=== PATIENT | male | born 1935 | race Caucasian/White ===

== ENCOUNTER 2018-05-20 00:13 | Emergency (ER) | payer MEDICARE ==
[2018-05-20 00:26] VITALS: O2SAT 95
[2018-05-20] MEDS ORDERED: Kenalog-40 IM ONE (00:53)
[2018-05-20] MEDS ORDERED: TORAdol 30 mg Injection IM ONE (00:53)
[2018-05-20] MEDS ORDERED: BENADRYL 50 MG/ML IM ONE (00:53)
[2018-05-20] MEDS ORDERED: TORAdol 30 mg Injection ONE (00:58)
[2018-05-20] MEDS ORDERED: BENADRYL 50 MG/ML ONE (00:58)
--- NOTE | 2018-05-20 01:00 | ERPHSYRPT ---
- History of Present Illness Time Seen by Provider: 05/20/18 00:55 Source: patient Exam Limitations: no limitations Patient Subjective Stated Complaint: pt co right hip pain for approx 3 days; was seen in this er earlier this pm for same s/s. Triage Nursing Assessment: pt a&o x3; skin p, w, & d; assisted to room per wheelchair; family at bedside. Physician History: pt co right hip pain for approx 3 days;, Patient has right hip pain for long time, it got worst today Method of Injury: unknown Occurred: days ago Quality: constant Severity of Pain-Max: moderate Severity of Pain-Current: moderate Lower Extremities Pain: hip: right Allergies/Adverse Reactions: No Known Drug Allergies Allergy (Verified 05/20/18 00:27) Home Medications: Glimepiride [Amaryl] 1 mg PO DAILY 12/17/14 [History] Hydrocodone Bit/Acetaminophen [Hydrocodon-Acetaminoph 7.5-325] 1 each PO DAILY 12/17/14 [History] Losartan/Hydrochlorothiazide [Losartan-Hctz 100-25 mg Tab] 1 each PO DAILY 12/17 [History] Hx Tetanus, Diphtheria Vaccination/Date Given: Yes Hx Influenza Vaccination/Date Given: Yes Hx Pneumococcal Vaccination/Date Given: Yes Immunizations Up to Date: Yes - Review of Systems Constitutional: No Fever, No Chills Eyes: No Symptoms Ears, Nose, & Throat: No Symptoms Respiratory: No Cough, No Dyspnea Cardiac: No Chest Pain, No Edema, No Syncope Abdominal/Gastrointestinal: No Abdominal Pain, No Nausea, No Vomiting, No Diarrhea Genitourinary Symptoms: No Dysuria Musculoskeletal: Joint Pain (right hip), No Back Pain, No Neck Pain, No Fall Skin: No Rash Neurological: No Dizziness, No Focal Weakness, No Sensory Changes Psychological: No Symptoms Endocrine: No Symptoms All Other Systems: Reviewed and Negative - Past Medical History Pertinent Past Medical History: Yes Neurological History: No Pertinent History ENT History: Cataracts Cardiac History: Hypertension Respiratory History: No Pertinent History Endocrine Medical History: Diabetes Type II Musculoskeletal History: Arthritis GI Medical History: No Pertinent History History: Other Psycho-Social History: No Pertinent History Male Reproductive Disorders: No Pertinent History Other Medical History: SEES DR. HANSEN EVERY 3 MONTHS. KIDNEY STONES. RECENT HERNIA SURGERY APPROX. 3 MONTHS AGO - Past Surgical History Past Surgical History: Yes Neuro Surgical History: No Pertinent History Cardiac: No Pertinent History Respiratory: No Pertinent History Gastrointestinal: Cholecystectomy, Hernia Repair Genitourinary: No Pertinent History Musculoskeletal: No Pertinent History Male Surgical History: No Pertinent History Other Surgical History: back,cataracts rt/lt - Social History Smoking Status: Never smoker Exposure to second hand smoke: No Drug Use: none Patient Lives Alone: No - Nursing Vital Signs Nursing Vital Signs: Initial Vital Signs Temperature 98.6 F 05/20/18 00:22 Pulse Rate 78 05/20/18 00:22 Respiratory Rate 16 05/20/18 00:22 Blood Pressure 140/59 05/20/18 00:22 O2 Sat by Pulse Oximetry 95 05/20/18 00:22 Pain Scale Pain Intensity 10 - Physical Exam General Appearance: alert Eyes, Ears, Nose, Throat Exam: moist mucous membranes Neck Exam: non-tender, supple Cardiovascular/Respiratory Exam: chest non-tender, normal breath sounds, regular rate/rhythm, no respiratory distress Gastrointestinal/Abdominal Exam: non-tender, guarding Back Exam: normal inspection, No vertebral tenderness Hips Exam: right: limited range of motion, pain, soft tissue tenderness Neuro/Tendon Exam: normal sensation, normal motor functions Mental Status Exam: alert, oriented x 3, cooperative Skin Exam: normal color, warm, dry SpO2: 95 Oxygen Delivery: Room Air - Course Nursing assessment & vital signs reviewed: Yes Ordered Tests: Medication Summary Discontinued Medications Generic Name Dose Route Start Last Admin Trade Name Freq PRN Reason Stop Dose Admin Diphenhydramine HCl 25 mg 05/20/18 00:53 Benadryl 50 Mg/Ml IM 05/20/18 00:54 STAT ONE Ketorolac Tromethamine 60 mg 05/20/18 00:53 Toradol 30 Mg Injection IM 05/20/18 00:54 STAT ONE Triamcinolone Acetonide 40 mg 05/20/18 00:53 Kenalog-40 IM 05/20/18 00:54 STAT ONE Xray right hip showed moderate arthritis. - Progress Progress: improved, pain not gone completely Counseled pt/family regarding: diagnosis, need for follow-up, rad results - Departure Time of Disposition: 00:58 Departure Disposition: Home Clinical Impression: Hip pain, chronic Qualifiers: Laterality: right Qualified Code(s): M25.551 - Pain in right hip; G89.29 - Other chronic pain Osteoarthritis of right hip Qualifiers: Osteoarthritis type: primary Qualified Code(s): M16.11 - Unilateral primary osteoarthritis, right hip Condition: Stable Critical Care Time: No Referrals: TYRONE HANSEN MD [Primary Care Provider] - Instructions: Hip Pain in Older People, Hip Pain (DC) Additional Instructions: Please follow the instructions given to you. Please take your medication as prescribed if given. If symptoms recur or get worse, come back to the emergency room if you cannot reach your primary care physician, or call your primary care physician for an appointment. Again if your symptoms get worse, come back to the emergency room. Thanks for visiting emergency room, and let us take care of you. CELE AGUILAR MIGUEL was seen on 05/20/18 n the Emergency Room. At that time you were treated for an emergent condition, during your visit Laboratory, Radiology and/or other procedures may have been ordered. It is very important that you follow-up with your Primary Care Physician TYRONE HANSEN within the next 24- 48 hours to review your Emergency Room visit and the final results of testing that was ordered. Some test results such as Urine Cultures, Blood Cultures, and other cultures if ordered will not be finalized for 24-48 hours. If you do not have a Primary Care Provider please call the medical records department at [phone] to obtain a copy of your results or you may sign into our patient portal to obtain these results by visiting us @ [email or web address] and completing the following steps: 1. Click on the Patient Portal link 2. Click the Patient Self Enrollment Link to complete the enrollment form and entering your 3. Once the enrollment form is completed you will receive an email with a temporary ID and password at the email address you provided. 4. Next choose a user name and password. Your user name must be at least 4 characters long and your password must be at least 4 characters long. 5. Choose a security question from the list and provide your answer to the question. If you already have signed into the Health Portal you may access your Health Care Information 02/05 by the following steps: 1. Login to our website @ [email or web address] 2. Enter your original user name and password. FAQS The [facility] Health Portal is an online tool that contains your Lab Results, Radiology Reports, Visit History, Discharge Instructions and Health Summary Lab and Radiology Results will not be available for 72 hours on the portal. The Portal is a secure site, passwords are encryted and URLs are re-written so they cannot be copied and pasted. You and authorized family members are the only ones who can access your Portal. Also there is a timeout feature that protects your information if you leave the Portal page open. If you have technical difficulty please use the Contact Us link on the page this will allow you to submit any questions you have regarding the Portal or you may contact the Medical Record Department at [phone]. Prescriptions: Naproxen 375 mg [Naprosyn 375 mg] 375 mg PO Q8H #30 tablet
[2018-05-20 01:23] VITALS: BP 107/68; PULSE 76
== END 2018-05-20 01:30 | disposition home or self-care (01) ==
LOC: ED 00:13
DX: M16.11 Unilateral primary osteoarthritis, right hip (principal); M25.551 Pain in right hip
CPT/HCPCS: 96372; 99284; J1200; J1885; J3301

== ENCOUNTER 2019-03-15 18:48 | Emergency (ER) | payer MEDICARE ==
[2019-03-15] MEDS ORDERED: Zofran 4 MG/2 ML VIAL IV ONE (19:57)
[2019-03-15] MEDS ORDERED: MORPHINE SULFATE 4 MG INJ IV ONE (19:57)
--- NOTE | 2019-03-15 20:01 | ERPHSYRPT ---
- History of Present Illness Time Seen by Provider: 03/15/19 19:57 Source: patient Exam Limitations: no limitations Patient Subjective Stated Complaint: patient has had hip issues for about 2 mths receiving pain injectiosn for hip but today ghe bent over nad it shot pain up his leg into back Triage Nursing Assessment: pt alert nad oriented x3, ablet o ambulate with cane somewhat unsteady but this is his normal, pupils equal an d reactive to light , skin warm dry and itnact, no obvious abnormalities with hip, right hip tender to touch Physician History: 83-year-old white male with history of chronic left hip pain arrives with complaint of pain in his right hip which radiates to his right low back and right abdomen began after bending over today. Past medical history includes cataracts high blood pressure diabetes arthritis kidney stones, hernia surgeries Past surgical history includes cholecystectomy, hernia repair, back surgeries, bilateral cataracts. Patient is chronically on oxycodone Timing/Duration: other (chronic left hip pain now right hip pain after bending over today) Modifying Factors: Improves With: other (bended over) Associated Symptoms: abdominal pain (pain in right low abdomen/groin), No nausea ( in pain began), No vomiting, No shortness of breath, No heartburn, No diaphoresis, No cough, No chills, No chest pain, No fever, No headaches, No loss of appetite, No malaise, No rash, No syncope, No seizure, No weakness Allergies/Adverse Reactions: No Known Drug Allergies Allergy (Verified 05/20/18 00:27) Home Medications: Glimepiride [Amaryl] 1 mg PO DAILY 12/17/14 [History] Hydrocodone Bit/Acetaminophen [Hydrocodon-Acetaminoph 7.5-325] 1 each PO DAILY 12/17/14 [History] Losartan/Hydrochlorothiazide [Losartan-Hctz 100-25 mg Tab] 1 each PO DAILY 12/17 [History] Hx Tetanus, Diphtheria Vaccination/Date Given: Yes Hx Influenza Vaccination/Date Given: Yes Hx Pneumococcal Vaccination/Date Given: Yes Immunizations Up to Date: Yes - Review of Systems Constitutional: No Fever, No Chills Eyes: No Symptoms Ears, Nose, & Throat: No Symptoms Respiratory: No Cough, No Dyspnea Cardiac: No Chest Pain, No Edema, No Syncope Abdominal/Gastrointestinal: Abdominal Pain (pain lower right abdomen and groin) , No Nausea, No Vomiting, No Diarrhea, No Constipation, No Hematemesis, No Hematochezia, No Melena, No Dysphagia, No Appetite Changes Genitourinary Symptoms: No Dysuria Musculoskeletal: Back Pain (rright back pain ), Joint Pain (right hip pain) Skin: No Rash Neurological: No Dizziness, No Focal Weakness, No Sensory Changes Psychological: No Symptoms Endocrine: No Symptoms All Other Systems: Reviewed and Negative - Past Medical History Pertinent Past Medical History: Yes Neurological History: No Pertinent History ENT History: Cataracts Cardiac History: Hypertension Respiratory History: No Pertinent History Endocrine Medical History: Diabetes Type II Musculoskeletal History: Arthritis GI Medical History: No Pertinent History History: Other Psycho-Social History: No Pertinent History Male Reproductive Disorders: No Pertinent History Other Medical History: SEES DR. HANSEN EVERY 3 MONTHS. KIDNEY STONES. RECENT HERNIA SURGERY APPROX. 3 MONTHS AGO - Past Surgical History Past Surgical History: Yes Neuro Surgical History: No Pertinent History Cardiac: No Pertinent History Respiratory: No Pertinent History Gastrointestinal: Cholecystectomy, Hernia Repair Genitourinary: No Pertinent History Musculoskeletal: No Pertinent History Male Surgical History: No Pertinent History Other Surgical History: back,cataracts rt/lt - Social History Smoking Status: Never smoker Exposure to second hand smoke: No Drug Use: none Patient Lives Alone: No - Nursing Vital Signs Nursing Vital Signs: Initial Vital Signs Temperature 98.9 F 03/15/19 18:50 Pulse Rate 72 03/15/19 18:50 Respiratory Rate 20 03/15/19 18:50 Blood Pressure 120/58 03/15/19 18:50 O2 Sat by Pulse Oximetry 98 03/15/19 18:50 Pain Scale Pain Intensity 8 - Physical Exam General Appearance: mild distress Eye Exam: PERRL/EOMI, eyes nml inspection Ears, Nose, Throat Exam: normal ENT inspection, TMs normal, pharynx normal, moist mucous membranes Neck Exam: normal inspection, non-tender, supple, full range of motion Respiratory Exam: normal breath sounds, lungs clear, No respiratory distress Cardiovascular Exam: regular rate/rhythm, normal heart sounds, normal peripheral pulses, capillary refill <2 sec Gastrointestinal/Abdomen Exam: soft, normal bowel sounds, tenderness (tender right low abdomen/groin) Back Exam: other (pain right low lumbar region) Extremity Exam: other (pain right hip with movement) Neurologic Exam: alert, oriented x 3, 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 Normal appendix, mild diffuse fecal stasis and small fatty left inguinal hernia no new or acute findings. Also stable bilateral hip degenerative joint disease) Ordered Tests: Active Orders 24 hr Category Date Time Status IV Insertion STAT Care 03/15/19 19:55 Active ABDOMEN AND PELVIS W/0 CONTRAS [CT] Stat Exams 03/15/19 19:55 Taken HIP UNI (2V) INCL PEL IF DONE Stat Exams 03/15/19 19:56 Taken CBC W DIFF Stat Lab 03/15/19 21:00 Completed CMP Stat Lab 03/15/19 21:00 Completed UA W/RFX UR CULTURE Stat Lab 03/15/19 21:00 Completed Medication Summary Discontinued Medications Generic Name Dose Route Start Last Admin Trade Name Primoq PRN Reason Stop Dose Admin Morphine Sulfate 4 mg 03/15/19 19:57 03/15/19 20:38 Morphine Sulfate 4 Mg Inj IV 03/15/19 19:58 4 mg STAT ONE Administration Morphine Sulfate Confirm 03/15/19 20:26 Morphine Sulfate 4 Mg Inj Administered 03/15/19 20:27 Dose 4 mg .ROUTE .STK-MED ONE Ondansetron HCl 4 mg 03/15/19 19:57 03/15/19 20:38 Zofran 4 Mg/2 Ml Vial IV 03/15/19 19:58 4 mg STAT ONE Administration Ondansetron HCl Confirm 03/15/19 20:26 Zofran 4 Mg/2 Ml Vial Administered 03/15/19 20:27 Dose 4 mg .ROUTE .STK-MED ONE Lab/Rad Data: Laboratory Result Diagrams 03/15/19 21:00 03/15/19 21:00 Laboratory Results 03/15/19 03/15/19 03/15/19 Range/Units 21:00 21:00 21:00 WBC 8.7 (4.0-10.5) K/mm3 RBC 3.99 L (4.1-5.6) M/mm3 Hgb 12.9 (12.5-18.0) gm/dl Hct 40.0 L (42-50) % MCV 100.3 H (78-100) fl MCH 32.3 H (26-32) pg MCHC 32.3 (32-36) g/dl RDW 14.0 (11.5-14.0) % Plt Count 275 (150-450) K/mm3 MPV 8.5 (6-9.5) fl Gran % 52.8 (36.0-66.0) % Eos # (Auto) 0.19 (0-0.5) Absolute Lymphs (auto) 2.96 (1.0-4.6) Absolute Monos (auto) 0.95 (0.0-1.3) Lymphocytes % 34.0 (24.0-44.0) % Monocytes % 10.9 (0.0-12.0) % Eosinophils % 2.2 (0.00-5.0) % Basophils % 0.1 (0.0-0.4) % Absolute Granulocytes 4.59 (1.4-6.9) Basophils # 0.01 (0-0.4) Sodium 140 (137-145) mmol/L Potassium 4.0 (3.5-5.1) mmol/L Chloride 102 (98-107) mmol/L Carbon Dioxide 30 (22-30) mmol/L Anion Gap 12.3 (5-15) MEQ/L BUN 39 H (9-20) mg/dL Creatinine 1.58 H (0.66-1.25) mg/dL Estimated GFR 44.7 ML/MIN Glucose 77 (74-106) mg/dL Calcium 9.5 (8.4-10.2) mg/dL Total Bilirubin 0.40 (0.2-1.3) mg/dL AST 22 (17-59) U/L ALT 15 (0-50) U/L Alkaline Phosphatase 107 (38-126) U/L Serum Total Protein 7.1 (6.3-8.2) g/dL Albumin 4.1 (3.5-5.0) g/dL Urine Color SURAJ (YELLOW) Urine Appearance SLIGHTLY CLOUDY (CLEAR) Urine pH 5.0 (5-6) Ur Specific [place] 1.017 (1.005-1.025) Urine Protein NEGATIVE (Negative) Urine Ketones NEGATIVE (NEGATIVE) Urine Blood NEGATIVE (0-5) Brent/ul Urine Nitrite NEGATIVE (NEGATIVE) Urine Bilirubin NEGATIVE (NEGATIVE) Urine Urobilinogen 2 (0-1) mg/dL Ur Leukocyte Esterase NEGATIVE (NEGATIVE) Urine WBC (Auto) 0-2 (0-5) /HPF Urine RBC (Auto) NONE (0-2) /HPF U Epithel Cells (Auto) NONE (FEW) /HPF Urine Bacteria (Auto) NONE (NEGATIVE) /HPF Urine Mucus (Auto) SLIGHT (NEGATIVE) /HPF Urine Culture Reflexed NO (NO) Urine Glucose NEGATIVE (NEGATIVE) mg/dL - Progress Progress: improved Progress Note: 03/15/19 21:44 CT abdomen and pelvis degenerative disease no acute intra-abdominal process. X-ray right hip no fracture no subluxation. Patient improved after morphine. Will go ahead and discharge patient - Departure Departure Disposition: Home Clinical Impression: Right lower quadrant abdominal pain, Right hip pain Back pain Qualifiers: Back pain location: low back pain Chronicity: acute Back pain laterality: right Sciatica presence: without sciatica Qualified Code(s): M54.5 - Low back pain Condition: Fair Critical Care Time: No Referrals: TYRONE HANSEN MD [Primary Care Provider] - Additional Instructions: Return home. Pain medications as prescribed by your family . Followup with your family . Return for acute distress or for severe symptoms.
[2019-03-15] MEDS ORDERED: MORPHINE SULFATE 4 MG INJ ONE (20:26)
[2019-03-15] MEDS ORDERED: Zofran 4 MG/2 ML VIAL ONE (20:26)
[2019-03-15 21:08] VITALS: O2SAT 96
[2019-03-15 21:15] LABS: BASOPHIL % 0.1 % (0.0-0.4); Basophil (Absolute #) 0.01 (0-0.4); Eosinophil % 2.2 % (0.00-5.0); Eosinophil (Absolute #) 0.19 (0-0.5); Granulocyte Absolute (ANC) 4.59 (1.4-6.9); Granulocytes % 52.8 % (36.0-66.0); Hemoglobin 12.9 gm/dl (12.5-18.0); Lymphocyte (Absolute #) 2.96 (1.0-4.6); Mean Cell Volume 100.3 fl (78-100); Mean Corpuscular Hemoglobin 32.3 pg (26-32); Mean Corpuscular Hgb Concent. 32.3 g/dl (32-36); Mean Platelet Volume 8.5 fl (6-9.5); Monocyte (Absolute #) 0.95 (0.0-1.3); Monocytes % 10.9 % (0.0-12.0); Platelet Count 275 K/mm3 (150-450); Red Blood Count 3.99 M/mm3 (4.1-5.6); White Blood Count 8.7 K/mm3 (4.0-10.5)
[2019-03-15 21:21] VITALS: BP 103/76; PULSE 69
[2019-03-15 21:28] LABS: Appearance SLIGHTLY CLOUDY (CLEAR); Bilirubin NEGATIVE (NEGATIVE); Blood NEGATIVE Ery/ul (0-5); Glucose NEGATIVE (NEGATIVE); Ketones NEGATIVE (NEGATIVE); Leukocyte Esterase NEGATIVE (NEGATIVE); Mucus SLIGHT /HPF (NEGATIVE); Nitrite NEGATIVE (NEGATIVE); Protein,Urine Dip NEGATIVE (Negative); Specific Gravity 1.017 (1.005-1.025); Urobilinogen 2 mg/dL (0-1); WBC 0-2 /HPF (0-5)
[2019-03-15 21:30] LABS: ALBUMIN 4.1 g/dL (3.5-5.0); ANION GAP 12.3 MEQ/L (5-15); BILIRUBIN,TOTAL 0.4 mg/dL (0.2-1.3); Calcium 9.5 mg/dL (8.4-10.2); Creatinine 1 1.58 mg/dL (0.66-1.25); Total Protein 7.1 g/dL (6.3-8.2)
--- NOTE | 2019-03-16 09:29 | XRAY ---
Indication: Pain. No known injury. Comparison: May 19, 2018. 2 views of the right hip unchanged again with moderate degenerative changes, hernia mesh graft, pelvic phleboliths, and mild lower lumbar degenerative spondylosis. No new/acute findings.
--- NOTE | 2019-03-16 09:32 | XRAY ---
Indication: Right lower quadrant and right hip pain. Multiple contiguous axial images obtained through the abdomen and pelvis without contrast as ordered. Comparison: October 05, 2016. Lung bases again demonstrates mild bibasilar dependent atelectasis and tiny right lung calcified granuloma. No infiltrate or effusion. Heart is not enlarged. Noncontrasted stomach and bowel loops appear nonobstructed. Normal appendix. There are again scattered colonic fecal debris throughout. No free fluid/air. Stable cholecystectomy, enlarged prostate gland, ventricles hernia repair, right inguinal hernia repair, and small fatty left inguinal hernia. Remaining liver, pancreas, spleen, adrenal glands, kidneys, ureters, and bladder appear unremarkable for noncontrast exam. Again mild scattered aortoiliac calcifications without AAA. Osseous structures intact again with mild degenerative changes throughout the spine and both hips. Impression: 1. Again mild diffuse fecal stasis without obstruction. 2. Stable enlarged prostate gland, hernia repair surgery, and small fatty left inguinal hernia. 3. No new or acute intra-abdominal/pelvic abnormalities on this noncontrast exam. CT DI 15.00
== END 2019-03-15 21:57 | disposition home or self-care (01) ==
LOC: ED 18:48
DX: M25.551 Pain in right hip (principal); R10.31 Right lower quadrant pain; M54.5 Low back pain; E11.9 Type 2 diabetes mellitus without complications; I10 Essential (primary) hypertension; Z79.899 Other long term (current) drug therapy
CPT/HCPCS: 36000; 36415; 73502; 74176; 80053; 81001; 85025; 96374; 96375; 99284; J2270; J2405

== ENCOUNTER 2020-04-05 14:57 | Emergency (ER) | payer MEDICARE ==
--- NOTE | 2020-04-05 15:09 | ERPHSYRPT ---
- History of Present Illness Time Seen by Provider: 04/05/20 15:09 Source: patient Exam Limitations: no limitations Physician History: This is a diabetic 84-year-old white male has a history of hypertension and has had 3 weeks of neck pain. Is primarily on the left side. Patient denies any type of injury. He was seen by his primary care physician yesterday and was given an injection. Patient states it was not a steroid. He felt that the medication given to him was a muscle relaxant. It did not help. Patient was told to come to the emergency room if his symptoms did not improve or they worsened. Patient denies chest pain he denies strokelike symptoms he denies shortness of breath. Timing/Duration: week(s) (3) Severity: moderate Modifying Factors: Improves With: movement (Worsens) Associated Symptoms: denies symptoms, No abdominal pain, No shortness of breath, No chest pain Allergies/Adverse Reactions: No Known Drug Allergies Allergy (Verified 04/05/20 15:41) Home Medications: Glimepiride [Amaryl] 1 mg PO DAILY 12/17/14 [History] Aspirin EC 81 mg [Ecotrin 81 mg] 81 mg PO DAILY 04/05/20 [History] Losartan Potassium [Cozaar] 100 mg PO DAILY 04/05/20 [History] Oxycodone HCl 15 mg PO Q4H 04/05/20 [History] Hx Tetanus, Diphtheria Vaccination/Date Given: Yes Hx Influenza Vaccination/Date Given: Yes Hx Pneumococcal Vaccination/Date Given: Yes Travel Risk - International Travel Have you traveled outside of the country in past 3 weeks: No - Coronavirus Screening Are you exhibiting any of the following symptoms?: No Close contact with a COVID-19 positive Pt in past 14-21 Days: No - Review of Systems Constitutional: No Symptoms Eyes: No Symptoms Ears, Nose, & Throat: No Symptoms Respiratory: No Symptoms Cardiac: No Symptoms Abdominal/Gastrointestinal: No Symptoms Genitourinary Symptoms: No Symptoms Musculoskeletal: Neck Pain (Left side) - Past Medical History Pertinent Past Medical History: Yes Neurological History: No Pertinent History ENT History: Cataracts Cardiac History: Hypertension Respiratory History: No Pertinent History Endocrine Medical History: Diabetes Type II Musculoskeletal History: Arthritis GI Medical History: No Pertinent History History: Other Psycho-Social History: No Pertinent History Male Reproductive Disorders: No Pertinent History Other Medical History: SEES DR. HANSEN EVERY 3 MONTHS. KIDNEY STONES. RECENT HERNIA SURGERY APPROX. 3 MONTHS AGO - Past Surgical History Past Surgical History: Yes Neuro Surgical History: No Pertinent History Cardiac: No Pertinent History Respiratory: No Pertinent History Gastrointestinal: Cholecystectomy, Hernia Repair Genitourinary: No Pertinent History Musculoskeletal: No Pertinent History Male Surgical History: No Pertinent History Other Surgical History: back,cataracts rt/lt - Social History Smoking Status: Never smoker Exposure to second hand smoke: No Drug Use: none Patient Lives Alone: No - Nursing Vital Signs Nursing Vital Signs: Initial Vital Signs Temperature 97.9 F 04/05/20 15:35 Pulse Rate 77 04/05/20 15:35 Blood Pressure 115/64 04/05/20 15:35 O2 Sat by Pulse Oximetry 95 04/05/20 15:35 Pain Scale Pain Intensity 10 - Physical Exam General Appearance: mild distress, alert, anxiety Eye Exam: PERRL/EOMI, eyes nml inspection Ears, Nose, Throat Exam: normal ENT inspection, moist mucous membranes Neck Exam: normal inspection, supple, full range of motion, other (No midline or vertebral tenderness. 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 Medical screening exam: This patient has no evidence of any stenosis or narrowing space. Patient has Percocet medication at home. He took this medication 3 hours ago and is just starting to kick in now. He is more comfortable. My plan is to have him continue his Percocet pain medication at home. I will give him injection intramuscularly of Ativan 1 mg. I will then send a prescription for Soma 350 mg twice a day to his pharmacy. He will follow-up with his primary care physician next week for further management. Counseled pt/family regarding: diagnosis, need for follow-up, rad results - Departure Departure Disposition: Home Clinical Impression: Muscle spasm Condition: Stable Critical Care Time: No Referrals: TYRONE HANSEN MD [Primary Care Provider] - Additional Instructions: Take your pain medication as prescribed. Follow-up with your primary care physician next week for further management. Fill your prescription for your muscle relaxant at your pharmacy. Prescriptions: Carisoprodol 350 mg [Soma 350 mg] 350 mg PO Q12H PRN PRN #8 tablet PRN Reason: Muscle Spasms
[2020-04-05 15:41] VITALS: O2SAT 95
[2020-04-05 16:21] VITALS: BP 124/65; PULSE 75
[2020-04-05] MEDS ORDERED: Ativan 2 MG/1 ML VIAL IM ONE (16:42)
[2020-04-05] MEDS ORDERED: Ativan 2 MG/1 ML VIAL ONE (16:47)
--- NOTE | 2020-04-05 19:58 | XRAY ---
Indication: Left neck pain radiating left arm 3 weeks. Multiple contiguous axial images obtained through the cervical spine. Sagittal and coronal reformatted images obtained. Comparison: April 10, 2014. Age-appropriate osteopenia. No acute fracture, suspicious bony lesions, or spinal canal stenosis. New mild/moderate C4-C5 and C6-T1 degenerative disc disease as evidenced by disc osteophyte complex, disc space narrowing, and vacuum disc phenomena. Stable mild multilevel bilateral degenerative facet hypertrophy. No acute fracture, suspicious bony lesions, or spinal canal stenosis. Sagittal and coronal reformatted images demonstrates stable 1 mm anterolisthesis of C4 on C5. New 3 mm anterolisthesis of C6 on C7 with subsequent bilateral foraminal stenosis. No acute compression fracture or jumped facet. Normal-appearing craniocervical junction. Visualized noncontrasted soft tissues demonstrates worsening moderate carotid calcifications bilaterally. Base of the brain unremarkable. Impression: Osteopenia and mild/moderate multilevel degenerative spondylosis as detailed. Stable very minimal grade 1 C4 spondylolisthesis. New grade 1 C6 spondylolisthesis. Comment: Preliminary interpretation was made by [facility]. No critical discrepancy.
== END 2020-04-05 16:57 | disposition home or self-care (01) ==
LOC: ED 14:57
DX: R25.2 Cramp and spasm (principal); Z79.899 Other long term (current) drug therapy; Z79.891 Long term (current) use of opiate analgesic
CPT/HCPCS: 72125; 96372; 99284; J2060

== ENCOUNTER 2021-08-12 10:12 | Day surgery (SDC) | payer MEDICARE ==
[~2021-08-12 10:12] MED LIST: DIPRIVAN 200 MG/20 ML IV ONE; Depo-Medrol 40 MG/ML IM ONE; Sodium Chloride 0.9(Preservative Free) 10 ML IJ ONE; Xylocaine 1% Vial 30 ML PF IJ ONE
[2021-08-12] MEDS ORDERED: Sodium Chloride 0.9% 10 ML FLUSH Syringe IJ ONE (10:13)
[2021-08-12] MEDS ORDERED: Xylocaine 1% Vial 30 ML PF IJ ONE (10:13)
[2021-08-12] MEDS ORDERED: Depo-Medrol 40 MG/ML IM ONE (10:13)
[2021-08-12] MEDS ORDERED: DIPRIVAN 200 MG/20 ML IV ONE (12:09)
--- NOTE | 2021-08-12 13:08 | XRAY ---
Indication: Lumbar RAYRAY. Intraoperative fluoroscopy provided for 31 seconds. Single lateral digital spot images submitted for interpretation demonstrates posterior needle tip projecting just posterior to the lumbosacral junction interspace. Small amount of contrast injected for needle tip placement. Correlate with intraoperative findings/report.
[2021-08-12] MEDS ORDERED: Lactated Ringers 1,000 ML IV ONE (14:05)
--- NOTE | 2021-08-13 13:47 | XRAY ---
31 seconds fluoroscopy time in surgery for lumbar RAYRAY.
== END 2021-08-12 13:00 | disposition home or self-care (01) ==
LOC: SDC-PAIN 10:12
PROVIDERS: ATTEND Psychiatry & Neurology Pain Medicine
DX: M54.16 Radiculopathy, lumbar region (principal); E11.9 Type 2 diabetes mellitus without complications; Z79.899 Other long term (current) drug therapy
CPT/HCPCS: 62323; 72100; 77003; 82947; J1030; J2001; J2704; Q9966

== ENCOUNTER 2021-08-24 08:31 | Inpatient (IN) | payer MEDICARE ==
[2021-08-24] MEDS ORDERED: MORPHINE SULFATE 2 MG INJ IV ONE (09:09)
--- NOTE | 2021-08-24 09:11 | ERPHSYRPT ---
- History of Present Illness Time Seen by Provider: 08/24/21 08:40 Source: patient Exam Limitations: no limitations Patient Subjective Stated Complaint: pt here for a fall this morning, he states he bent over to pick something up and lost balance falling over on left side. pt laid on floor for an hour. pt was able to walk out to ambulance. Triage Nursing Assessment: pt arrived per ambulance, c collar in place, resp easy, skin w/d/p. edema to lower legs that is normal for him, hes only co is hes chronic back paim, Physician History: Patient is a 86-year-old male presents to our emergency emergency department via EMS status post fall. Patient arrived in a cervical collar. Per EMS patient was bending forward to pick something up off the ground when he lost his balance and fell towards his left side. Patient was unable to get up off the floor. Patient is known to have chronic back pain but states that his low back pain is significantly worse. Patient also had neck tenderness. EMS applied a cervical collar. Patient is on blood thinners. Patient symptoms are mild to moderate in intensity. Movement and palpation worsen pain to cervical and lumbar spine. Patient also admits to experiencing a cough. He feels somewhat weak. Patient voices no other complaints or concerns at this time. Timing/Duration: today Severity: moderate Modifying Factors: Improves With: nothing Associated Symptoms: weakness, other (Back pain cervical spine pain), No nausea, No vomiting, No shortness of breath Allergies/Adverse Reactions: No Known Drug Allergies Allergy (Verified 08/24/21 08:38) Home Medications: Glimepiride [Amaryl] 1 mg PO DAILY 12/17/14 [History] Aspirin EC 81 mg [Ecotrin 81 mg] 81 mg PO DAILY 04/05/20 [History] Losartan Potassium [Cozaar] 100 mg PO DAILY 04/05/20 [History] Oxycodone HCl 15 mg PO Q4H 04/05/20 [History] Clopidogrel Bisulfate 75 mg [PLAVIX 75 MG Tablet] 1 ea DAILY 08/24/21 [History] Hx Tetanus, Diphtheria Vaccination/Date Given: Yes Hx Influenza Vaccination/Date Given: Yes Hx Pneumococcal Vaccination/Date Given: Yes Immunizations Up to Date: Yes Travel Risk - International Travel Have you traveled outside of the country in past 3 weeks: No - Coronavirus Screening Are you exhibiting any of the following symptoms?: No Close contact with a COVID-19 positive Pt in past 14-21 Days: No - Vaccine Status Have you recieved a Covid-19 vaccination: No - Review of Systems Constitutional: No Symptoms, No Fever, No Chills Eyes: No Symptoms Ears, Nose, & Throat: No Symptoms Respiratory: No Symptoms, No Cough, No Dyspnea Cardiac: No Symptoms, No Chest Pain, No Edema, No Syncope Abdominal/Gastrointestinal: No Symptoms, No Abdominal Pain, No Nausea, No Vomiting, No Diarrhea Genitourinary Symptoms: No Symptoms, No Dysuria Musculoskeletal: No Symptoms, No Back Pain, No Neck Pain Skin: No Symptoms, No Rash Neurological: No Symptoms, No Dizziness, No Focal Weakness, No Sensory Changes Psychological: No Symptoms Endocrine: No Symptoms Hematologic/Lymphatic: No Symptoms Immunological/Allergic: No Symptoms All Other Systems: Reviewed and Negative - Past Medical History Pertinent Past Medical History: Yes Neurological History: No Pertinent History ENT History: Cataracts Cardiac History: Hypertension Respiratory History: No Pertinent History Endocrine Medical History: Diabetes Type II Musculoskeletal History: Arthritis GI Medical History: No Pertinent History History: Other Psycho-Social History: No Pertinent History Male Reproductive Disorders: No Pertinent History Other Medical History: SEES DR. HANSEN EVERY 3 MONTHS. KIDNEY STONES. RECENT HERNIA SURGERY APPROX. 3 MONTHS AGO - Past Surgical History Past Surgical History: Yes Neuro Surgical History: No Pertinent History Cardiac: No Pertinent History Respiratory: No Pertinent History Gastrointestinal: Cholecystectomy, Hernia Repair Genitourinary: No Pertinent History Musculoskeletal: No Pertinent History Male Surgical History: No Pertinent History Other Surgical History: back,cataracts rt/lt - Social History Smoking Status: Never smoker Exposure to second hand smoke: No Drug Use: none Patient Lives Alone: No - Nursing Vital Signs Nursing Vital Signs: Initial Vital Signs Temperature 97.0 F 08/24/21 08:32 Pulse Rate 100 H 08/24/21 08:32 Respiratory Rate 22 08/24/21 08:32 Blood Pressure 133/75 08/24/21 08:32 O2 Sat by Pulse Oximetry 94 L 08/24/21 08:32 Pain Scale Pain Intensity 4 - Physical Exam General Appearance: no apparent distress, alert Eye Exam: PERRL/EOMI, eyes nml inspection Ears, Nose, Throat Exam: normal ENT inspection, TMs normal, pharynx normal, moist mucous membranes Neck Exam: normal inspection, non-tender, supple, midline tenderness, other (Overlying soft tissue intact. Tenderness to palpation midline cervical spine) Respiratory Exam: normal breath sounds, lungs clear, airway intact, No chest tenderness, No respiratory distress Cardiovascular Exam: regular rate/rhythm, normal heart sounds, normal peripheral pulses Gastrointestinal/Abdomen Exam: soft, normal bowel sounds, No tenderness, No mass Back Exam: normal inspection, normal range of motion, other (Tenderness palpation lumbar spine. Overlying soft tissue intact. No signs of trauma.), No CVA tenderness, No vertebral tenderness Extremity Exam: normal inspection, normal range of motion, pelvis stable Neurologic Exam: alert, oriented x 3, cooperative, normal mood/affect, nml cerebellar function, nml station & gait, sensation nml, No motor deficits Skin Exam: normal color, warm, dry, No rash Lymphatic Exam: No adenopathy SpO2 Interpretation: normal SpO2: 94 O2 Delivery: Room Air - Course Nursing assessment & vital signs reviewed: Yes EKG Interpreted by Me: RATE (95), Sinus Rhythm, NORMAL AXIS, NORMAL INTERVALS - Radiology Exams Chest X-ray Interpretation: Teleradiologist Report (New diffuse right lung left base hazy airspace disease and tiny right effusion. Heart not enlarged. Bony thorax intact with osteopenia degenerative changes and interval right shoulder arthroplasty) - CT Exams Head CT Interpretation: Tele-radiologist Report (Age-appropriate global atrophy with now worsening mild periventricular degenerative microischemia bilaterally. Stable basal ganglia and cerebellar benign calcifications. New bilateral basal ganglia remote lacunar infarcts. No acute intracranial hemorrhage abnormal a xial fluid collections or mass-) Cervical Spine CT Interpretation: Tele-radiologist Report (Stable osteopenia, mild/moderate multilevel degenerative spondylolysis and grade 1 C4/C6 anterolisthesis. No new acute abnormalities) Lumbar Spine CT Interpretation: Tele-radiologist Report (Osteopenia multilevel degenerative spondylosis and scattered arteriosclerotic calcifications. No acute findings. 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 Care 08/24/21 08:56 Active EKG-ER Only STAT Care 08/24/21 08:55 Active IV Insertion STAT Care 08/24/21 08:55 Active Pulse Oximetry (ED) STAT Care 08/24/21 08:55 Active CERVICAL SPINE WO CONTRAST [CT] Stat Exams 08/24/21 08:57 Completed CHEST 1 VIEW (PORTABLE) Stat Exams 08/24/21 08:55 Completed HEAD WITHOUT CONTRAST [CT] Stat Exams 08/24/21 08:57 Completed LUMBAR SPINE W/O [CT] Stat Exams 08/24/21 08:57 Completed BLOOD CULTURE Stat Lab 08/24/21 10:50 Ordered CBC W DIFF Stat Lab 08/24/21 09:50 Completed CK (IN-HOUSE) [CK-Creatinine Phosphokinase] Stat Lab 08/24/21 08:58 Completed CMP Stat Lab 08/24/21 09:50 Completed TROPONIN Q3H Lab 08/24/21 09:50 Completed TROPONIN Q3H Lab 08/24/21 11:45 Completed TROPONIN Q3H Lab 08/24/21 15:00 Ordered TROPONIN Q3H Lab 08/24/21 18:00 Ordered TROPONIN Q3H Lab 08/24/21 21:00 Ordered Transfer Order Routine Transfer 08/24/21 Ordered Medication Summary Generic Name Dose Route Start Last Admin Trade Name Freq PRN Reason Stop Dose Admin Remdesivir 200 mg/ Sodium 250 mls @ 125 mls/hr 08/24/21 12:44 Chloride IV 08/24/21 14:43 ONCE ONE Discontinued Medications Generic Name Dose Route Start Last Admin Trade Name Freq PRN Reason Stop Dose Admin Aspirin 324 mg 08/24/21 10:30 08/24/21 10:58 Aspirin 81 Mg Tab.Chew PO 08/24/21 10:31 324 mg STAT ONE Administration Aspirin Confirm 08/24/21 10:54 Aspirin 81 Mg Tab.Chew Administered 08/24/21 10:55 Dose 324 mg .ROUTE .STK-MED ONE Dexamethasone Sodium Phosphate 8 mg 08/24/21 12:42 Dexamethasone Sod Phosphate 10 Mg/Ml IV 08/24/21 12:43 STAT ONE Enoxaparin Sodium 70 mg 08/24/21 12:44 Enoxaparin Sodium 80 Mg/0.8 Ml Syringe SQ 08/24/21 12:45 STAT ONE Nitroglycerin/Dextrose 250 mls @ 1.5 mls/hr 08/24/21 10:30 Ntg 0.2mg/Ml In D5w Glass IV 09/23/21 10:29 .Q24H PRN CHEST PAIN Protocol 5 MCG/MIN Ceftriaxone Sodium/Dextrose 2 g in 50 mls @ 100 mls/hr 08/24/21 10:42 08/24/21 11:34 Rocephin 2 Gm-D5w 50ml Bag IV 08/24/21 11:11 Infused STAT STA Infusion Azithromycin 500 mg in 250 mls @ 250 mls/hr 08/24/21 10:42 08/24/21 11:33 Zithromax 500 Mg/ 250 Ml Nacl Premix IV 08/24/21 11:41 250 ml/hr STAT STA 250 mls/hr Administration Ceftriaxone Sodium/Dextrose Confirm 08/24/21 10:54 Rocephin 2 Gm-D5w 50ml Bag Administered 08/24/21 10:55 Dose 2 g in 50 mls @ ud IV .STK-MED ONE Azithromycin Confirm 08/24/21 11:30 Zithromax 500 Mg/ 250 Ml Nacl Premix Administered 08/24/21 11:31 Dose 500 mg in 250 mls @ ud IV .STK-MED ONE Morphine Sulfate 2 mg 08/24/21 09:09 08/24/21 09:40 Morphine Sulfate 2 Mg/Ml Inj IV 08/24/21 09:10 2 mg STAT ONE Administration Morphine Sulfate Confirm 08/24/21 09:40 Morphine Sulfate 2 Mg/Ml Inj Administered 08/24/21 09:41 Dose 2 mg .ROUTE .STK-MED ONE Lab/Rad Data: Laboratory Result Diagrams 08/24/21 09:50 08/24/21 09:50 Laboratory Results 08/24/21 08/24/21 08/24/21 Range/Units 11:45 11:12 09:50 WBC (4.0-10.5) K/mm3 RBC (4.1-5.6) M/mm3 Hgb (12.5-18.0) gm/dl Hct (42-50) % MCV (78-100) fl MCH (26-32) pg MCHC (32-36) g/dl RDW (11.5-14.0) % Plt Count (150-450) K/mm3 MPV (7.5-11.0) fl Gran % (36.0-66.0) % Eos # (Auto) (0-0.5) Absolute Lymphs (auto) (1.0-4.6) Absolute Monos (auto) (0.0-1.3) Lymphocytes % (24.0-44.0) % Monocytes % (0.0-12.0) % Eosinophils % (0.00-5.0) % Basophils % (0.0-0.4) % Absolute Granulocytes (1.4-6.9) Basophils # (0-0.4) Sodium (137-145) mmol/L Potassium (3.5-5.1) mmol/L Chloride (98-107) mmol/L Carbon Dioxide (22-30) mmol/L Anion Gap (5-15) MEQ/L BUN (9-20) mg/dL Creatinine (0.66-1.25) mg/dL Estimated GFR ML/MIN Glucose (74-106) mg/dL Calcium (8.4-10.2) mg/dL Total Bilirubin (0.2-1.3) mg/dL AST (17-59) U/L ALT (0-50) U/L Alkaline Phosphatase (38-126) U/L Creatine Kinase (55-170) U/L Troponin I 0.131 H* 0.113 H* (0.000-0.034) ng/mL Serum Total Protein (6.3-8.2) g/dL Albumin (3.5-5.0) g/dL SARS-CoV-2 (PCR) POSITIVE A (NEGATIVE) Slides for Path Review 08/24/21 08/24/21 08/24/21 Range/Units 09:50 09:50 08:58 WBC 9.2 (4.0-10.5) K/mm3 RBC 3.69 L (4.1-5.6) M/mm3 Hgb 11.4 L (12.5-18.0) gm/dl Hct 36.5 L (42-50) % MCV 98.9 (78-100) fl MCH 30.9 (26-32) pg MCHC 31.2 L (32-36) g/dl RDW 14.6 H (11.5-14.0) % Plt Count 191 (150-450) K/mm3 MPV 9.2 (7.5-11.0) fl Gran % 87.7 H (36.0-66.0) % Eos # (Auto) 0 (0-0.5) Absolute Lymphs (auto) 0.52 L (1.0-4.6) Absolute Monos (auto) 0.60 (0.0-1.3) Lymphocytes % 5.7 L (24.0-44.0) % Monocytes % 6.5 (0.0-12.0) % Eosinophils % 0.0 (0.00-5.0) % Basophils % 0.1 (0.0-0.4) % Absolute Granulocytes 8.07 H (1.4-6.9) Basophils # 0.01 (0-0.4) Sodium 137 (137-145) mmol/L Potassium 4.3 (3.5-5.1) mmol/L Chloride 101 (98-107) mmol/L Carbon Dioxide 27 (22-30) mmol/L Anion Gap 12.1 (5-15) MEQ/L BUN 45 H (9-20) mg/dL Creatinine 1.09 (0.66-1.25) mg/dL Estimated GFR > 60.0 ML/MIN Glucose 133 H (74-106) mg/dL Calcium 8.4 (8.4-10.2) mg/dL Total Bilirubin 0.70 (0.2-1.3) mg/dL AST 50 (17-59) U/L ALT 19 (0-50) U/L Alkaline Phosphatase 88 (38-126) U/L Creatine Kinase 225 H (55-170) U/L Troponin I (0.000-0.034) ng/mL Serum Total Protein 6.9 (6.3-8.2) g/dL Albumin 3.9 (3.5-5.0) g/dL SARS-CoV-2 (PCR) (NEGATIVE) Slides for Path Review YES - Progress Progress: improved Progress Note: Patient has an elevated troponin and a pneumonia observed on his chest x-ray. Patient also hypoxic. We attempted to transfer patient however there were no facilities capable of accommodating her patient at this time. I discussed the case with Dr. Hansen who accepts admission at this time. Patient has no chest pain. No ischemic changes on EKG. 08/24/21 10:48 Covid test is positive. Case discussed with Dr. Ayala who accepts admission to the Covid unit. We notified Dr. Hansen the patient will be admitted to Dr. Ayala service. Plan of care discussed with patient. He agrees to admission [facility] for further evaluation and treatment. He voices no other complaints or concerns at this time. Portions of this note were created with voice recognition technology. There may be grammatical, spelling, punctuation or sound alike errors 08/24/21 12:54 Discussed with : Theodora Will see patient in: hospital (observation) Counseled pt/family regarding: lab results, diagnosis, rad results - Departure Departure Disposition: Observation Clinical Impression: Fall, Back pain, Remote lacunar infarcts, Aortoiliac calcifications, Elevated troponin, Pleural effusion, Hypoxia, Cough, Pneumonia, SARS-CoV-2 positive Condition: Stable Critical Care Time: No
--- NOTE | 2021-08-24 09:33 | XRAY ---
Indication: Status post fall. Pneumonia. Comparison: June 09, 2011. Portable chest demonstrates new diffuse right lung/left base hazy airspace disease and tiny right effusion. Heart not enlarged. Bony thorax intact with osteopenia, degenerative changes, and interval right shoulder arthroplasty.
[2021-08-24] MEDS ORDERED: MORPHINE SULFATE 2 MG INJ ONE (09:40)
[2021-08-24 10:09] LABS: ALBUMIN 3.9 g/dL (3.5-5.0); ALKALINE PHOSPHATASE 88 U/L (38-126); ANION GAP 12.1 MEQ/L (5-15); BLOOD UREA NITROGEN 45 mg/dL (9-20); CHLORIDE 101 mmol/L (98-107); Calcium 8.4 mg/dL (8.4-10.2); Carbon Dioxide 27 mmol/L (22-30); Creatinine 1 1.09 mg/dL (0.66-1.25); EST GLOMERULAR FILTRATION RATE > 60.0 ML/MIN; Glucose 133 mg/dL (74-106); Potassium 4.3 mmol/L (3.5-5.1); SGOT/AST 50 U/L (17-59); SGPT/ALT 19 U/L (0-50); SODIUM 137 mmol/L (137-145); Total Protein 6.9 g/dL (6.3-8.2)
--- NOTE | 2021-08-24 10:15 | XRAY ---
Indication: Trauma following fall. Multiple contiguous axial images obtained through the head without contrast. Comparison: April 10, 2014. Again age-appropriate global atrophy with now worsening mild periventricular degenerative micro-ischemia bilaterally. Stable basal ganglia and cerebellar benign calcifications. New bilateral basal ganglia remote lacunar infarcts. No acute intracranial hemorrhage, abnormal extra-axial fluid collection, or mass effect. Fourth ventricle is midline without hydrocephalus. Bony calvarium intact. Visualized paranasal sinuses and mastoid air cells are clear. Impression: Nonacute senile brain with new bilateral basal ganglia remote lacunar infarcts.
--- NOTE | 2021-08-24 10:16 | XRAY ---
Indication: Pain following fall. Multiple contiguous axial images obtained through the cervical spine. Sagittal and coronal reformatted images obtained. Comparison: April 05, 2020. Remains age-related osteopenia. Axial images remain negative for acute fracture, suspicious bony lesions or spinal canal stenosis. Stable mild/moderate C4-C5 and C6-T1 degenerative endplate spurring. Stable C7-T1 degenerative vacuum disc phenomena and multilevel bilateral degenerative facet hypertrophy. Sagittal and coronal reformatted images demonstrates stable 1 mm anterolisthesis of C4 on C5, 3 mm anterolisthesis of C6 on C7, and C7-T1 disc space loss. No acute compression fracture or jumped facet. Normal-appearing craniocervical junction. Visualized noncontrasted soft tissues again demonstrates moderate bilateral carotid calcifications. Lung apices and base of brain are unremarkable. Impression: Stable osteopenia, mild/moderate multilevel degenerative spondylosis, and grade 1 C4/C6 anterolisthesis. No new/acute abnormalities.
--- NOTE | 2021-08-24 10:17 | XRAY ---
Indication: Pain following fall. Multiple contiguous axial images obtained through the lumbar spine. Sagittal and coronal reformatted images obtained. Comparison: March 15, 2019. Osseous structures remain demineralized again with mild/moderate multilevel thoracolumbar degenerative spondylosis. Axial images negative for acute fracture or suspicious bony lesions. New L1-L2 and L4-L5 degenerative vacuum disc phenomena. Sagittal and coronal reformatted images again demonstrates normal lumbar alignment with minimal multilevel degenerative disc space narrowing. No acute compression fracture or subluxation. Visualized noncontrasted soft tissues again demonstrates moderate scattered aortoiliac calcifications. Impression: Again osteopenia, multilevel degenerative spondylosis, and scattered arteriosclerotic calcifications. No acute findings.
[2021-08-24 10:20] LABS: Absolute Neutrophil Ct (ANC) 8.07 (1.4-6.9); BASOPHIL % 0.1 % (0.0-0.4); Basophil (Absolute #) 0.01 (0-0.4); Eosinophil (Absolute #) 0 (0-0.5); Hematocrit 36.5 % (42-50); Hemoglobin 11.4 gm/dl (12.5-18.0); Lymphocyte (Absolute #) 0.52 (1.0-4.6); Lymphocytes % 5.7 % (24.0-44.0); Mean Cell Volume 98.9 fl (78-100); Mean Corpuscular Hemoglobin 30.9 pg (26-32); Mean Corpuscular Hgb Concent. 31.2 g/dl (32-36); Mean Platelet Volume 9.2 fl (7.5-11.0); Monocytes % 6.5 % (0.0-12.0); Neutrophil % 87.7 % (36.0-66.0); Platelet Count 191 K/mm3 (150-450); Red Blood Count 3.69 M/mm3 (4.1-5.6); Red Cell Distribution Width 14.6 % (11.5-14.0); White Blood Count 9.2 K/mm3 (4.0-10.5)
[2021-08-24] MEDS ORDERED: BABY ASPIRIN 81 MG CHEW PO ONE (10:30)
[2021-08-24] MEDS ORDERED: Ntg 0.2MG/Ml in D5W GLASS*** 250 ML IV PRN (10:30)
[2021-08-24] MEDS ORDERED: ROCEPHIN 2 Gm-D5w 50ML BAG** 2 G/50 ML IVPB IV STA (10:42)
[2021-08-24] MEDS ORDERED: Zithromax 500 MG/ 250 ML NaCl Premix 500 MG/250 ML IVPB IV STA (10:42)
[2021-08-24] MEDS ORDERED: BABY ASPIRIN 81 MG CHEW ONE (10:54)
[2021-08-24] MEDS ORDERED: ROCEPHIN 2 Gm-D5w 50ML BAG** 2 G/50 ML IVPB IV ONE (10:54)
[2021-08-24] MEDS ORDERED: Zithromax 500 MG/ 250 ML NaCl Premix 500 MG/250 ML IVPB IV ONE (11:30)
[2021-08-24 11:51] LABS: Slide Review 1 YES
[2021-08-24] MEDS ORDERED: DECADRON 10MG INJ. IV ONE (12:42)
[2021-08-24] MEDS ORDERED: ENOXAPARIN SODIUM SQ ONE (12:44)
[2021-08-24] MEDS ORDERED: REMDESIVIR 200 MG in Sodium Chloride 0.9% 250 ML 250 ML IV ONE ×2 (12:44→18:00)
[2021-08-24] MEDS ORDERED: MORPHINE SULFATE 4 MG INJ IV PRN (14:11)
[2021-08-24] MEDS ORDERED: Ativan 2 MG/1 ML VIAL IV PRN (15:33)
[2021-08-24] MEDS ORDERED: TYLENOL EXTRA STRENGTH 500 MG PO PRN (15:41)
[2021-08-24] MEDS ORDERED: Zofran 4 MG/2 ML VIAL IV PRN (15:43)
[2021-08-24] MEDS ORDERED: SOMA 350 MG PO PRN (15:46)
[2021-08-24] MEDS ORDERED: OXYCODONE HCL 15 MG PO SCH (16:00)
[2021-08-24] MEDS: ENOXAPARIN SODIUM SQ SCH (16:58)
[2021-08-24] MEDS: OLUMIANT PO SCH (16:58)
[2021-08-24] MEDS: DECADRON 10MG INJ. IV SCH (17:06)
[2021-08-24] MEDS ORDERED: PLAVIX 75 MG Tablet PO ONE (20:58)
[2021-08-24] MEDS: HYDROCODONE-CHLORPHEN ER SUSP PO PRN (21:10)
[2021-08-24] MEDS: Neurontin 100 MG PO SCH (21:11)
[2021-08-25 05:29] LABS: Absolute Neutrophil Ct (ANC) 5.82 (1.4-6.9); Basophil (Absolute #) 0 (0-0.4); Eosinophil (Absolute #) 0 (0-0.5); Hematocrit 39.7 % (42-50); Hemoglobin 12.8 gm/dl (12.5-18.0); Lymphocyte (Absolute #) 0.56 (1.0-4.6); Lymphocytes % 8.4 % (24.0-44.0); Mean Cell Volume 97.1 fl (78-100); Mean Corpuscular Hemoglobin 31.3 pg (26-32); Mean Corpuscular Hgb Concent. 32.2 g/dl (32-36); Mean Platelet Volume 9.3 fl (7.5-11.0); Monocyte (Absolute #) 0.28 (0.0-1.3); Monocytes % 4.2 % (0.0-12.0); Neutrophil % 87.4 % (36.0-66.0); Platelet Count 193 K/mm3 (150-450); Red Blood Count 4.09 M/mm3 (4.1-5.6); Red Cell Distribution Width 14.5 % (11.5-14.0); White Blood Count 6.7 K/mm3 (4.0-10.5)
[2021-08-25 05:48] LABS: INR 1.27 (0.8-3.0)
[2021-08-25 06:03] LABS: Slide Review 1 YES
[2021-08-25 06:12] LABS: ALBUMIN 3.1 g/dL (3.5-5.0); ALKALINE PHOSPHATASE 86 U/L (38-126); ANION GAP 13.3 MEQ/L (5-15); BLOOD UREA NITROGEN 32 mg/dL (9-20); CHLORIDE 105 mmol/L (98-107); Carbon Dioxide 25 mmol/L (22-30); Creatinine 1 0.67 mg/dL (0.66-1.25); EST GLOMERULAR FILTRATION RATE > 60.0 ML/MIN; Glucose 202 mg/dL (74-106); SGOT/AST 49 U/L (17-59); SGPT/ALT 20 U/L (0-50); SODIUM 140 mmol/L (137-145); Total Protein 5.8 g/dL (6.3-8.2)
[2021-08-25] MEDS: Oxy-IR 5 MG PO PRN ×3 (06:54→20:06)
[2021-08-25] MEDS ORDERED: NON-FORMULARY ITEM (Losartan Potassium [Cozaar] 100 MG Tablet) PO SCH (10:00)
[2021-08-25] MEDS ORDERED: GLIMEPIRIDE 1 MG PO SCH (10:00)
[2021-08-25] MEDS: Amaryl 2 MG PO SCH (10:11)
[2021-08-25] MEDS: ENOXAPARIN SODIUM SQ SCH (10:12)
[2021-08-25] MEDS: OLUMIANT PO SCH (10:12)
[2021-08-25] MEDS: DECADRON 10MG INJ. IV SCH (10:12)
[2021-08-25] MEDS: Cozaar 50 MG PO SCH (10:12)
[2021-08-25] MEDS: PLAVIX 75 MG Tablet PO SCH (10:13)
[2021-08-25] MEDS: REMDESIVIR 100 MG in Sodium Chloride 0.9% 100 ML BAG 100 ML IV SCH (10:18)
[2021-08-25] MEDS: HUMALOG SQ PRN ×2 (12:00→22:08)
--- NOTE | 2021-08-25 13:47 | HP ---
CHIEF COMPLAINT: Fall, shortness of breath, chronic cough for four or five days. 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 He had a fall. He bent over and lost his balance. He laid out in the yard for about an hour when the ambulance picked him up. His x-ray was normal but he was having some respiratory problems. Labs showed his troponin was mildly elevated. Chest x-ray showed infiltrates bilateral and COVID test came back positive. He has some chronic low back pain and takes a narcotic pill at night. 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 He is complaining about his cough, generalized weakness and feeling bad for some time. I believe his fall is related to his weakness. He denied passing out. TRAVEL RISK: None. CORONAVIRUS SCREENING: Exposure to COVID: The patient's son had COVID a month ago and was admitted here. VACCINE STATUS: No vaccine. He was exposed to his son who had COVID and was admitted here. MEDICATIONS: Amaryl 1 mg q.d., aspirin 81 q.d., losartan 100 q.d., oxycodone 15 every 4 hours but usually just takes one at bedtime. Plavix 75 q.d. ALLERGIES: NKDA. PAST MEDICAL HISTORY: Hypertension, diabetes mellitus, history of stroke in the past. History of kidney stones. PAST SURGICAL HISTORY: Hernia surgery three months ago. REVIEW OF SYSTEMS: CONSTITUTIONAL: The patient has increased tremor, chills and just feeling terrible, short of breath on exertion. HEENT: No loss of taste. CARDIAC: No chest pain. No edema. No heart attacks. ABDOMEN: Decreased appetite. No vomiting or diarrhea. : No problems with urination. NEUROLOGIC: No confusion. No dizziness. No focal changes. He does have tremor bilateral may be worse in his left hand which is chronic. SOCIAL HISTORY: He lives with his who is probably 86. He has been on the [employer] for many, many years. 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 He has never smoked, never drank. PHYSICAL EXAMINATION: VITAL SIGNS: Temperature 97F, pulse 100, respiratory rate 22, blood pressure 130/75. Pulse oximetry 94% in the emergency room but it deteriorated quickly and he was brought back here. HEENT: Pupils equal and reactive to light. Hears really well. CHEST: Rhonchi and wheezing bilateral. No chest wall tenderness. CVS: Regular rate. I do not hear any murmurs, slightly tachycardic. ABDOMEN: Soft. No masses or organomegaly. BACK: Some tenderness over the lower back. EXTREMITIES: He moves all. He has a tension tremor in both of his hands NEUROLOGIC: He is alert and orientated, a very pleasant man, well known in [place] town. LAB DATA AND TESTS: Chest x-ray right lung, left base hazy airspace disease which I think looks like COVID. CT shows calcifications, remote lacunar infarcts, no acute hemorrhage. CT spine shows degenerative changes. EKG shows no acute changes. White count was 9.2, hemoglobin 11.4. Electrolytes within normal. Creatinine 1.09, glucose 133. Troponin was a little bit elevated at 0.113. IMPRESSION: The patient's emergency room doctor going to admit him to his physician, Dr. Jones. For cardiac reasons we were actually going to transfer him. However, his COVID test came back positive. I think very likely his fall and the positive enzymes are somewhat related to the COVID. The patient stated he has just been really weak and his tremors are much worse. He will be admitted to the COVID unit. His troponins will be followed. He was started on the four usual drugs for COVID. His O2 will be titrated. PROGNOSIS: Good.
[2021-08-25] MEDS: HYDROCODONE-CHLORPHEN ER SUSP PO PRN (21:56)
[2021-08-25] MEDS: Neurontin 100 MG PO SCH (21:56)
[2021-08-26] MEDS: Oxy-IR 5 MG PO PRN ×3 (07:41→22:19)
[2021-08-26] MEDS: OLUMIANT PO SCH (08:55)
[2021-08-26] MEDS: Amaryl 2 MG PO SCH (08:56)
[2021-08-26] MEDS: DECADRON 10MG INJ. IV SCH (08:56)
[2021-08-26] MEDS: PLAVIX 75 MG Tablet PO SCH (08:56)
[2021-08-26] MEDS: ENOXAPARIN SODIUM SQ SCH (08:56)
[2021-08-26] MEDS: Cozaar 50 MG PO SCH (08:56)
[2021-08-26] MEDS: REMDESIVIR 100 MG in Sodium Chloride 0.9% 100 ML BAG 100 ML IV SCH (10:20)
[2021-08-26] MEDS: HYDROCODONE-CHLORPHEN ER SUSP PO PRN ×2 (10:23→22:19)
[2021-08-26] MEDS: HUMALOG SQ PRN ×3 (11:12→22:35)
[2021-08-26] MEDS: Neurontin 100 MG PO SCH (22:19)
[2021-08-27 06:07] LABS: Hematocrit 43.2 % (42-50); Hemoglobin 13.9 gm/dl (12.5-18.0); Mean Cell Volume 97.3 fl (78-100); Mean Corpuscular Hemoglobin 31.3 pg (26-32); Mean Corpuscular Hgb Concent. 32.2 g/dl (32-36); Mean Platelet Volume 9.6 fl (7.5-11.0); Platelet Count 237 K/mm3 (150-450); Red Blood Count 4.44 M/mm3 (4.1-5.6); Red Cell Distribution Width 14.8 % (11.5-14.0); White Blood Count 10.8 K/mm3 (4.0-10.5)
[2021-08-27] MEDS: Oxy-IR 5 MG PO PRN ×2 (07:21→20:21)
--- NOTE | 2021-08-27 08:40 | XRAY ---
Indication: Follow-up Covid 19. Comparison: August 24, 2021. Portable chest demonstrates minimally worsening diffuse right lung and left mid to lower lung airspace disease without consolidation/large effusion. Heart and mediastinal structures remain within normal limits.
[2021-08-27] MEDS: OLUMIANT PO SCH (09:13)
[2021-08-27] MEDS: HYDROCODONE-CHLORPHEN ER SUSP PO PRN ×2 (09:14→21:48)
[2021-08-27] MEDS: HUMALOG SQ PRN ×4 (09:14→21:48)
[2021-08-27] MEDS: Cozaar 50 MG PO SCH (09:15)
[2021-08-27] MEDS: ENOXAPARIN SODIUM SQ SCH (09:15)
[2021-08-27] MEDS: DECADRON 10MG INJ. IV SCH (09:15)
[2021-08-27] MEDS: PLAVIX 75 MG Tablet PO SCH (09:15)
[2021-08-27] MEDS: Ativan 1 MG PO PRN (09:15)
[2021-08-27] MEDS: REMDESIVIR 100 MG in Sodium Chloride 0.9% 100 ML BAG 100 ML IV SCH (09:16)
[2021-08-27] MEDS: Amaryl 2 MG PO SCH (09:16)
--- NOTE | 2021-08-27 10:14 | PROG NOTE ---
CHIEF COMPLAINT: Increasing shortness of breath, tremor. HISTORY: On 08/24/2021, the patient fell in the front yard and could not get up until people arrived to help him up. He said he had no nausea or vomiting, somewhat decreased appetite. His son did have COVID three weeks ago. He lives with his who is presently healthy, neither one of them is vaccinated. He improved tremendously after starting on oxygen and really by the next morning he was feeling better. His chest x-ray showed some start of COVID pneumonia. His white count was normal. Other labs are pretty normal. [place] [id number] done on 08/27/2021. 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 He also is on the [employer]. You would often see him in [place] walking down the street with his . He gardens outside and stays active. Only major problem is chronic low back pain. He is on blood thinners because he apparently had CVA but he has no problems presently neurologically. He has had diabetes for ten years. He quit smoking many years ago. He had 50 pack years in. Because of the low back pain he occasionally taken oxycodone at night. He did not receive the COVID vaccine. He has not traveled outside of the wonderful town of [place]. He has had no chest pain. No history of myocardial infarction. MEDICATIONS: Amaryl 1 mg q.d., aspirin 81 q.d., losartan 100 mg q.d., oxycodone 15 q.d., Plavix 75 q.d. ALLERGIES: NKDA. PAST MEDICAL HISTORY: He is anticoagulated because of his past history of stroke several years ago. He has history of kidney stones in the past. He has mild diabetes mellitus type II. 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 PAST SURGICAL HISTORY: He had a cholecystectomy in the past. Hernia surgery three months ago. PHYSICAL EXAMINATION: The patient is alert, orientated, remembers me. VITAL SIGNS: Temperature 97F, pulse 100, respiratory rate 22, blood pressure 130/75. O2 saturation on 2 liters is 92%. HEENT: Pupils equal and reactive to light. Taste is normal. NECK: No bruits. CHEST: Rhonchi and rales bilateral quite loud, in mild respiratory distress. CVS: He is probably tachycardic. No murmurs or gallops. ABDOMEN: No masses. No masses. EXTREMITIES: No cyanosis. No edema. LAB DATA AND TESTS: I noted that his troponins are elevated and I think in the emergency room they stayed elevated and went down the next morning. SOCIAL HISTORY: His is active and he lives with her. He has a daughter who is a nurse who is in the area. He gardens outside. He is active on current events. He did quit smoking numerous years ago, 50 pack years before he quit. IMPRESSION: The patient has: 1) COVID pneumonia. 2) Elevated troponins. 3) Degenerative back disease. 4) History of CVA. PLAN: The patient will be started on Lovenox, kept on Plavix. He has history of elevated troponins. Will give him O2 to keep his oxygen level above 90%, Lovenox, Decadron, antibodies, and will probably try to get him up and try to get him home. PROGNOSIS: Fairly good.
--- NOTE | 2021-08-27 10:50 | PROG NOTE ---
HISTORY: Evaluation of his chest few wheezes markedly better since admission. However, he is coughing up some stuff that had some blood in it. He is on Lovenox and Plavix due to history of stroke and elevated troponins. [place] [address]. He had a chest x-ray which is on the chart. He had CT head which showed some chronic degeneration changes as well as his chronic moderate bilateral calcifications in the emergency room. Chest x-ray on admission showed right lung, left base hazy airspace compatible really with COVID although not quite classical. EKG showed old bundle branch block, sinus rhythm and no ischemic changes despite his troponin going up and coming in 12 hours. The patient states he feels better. His chest is clear. Heart sounds normal. Abdomen soft. IMPRESSION: The patient has COVID pneumonia and no signs of problems other than the elevated troponins secondary to COVID, myocarditis which is improved. BNP which was normal. His [place] yesterday was 866[address] which is going up. White count up to 10. Blood cultures are negative. PLAN: Continue all four medications for COVID. Will try to get him more prone. He is on 5 liters with nasal cannula will probably try to change that to rebreather. I have asked Dr. Jung Jerez for his opinion. PROGNOSIS: Winona to be good.
--- NOTE | 2021-08-27 13:30 | CONS ---
CONSULT DATE: 08/27/2021 HISTORY: Jordi Lezama is an 86-year-old pleasant, unvaccinated male who had been admitted on 08/24/2021. The patient reportedly had been sick for about two weeks prior to this admission. He started experiencing cough, shortness of breath and hypoxia. The patient did test positive for COVID with a chest x-ray revealing bilateral infiltrates. Since admission, he has been treated with IV Remdesivir, oral Olumiant, Decadron along with anticoagulation for deep vein thrombosis prophylaxis. He does report some improvement in shortness of breath. At the time of my evaluation, he is on 6 liters oxygen via nasal cannula. He is eating lunch and appears comfortable. He denies any previous pulmonary problems. He is a former smoker. PAST MEDICAL HISTORY: Positive for history of hypertension, diabetes mellitus. PAST SURGICAL HISTORY: Noted. PERSONAL AND SOCIAL HISTORY: The patient is a former smoker but he quit smoking about 40 years ago. MEDICATIONS: Home and current medications were reviewed. ALLERGIES: NKDA. PHYSICAL EXAMINATION: An elderly male who appears comfortable at rest, able to carry out a conversation. Vital signs noted. HEENT: Normocephalic. Oral exam is partially edentulous. NECK: Supple. CVS: First and second heart sounds are normal, regular, rhythmic. RESPIRATORY: Shows diminished breath sounds, crackles are heard mainly in right lung base. ABDOMEN: Soft. EXTREMITIES: No significant edema is noted. LABORATORY [place]S: [place] [address]. D-dimer 94255. Cultures are negative. White count 10.8, hemoglobin 13.9, hematocrit 43, PLT count 237,000. Sodium 140, potassium of 4.0, chloride 105, bicarb 25, glucose 202, BUN 32, creatinine 0.67. Troponin is 0.118. Chest x-ray reviewed. ASSESSMENT: This is an 86-year-old male admitted with: 1) Acute hypoxic respiratory failure. 2) COVID-19 infection. 3) Viral pneumonia secondary to COVID-19. 4) Non-ST myocardial infarction. 5) Comorbidities listed above. RECOMMENDATIONS: 1) I agree with current treatment. 2) Continue supplemental oxygen. 3) Continue postural therapy. The patient is somewhat reluctant for proning but would benefit from lateral rotation. 4) Continue deep breathing exercises along with incentive spirometry. 5) Follow up chest x-ray and oxygenation closely. I will be available as needed. Thank you, Dr. Rowland, for allowing me to participate in the care of this patient.
[2021-08-27] MEDS: Neurontin 100 MG PO SCH (21:49)
[2021-08-28 05:45] LABS: Hematocrit 41.7 % (42-50); Hemoglobin 13.6 gm/dl (12.5-18.0); Mean Cell Volume 96.1 fl (78-100); Mean Corpuscular Hemoglobin 31.3 pg (26-32); Mean Corpuscular Hgb Concent. 32.6 g/dl (32-36); Mean Platelet Volume 9.7 fl (7.5-11.0); Platelet Count 203 K/mm3 (150-450); Red Blood Count 4.34 M/mm3 (4.1-5.6); Red Cell Distribution Width 14.5 % (11.5-14.0); White Blood Count 13.3 K/mm3 (4.0-10.5)
[2021-08-28 06:09] LABS: ALBUMIN 3.2 g/dL (3.5-5.0); ALKALINE PHOSPHATASE 99 U/L (38-126); ANION GAP 12.8 MEQ/L (5-15); BLOOD UREA NITROGEN 33 mg/dL (9-20); CHLORIDE 104 mmol/L (98-107); Calcium 8.7 mg/dL (8.4-10.2); Carbon Dioxide 26 mmol/L (22-30); EST GLOMERULAR FILTRATION RATE > 60.0 ML/MIN; Glucose 219 mg/dL (74-106); Potassium 4.4 mmol/L (3.5-5.1); SGOT/AST 34 U/L (17-59); SGPT/ALT 22 U/L (0-50); SODIUM 138 mmol/L (137-145); Total Protein 5.8 g/dL (6.3-8.2)
[2021-08-28 07:13] LABS: ATYPICAL LYMPHS 1 %; BAND 4 % (0.0-2.0); Lymphocytes 3 % (24-44); Monocyte 8 % (0.0-12.0); Neutrophils 84 % (36.-66.); Total Cells Counted 100
[2021-08-28 07:14] LABS: Platelet Estimate NORMAL (NORMAL)
[2021-08-28 07:15] LABS: Absolute Neutrophil Ct (ANC) 11.66 (1.4-6.9)
[2021-08-28] MEDS ORDERED: Golytely Solution 4000 ML PO SCH (09:00)
[2021-08-28] MEDS: XARELTO 10 MG TABLET PO SCH (09:07)
--- NOTE | 2021-08-28 09:07 | XRAY ---
Indication: Elevated d-dimer. Positive Covid 19. Multiple contiguous axial images obtained through the chest using 80 cc Isovue 370 contrast and PE protocol. Comparison: None Good opacification of the pulmonary arteries to include the lobar and segmental branches. Study slightly degraded by diffuse respiration artifact. Nonoccluding pulmonary emboli seen in the medial segmental branch of the right middle lobe and lesser degree anterior segmental branch of the right lower lobe. Heart is not enlarged. Aorta mildly arteriosclerotic without aneurysm/dissection. Small mediastinal and left hilar calcified nodes. No pathologic mediastinal/hilar lymphadenopathy. Lungs demonstrate extensive bilateral airspace disease with posterior right upper and posterior bilateral lower lobe consolidations. No effusion. Bony thorax intact with mild osteopenia and flowing osteophytes throughout the spine and right shoulder arthroplasty. Limited upper abdomen demonstrates cholecystectomy clips. Impression: 1. Right middle and right lower lobe nonoccluding pulmonary emboli. 2. Diffuse bilateral consolidating/nonconsolidating airspace disease favoring clinically reported Covid 19 pneumonia. 3. Incidental chronic bony findings and old granulomatous disease. Comment: Preliminary interpretation made by C. No critical discrepancy.
[2021-08-28] MEDS: OLUMIANT PO SCH (09:08)
[2021-08-28] MEDS: Cozaar 50 MG PO SCH (09:09)
[2021-08-28] MEDS: Amaryl 2 MG PO SCH (09:09)
[2021-08-28] MEDS: DECADRON 10MG INJ. IV SCH (09:17)
[2021-08-28] MEDS: REMDESIVIR 100 MG in Sodium Chloride 0.9% 100 ML BAG 100 ML IV SCH (09:23)
[2021-08-28] MEDS: Ativan 1 MG PO PRN (09:29)
[2021-08-28] MEDS: Oxy-IR 5 MG PO PRN ×2 (09:31→20:54)
[2021-08-28] MEDS: PLAVIX 75 MG Tablet PO SCH (09:58)
[2021-08-28] MEDS: HUMALOG SQ PRN ×3 (11:54→21:00)
[2021-08-28] MEDS: Neurontin 100 MG PO SCH (20:55)
[2021-08-29 06:53] LABS: Hemoglobin 14.8 gm/dl (12.5-18.0); Mean Cell Volume 93.9 fl (78-100); Mean Corpuscular Hemoglobin 30.9 pg (26-32); Mean Corpuscular Hgb Concent. 32.9 g/dl (32-36); Mean Platelet Volume 9.3 fl (7.5-11.0); Platelet Count 83 K/mm3 (150-450); Red Blood Count 4.79 M/mm3 (4.1-5.6); Red Cell Distribution Width 15.3 % (11.5-14.0); White Blood Count 14.5 K/mm3 (4.0-10.5)
[2021-08-29] MEDS: Oxy-IR 5 MG PO PRN (06:53)
[2021-08-29] MEDS: OLUMIANT PO SCH (09:45)
[2021-08-29] MEDS: XARELTO 10 MG TABLET PO SCH (09:45)
[2021-08-29] MEDS: Cozaar 50 MG PO SCH (09:45)
[2021-08-29] MEDS: Amaryl 2 MG PO SCH (09:46)
[2021-08-29] MEDS: DECADRON 10MG INJ. IV SCH (09:47)
[2021-08-29 11:05] LABS: BAND 6 % (0.0-2.0); Lymphocytes 4 % (24-44); Monocyte 6 % (0.0-12.0); Neutrophils 84 % (36.-66.); Platelet Estimate DECREASED (NORMAL); Total Cells Counted 100
[2021-08-29 11:06] LABS: Toxic Granulation 1+
--- NOTE | 2021-08-29 11:11 | PCM.DS ---
Discharge Summary Date of Admission: 08/27/21 10:27 Admitting Physician: MAURICE LOPEZ Consults: Consults on Case 08/27/21 10:02 Consult Pulmonology ROUTINE Primary Care Provider: TYRONE HANSEN Allergies Allergies No Known Drug Allergies Allergy (Verified 08/24/21 08:38) Hospital Summary - Hospital Course Hospital Course: Pt is an 86 yo male pt of Dr. Suarez who was admitted to the COVID unit after a fall, with pneumonia and a positive covid test. He was sick for approx 2 weeks at home prior to admission. He has been on up to 6L NC then today required oxymask. His D-dimer was elevated initially to over 2,000 but yesterday was >68,000 and today >100,000. Yesterday CT chest found him to have (non-occludin g) PEs. He has been on dexamethasone 8mg IV daily. He finished a course of remdesivir. He is on xarelto 20mg/d. Dr. Jerez has seen him during this stay. Blood cultures have been negative. CT on admission of L-spine, head, and c- spine were nonacute. He tells the nurse he is actually feeling a little better today. He is being transferred to [facility] under Dr. Jean, thank you, with Dr. Viramontes (on for Dr. Jerez) to consult. - Vitals & Intake/Output Vital Signs: Vital Signs Temperature 98.2 F 08/29/21 08:00 Pulse Rate 89 08/29/21 09:00 Respiratory Rate 28 H 08/29/21 09:00 Blood Pressure 153/83 08/29/21 08:00 O2 Sat by Pulse Oximetry 90 L 08/29/21 09:00 Intake & Output: Intake & Output 08/26/21 08/27/21 08/28/21 08/29/21 11:59 11:59 11:59 11:59 Intake Total 1200 720 720 740 Output Total 1475 1200 1470 1075 Balance -275 -480 -750 -335 - Lab Result Diagrams: 08/29/21 06:15 08/28/21 05:15 Lab Results-Last 24 Hrs: Lab Results-Last 24 Hours 08/28/21 08/28/21 08/28/21 Range/Units 11:38 16:26 20:28 WBC (4.0-10.5) K/mm3 RBC (4.1-5.6) M/mm3 Hgb (12.5-18.0) gm/dl Hct (42-50) % MCV (78-100) fl MCH (26-32) pg MCHC (32-36) g/dl RDW (11.5-14.0) % Plt Count (150-450) K/mm3 MPV (7.5-11.0) fl D-Dimer (215-500) ng/mL POC Glucometer 278 H 288 H 336 H (74 to 106) mg/dL 08/29/21 08/29/21 08/29/21 Range/Units 06:15 06:15 09:57 WBC 14.5 H (4.0-10.5) K/mm3 RBC 4.79 (4.1-5.6) M/mm3 Hgb 14.8 (12.5-18.0) gm/dl Hct 45.0 (42-50) % MCV 93.9 (78-100) fl MCH 30.9 (26-32) pg MCHC 32.9 (32-36) g/dl RDW 15.3 H (11.5-14.0) % Plt Count 83 L D (150-450) K/mm3 MPV 9.3 (7.5-11.0) fl D-Dimer [id number] H* (215-500) ng/mL POC Glucometer 196 H (74 to 106) mg/dL Micro Results-Entire Visit: Microbiology 08/24/21 10:50 Blood Culture - Preliminary Blood NO GROWTH TO DATE 08/24/21 09:58 Blood Culture - Preliminary Blood NO GROWTH TO DATE Accuchecks Date 08/28/21 Date 08/28/21 Time 16:30 Time 11:30 - Radiology Exams Ordered Rad Exams-Entire Visit: Radiology Procedures Category Date Time Status CHEST WITH CONTRAST [CT] Stat Exams 08/28/21 06:27 Completed - Procedures and Test Procedures and Tests throughout Hospitalization: Therapy Orders & Screens 08/24/21 14:11 Respiratory Therapy Consult ROUTINE Comment: Reason For Exam: 08/24/21 15:35 Respiratory Therapy Consult ROUTINE Comment: Reason For Exam: Diagnosis: COVID + 08/24/21 15:58 Oxygen NASAL CANNULA 4 lpm Comment: Diagnosis: COVID + 08/25/21 06:00 EKG ROUTINE Comment: Diagnosis: COVID + Discharge Exam General Appearance: no apparent distress, alert Neurologic Exam: oriented x 3, cooperative Eye Exam: eyes nml inspection Ears, Nose, Throat Exam: moist mucous membranes Neck Exam: normal inspection Respiratory Exam: normal breath sounds, lungs clear, crackles/rales (scattered, faint), other (on oximask), No rhonchi, No wheezing Cardiovascular Exam: regular rate/rhythm, normal heart sounds, No murmur Gastrointestinal/Abdomen Exam: soft, No normal bowel sounds (hypoactive but present), No tenderness, No distention, No mass, No guarding, No rebound Extremity Exam: normal inspection, No pedal edema, No swelling Skin Exam: normal color, warm, dry, No rash Final Diagnosis/Problem List - Final Discharge Diagnosis/Problem (1) SARS-CoV-2 positive Current Visit: Yes Status: Acute Assessment & Plan: Worsening hypoxemia and increasingly elevated d-dimer. Transferring today to higher level of care. Code(s): U07.1 - COVID-19 (2) Pneumonia Current Visit: Yes Status: Acute Assessment & Plan: Thought to be viral pneumonia. Code(s): J18.9 - PNEUMONIA, UNSPECIFIED ORGANISM (3) Pulmonary emboli Current Visit: Yes Status: Acute Assessment & Plan: nonobstructing. on xarelto. Code(s): I26.99 - OTHER PULMONARY EMBOLISM WITHOUT ACUTE COR PULMONALE (4) Fall Current Visit: Yes Status: Acute Code(s): W19.XXXA - UNSPECIFIED FALL, INITIAL ENCOUNTER - [facility]charge [facility]position[facility] Condition: Serious Prescriptions: No Action Glimepiride [Amaryl] 1 mg PO DAILY Aspirin EC 81 mg [Ecotrin 81 mg] 81 mg PO DAILY Losartan Potassium [Cozaar] 100 mg PO DAILY Oxycodone HCl 15 mg PO Q4H Carisoprodol 350 mg [Soma 350 mg] 350 mg PO Q12H PRN PRN #8 tablet PRN Reason: Muscle Spasms Clopidogrel Bisulfate 75 mg [PLAVIX 75 MG Tablet] 1 ea DAILY Gabapentin 100 mg [Neurontin 100 MG] 100 mg PO DAILY Follow up with: CEE JEREZ [ACTIVE STAFF] - TYRONE HANSEN MD [Primary Care Provider] - Forms: Ambulance Transport Record, Transfer Record Inter-Agency
[2021-08-31 16:41] VITALS: BP 153/83; PULSE 87; O2SAT 91
== END 2021-08-29 12:18 | disposition short-term general hospital (02) | DRG 177 ==
LOC: ED 08:31 → MED SURG 13:11 → ED 13:13 → OBSVTOIN 08-27 10:27
PROVIDERS: ADMIT Family Medicine; ATTEND Family Medicine
DX: U07.1 COVID-19 (principal); J96.01 Acute respiratory failure with hypoxia; I21.4 Non-ST elevation (NSTEMI) myocardial infarction; J12.82 Pneumonia due to coronavirus disease 2019; I26.99 Other pulmonary embolism without acute cor pulmonale; M54.50 Low back pain, unspecified; W18.39XA Other fall on same level, initial encounter; R77.8 Other specified abnormalities of plasma proteins; I70.0 Atherosclerosis of aorta; E11.9 Type 2 diabetes mellitus without complications; I10 Essential (primary) hypertension; R53.1 Weakness; R07.9 Chest pain, unspecified; Z79.899 Other long term (current) drug therapy; Z79.01 Long term (current) use of anticoagulants; Z87.891 Personal history of nicotine dependence; Z86.73 Personal history of transient ischemic attack (TIA), and cerebral infarction without residual deficits; Z20.828 Contact with and (suspected) exposure to other viral communicable diseases
CPT/HCPCS: 36000; 36415; 70450; 71045; 71260; 72125; 72131; 80053; 82550; 82947; 83880; 84484; 85025; 85027; 85379; 85610; 87040; 93005; 93041; 93268; 94760; 94762; 96365; 96374; 99285; G0378; U0003; J0456; J0696; J1100; J1650; J1817; J2270; A9270-GY

== ENCOUNTER 2021-09-04 15:45 | Inpatient (IN) | payer MEDICARE ==
--- NOTE | 2021-09-04 15:54 | ERPHSYRPT ---
- History of Present Illness Time Seen by Provider: 09/04/21 15:48 Source: patient, family, EMS Exam Limitations: no limitations Physician History: pt became weak and called EMS and was brought in with initial resp distress at scene and O2 sat in 50s responding to O2 and duoneb to 90s. Denies hx COPD but 14 days SP Covid and on Xarelto for PE released from Hosp a few days ago. Timing/Duration: today Activities at Onset: none Severity of Dyspnea-Max: severe Severity of Dyspnea-Current: severe Possible Cause: no prior episodes Modifying Factors: Improves With: albuterol nebulizer, coughing, oxygen Associated Symptoms: weakness Allergies/Adverse Reactions: No Known Drug Allergies Allergy (Verified 08/24/21 08:38) Home Medications: Glimepiride [Amaryl] 1 mg PO DAILY 12/17/14 [History] Losartan Potassium [Cozaar] 100 mg PO DAILY 04/05/20 [History] Oxycodone HCl 15 mg PO Q4H 04/05/20 [History] Gabapentin 100 mg [Neurontin 100 MG] 100 mg PO DAILY 08/24/21 [History] Albuterol Sulfate [Albuterol Sulfate Hfa] 8.5 gm IH DAILY 09/04/21 [History] Famotidine 20 mg PO BID 09/04/21 [History] Lubiprostone 8 mcg PO BID 09/04/21 [History] Rivaroxaban [Xarelto] 20 mg PO DAILY 09/04/21 [History] dexAMETHasone [Dexamethasone] 6 mg PO DAILY 09/04/21 [History] Hx Tetanus, Diphtheria Vaccination/Date Given: Yes Hx Influenza Vaccination/Date Given: Yes Hx Pneumococcal Vaccination/Date Given: Yes Travel Risk - Vaccine Status Have you recieved a Covid-19 vaccination: No - Review of Systems Constitutional: Weakness, No Fever, No Chills Eyes: No Symptoms Ears, Nose, & Throat: No Symptoms Respiratory: Cough, Cyanosis, Dyspnea Cardiac: No Chest Pain, No Edema, No Syncope Abdominal/Gastrointestinal: No Abdominal Pain, No Nausea, No Vomiting, No Diarrhea Genitourinary Symptoms: No Dysuria Musculoskeletal: No Back Pain, No Neck Pain Skin: No Rash Neurological: No Dizziness, No Focal Weakness, No Sensory Changes Psychological: No Symptoms Endocrine: No Symptoms All Other Systems: Reviewed and Negative - Past Medical History Pertinent Past Medical History: Yes Neurological History: No Pertinent History ENT History: Cataracts Cardiac History: Hypertension Respiratory History: No Pertinent History Endocrine Medical History: Diabetes Type II Musculoskeletal History: Arthritis GI Medical History: No Pertinent History History: Other Psycho-Social History: No Pertinent History Male Reproductive Disorders: No Pertinent History Other Medical History: SEES DR. HANSEN EVERY 3 MONTHS. KIDNEY STONES. RECENT HERNIA SURGERY APPROX. 3 MONTHS AGO - Past Surgical History Past Surgical History: Yes Neuro Surgical History: No Pertinent History Cardiac: No Pertinent History Respiratory: No Pertinent History Gastrointestinal: Cholecystectomy, Hernia Repair Genitourinary: No Pertinent History Musculoskeletal: No Pertinent History Male Surgical History: No Pertinent History Other Surgical History: back,cataracts rt/lt - Social History Smoking Status: Never smoker Exposure to second hand smoke: No Drug Use: none Patient Lives Alone: No - Nursing Vital Signs Nursing Vital Signs: Initial Vital Signs Temperature 98.4 F 09/04/21 15:46 Pulse Rate 69 09/04/21 15:46 Respiratory Rate 30 H 09/04/21 15:46 Blood Pressure 124/68 09/04/21 15:46 O2 Sat by Pulse Oximetry 80 L 09/04/21 15:46 Pain Scale Pain Intensity 6 - Physical Exam General Appearance: no apparent distress, alert Eye Exam: PERRL/EOMI Ears, Nose, Throat Exam: normal ENT inspection, normal pharynx Neck Exam: normal inspection, supple Respiratory Exam: airway intact, rhonchi, wheezing Cardiovascular/Chest Exam: normal heart sounds, regular rate/rhythm Abdominal/Gastrointestinal Exam: soft, No tenderness, No distention, No mass Extremity Exam: non-tender, normal range of motion, normal inspection, no calf tenderness, no pedal edema Peripheral Pulses Exam: carotid (R): 2+, carotid (L): 2+, femoral (R): 2+, femoral (L): 2+, dorsalis-pedis (R): 2+, dorsalis-pedis (L): 2+ Neurologic Exam: alert, oriented x 3, cooperative, 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 tested, sensation nml, No motor deficits Skin Exam: normal color, warm, No dry SpO2 Interpretation: borderline oxygenation, O2 applied SpO2: 99 O2 Delivery: Non-rebreather - Course Nursing assessment & vital signs reviewed: Yes EKG Interpreted by Me: LAFB, Right Bundle Branch Block, Non-specific ST Changes, Other (Aflutter) Ordered Tests: Active Orders 24 hr Category Date Time Status EKG-ER Only STAT Care 09/04/21 15:56 Active IV Insertion STAT Care 09/04/21 15:56 Active Pulse Oximetry (ED) STAT Care 09/04/21 15:56 Active CHEST 1 VIEW (PORTABLE) Stat Exams 09/04/21 15:57 Completed CBC W DIFF Stat Lab 09/04/21 16:16 Completed CMP Stat Lab 09/04/21 16:16 Completed INFLUENZA A+B DARRYL Stat Lab 09/04/21 16:16 Completed Manual Differential NC Stat Lab 09/04/21 16:16 Completed NT PRO BNP Stat Lab 09/04/21 16:16 Completed TROPONIN Q3H Lab 09/04/21 16:00 Completed TROPONIN Q3H Lab 09/04/21 19:00 Ordered TROPONIN Q3H Lab 09/04/21 22:00 Ordered TROPONIN Q3H Lab 09/05/21 01:00 Ordered TROPONIN Q3H Lab 09/05/21 04:00 Ordered VENOUS BLOOD GAS Stat Lab 09/04/21 15:59 Completed Medication Summary Generic Name Dose Route Start Last Admin Trade Name Freq PRN Reason Stop Dose Admin Sodium Chloride 1,000 mls @ 100 mls/hr 09/04/21 16:00 09/04/21 16:04 Sodium Chloride 0.9% 1000 Ml IV 10/04/21 15:59 100 mls/hr .Q10H GONZALO Administration Discontinued Medications Generic Name Dose Route Start Last Admin Trade Name Freq PRN Reason Stop Dose Admin Methylprednisolone Sodium 0 mg 09/04/21 15:56 09/04/21 16:04 Succinate 125 mg/ Sterile IV 09/04/21 15:57 125 mg Water 2 ml STAT ONE Administration Methylprednisolone Sodium Succinate Confirm 09/04/21 16:03 Methylprednis Sod Succ 125 Mg/2 Ml Vial Administered 09/04/21 16:04 Dose 125 mg .ROUTE .STK-MED ONE Sterile Water Confirm 09/04/21 16:03 Water For Injection,Sterile 10 Ml Vial Administered 09/04/21 16:04 Dose 10 ml IJ .STK-MED ONE Lab/Rad Data: Laboratory Result Diagrams 09/04/21 16:16 09/04/21 16:16 Laboratory Results 09/04/21 09/04/21 09/04/21 Range/Units 16:16 16:16 16:16 WBC 26.3 H* (4.0-10.5) K/mm3 Corrected WBC (auto) 17.3 K/mm3 RBC 3.60 L (4.1-5.6) M/mm3 Hgb 11.2 L (12.5-18.0) gm/dl Hct 35.0 L (42-50) % MCV 97.2 (78-100) fl MCH 31.1 (26-32) pg MCHC 32.0 (32-36) g/dl RDW 15.3 H (11.5-14.0) % Plt Count 171 (150-450) K/mm3 MPV 10.4 (7.5-11.0) fl Absolute Granulocytes 25.2 H (1.4-6.9) Segmented Neutrophils 93 H (36.-66.) % Band Neutrophils 3 H (0.0-2.0) % Lymphocytes (Manual) 2 L (24-44) % Monocytes (Manual) 2 (0.0-12.0) % Platelet Estimate NORMAL (NORMAL) RBC Morphology ABNORMAL Poikilocytosis 2+ Anisocytosis 2+ Schistocytes 1+ pO2/FiO2 Ratio % VBG pH (7.32-7.42) VBG pCO2 at Pat Temp (42-55) mm/Hg VBG pO2 at Pat Temp (25-40) mm/Hg VBG HCO3 (22-28) meq/L VBG O2 Sat (Zac) (95-100) VBG Base Excess (-2.0-2.0) VBG Hemoglobin VBG Carboxyhemoglobin (0.0-6.9) % T HGB POC Potassium (3.5-5.1) Sodium 128 L (137-145) mmol/L Potassium 5.4 H (3.5-5.1) mmol/L Chloride 94 L (98-107) mmol/L Carbon Dioxide 28 (22-30) mmol/L Anion Gap 11.4 (5-15) MEQ/L BUN 39 H (9-20) mg/dL Creatinine 0.75 (0.66-1.25) mg/dL Estimated GFR > 60.0 ML/MIN Glucose 366 H (74-106) mg/dL Calcium 9.0 (8.4-10.2) mg/dL Total Bilirubin 1.30 (0.2-1.3) mg/dL AST 29 (17-59) U/L ALT 22 (0-50) U/L Alkaline Phosphatase 109 (38-126) U/L Troponin I (0.000-0.034) ng/mL NT-Pro-B Natriuret Pep 6230 H (0-1800) pg/mL Serum Total Protein 5.7 L (6.3-8.2) g/dL Albumin 3.0 L (3.5-5.0) g/dL Influenza Type A Ag NEGATIVE (NEGATIVE) Influenza Type B Ag NEGATIVE (NEGATIVE) 09/04/21 09/04/21 Range/Units 16:00 15:59 WBC (4.0-10.5) K/mm3 Corrected WBC (auto) K/mm3 RBC (4.1-5.6) M/mm3 Hgb (12.5-18.0) gm/dl Hct (42-50) % MCV (78-100) fl MCH (26-32) pg MCHC (32-36) g/dl RDW (11.5-14.0) % Plt Count (150-450) K/mm3 MPV (7.5-11.0) fl Absolute Granulocytes (1.4-6.9) Segmented Neutrophils (36.-66.) % Band Neutrophils (0.0-2.0) % Lymphocytes (Manual) (24-44) % Monocytes (Manual) (0.0-12.0) % Platelet Estimate (NORMAL) RBC Morphology Poikilocytosis Anisocytosis Schistocytes pO2/FiO2 Ratio 36.0 % VBG pH 7.43 H (7.32-7.42) VBG pCO2 at Pat Temp 44 (42-55) mm/Hg VBG pO2 at Pat Temp 26 (25-40) mm/Hg VBG HCO3 29.2 H* (22-28) meq/L VBG O2 Sat (Zac) 39.4 L (95-100) VBG Base Excess 4.2 H (-2.0-2.0) VBG Hemoglobin 11.7 VBG Carboxyhemoglobin 2.4 (0.0-6.9) % T HGB POC Potassium 5.6 H (3.5-5.1) Sodium (137-145) mmol/L Potassium (3.5-5.1) mmol/L Chloride (98-107) mmol/L Carbon Dioxide (22-30) mmol/L Anion Gap (5-15) MEQ/L BUN (9-20) mg/dL Creatinine (0.66-1.25) mg/dL Estimated GFR ML/MIN Glucose (74-106) mg/dL Calcium (8.4-10.2) mg/dL Total Bilirubin (0.2-1.3) mg/dL AST (17-59) U/L ALT (0-50) U/L Alkaline Phosphatase (38-126) U/L Troponin I 0.190 H* (0.000-0.034) ng/mL NT-Pro-B Natriuret Pep (0-1800) pg/mL Serum Total Protein (6.3-8.2) g/dL Albumin (3.5-5.0) g/dL Influenza Type A Ag (NEGATIVE) Influenza Type B Ag (NEGATIVE) - Progress Progress: improved, re-examined Air Movement: good Progress Note: 09/04/21 17:50 Discussed with pt and Dr. Sanders and all agree best to admit for Tx bacterial pneumonia complications from Covid. Blood Culture(s) Obtained: No Antibiotics given: Yes Discussed with Dr.: Other (Dr. Sanders) Will see patient in: hospital (full admit) Counseled pt/family regarding: lab results, diagnosis, need for follow-up, rad results - Departure Departure Disposition: In-patient Admission Clinical Impression: Elevated troponin, Pneumonia, SARS-CoV-2 positive, Pulmonary emboli Condition: Good Critical Care Time: No Referrals: TYRONE HANSEN MD [Primary Care Provider] - Follow up/PCP as directed
[2021-09-04] MEDS ORDERED: solu-MEDROL 125 MG, Sterile H2O 10 ml 2 ML IV ONE ×2 (15:56)
[2021-09-04] MEDS ORDERED: Sterile H2O 10 ml IJ ONE (16:03)
[2021-09-04] MEDS ORDERED: solu-MEDROL ONE (16:03)
[2021-09-04] MEDS: Sodium Chloride 0.9% 1000 ML 1,000 ML IV SCH (16:04)
[2021-09-04 16:19] LABS: VBG BASE EXCESS 4.2 (-2.0-2.0); VBG CARBOXYHEMOGLOBIN 2.4 % T HGB (0.0-6.9); VBG HCO3- 29.2 meq/L (22-28); VBG HEMOGLOBIN 11.7; VBG O2 SATURATION 39.4 (95-100); VBG POTASSIUM 5.6 (3.5-5.1); VBG pH 7.43 (7.32-7.42)
[2021-09-04 16:24] LABS: Hemoglobin 11.2 gm/dl (12.5-18.0); Mean Cell Volume 97.2 fl (78-100); Mean Corpuscular Hemoglobin 31.1 pg (26-32); Mean Platelet Volume 10.4 fl (7.5-11.0); Platelet Count 171 K/mm3 (150-450); Red Cell Distribution Width 15.3 % (11.5-14.0)
[2021-09-04 16:28] LABS: White Blood Count 26.3 K/mm3 (4.0-10.5)
[2021-09-04 16:37] LABS: INFLUENZA A NEGATIVE (NEGATIVE); INFLUENZA B NEGATIVE (NEGATIVE)
[2021-09-04 16:43] LABS: Lymphocytes 2 % (24-44); Monocyte 2 % (0.0-12.0); Neutrophils 93 % (36.-66.); Total Cells Counted 200
[2021-09-04 16:44] LABS: BAND 3 % (0.0-2.0); Platelet Estimate NORMAL (NORMAL)
[2021-09-04 16:45] LABS: ANISOCYTOSIS 2+; Corrected WBC 17.3 K/mm3
[2021-09-04 16:46] LABS: Poikilocytosis 2+; Schistocytes 1+
[2021-09-04 16:47] LABS: ALKALINE PHOSPHATASE 109 U/L (38-126); ANION GAP 11.4 MEQ/L (5-15); Absolute Neutrophil Ct (ANC) 25.2 (1.4-6.9); BLOOD UREA NITROGEN 39 mg/dL (9-20); CHLORIDE 94 mmol/L (98-107); Carbon Dioxide 28 mmol/L (22-30); Creatinine 1 0.75 mg/dL (0.66-1.25); EST GLOMERULAR FILTRATION RATE > 60.0 ML/MIN; Glucose 366 mg/dL (74-106); NT PRO BNP 6230 pg/mL (0-1800); Potassium 5.4 mmol/L (3.5-5.1); SGOT/AST 29 U/L (17-59); SGPT/ALT 22 U/L (0-50); SODIUM 128 mmol/L (137-145); Total Protein 5.7 g/dL (6.3-8.2)
--- NOTE | 2021-09-04 16:55 | XRAY ---
Indication: Short of breath. CT proven right middle and right lower lobe pulmonary emboli on August 28, 2021. Comparison: August 27, 2021. Portable chest demonstrates moderate clearing of previous diffuse bilateral airspace disease with mild residual and left base subsegmental atelectasis/scar. Heart not enlarged for portable technique. No new cardiopulmonary abnormalities.
[2021-09-04] MEDS ORDERED: ROCEPHIN 1 Gm-D5w 50 ml Bag** 1 G/50 ML IVPB IV ONE ×2 (17:38→17:42)
[2021-09-04] MEDS ORDERED: Zithromax 500 MG/ 250 ML NaCl Premix 500 MG/250 ML IVPB IV ONE ×2 (18:01→18:34)
[2021-09-04] MEDS ORDERED: HUMULIN R SQ PRN (19:26)
[2021-09-04] MEDS ORDERED: Zofran 4 MG/2 ML VIAL IV PRN (19:26)
[2021-09-04] MEDS ORDERED: Combivent Inhaler COMMON CANISTER IH SCH (19:26)
[2021-09-04] MEDS ORDERED: TYLENOL 325 MG PO PRN (19:26)
[2021-09-04] MEDS ORDERED: HYDROCODONE-CHLORPHEN ER SUSP PO PRN (20:30)
[2021-09-04] MEDS ORDERED: Ativan 1 MG PO PRN (20:30)
[2021-09-04] MEDS ORDERED: TYLENOL EXTRA STRENGTH 500 MG PO PRN (20:32)
[2021-09-04] MEDS ORDERED: Sodium Chloride 0.9% 250 ML 250 ML IV ONE (21:12)
[2021-09-04] MEDS ORDERED: REMDESIVIR IV ONE (21:12)
[2021-09-04] MEDS ORDERED: SENOKOT 8.6 MG ONE (21:30)
[2021-09-04] MEDS: Cozaar 50 MG PO SCH (21:34)
[2021-09-04] MEDS: Senokot-S Tablet PO SCH (21:46)
[2021-09-04] MEDS: NEURONTIN 300 MG PO SCH (21:46)
[2021-09-04] MEDS: HUMALOG SQ PRN (21:47)
[2021-09-04] MEDS ORDERED: Decadron 4 MG INJ IV SCH (22:00)
[2021-09-04] MEDS ORDERED: XARELTO 10 MG TABLET PO SCH ×2 (22:00)
[2021-09-04] MEDS ORDERED: NON-FORMULARY ITEM PO SCH (22:00)
[2021-09-04] MEDS ORDERED: REMDESIVIR 200 MG in Sodium Chloride 0.9% 250 ML 250 ML IV ONE (22:00)
[2021-09-04] MEDS ORDERED: AMITIZA PO SCH (22:00)
[2021-09-04] MEDS ORDERED: Pepcid 20 MG VIAL IV SCH (22:00)
[2021-09-04] MEDS ORDERED: LASIX 20 MG PO ONE (22:00)
[2021-09-04] MEDS: Oxy-IR 5 MG PO PRN (22:16)
[2021-09-05] MEDS: Oxy-IR 5 MG PO PRN ×3 (03:40→14:48)
[2021-09-05 04:37] LABS: Hematocrit 33.6 % (42-50); Hemoglobin 10.6 gm/dl (12.5-18.0); Mean Cell Volume 98.2 fl (78-100); Mean Corpuscular Hgb Concent. 31.5 g/dl (32-36); Mean Platelet Volume 10.5 fl (7.5-11.0); Platelet Count 166 K/mm3 (150-450); Red Blood Count 3.42 M/mm3 (4.1-5.6); Red Cell Distribution Width 15.4 % (11.5-14.0); White Blood Count 19.1 K/mm3 (4.0-10.5)
[2021-09-05] MEDS ORDERED: MEDICATION INTERVENTION PO SCH (08:00)
[2021-09-05 08:03] LABS: ALBUMIN 2.9 g/dL (3.5-5.0); ALKALINE PHOSPHATASE 93 U/L (38-126); ANION GAP 12.6 MEQ/L (5-15); BLOOD UREA NITROGEN 33 mg/dL (9-20); CHLORIDE 97 mmol/L (98-107); Calcium 8.6 mg/dL (8.4-10.2); Carbon Dioxide 29 mmol/L (22-30); Creatinine 1 0.83 mg/dL (0.66-1.25); EST GLOMERULAR FILTRATION RATE > 60.0 ML/MIN; Potassium 4.7 mmol/L (3.5-5.1); SGOT/AST 26 U/L (17-59); SGPT/ALT 21 U/L (0-50); SODIUM 134 mmol/L (137-145); Total Protein 5.6 g/dL (6.3-8.2)
[2021-09-05 08:07] LABS: Glucose 226 mg/dL (74-106)
[2021-09-05] MEDS: Sodium Chloride 0.9% 1000 ML 1,000 ML IV SCH ×2 (08:20→16:32)
[2021-09-05] MEDS: HUMALOG SQ PRN ×4 (08:24→21:00)
[2021-09-05] MEDS: Amaryl 2 MG PO SCH (08:27)
[2021-09-05] MEDS: XARELTO 10 MG TABLET PO SCH (09:15)
[2021-09-05] MEDS: PROTONIX 40 MG IV IV SCH (09:16)
[2021-09-05] MEDS: Pepcid 20 MG PO SCH ×2 (09:16→21:01)
[2021-09-05] MEDS: LASIX 20 MG PO SCH (09:16)
[2021-09-05] MEDS: DECADRON 10MG INJ. IV SCH (09:16)
[2021-09-05] MEDS: NEURONTIN 300 MG PO SCH ×3 (09:16→21:01)
[2021-09-05] MEDS: Vitamin C 500 MG PO SCH (09:17)
[2021-09-05] MEDS: Zinc Gluconate 50 MG PO SCH ×2 (09:17→21:02)
[2021-09-05] MEDS: Senokot-S Tablet PO SCH (09:21)
[2021-09-05] MEDS ORDERED: GLIMEPIRIDE 1 MG PO SCH (10:00)
[2021-09-05] MEDS ORDERED: LUBIPROSTONE 8 MCG PO SCH (10:00)
[2021-09-05] MEDS: Klor Con 10 MEQ PO SCH ×2 (11:16→21:02)
[2021-09-05] MEDS: ROCEPHIN 1 Gm-D5w 50 ml Bag** 1 G/50 ML IVPB IV SCH (16:27)
[2021-09-05] MEDS: Zithromax 500 MG/ 250 ML NaCl Premix 500 MG/250 ML IVPB IV SCH (17:09)
[2021-09-05] MEDS: REMDESIVIR 100 MG in Sodium Chloride 0.9% 100 ML BAG 100 ML IV SCH (17:57)
[2021-09-05] MEDS: Cozaar 50 MG PO SCH (21:00)
[2021-09-05] MEDS ORDERED: LASIX 20 MG PO ONE (22:00)
[2021-09-06] MEDS: Oxy-IR 5 MG PO PRN ×3 (05:33→21:49)
[2021-09-06 06:37] LABS: Hematocrit 31.4 % (42-50); Hemoglobin 9.9 gm/dl (12.5-18.0); Mean Cell Volume 99.1 fl (78-100); Mean Corpuscular Hemoglobin 31.2 pg (26-32); Mean Corpuscular Hgb Concent. 31.5 g/dl (32-36); Platelet Count 179 K/mm3 (150-450); Red Blood Count 3.17 M/mm3 (4.1-5.6); Red Cell Distribution Width 15.4 % (11.5-14.0); White Blood Count 21.4 K/mm3 (4.0-10.5)
[2021-09-06 07:00] LABS: ANION GAP 6.9 MEQ/L (5-15); Potassium 4.3 mmol/L (3.5-5.1)
[2021-09-06] MEDS: Amaryl 2 MG PO SCH (08:18)
[2021-09-06] MEDS: XARELTO 10 MG TABLET PO SCH (09:32)
[2021-09-06] MEDS: PROTONIX 40 MG IV IV SCH (09:32)
[2021-09-06] MEDS: NEURONTIN 300 MG PO SCH ×3 (09:32→21:50)
[2021-09-06] MEDS: DECADRON 10MG INJ. IV SCH (09:32)
[2021-09-06] MEDS: Klor Con 10 MEQ PO SCH ×2 (09:32→21:53)
[2021-09-06] MEDS: Pepcid 20 MG PO SCH ×2 (09:32→21:49)
[2021-09-06] MEDS: LASIX 20 MG PO SCH (09:32)
[2021-09-06] MEDS: Zinc Gluconate 50 MG PO SCH ×2 (09:33→21:51)
[2021-09-06] MEDS: Vitamin C 500 MG PO SCH (09:33)
[2021-09-06] MEDS: Senokot-S Tablet PO SCH (09:34)
[2021-09-06] MEDS: HUMALOG SQ PRN ×3 (12:00→21:54)
[2021-09-06] MEDS: ROCEPHIN 1 Gm-D5w 50 ml Bag** 1 G/50 ML IVPB IV SCH (16:55)
[2021-09-06] MEDS: Zithromax 500 MG/ 250 ML NaCl Premix 500 MG/250 ML IVPB IV SCH (17:28)
[2021-09-06] MEDS: REMDESIVIR 100 MG in Sodium Chloride 0.9% 100 ML BAG 100 ML IV SCH (18:48)
[2021-09-06] MEDS: Cozaar 50 MG PO SCH (21:49)
[2021-09-07] MEDS: Oxy-IR 5 MG PO PRN ×3 (02:47→21:26)
[2021-09-07] MEDS: Sodium Chloride 0.9% 1000 ML 1,000 ML IV SCH (02:50)
[2021-09-07 06:05] LABS: Hematocrit 33.6 % (42-50); Hemoglobin 10.7 gm/dl (12.5-18.0); Mean Cell Volume 98.2 fl (78-100); Mean Corpuscular Hemoglobin 31.3 pg (26-32); Mean Corpuscular Hgb Concent. 31.8 g/dl (32-36); Mean Platelet Volume 10.3 fl (7.5-11.0); Platelet Count 206 K/mm3 (150-450); Red Blood Count 3.42 M/mm3 (4.1-5.6); Red Cell Distribution Width 15.4 % (11.5-14.0); White Blood Count 16.5 K/mm3 (4.0-10.5)
[2021-09-07 06:30] LABS: Potassium 4.5 mmol/L (3.5-5.1)
--- NOTE | 2021-09-07 08:02 | HP ---
CHIEF COMPLAINT: Shortness of breath. HISTORY OF PRESENT ILLNESS: The patient is an 86-year-old white male who is well known to me. He was admitted with COVID pneumonia and respiratory distress here about fourteen days ago. He was anticoagulated related to a pulmonary emboli. He had oxygen and then stabilized. However, his D-dimer went up to 126,[address] [facility] at that time I guess because of the labs that was not taken care of at another time. He has a history of some mild chronic obstructive pulmonary disease. He actually was able to ambulate in town before the COVID. He did not take the vaccine. He does not know where he got it. He has mild diabetes mellitus, hypertension prior to the COVID. The patient lives with his . 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 He was also for many years been on the [employer] board at [place]. He has been a very pleasant, alert, orientated man. MEDICATIONS: The patient has been on Xarelto 20 mg a day, Decadron 6 mg a day, Amaryl 1 mg, losartan 100 q.d., oxycodone 15 mg every 4 hours PRN back pain, gabapentin 100 daily, Albuterol every 4 hours PRN, Pepcid 20 b.i.d., lubiprostone 8 mcg b.i.d. ALLERGIES: NKDA. PAST MEDICAL HISTORY: No myocardial infarction. Diabetes mellitus, hypertension, chronic obstructive pulmonary disease. He has had COVID quite severe 14 days ago followed by pulmonary emboli. However, he was able to keep his O2 saturations up. He did not require intubation and was sent home just yesterday apparently. PAST SURGICAL HISTORY: Cataract surgery. Hernia about four months ago. He has had kidney stones. REVIEW OF SYSTEMS: CONSTITUTIONAL: He denies fever. He just has weakness. He has been too weak to walk. HEENT: No sore throat. Frequent cough. Cyanotic when the ambulance arrived at his home. CARDIAC: He denies chest pain. I think he was in atrial fibrillation when he had a pulmonary emboli. I do not think he has had any history of heart attack or valvular heart disease. I do not have any results from echoes in the past. : No problems urinating. MUSCULOSKELETAL: He has some back pain off and on, apparently has been severe in the past and that is why he is on narcotics. When I took care of him he did not particularly complain of pain nor was he seeking narcotics. ENDOCRINE: Diabetes mellitus well controlled with oral medication. PHYSICAL EXAMINATION: The patient is alert, orientated, recognizes me. He is very weak and he is short of breath on examination with O2 at 6 liters with a mask on. VITAL SIGNS: Temperature 98F, pulse 70, respiratory rate 20, blood pressure 120/70. O2 saturation right now is about 88%. GENERAL: Alert. HEENT: Pupils equal and reactive to light. NECK: Supple. No JVD. CHEST: Wheezing bilateral. Rales bilateral. CVS: Difficult to hear over his breath sounds. Fairly regular right now. ABDOMEN: Soft. No masses or organomegaly. EXTREMITIES: Equal pulses bilateral. No edema. No tenderness. No petechiae. LAB DATA AND TESTS: Chest x-ray was actually better than when he was here earlier. It shows resolving pneumonia. No signs of heart failure. Blood work: The patient's white count is 26,000, hemoglobin 11. Sodium down to 128. BNP was markedly elevated at 6,000. Proteins are low. IMPRESSION: The patient probably has recovered from his COVID and then complicated with pulmonary embolism. He is fully anticoagulated. I think he has history of some atrial fibrillation after that and presently with a cough and high white count he probably has a bacterial pneumonia. He also probably has some heart failure although the size of his heart is normal. I see no edema. PLAN: The patient will be treated for pneumonia with Rocephin, Zithromax and be kept on some Remdesivir. He is on Decadron at home so will continue that. Nebulizer treatments. Blood cultures are pending. PROGNOSIS: Guarded due to the damage to his lungs from the pulmonary emboli, COVID pneumonia and with secondary infection.
[2021-09-07] MEDS: Amaryl 2 MG PO SCH (08:23)
--- NOTE | 2021-09-07 08:38 | XRAY ---
Indication: Covid 19 pneumonia. Comparison: September 04, 2021. Portable chest unchanged again demonstrating diffuse bilateral airspace disease with minimal left base subsegmental atelectasis/scarring. Heart not enlarged. No new cardiopulmonary abnormalities.
[2021-09-07] MEDS: XARELTO 10 MG TABLET PO SCH (10:05)
[2021-09-07] MEDS: DECADRON 10MG INJ. IV SCH (10:06)
[2021-09-07] MEDS: Pepcid 20 MG PO SCH ×2 (10:06→21:27)
[2021-09-07] MEDS: PROTONIX 40 MG IV IV SCH (10:06)
[2021-09-07] MEDS: Klor Con 10 MEQ PO SCH ×2 (10:06→21:27)
[2021-09-07] MEDS: Vitamin C 500 MG PO SCH (10:07)
[2021-09-07] MEDS: LASIX 20 MG PO SCH (10:07)
[2021-09-07] MEDS: Senokot-S Tablet PO SCH (10:08)
[2021-09-07] MEDS: Zinc Gluconate 50 MG PO SCH ×2 (10:08→21:27)
[2021-09-07] MEDS: NEURONTIN 300 MG PO SCH ×3 (10:21→21:27)
[2021-09-07] MEDS ORDERED: Dulcolax 10 MG SUPP PR PRN (10:44)
[2021-09-07] MEDS ORDERED: SENOKOT 8.6 MG PO ONE (11:00)
[2021-09-07] MEDS: HUMALOG SQ PRN ×2 (12:05→21:27)
[2021-09-07] MEDS: ROCEPHIN 1 Gm-D5w 50 ml Bag** 1 G/50 ML IVPB IV SCH (17:28)
[2021-09-07] MEDS: Zithromax 500 MG/ 250 ML NaCl Premix 500 MG/250 ML IVPB IV SCH (18:00)
[2021-09-07] MEDS: Cozaar 50 MG PO SCH (21:27)
[2021-09-08 04:50] LABS: Hematocrit 33.7 % (42-50); Hemoglobin 10.8 gm/dl (12.5-18.0); Mean Corpuscular Hemoglobin 31.4 pg (26-32); Mean Platelet Volume 9.7 fl (7.5-11.0); Platelet Count 207 K/mm3 (150-450); Red Blood Count 3.44 M/mm3 (4.1-5.6); Red Cell Distribution Width 15.4 % (11.5-14.0); White Blood Count 19.9 K/mm3 (4.0-10.5)
[2021-09-08 04:57] LABS: A-aADO2 181; ARTERIAL BLD GAS O2 SATURATION 99 % (95-100); ARTERIAL BLOOD GAS BASE EXCESS 2.9 (-2.0-2.0); ARTERIAL BLOOD GAS PCO2 26 mmHg (35-45); ARTERIAL BLOOD GAS PO2 214 mmHg (75-100); ARTERIAL BLOOD GAS pH 7.57 (7.35-7.45); CARBON DIOXIDE 24 mEq/L (23-27); HCO3- 23.8 (22-28)
[2021-09-08 04:58] LABS: ABG POTASSIUM 3.9 (3.5-5.1); ARTERIAL BLOOD GAS FIO2 60 %; Methhemoglobin 0.5 % (1.4-1.5)
[2021-09-08 04:59] LABS: ABG SITE RIGHT RADIAL; ALLEN TEST OK? YES
[2021-09-08 05:25] LABS: ALBUMIN 2.8 g/dL (3.5-5.0); ALKALINE PHOSPHATASE 101 U/L (38-126); ANION GAP 9.4 MEQ/L (5-15); BLOOD UREA NITROGEN 29 mg/dL (9-20); CHLORIDE 100 mmol/L (98-107); Calcium 7.9 mg/dL (8.4-10.2); Carbon Dioxide 23 mmol/L (22-30); Creatinine 1 0.66 mg/dL (0.66-1.25); EST GLOMERULAR FILTRATION RATE > 60.0 ML/MIN; Glucose 120 mg/dL (74-106); SGOT/AST 30 U/L (17-59); SGPT/ALT 18 U/L (0-50); SODIUM 127 mmol/L (137-145); Total Protein 5.5 g/dL (6.3-8.2)
[2021-09-08 06:24] LABS: TROPONIN 0.152 ng/mL (0.000-0.034)
[2021-09-08 08:11] LABS: ABG HEMOGLOBIN 11.7
[2021-09-08] MEDS: Sodium Chloride 0.9% 1000 ML 1,000 ML IV SCH ×2 (10:14→10:17)
[2021-09-08] MEDS: LASIX 20 MG PO SCH (10:15)
[2021-09-08] MEDS: Zinc Gluconate 50 MG PO SCH ×2 (10:15→22:24)
[2021-09-08] MEDS: PROTONIX 40 MG IV IV SCH (10:15)
[2021-09-08] MEDS: Senokot-S Tablet PO SCH (10:15)
[2021-09-08] MEDS: Vitamin C 500 MG PO SCH (10:15)
[2021-09-08] MEDS: Pepcid 20 MG PO SCH ×2 (10:15→22:24)
[2021-09-08] MEDS: NEURONTIN 300 MG PO SCH ×3 (10:15→22:23)
[2021-09-08] MEDS: Klor Con 10 MEQ PO SCH ×2 (10:16→22:23)
[2021-09-08] MEDS: Amaryl 2 MG PO SCH (10:16)
[2021-09-08] MEDS: XARELTO 10 MG TABLET PO SCH (10:17)
--- NOTE | 2021-09-08 11:37 | ECHO ---
Transthoracic echocardiographic examination and color Doppler was done on 09/07/2021. INDICATION: Shortness of breath. IMPRESSION: 1) NO DEFINITE REGIONAL WALL MOTION ABNORMALITY. ESTIMATED GLOBAL LEFT VENTRICULAR EJECTION FRACTION 60%. 2) CALCIFIED MITRAL ANNULUS. 3) LEFT VENTRICLE DIASTOLIC DYSFUNCTION. 4) LEFT VENTRICULAR HYPERTROPHY. 5) PERICARDIAL CALCIFICATION. The left ventricle is visualized and demonstrated adequate motion of all the segments. Estimated global left ventricular ejection fraction around 60%. There is mild left ventricular hypertrophy. The mitral valve is seen and this opens adequately. There is some calcification of the mitral annulus. No significant mitral regurgitation is seen. Tissue Doppler study of the lateral mitral annulus suggestive of left ventricle diastolic dysfunction. Left atrium is normal. The aortic valve is mildly thickened but there is no significant gradient across the left ventricular outflow tract. The right side chambers are normal. No significant tricuspid regurgitation is seen. There appears to be some calcification in the pericardium.
[2021-09-08] MEDS: ROCEPHIN 1 Gm-D5w 50 ml Bag** 1 G/50 ML IVPB IV SCH (16:56)
[2021-09-08] MEDS: Zithromax 500 MG/ 250 ML NaCl Premix 500 MG/250 ML IVPB IV SCH (17:56)
[2021-09-08] MEDS: Cozaar 50 MG PO SCH (22:23)
[2021-09-08] MEDS: HUMALOG SQ PRN (22:24)
[2021-09-09 06:02] LABS: A-aADO2 227; ABG HEMOGLOBIN 11.3; ABG POTASSIUM 4.9 (3.5-5.1); ARTERIAL BLD GAS O2 SATURATION 99.2 % (95-100); ARTERIAL BLOOD GAS BASE EXCESS 3.1 (-2.0-2.0); ARTERIAL BLOOD GAS FIO2 60 %; ARTERIAL BLOOD GAS PO2 181 mmHg (75-100); CARBOXYHEMOGLOBIN 15.2 % THgb (0.0-6.9); HCO3- 20.2 (22-28); HGB O2 SAT 83.6 g/dF (94-100); Methhemoglobin 0.5 % (1.4-1.5)
[2021-09-09 06:03] LABS: ABG SITE LEFT RADIAL; ALLEN TEST OK? YES; ARTERIAL BLOOD GAS PCO2 16 mmHg (35-45); ARTERIAL BLOOD GAS pH 7.71 (7.35-7.45)
[2021-09-09 06:07] LABS: Hematocrit 35.3 % (42-50); Hemoglobin 11.2 gm/dl (12.5-18.0); Mean Cell Volume 99.7 fl (78-100); Mean Corpuscular Hemoglobin 31.6 pg (26-32); Mean Corpuscular Hgb Concent. 31.7 g/dl (32-36); Platelet Count 229 K/mm3 (150-450); Red Blood Count 3.54 M/mm3 (4.1-5.6); Red Cell Distribution Width 15.8 % (11.5-14.0); White Blood Count 17.1 K/mm3 (4.0-10.5)
[2021-09-09 06:36] LABS: ALBUMIN 2.5 g/dL (3.5-5.0); ALKALINE PHOSPHATASE 100 U/L (38-126); ANION GAP 10.9 MEQ/L (5-15); BLOOD UREA NITROGEN 30 mg/dL (9-20); CHLORIDE 100 mmol/L (98-107); Calcium 7.7 mg/dL (8.4-10.2); Carbon Dioxide 28 mmol/L (22-30); EST GLOMERULAR FILTRATION RATE > 60.0 ML/MIN; Glucose 95 mg/dL (74-106); Potassium 4.6 mmol/L (3.5-5.1); SGOT/AST 20 U/L (17-59); SGPT/ALT 17 U/L (0-50); SODIUM 134 mmol/L (137-145)
[2021-09-09] MEDS: Amaryl 2 MG PO SCH (08:14)
[2021-09-09] MEDS: Klor Con 10 MEQ PO SCH ×2 (11:01→21:36)
[2021-09-09] MEDS: Senokot-S Tablet PO SCH (11:02)
[2021-09-09] MEDS: Pepcid 20 MG PO SCH ×2 (11:02→21:36)
[2021-09-09] MEDS: XARELTO 10 MG TABLET PO SCH (11:02)
[2021-09-09] MEDS: Vitamin C 500 MG PO SCH (11:02)
[2021-09-09] MEDS: LASIX 20 MG PO SCH (11:02)
[2021-09-09] MEDS: NEURONTIN 300 MG PO SCH ×3 (11:02→21:36)
[2021-09-09] MEDS: PROTONIX 40 MG IV IV SCH (11:03)
[2021-09-09] MEDS: Zinc Gluconate 50 MG PO SCH ×2 (11:03→21:37)
[2021-09-09] MEDS: HUMALOG SQ PRN (12:20)
[2021-09-09] MEDS: Sodium Chloride 0.9% 1000 ML 1,000 ML IV SCH (14:37)
[2021-09-09] MEDS: ROCEPHIN 1 Gm-D5w 50 ml Bag** 1 G/50 ML IVPB IV SCH (16:32)
[2021-09-09] MEDS: Zithromax 500 MG/ 250 ML NaCl Premix 500 MG/250 ML IVPB IV SCH (17:14)
[2021-09-09] MEDS: Cozaar 50 MG PO SCH (21:35)
[2021-09-10 06:01] LABS: Hematocrit 31.3 % (42-50); Hemoglobin 9.9 gm/dl (12.5-18.0); Mean Corpuscular Hemoglobin 31.6 pg (26-32); Mean Corpuscular Hgb Concent. 31.6 g/dl (32-36); Mean Platelet Volume 9.7 fl (7.5-11.0); Platelet Count 211 K/mm3 (150-450); Red Blood Count 3.13 M/mm3 (4.1-5.6); Red Cell Distribution Width 15.7 % (11.5-14.0); White Blood Count 13.2 K/mm3 (4.0-10.5)
[2021-09-10] MEDS: NEURONTIN 300 MG PO SCH ×3 (07:31→22:13)
[2021-09-10] MEDS: Pepcid 20 MG PO SCH ×2 (07:31→22:13)
[2021-09-10] MEDS: XARELTO 10 MG TABLET PO SCH (07:31)
[2021-09-10] MEDS: LASIX 20 MG PO SCH (07:31)
[2021-09-10] MEDS: Klor Con 10 MEQ PO SCH ×2 (07:31→22:13)
[2021-09-10] MEDS: Amaryl 2 MG PO SCH (07:32)
[2021-09-10] MEDS: Senokot-S Tablet PO SCH (07:32)
[2021-09-10] MEDS: PROTONIX 40 MG IV IV SCH (07:32)
[2021-09-10] MEDS: Zinc Gluconate 50 MG PO SCH ×2 (07:33→22:13)
[2021-09-10] MEDS: Vitamin C 500 MG PO SCH (07:33)
[2021-09-10] MEDS: ROCEPHIN 1 Gm-D5w 50 ml Bag** 1 G/50 ML IVPB IV SCH (16:02)
[2021-09-10] MEDS: Zithromax 500 MG/ 250 ML NaCl Premix 500 MG/250 ML IVPB IV SCH (17:07)
[2021-09-10] MEDS: Cozaar 50 MG PO SCH (22:13)
[2021-09-10] MEDS: HUMALOG SQ PRN (22:18)
--- NOTE | 2021-09-11 07:39 | PCM.NOTE ---
Date and Time: 09/11/2137 Subjective Assessment: doing ok - Review of Systems Constitutional: No Fever, No Chills Eyes: No Symptoms Ears, Nose, & Throat: No Symptoms Respiratory: Orthopnea, Short Of Breath, No Cough Cardiac: No Chest Pain, No Edema, No Syncope Abdominal/Gastrointestinal: No Abdominal Pain, No Nausea, No Vomiting, No Diarrhea Genitourinary Symptoms: No Dysuria Musculoskeletal: No Back Pain, No Neck Pain Skin: No Rash Neurological: No Dizziness, No Focal Weakness, No Sensory Changes Psychological: No Symptoms Endocrine: No Symptoms Hematologic/Lymphatic: No Symptoms Immunological/Allergic: No Symptoms Objective Exam General Appearance: no apparent distress, alert Neurologic Exam: alert, oriented x 3, cooperative, normal mood/affect, nml cerebellar function, sensation nml, No motor deficits Skin Exam: normal color, warm, dry Eye Exam: PERRL, EOMI, eyes nml inspection Ears, Nose, Throat Exam: normal ENT inspection, pharynx normal, moist mucous membranes Neck Exam: normal inspection, non-tender, supple, full range of motion Respiratory Exam: normal breath sounds, lungs clear, No respiratory distress Cardiovascular Exam: regular rate/rhythm, normal heart sounds Gastrointestinal/Abdomen Exam: soft, No tenderness, No mass Extremity Exam: normal inspection, normal range of motion Back Exam: normal inspection, normal range of motion, No CVA tenderness, No vertebral tenderness Male Genitalia Exam: deferred Rectal Exam: deferred OBJECTIVE DATA Vital Signs: Vital Signs - 24 hr Temp Pulse Resp BP Pulse Ox 09/11/21 06:00 17 09/11/21 05:44 106 H 24 92 L 09/11/21 04:11 98.0 F 109 H 22 116/66 92 L 09/11/21 04:00 20 09/11/21 02:00 31 H 09/11/21 01:44 95 H 18 92 L 09/11/21 00:00 13 09/10/21 23:21 98.4 F 101 H 20 103/58 94 L 09/10/21 22:00 29 H 09/10/21 21:46 112 H 28 H 93 L 09/10/21 19:28 93 L 09/10/21 19:22 98.2 F 102 H 20 113/71 94 L 09/10/21 18:31 105 H 09/10/21 18:00 19 09/10/21 17:29 103 H 28 H 93 L 09/10/21 16:00 96.8 F 86 18 87/36 95 09/10/21 14:00 87 18 96 09/10/21 13:37 95 09/10/21 12:53 93 H 18 96 09/10/21 12:00 18 09/10/21 11:28 98 09/10/21 11:08 96.4 F 100 H 20 107/57 98 09/10/21 10:29 94 H 29 H 98 09/10/21 10:00 18 09/10/21 09:39 116 H 37 H 90 L 09/10/21 09:00 82 18 95 09/10/21 07:46 18 09/10/21 07:40 97 Pain Assessment - Last Documented Pain Intensity 0 Pain Scale Used 0-10 Pain Scale Intake and Output: Intake & Output 09/08/21 09/09/21 09/10/21 09/11/21 11:59 11:59 11:59 11:59 Intake Total 2081 1358 1320 780 Output Total 1500 1500 1500 1125 Balance 581 -142 -180 -345 Weight 53.5 kg Lab Results: Lab Results-Last 24 Hours 09/10/21 09/10/21 09/10/21 Range/Units 11:00 16:05 20:07 POC Glucometer 251 H 147 H 208 H (74 to 106) mg/dL 09/11/21 Range/Units 07:29 POC Glucometer 147 H (74 to 106) mg/dL Multi-Disciplinary Progress Notes: Multi-Disciplinary Progress Notes 09/10/21 14:39 Nutrition Note by Arline Cifuentes F/u Note: Pt receiving an 1800CC diet with ensure; 25-75% po intake. adm weight 58.9kg; current weight 53.5kg. Labs 09/10= glu 251, hgb 9.9, hct 31.3. goal of po intake >=75% not met consistently and ongoing; goal of glu to decrease was met, but high again today; 251. goal ongoing. Changing ensure to glucerna. Will con't to monitor and f/u prn. T.ZAHIRA Cifuentes Initialized on 09/10/21 14:39 - END OF NOTE 09/10/21 12:45 Case Management Note by Esme Smith [facility] HAS ACCEPTED PATIENT PENDING INSURANCE APPROVAL Initialized on 09/10/21 12:45 - END OF NOTE 09/10/21 12:43 Case Management Note by Esme Smith REFERRAL FAXED TO [facility] Initialized on 09/10/21 12:43 - END OF NOTE Assessment/Plan (1) Pneumonia Current Visit: Yes Status: Acute Qualifiers: Pneumonia type: due to COVID-19 virus Qualified Code(s): U07.1 - COVID-19; J12.82 - Pneumonia due to coronavirus disease 2019 Code(s): J18.9 - PNEUMONIA, UNSPECIFIED ORGANISM (2) Pulmonary emboli Current Visit: Yes Status: Acute Qualifiers: Pulmonary embolism type: other Chronicity: acute Acute cor pulmonale presence: without acute cor pulmonale Qualified Code(s): I26.99 - Other pulmonary embolism without acute cor pulmonale Code(s): I26.99 - OTHER PULMONARY EMBOLISM WITHOUT ACUTE COR PULMONALE (3) SARS-CoV-2 positive Current Visit: Yes Status: Acute Code(s): U07.1 - COVID-19 (4) Hypoxia Current Visit: Yes Status: Acute Code(s): R09.02 - HYPOXEMIA
[2021-09-11] MEDS: Klor Con 10 MEQ PO SCH (09:09)
[2021-09-11] MEDS: LASIX 20 MG PO SCH (09:09)
[2021-09-11] MEDS: NEURONTIN 300 MG PO SCH (09:09)
[2021-09-11] MEDS: Pepcid 20 MG PO SCH (09:09)
[2021-09-11] MEDS: Amaryl 2 MG PO SCH (09:10)
[2021-09-11] MEDS: XARELTO 10 MG TABLET PO SCH (09:10)
[2021-09-11] MEDS: Zinc Gluconate 50 MG PO SCH (09:12)
[2021-09-11] MEDS: Vitamin C 500 MG PO SCH (09:12)
[2021-09-11] MEDS: Senokot-S Tablet PO SCH (09:12)
[2021-09-11] MEDS ORDERED: Protonix 40MG Tablet PO SCH (10:00)
[2021-09-11] MEDS ORDERED: Tums EX 750 MG PO PRN (10:33)
[2021-09-11 11:31] VITALS: BP 107/49
[2021-09-11] MEDS: HUMALOG SQ PRN (11:44)
[2021-09-11 14:08] VITALS: PULSE 98; O2SAT 99
--- NOTE | 2021-09-29 08:04 | DS ---
ADMISSION DIAGNOSES: 1) COVID. 2) Congestive heart failure. 3) Cardiomyopathy. DATE OF : 09/11/2021 FINAL DIAGNOSES: 1) COVID. 2) CONGESTIVE HEART FAILURE. 3) CARDIOMYOPATHY. HOSPITAL COURSE: The patient came in with COVID, shortness of breath, cough and weakness. Chest x-ray showed heart failure and bilateral infiltrates. He was started on the usual COVID medications. He was treated with Lasix, restricted fluids and lisinopril. He was started off at 2 liters and his O2 demand continuously increased over his hospitalization. Echocardiogram ordered on 09/05/2021 showed cardiomyopathy. However, I do not see it on the chart at this time. His BNP continued to increase. Chest x-ray never did improve. His white count started to go up and was initially normal was at 16,000 the day before . It was thought he might have a lobar pneumonia-type of COVID and started him on some antibiotics. However, he was poorly responsive. His blood gas was 7.57, pCO2 26 on 09/08/2021. The patient . The cause of was COVID, complications of pneumonia, congestive heart failure.
== END 2021-09-11 14:28 | DRG 177 ==
LOC: ED 15:45 → MED SURG 18:40
PROVIDERS: ADMIT Family Medicine; ATTEND Family Medicine
DX: U07.1 COVID-19 (principal); J12.82 Pneumonia due to coronavirus disease 2019; I42.9 Cardiomyopathy, unspecified; R09.02 Hypoxemia; R77.8 Other specified abnormalities of plasma proteins; I11.0 Hypertensive heart disease with heart failure; E11.9 Type 2 diabetes mellitus without complications; J44.9 Chronic obstructive pulmonary disease, unspecified; Z79.899 Other long term (current) drug therapy; Z79.01 Long term (current) use of anticoagulants; Z86.711 Personal history of pulmonary embolism
CPT/HCPCS: 36000; 36415; 36600; 71045; 80051; 80053; 82375; 82803; 82805; 82947; 83036; 83880; 84484; 85025; 85027; 85379; 87086; 87400; 93005; 93306; 94760; 94762; 96365; 96374; 96375; 99285; J0456; J0696; J1100; J1817; J2930; A9270-GY

== ENCOUNTER 2021-12-25 19:51 | Emergency (ER) | payer MEDICARE ==
--- NOTE | 2021-12-25 19:55 | ERPHSYRPT ---
- History of Present Illness Time Seen by Provider: 12/25/21 19:55 Source: patient, family Exam Limitations: no limitations Physician History: This is an 86-year-old white male patient of Dr. Hansen and presents from home secondary to his concern about increasing bilateral lower extremity swelling in the last few days. Patient states he always has some swelling but he thinks is more pronounced. In addition, he has generalized itching. Patient does have a history of hypertension, diabetes and is taking Xarelto. The last approximately 1 month the patient underwent a podiatric procedure of his right first toe to help resolve an infection. Patient has no cough. He has no hemoptysis. He has no shortness of breath. The swelling is on both feet ankles and below the knee. Patient denies chest pain. Patient is not on any diuretics. Timing/Duration: day(s) (Last few days), worse Severity: mild (To moderate) Associated Symptoms: denies symptoms Allergies/Adverse Reactions: No Known Drug Allergies Allergy (Verified 08/24/21 08:38) Home Medications: Glimepiride [Amaryl] 1 mg PO DAILY 12/17/14 [History] Losartan Potassium [Cozaar] 100 mg PO DAILY 04/05/20 [History] Gabapentin 100 mg [Neurontin 100 MG] 300 mg PO TID 08/24/21 [History] Albuterol Sulfate [Albuterol Sulfate Hfa] 8.5 gm IH DAILY 09/04/21 [History] Ascorbic Acid 500 mg [Vitamin C 500 MG] 1,000 mg PO DAILY 09/04/21 [History] Famotidine 20 mg PO BID 09/04/21 [History] Lubiprostone 8 mcg PO BID 09/04/21 [History] Ondansetron [Ondansetron Odt] 4 mg PO Q6H PRN 09/04/21 [History] Rivaroxaban [Xarelto] 20 mg PO DAILY 09/04/21 [History] Zinc Sulfate 220 mg PO BID 09/04/21 [History] Hx Tetanus, Diphtheria Vaccination/Date Given: Yes Hx Influenza Vaccination/Date Given: Yes Hx Pneumococcal Vaccination/Date Given: Yes Travel Risk - International Travel Have you traveled outside of the country in past 3 weeks: No - Coronavirus Screening Are you exhibiting any of the following symptoms?: No Close contact with a COVID-19 positive Pt in past 14-21 Days: No - Vaccine Status Have you recieved a Covid-19 vaccination: No - Review of Systems Constitutional: No Symptoms Eyes: No Symptoms Ears, Nose, & Throat: No Symptoms Respiratory: No Symptoms Cardiac: No Symptoms Abdominal/Gastrointestinal: No Symptoms Genitourinary Symptoms: No Symptoms Musculoskeletal: No Symptoms Skin: Pruritis Neurological: No Symptoms Psychological: No Symptoms Endocrine: No Symptoms Hematologic/Lymphatic: No Symptoms Immunological/Allergic: No Symptoms All Other Systems: Reviewed and Negative - Past Medical History Pertinent Past Medical History: Yes Neurological History: No Pertinent History ENT History: Cataracts Cardiac History: Hypertension Respiratory History: No Pertinent History Endocrine Medical History: Diabetes Type II Musculoskeletal History: Arthritis GI Medical History: No Pertinent History History: Other Psycho-Social History: No Pertinent History Male Reproductive Disorders: No Pertinent History Other Medical History: SEES DR. HANSEN EVERY 3 MONTHS. KIDNEY STONES. RECENT HERNIA SURGERY APPROX. 3 MONTHS AGO - Past Surgical History Past Surgical History: Yes Neuro Surgical History: No Pertinent History Cardiac: No Pertinent History Respiratory: No Pertinent History Gastrointestinal: Cholecystectomy, Hernia Repair Genitourinary: No Pertinent History Musculoskeletal: No Pertinent History Male Surgical History: No Pertinent History Other Surgical History: back,cataracts rt/lt - Social History Smoking Status: Never smoker Exposure to second hand smoke: No Drug Use: none Patient Lives Alone: No - Nursing Vital Signs Nursing Vital Signs: Initial Vital Signs Temperature 98.5 F 12/25/21 20:01 Pulse Rate 102 H 12/25/21 20:01 Respiratory Rate 20 12/25/21 20:01 Blood Pressure 117/71 12/25/21 20:01 O2 Sat by Pulse Oximetry 94 L 12/25/21 20:01 Pain Scale Pain Intensity 0 - Physical Exam General Appearance: no apparent distress, alert Eye Exam: PERRL/EOMI, eyes nml inspection Ears, Nose, Throat Exam: normal ENT inspection, moist mucous membranes Neck Exam: normal inspection, non-tender, supple, full range of motion Respiratory Exam: normal breath sounds, lungs clear, airway intact, No chest tenderness, No respiratory distress Cardiovascular Exam: regular rate/rhythm, normal heart sounds, normal peripheral pulses Gastrointestinal/Abdomen Exam: soft, normal bowel sounds, No tenderness Rectal Exam: not done Back Exam: normal inspection, normal range of motion, No CVA tenderness, No vertebral tenderness Extremity Exam: normal range of motion, pelvis stable, pedal edema (Bilateral feet ankle and below the knee swelling mostly anteriorly. No calf tenderness.), other (Excoriation bilateral lower extremities and bilateral upper extremities from patient scratching. No evidence of cellulitis or acute infection.) Neurologic Exam: alert, oriented x 3, cooperative, circuit board drafter II-XII nml as tested, normal mood/affect, nml cerebellar function, nml station & gait, sensation nml Skin Exam: other Lymphatic Exam: No adenopathy (Creation from patient scratching) SpO2 Interpretation: borderline oxygenation O2 Delivery: Room Air Ordered Tests: Active Orders 24 hr Category Date Time Status IV Insertion STAT Care 12/25/21 20:55 Active CBC W DIFF Stat Lab 12/25/21 21:30 Completed CMP Stat Lab 12/25/21 21:30 Completed NT PRO BNP Stat Lab 12/25/21 21:30 Completed Medication Summary Discontinued Medications Generic Name Dose Route Start Last Admin Trade Name Freq PRN Reason Stop Dose Admin Diphenhydramine HCl 50 mg 12/25/21 22:12 12/25/21 22:16 Diphenhydramine Hcl 50 Mg/Ml Vial IV 12/25/21 22:13 50 mg STAT ONE Administration Diphenhydramine HCl Confirm 12/25/21 22:15 Diphenhydramine Hcl 50 Mg/Ml Vial Administered 12/25/21 22:16 Dose 50 mg .ROUTE .STK-MED ONE Furosemide 40 mg 12/25/21 22:12 12/25/21 22:17 Furosemide 40 Mg/4 Ml Vial IV 12/25/21 22:13 40 mg STAT ONE Administration Furosemide Confirm 12/25/21 22:15 Furosemide 40 Mg/4 Ml Vial Administered 12/25/21 22:16 Dose 40 mg .ROUTE .STK-MED ONE Lab/Rad Data: Laboratory Result Diagrams 12/25/21 21:30 12/25/21 21:30 Laboratory Results 12/25/21 12/25/21 Range/Units 21:30 21:30 WBC 7.2 (4.0-10.5) K/mm3 RBC 3.18 L (4.1-5.6) M/mm3 Hgb 10.5 L (12.5-18.0) gm/dl Hct 33.0 L (42-50) % MCV 103.8 H (78-100) fl MCH 33.0 H (26-32) pg MCHC 31.8 L (32-36) g/dl RDW 15.5 H (11.5-14.0) % Plt Count 278 (150-450) K/mm3 MPV 8.4 (7.5-11.0) fl Gran % 64.5 (36.0-66.0) % Eos # (Auto) 0.25 (0-0.5) Absolute Lymphs (auto) 1.61 (1.0-4.6) Absolute Monos (auto) 0.69 (0.0-1.3) Lymphocytes % 22.3 L (24.0-44.0) % Monocytes % 9.6 (0.0-12.0) % Eosinophils % 3.5 (0.00-5.0) % Basophils % 0.1 (0.0-0.4) % Absolute Granulocytes 4.66 (1.4-6.9) Basophils # 0.01 (0-0.4) Sodium 139 (137-145) mmol/L Potassium 4.3 (3.5-5.1) mmol/L Chloride 106 (98-107) mmol/L Carbon Dioxide 26 (22-30) mmol/L Anion Gap 10.8 (5-15) MEQ/L BUN 41 H (9-20) mg/dL Creatinine 0.91 (0.66-1.25) mg/dL Estimated GFR > 60.0 ML/MIN Glucose 153 H (74-106) mg/dL Calcium 8.8 (8.4-10.2) mg/dL Total Bilirubin 0.40 (0.2-1.3) mg/dL AST 23 (17-59) U/L ALT 13 (0-50) U/L Alkaline Phosphatase 108 (38-126) U/L NT-Pro-B Natriuret Pep 3030 H (0-1800) pg/mL Serum Total Protein 6.9 (6.3-8.2) g/dL Albumin 3.7 (3.5-5.0) g/dL - Departure Departure Disposition: Home Clinical Impression: CHF (congestive heart failure), Dry skin, Pruritus, Pedal edema Condition: Stable Critical Care Time: No Referrals: TYRONE HANSEN MD [Primary Care Provider] - Follow up/PCP as directed Instructions: Heart Failure Additional Instructions: Take the furosemide as prescribed. Continue your other medication as prescribed. Keep both legs elevated above the level of your heart when not up ambulating. Keep the skin of your body moistened with unscented skin moisturizer including your arms and legs and feet. Use [id number] [place] dryl 25 mg orally 3 times a day as needed to control itching. Call Dr. Hansen's office on 12/28/2021 for obtaining an appointment for further evaluation and management. Prescriptions: Furosemide 20 mg [Lasix 20 mg] 20 mg PO BID #4 tablet
[2021-12-25 21:31] VITALS: O2SAT 95
[2021-12-25 21:33] LABS: Absolute Neutrophil Ct (ANC) 4.66 (1.4-6.9); Basophil (Absolute #) 0.01 (0-0.4); Eosinophil % 3.5 % (0.00-5.0); Eosinophil (Absolute #) 0.25 (0-0.5); Hemoglobin 10.5 gm/dl (12.5-18.0); Lymphocyte (Absolute #) 1.61 (1.0-4.6); Lymphocytes % 22.3 % (24.0-44.0); Mean Cell Volume 103.8 fl (78-100); Mean Corpuscular Hgb Concent. 31.8 g/dl (32-36); Mean Platelet Volume 8.4 fl (7.5-11.0); Monocyte (Absolute #) 0.69 (0.0-1.3); Monocytes % 9.6 % (0.0-12.0); Neutrophil % 64.5 % (36.0-66.0); Platelet Count 278 K/mm3 (150-450); Red Blood Count 3.18 M/mm3 (4.1-5.6); Red Cell Distribution Width 15.5 % (11.5-14.0); White Blood Count 7.2 K/mm3 (4.0-10.5)
[2021-12-25 21:52] LABS: ALBUMIN 3.7 g/dL (3.5-5.0); ALKALINE PHOSPHATASE 108 U/L (38-126); ANION GAP 10.8 MEQ/L (5-15); BLOOD UREA NITROGEN 41 mg/dL (9-20); CHLORIDE 106 mmol/L (98-107); Calcium 8.8 mg/dL (8.4-10.2); Carbon Dioxide 26 mmol/L (22-30); Creatinine 1 0.91 mg/dL (0.66-1.25); EST GLOMERULAR FILTRATION RATE > 60.0 ML/MIN; Glucose 153 mg/dL (74-106); NT PRO BNP 3030 pg/mL (0-1800); Potassium 4.3 mmol/L (3.5-5.1); SGOT/AST 23 U/L (17-59); SGPT/ALT 13 U/L (0-50); SODIUM 139 mmol/L (137-145); Total Protein 6.9 g/dL (6.3-8.2)
[2021-12-25 22:11] VITALS: BP 111/63; PULSE 87
[2021-12-25] MEDS ORDERED: BENADRYL 50 MG/ML IV ONE (22:12)
[2021-12-25] MEDS ORDERED: Lasix 40 MG/4 ML IV ONE (22:12)
[2021-12-25] MEDS ORDERED: Lasix 40 MG/4 ML ONE (22:15)
[2021-12-25] MEDS ORDERED: BENADRYL 50 MG/ML ONE (22:15)
== END 2021-12-25 22:47 | disposition home or self-care (01) ==
LOC: ED 19:51
DX: I11.0 Hypertensive heart disease with heart failure (principal); I50.9 Heart failure, unspecified; L85.3 Xerosis cutis; L29.9 Pruritus, unspecified; R60.0 Localized edema; E11.9 Type 2 diabetes mellitus without complications; Z79.84 Long term (current) use of oral hypoglycemic drugs; Z79.01 Long term (current) use of anticoagulants; Z79.899 Other long term (current) drug therapy
CPT/HCPCS: 36000; 36415; 80053; 83880; 85025; 96374; 96375; 99284; J1200; J1940

== ENCOUNTER 2022-01-13 07:57 | Day surgery (SDC) | payer MEDICARE ==
[2022-01-13] MEDS ORDERED: Lactated Ringers 1,000 ML IV ONE (09:25)
[2022-01-13] MEDS ORDERED: DIPRIVAN 200 MG/20 ML IV ONE (09:37)
--- NOTE | 2022-01-13 10:12 | XRAY ---
Indication: Lumbar RAYRAY. Intraoperative fluoroscopy provided for 15 seconds. 2 digital spot images submitted for interpretation demonstrates midline posterior needle tip projecting posterior to lumbosacral interspace. Small amount of contrast injected for needle tip placement. Correlate with intraoperative findings/report.
--- NOTE | 2022-01-13 10:39 | XRAY ---
15 seconds fluoroscopy time in surgery for lumbar RAYRAY.
== END 2022-01-13 10:05 | disposition home or self-care (01) ==
LOC: SDC-PAIN 07:57
PROVIDERS: ATTEND Psychiatry & Neurology Pain Medicine
DX: M54.16 Radiculopathy, lumbar region (principal); E11.9 Type 2 diabetes mellitus without complications; Z79.899 Other long term (current) drug therapy
CPT/HCPCS: 72100; 77003; 82947; J2704

== ENCOUNTER 2022-02-17 08:45 | Day surgery (SDC) | payer MEDICARE ==
[2022-02-17] MEDS ORDERED: BUPIVACAINE 0.5% VIAL IJ ONE (08:46)
[2022-02-17] MEDS ORDERED: Depo-Medrol 40 MG/ML IM ONE (08:46)
[2022-02-17] MEDS ORDERED: Lactated Ringers 1,000 ML IV ONE (09:33)
[2022-02-17] MEDS ORDERED: DIPRIVAN 200 MG/20 ML IV ONE (10:27)
--- NOTE | 2022-02-17 12:01 | XRAY ---
Indication: Right SI joint injection. Intraoperative fluoroscopy provided for 8 seconds. 2 digital spot images submitted for interpretation demonstrates posterior needle tip projecting over the inferior right SI joint. Correlate with intraoperative findings/report.
--- NOTE | 2022-02-17 12:48 | XRAY ---
8 seconds fluoroscopy time in surgery for injection of the right SI joint.
== END 2022-02-17 10:47 | disposition home or self-care (01) ==
LOC: SDC-PAIN 08:45
PROVIDERS: ATTEND Psychiatry & Neurology Pain Medicine
DX: M46.1 Sacroiliitis, not elsewhere classified (principal); E11.9 Type 2 diabetes mellitus without complications; Z79.899 Other long term (current) drug therapy
CPT/HCPCS: 27096; 72020; 77002; 82947; G0260; 99100; J1030; J2704

== ENCOUNTER 2022-03-30 21:03 | Observation (INO) | payer MEDICARE ==
[2022-03-30] MEDS ORDERED: Sodium Chloride 0.9% 1000 ML 1,000 ML ONE (21:55)
--- NOTE | 2022-03-30 21:55 | ERPHSYRPT ---
- History of Present Illness Time Seen by Provider: 03/30/22 21:10 Source: patient Exam Limitations: no limitations Patient Subjective Stated Complaint: pt states "I have had a cough and cold since Tuesday." Triage Nursing Assessment: pt came into the er via wheelchair; pt is axo x4; c/o cough; pt denies pain; febrile 101.6; clear lung sounds in all lobes; no edema present; vitals wnl Physician History: Patient is an 86-year-old male presents to our ED for evaluation of a cough, sob, cold-like symptoms fever and generalized weakness. Symptoms started approximately 2 days ago and have been progressive. Patient normally walks with a cane and states that he has been too weak to walk. No nausea or vomiting. No diarrhea. No rash. Symptoms are progressive. Symptoms are moderate in intensity. No specific worsening improving factors. Patient believes he may have pneumonia. He voices no other complaints or concerns at this time. Portions of this note were created with voice recognition technology. There may be grammatical, spelling, punctuation or sound alike errors Timing/Duration: day(s) (2 days) Severity: moderate Modifying Factors: Improves With: nothing Associated Symptoms: denies symptoms Allergies/Adverse Reactions: No Known Drug Allergies Allergy (Verified 03/30/22 21:05) Home Medications: Glimepiride [Amaryl] 2 mg PO DAILY 12/17/14 [History] Losartan Potassium [Cozaar] 100 mg PO DAILY 04/05/20 [History] Gabapentin [Neurontin ] 300 mg PO TID 08/24/21 [History] Albuterol Sulfate [Albuterol Sulfate Hfa] 8.5 gm IH DAILY 09/04/21 [History] Ascorbic Acid 500 mg [Vitamin C 500 MG] 1,000 mg PO DAILY 09/04/21 [History] Famotidine 20 mg PO BID 09/04/21 [History] Lubiprostone 8 mcg PO BID 09/04/21 [History] Rivaroxaban [Xarelto] 20 mg PO DAILY 09/04/21 [History] Zinc Sulfate 220 mg PO BID 09/04/21 [History] Fluticasone/Vilanterol [Breo Ellipta 100-25 Mcg INH] 1 puff IH DAILY 03/30/22 [History] Oxycodone HCl 15 mg PO Q6H PRN PRN 03/30/22 [History] Hx Tetanus, Diphtheria Vaccination/Date Given: Yes Hx Influenza Vaccination/Date Given: Yes Hx Pneumococcal Vaccination/Date Given: Yes Travel Risk - International Travel Have you traveled outside of the country in past 3 weeks: No - Coronavirus Screening Are you exhibiting any of the following symptoms?: Yes Symptoms: Fever, Cough: New Onset Close contact with a COVID-19 positive Pt in past 14-21 Days: No - Vaccine Status Have you recieved a Covid-19 vaccination: Yes Spinner Fixer: Unknown - Vaccination Dates Date of 2cond Vaccination (if applicable): August 2021 Dates if Unknown: August 2021 - Review of Systems Constitutional: No Symptoms, No Fever, No Chills Eyes: No Symptoms Ears, Nose, & Throat: No Symptoms Respiratory: No Symptoms, No Cough, No Dyspnea Cardiac: No Symptoms, No Chest Pain, No Edema, No Syncope Abdominal/Gastrointestinal: No Symptoms, No Abdominal Pain, No Nausea, No Vomiting, No Diarrhea Genitourinary Symptoms: No Symptoms, No Dysuria Musculoskeletal: No Symptoms, No Back Pain, No Neck Pain Skin: No Symptoms, No Rash Neurological: No Symptoms, No Dizziness, No Focal Weakness, No Sensory Changes Psychological: No Symptoms Endocrine: No Symptoms Hematologic/Lymphatic: No Symptoms Immunological/Allergic: No Symptoms All Other Systems: Reviewed and Negative - Past Medical History Pertinent Past Medical History: Yes Neurological History: No Pertinent History ENT History: Cataracts Cardiac History: Hypertension Respiratory History: No Pertinent History Endocrine Medical History: Diabetes Type II Musculoskeletal History: Arthritis GI Medical History: No Pertinent History History: Other Psycho-Social History: No Pertinent History Male Reproductive Disorders: No Pertinent History Other Medical History: SEES DR. HANSEN EVERY 3 MONTHS. KIDNEY STONES. RECENT HERNIA SURGERY APPROX. 3 MONTHS AGO - Past Surgical History Past Surgical History: Yes Neuro Surgical History: No Pertinent History Cardiac: No Pertinent History Respiratory: No Pertinent History Gastrointestinal: Cholecystectomy, Hernia Repair Genitourinary: No Pertinent History Musculoskeletal: No Pertinent History Male Surgical History: No Pertinent History Other Surgical History: back,cataracts rt/lt - Social History Smoking Status: Never smoker Exposure to second hand smoke: No Drug Use: none Patient Lives Alone: No - Nursing Vital Signs Nursing Vital Signs: Initial Vital Signs Temperature 101.6 F 03/30/22 21:03 Pulse Rate 97 H 03/30/22 21:03 Respiratory Rate 22 03/30/22 21:03 Blood Pressure 117/57 03/30/22 21:03 O2 Sat by Pulse Oximetry 90 L 03/30/22 21:03 Pain Scale Pain Intensity 0 - Physical Exam General Appearance: no apparent distress, alert, other (Patient hypoxic upon arrival to our ED. Patient required assistance in transferring. He appeared weak and unstable. Possible fall risk) Eye Exam: PERRL/EOMI, eyes nml inspection Ears, Nose, Throat Exam: normal ENT inspection, TMs normal, pharynx normal, moist mucous membranes Neck Exam: normal inspection, non-tender, supple, full range of motion Respiratory Exam: normal breath sounds, airway intact, rhonchi, wheezing (Coarse breath sounds), No respiratory distress Cardiovascular Exam: regular rate/rhythm, normal heart sounds, normal peripheral pulses Gastrointestinal/Abdomen Exam: soft, normal bowel sounds, No tenderness, No mass, No guarding Back Exam: normal inspection, normal range of motion, No CVA tenderness, No vertebral tenderness Extremity Exam: normal inspection, normal range of motion, pelvis stable Neurologic Exam: alert, oriented x 3, cooperative, normal mood/affect, sensation nml, No motor deficits Skin Exam: normal color, warm, dry, No rash Lymphatic Exam: No adenopathy SpO2 Interpretation: normal, hypoxic SpO2: 90 O2 Delivery: Room Air - Course Nursing assessment & vital signs reviewed: Yes EKG Interpreted by Me: RATE (100), Sinus Tach, NORMAL AXIS (LVH) - Radiology Exams Chest X-ray Interpretation: Teleradiologist Report (Emphysematous changes. Bibasilar atelectasis versus minimal infiltrate.) Ordered Tests: Active Orders 24 hr Category Date Time Status Field Interviewer STAT Care 03/30/22 21:52 Active IV Insertion STAT Care 03/30/22 21:51 Active Pulse Oximetry (ED) STAT Care 03/30/22 21:51 Active CHEST 1 VIEW (PORTABLE) Stat Exams 03/30/22 21:51 Taken BLOOD CULTURE Stat Lab 03/30/22 22:09 Received CBC W DIFF Stat Lab 03/30/22 21:55 Completed CMP Stat Lab 03/30/22 21:55 Completed UA W/RFX CULTURE Stat Lab 03/30/22 Ordered Transfer Order Routine Transfer 03/31/22 Ordered Medication Summary Generic Name Dose Route Start Last Admin Trade Name Eddie PRN Reason Stop Dose Admin Sodium Chloride 1,000 mls @ 100 mls/hr 03/30/22 22:00 03/30/22 21:56 Sodium Chloride 0.9% 1000 Ml IV 04/29/22 21:59 100 mls/hr .Q10H GONZALO Administration Ceftriaxone Sodium/Dextrose 2 g in 50 mls @ 100 mls/hr 03/30/22 23:56 03/31/22 00:01 Rocephin 2 Gm-D5w 50ml Bag IV 03/31/22 00:25 100 ml/hr STAT STA 100 mls/hr Administration Azithromycin / Sodium Chloride 250 mls @ 125 mls/hr 03/30/22 23:56 IV 03/31/22 01:55 STAT ONE Discontinued Medications Generic Name Dose Route Start Last Admin Trade Name Eddie PRN Reason Stop Dose Admin Acetaminophen 975 mg 03/30/22 22:11 03/30/22 22:15 Acetaminophen 325 Mg Tablet PO 03/30/22 22:12 975 mg STAT ONE Administration Acetaminophen Confirm 03/30/22 22:14 Acetaminophen 325 Mg Tablet Administered 03/30/22 22:15 Dose 975 mg .ROUTE .STK-MED ONE Albuterol/Ipratropium 3 ml 03/31/22 00:00 Ipratropium/Albuterol Sulfate 3 Ml Ampul.Neb IH 03/31/22 00:01 STAT ONE Ceftriaxone Sodium/Dextrose Confirm 03/31/22 00:00 Rocephin 2 Gm-D5w 50ml Bag Administered 03/31/22 00:01 Dose 2 g in 50 mls @ ud IV .STK-MED ONE Lab/Rad Data: Laboratory Result Diagrams 03/30/22 21:55 03/30/22 21:55 Laboratory Results 03/30/22 03/30/22 03/30/22 Range/Units 21:55 21:55 21:35 WBC 6.7 (4.0-10.5) x10^3/uL RBC 3.90 L (4.1-5.6) x10^6/uL Hgb 12.5 (12.5-18.0) g/dL Hct 38.5 L (42-50) % MCV 98.7 (78-100) fL MCH 32.1 H (26-32) pg MCHC 32.5 (32-36) g/dL RDW 14.1 H (11.5-14.0) % Plt Count 253 (150-450) x10^3/uL MPV 8.8 (7.5-11.0) fL Gran % 66.7 H (36.0-66.0) % Immature Gran % (Auto) 0.4 (0.00-0.4) % Nucleat RBC Rel Count 0.0 (0.00-0.1) % Eos # (Auto) 0.01 (0-0.5) x10^3/uL Immature Gran # (Auto) 0.03 (0.00-0.03) x10^3u/L Absolute Lymphs (auto) 1.54 (1.0-4.6) x10^3/uL Absolute Monos (auto) 0.63 (0.0-1.3) x10^3/uL Absolute Nucleated RBC 0.00 (0.00-0.01) x10^3u/L Lymphocytes % 23.1 L (24.0-44.0) % Monocytes % 9.4 (0.0-12.0) % Eosinophils % 0.1 (0.00-5.0) % Basophils % 0.3 (0.0-0.4) % Absolute Granulocytes 4.45 (1.4-6.9) x10^3/uL Basophils # 0.02 (0-0.4) x10^3/uL Sodium 137 (137-145) mmol/L Potassium 4.6 (3.5-5.1) mmol/L Chloride 101 (98-107) mmol/L Carbon Dioxide 26 (22-30) mmol/L Anion Gap 14.8 (5-15) MEQ/L BUN 34 H (9-20) mg/dL Creatinine 1.36 H (0.66-1.25) mg/dL Estimated GFR 52.8 ML/MIN Glucose 131 H (74-106) mg/dL Calcium 9.0 (8.4-10.2) mg/dL Total Bilirubin 0.70 (0.2-1.3) mg/dL AST 30 (17-59) U/L ALT 17 (0-50) U/L Alkaline Phosphatase 118 (38-126) U/L Serum Total Protein 8.2 (6.3-8.2) g/dL Albumin 4.2 (3.5-5.0) g/dL Influenza Type A Ag NEGATIVE (NEGATIVE) Influenza Type B Ag NEGATIVE (NEGATIVE) RSV (PCR) NEGATIVE (Negative) SARS-CoV-2 (PCR) NEGATIVE (NEGATIVE) - Progress Progress: improved Progress Note: Patient reassessed. Patient states he is too weak to go home. Patient was hypoxic upon arrival to our ED. O2 sat was 90%. Patient does not require oxygen at home. (Patient has oxygen at home which he required while he had COV ID but has not needed it since COVID recovery) infiltrate seen on chest x-ray. Patient wheezing. Patient received albuterol nebulizer treatment. Patient denies history of COPD. COVID test negative. Fever defervesced. Antibiotics infused. Case discussed with Dr. Hansen who accepts admission to observation. Plan of care discussed with patient. He agrees to admission at [facility] for further evaluation and treatment. Portions of this note were created with voice recognition technology. There may be grammatical, spelling, punctuation or sound alike errors 03/31/22 00:05 Counseled pt/family regarding: lab results - Departure Departure Disposition: Home Clinical Impression: Generalized weakness, Pneumonia, Fever, Hypoxia Condition: Stable Critical Care Time: No Referrals: TYRONE HANSEN MD [Primary Care Provider] - Follow up/PCP as directed
[2022-03-30 21:57] LABS: Absolute Neutrophil Ct (ANC) 4.45 x10^3/uL (1.4-6.9); Basophil (Absolute #) 0.02 x10^3/uL (0-0.4); Eosinophil % 0.1 % (0.00-5.0); Eosinophil (Absolute #) 0.01 x10^3/uL (0-0.5); Hematocrit 38.5 % (42-50); Hemoglobin 12.5 g/dL (12.5-18.0); Lymphocyte (Absolute #) 1.54 x10^3/uL (1.0-4.6); Lymphocytes % 23.1 % (24.0-44.0); Mean Cell Volume 98.7 fL (78-100); Mean Corpuscular Hemoglobin 32.1 pg (26-32); Mean Corpuscular Hgb Concent. 32.5 g/dL (32-36); Mean Platelet Volume 8.8 fL (7.5-11.0); Monocyte (Absolute #) 0.63 x10^3/uL (0.0-1.3); Monocytes % 9.4 % (0.0-12.0); Neutrophil % 66.7 % (36.0-66.0); Platelet Count 253 x10^3/uL (150-450); Red Cell Distribution Width 14.1 % (11.5-14.0); White Blood Count 6.7 x10^3/uL (4.0-10.5)
[2022-03-30] MEDS ORDERED: Sodium Chloride 0.9% 1000 ML 1,000 ML IV SCH (22:00)
[2022-03-30 22:05] LABS: ALBUMIN 4.2 g/dL (3.5-5.0); ANION GAP 14.8 MEQ/L (5-15); BILIRUBIN,TOTAL 0.7 mg/dL (0.2-1.3); Creatinine 1 1.36 mg/dL (0.66-1.25); EST GLOMERULAR FILTRATION RATE 52.8 ML/MIN; Potassium 4.6 mmol/L (3.5-5.1); Total Protein 8.2 g/dL (6.3-8.2)
[2022-03-30] MEDS ORDERED: TYLENOL 325 MG PO ONE (22:11)
[2022-03-30 22:14] LABS: INFLUENZA A NEGATIVE (NEGATIVE); INFLUENZA B NEGATIVE (NEGATIVE); RESPIRATORY SYNCTIAL VIRUS NEGATIVE (Negative); SARS-CoV-2 Xpert Express NEGATIVE (NEGATIVE)
[2022-03-30] MEDS ORDERED: TYLENOL 325 MG ONE (22:14)
[2022-03-30] MEDS ORDERED: ZITHROMAX IV*** 0 MG in Sodium Chloride 0.9% 250 ML 250 ML IV ONE (23:56)
[2022-03-30] MEDS ORDERED: ROCEPHIN 2 Gm-D5w 50ML BAG** 2 G/50 ML IVPB IV STA (23:56)
[2022-03-31] MEDS ORDERED: ROCEPHIN 2 Gm-D5w 50ML BAG** 2 G/50 ML IVPB IV ONE
[2022-03-31] MEDS ORDERED: DUONEB 0.5-3 MG/3 ml Neb IH ONE ×2 (00:23)
[2022-03-31] MEDS ORDERED: PROVENTIL 2.5 MG/3 ML NEB IH SCH (03:00)
[2022-03-31 04:26] LABS: Hematocrit 34.3 % (42-50); Hemoglobin 11.2 g/dL (12.5-18.0); Mean Cell Volume 99.4 fL (78-100); Mean Corpuscular Hemoglobin 32.5 pg (26-32); Mean Corpuscular Hgb Concent. 32.7 g/dL (32-36); Mean Platelet Volume 8.6 fL (7.5-11.0); Platelet Count 226 x10^3/uL (150-450); Red Blood Count 3.45 x10^6/uL (4.1-5.6); Red Cell Distribution Width 14.4 % (11.5-14.0); White Blood Count 5.7 x10^3/uL (4.0-10.5)
[2022-03-31 04:55] LABS: ALBUMIN 3.3 g/dL (3.5-5.0); ALKALINE PHOSPHATASE 90 U/L (38-126); ANION GAP 9.8 MEQ/L (5-15); BLOOD UREA NITROGEN 34 mg/dL (9-20); CHLORIDE 104 mmol/L (98-107); Calcium 8.4 mg/dL (8.4-10.2); Carbon Dioxide 28 mmol/L (22-30); Creatinine 1 1.19 mg/dL (0.66-1.25); EST GLOMERULAR FILTRATION RATE > 60.0 ML/MIN; Glucose 115 mg/dL (74-106); Potassium 4.4 mmol/L (3.5-5.1); SGOT/AST 28 U/L (17-59); SGPT/ALT 13 U/L (0-50); SODIUM 137 mmol/L (137-145); Total Protein 6.6 g/dL (6.3-8.2)
--- NOTE | 2022-03-31 08:58 | XRAY ---
Indication: Pneumonia. Comparison: September 07, 2021. Portable chest again hyperinflated with mild bibasilar subsegmental atelectasis/scarring. Remaining heart and upper lungs unremarkable. Bony thorax intact again with osteopenia, degenerative changes, and right shoulder arthroplasty. Comment: Preliminary interpretation made by [facility]. No critical discrepancy.
[2022-03-31] MEDS: Zithromax 500 MG/ 250 ML NaCl Premix 500 MG/250 ML IVPB IV SCH (10:30)
[2022-03-31] MEDS ORDERED: TYLENOL EXTRA STRENGTH 500 MG PO PRN (11:44)
[2022-03-31] MEDS ORDERED: OXYCODONE HCL 15 MG PO PRN (11:44)
[2022-03-31] MEDS ORDERED: Dulcolax 10 MG SUPP PR PRN (11:44)
[2022-03-31] MEDS ORDERED: Tums EX 750 MG PO PRN (11:44)
[2022-03-31] MEDS ORDERED: MEDICATION INTERVENTION MC SCH ×2 (12:00)
[2022-03-31] MEDS: Oxy-IR 5 MG PO PRN (14:09)
[2022-03-31] MEDS: Cozaar 50 MG PO SCH (14:09)
[2022-03-31] MEDS: Senokot-S Tablet PO SCH (14:09)
[2022-03-31] MEDS: Zinc Gluconate 50 MG PO SCH ×2 (14:09→21:41)
[2022-03-31] MEDS: NEURONTIN PO SCH ×2 (14:09→21:41)
[2022-03-31] MEDS: XARELTO 10 MG TABLET PO SCH (14:09)
[2022-03-31] MEDS: Amaryl 2 MG PO SCH (14:10)
[2022-03-31] MEDS: Vitamin C 500 MG PO SCH (14:10)
[2022-03-31] MEDS: Pepcid 20 MG PO SCH ×2 (14:10→21:41)
--- NOTE | 2022-03-31 18:59 | PCM.HP ---
History of Present Illness - Chief Complaint Chief Complaint: fever and cough for 2 days History of Present Illness: is a 86 year old male.presents to our ED for evaluation of a cough, sob, cold-like symptoms fever and generalized weakness. Symptoms started approximately 2 days ago and have been progressive. Patient normally walks with a cane and states that he has been too weak to walk. No nausea or vomiting. No diarrhea. No rash. Symptoms are progressive. Symptoms are moderate in intensity. No specific worsening improving factors. Patient believes he may have pneumonia. He voices no other complaints or concerns at this time. Portions of this note were created with voice recognition technology. There may be grammatical, spelling, punctuation or sound alike errors Timing/Duration: day(s) (2 days) Severity: moderate Modifying Factors: Improves With: nothing Associated Symptoms: denies symptoms - Review of Systems Constitutional: Fever, Chills, Weakness Eyes: No Symptoms Ears, Nose, & Throat: No Symptoms Respiratory: Cough, Orthopnea, Short Of Breath Cardiac: No Chest Pain, No Edema, No Syncope Abdominal/Gastrointestinal: No Abdominal Pain, No Nausea, No Vomiting, No Diarrhea Genitourinary Symptoms: No Dysuria Musculoskeletal: No Back Pain, No Neck Pain Skin: No Rash Neurological: No Dizziness, No Focal Weakness, No Sensory Changes Psychological: No Symptoms Endocrine: No Symptoms Hematologic/Lymphatic: No Symptoms Immunological/Allergic: No Symptoms Medications & Allergies Home Medications: Home Medication List Glimepiride [Amaryl] 2 mg PO DAILY 12/17/14 [History Confirmed 03/30/22] Losartan Potassium [Cozaar] 100 mg PO DAILY 04/05/20 [History Confirmed 03/30/22] Gabapentin [Neurontin ] 300 mg PO TID 08/24/21 [History Confirmed ] Albuterol Sulfate [Albuterol Sulfate Hfa] 8.5 gm IH DAILY 09/04/21 [History Confirmed 03/30/22] Ascorbic Acid 500 mg [Vitamin C 500 MG] 1,000 mg PO DAILY 09/04/21 [History Confirmed 03/30/22] Famotidine 20 mg PO BID 09/04/21 [History Confirmed 03/30/22] Lubiprostone 8 mcg PO BID 09/04/21 [History Confirmed 03/30/22] Rivaroxaban [Xarelto] 20 mg PO DAILY 09/04/21 [History Confirmed 03/30/22] Zinc Sulfate 220 mg PO BID 09/04/21 [History Confirmed 03/30/22] Acetaminophen 500 mg [Tylenol Extra Strength 500 mg] 500 - 1,000 mg PO Q4H PRN PRN tablet 09/11/21 [Rx Confirmed 03/30/22] Bisacodyl 10 mg [Dulcolax 10 MG SUPP] 10 mg PA QDP PRN supp.rect 09/11/21 [Rx Confirmed 03/30/22] Senna/Docusate Sodium Tab [Senokot-S Tablet] 1 udtab PO DAILY tablet 09/11/21 [Rx Confirmed 03/30/22] Fluticasone/Vilanterol [Breo Ellipta 100-25 Mcg INH] 1 puff IH DAILY 03/30/22 [History Confirmed 03/30/22] Oxycodone HCl 15 mg PO Q6H PRN PRN 03/30/22 [History Confirmed 03/30/22] Calcium Carbonate 750 mg [Tums EX 750 MG] 750 mg PO Q6HPRN PRN 03/31/22 [History Confirmed 03/30/22] Allergies/Adverse Reactions: Allergies Allergy/AdvReac Type Severity Reaction Status Date / Time No Known Drug Allergies Allergy Verified 03/30/22 21:05 - Past Medical History Past Medical History: Yes Neurological History: No Pertinent History ENT History: Cataracts Cardiac History: Hypertension Respiratory History: No Pertinent History Endocrine Medical History: Diabetes Type II Musculoskelatal History: Arthritis GI Medical History: No Pertinent History History: Other Pyscho-Social History: No Pertinent History Male Reproductive Disorders: No Pertinent History Comment: SEES DR. HANSEN EVERY 3 MONTHS. KIDNEY STONES. RECENT HERNIA SURGERY APPROX. 3 MONTHS AGO - Past Surgical History Past Surgical History: Yes Neuro Surgical History: No Pertinent History Cardiac History: No Pertinent History Respiratory Surgery: No Pertinent History GI Surgical History: Cholecystectomy, Hernia Repair Genitourinary Surgical Hx: No Pertinent History Musculskeletal Surgical Hx: No Pertinent History Male Surgical History: No Pertinent History Other Surgical History: back,cataracts rt/lt - Social History Smoking Status: Former smoker Exposure to second hand smoke: No Alcohol: None Drug Use: none - Physical Exam Vital Signs: Vital Signs - 24 hr Temp Pulse Resp BP Pulse Ox 03/31/22 16:00 98.9 F 87 20 146/65 91 L 03/31/22 12:00 99.5 F 89 31 H 115/57 95 03/31/22 07:52 99.1 F 90 30 H 117/65 93 L 03/31/22 07:09 93 H 16 97 03/31/22 04:10 98.9 F 82 19 127/58 96 03/31/22 00:58 99.1 F 91 H 20 118/58 99 03/31/22 00:52 93 L 03/31/22 00:27 89 27 H 97 03/31/22 00:18 90 L 03/31/22 00:00 90 22 113/61 94 L 03/30/22 22:24 98 H 119/63 95 03/30/22 21:55 97 03/30/22 21:03 101.6 F 97 H 22 117/57 90 L General Appearance: no apparent distress, alert Neurologic Exam: alert, oriented x 3, cooperative, normal mood/affect, nml cerebellar function, nml station & gait, sensation nml, No motor deficits Eye Exam: PERRL/EOMI, eyes nml inspection Ears, Nose, Throat Exam: normal ENT inspection, TMs normal, pharynx normal, moist mucous membranes Neck Exam: normal inspection, non-tender, supple, full range of motion Respiratory Exam: crackles/rales, rhonchi, No respiratory distress Cardiovascular Exam: regular rate/rhythm, normal heart sounds, normal peripheral pulses Gastrointestinal/Abdomen Exam: soft, normal bowel sounds, No tenderness, No mass Back Exam: normal inspection, normal range of motion, No CVA tenderness, No ve rtebral tenderness Extremity Exam: normal inspection, normal range of motion, pelvis stable Skin Exam: normal color, warm, dry, No rash Lymphatic Exam: No adenopathy Results - Labs Lab/Micro Results: Lab Results-Last 24 Hours 03/30/22 03/30/22 03/30/22 Range/Units 21:35 21:55 21:55 WBC 6.7 (4.0-10.5) x10^3/uL RBC 3.90 L (4.1-5.6) x10^6/uL Hgb 12.5 (12.5-18.0) g/dL Hct 38.5 L (42-50) % MCV 98.7 (78-100) fL MCH 32.1 H (26-32) pg MCHC 32.5 (32-36) g/dL RDW 14.1 H (11.5-14.0) % Plt Count 253 (150-450) x10^3/uL MPV 8.8 (7.5-11.0) fL Gran % 66.7 H (36.0-66.0) % Immature Gran % (Auto) 0.4 (0.00-0.4) % Nucleat RBC Rel Count 0.0 (0.00-0.1) % Eos # (Auto) 0.01 (0-0.5) x10^3/uL Immature Gran # (Auto) 0.03 (0.00-0.03) x10^3u/L Absolute Lymphs (auto) 1.54 (1.0-4.6) x10^3/uL Absolute Monos (auto) 0.63 (0.0-1.3) x10^3/uL Absolute Nucleated RBC 0.00 (0.00-0.01) x10^3u/L Lymphocytes % 23.1 L (24.0-44.0) % Monocytes % 9.4 (0.0-12.0) % Eosinophils % 0.1 (0.00-5.0) % Basophils % 0.3 (0.0-0.4) % Absolute Granulocytes 4.45 (1.4-6.9) x10^3/uL Basophils # 0.02 (0-0.4) x10^3/uL Sodium 137 (137-145) mmol/L Potassium 4.6 (3.5-5.1) mmol/L Chloride 101 (98-107) mmol/L Carbon Dioxide 26 (22-30) mmol/L Anion Gap 14.8 (5-15) MEQ/L BUN 34 H (9-20) mg/dL Creatinine 1.36 H (0.66-1.25) mg/dL Estimated GFR 52.8 ML/MIN Glucose 131 H (74-106) mg/dL Calcium 9.0 (8.4-10.2) mg/dL Total Bilirubin 0.70 (0.2-1.3) mg/dL AST 30 (17-59) U/L ALT 17 (0-50) U/L Alkaline Phosphatase 118 (38-126) U/L Serum Total Protein 8.2 (6.3-8.2) g/dL Albumin 4.2 (3.5-5.0) g/dL Influenza Type A Ag NEGATIVE (NEGATIVE) Influenza Type B Ag NEGATIVE (NEGATIVE) RSV (PCR) NEGATIVE (Negative) SARS-CoV-2 (PCR) NEGATIVE (NEGATIVE) 03/31/22 03/31/22 Range/Units 04:00 04:20 WBC 5.7 (4.0-10.5) x10^3/uL RBC 3.45 L (4.1-5.6) x10^6/uL Hgb 11.2 L (12.5-18.0) g/dL Hct 34.3 L (42-50) % MCV 99.4 (78-100) fL MCH 32.5 H (26-32) pg MCHC 32.7 (32-36) g/dL RDW 14.4 H (11.5-14.0) % Plt Count 226 (150-450) x10^3/uL MPV 8.6 (7.5-11.0) fL Gran % (36.0-66.0) % Immature Gran % (Auto) (0.00-0.4) % Nucleat RBC Rel Count (0.00-0.1) % Eos # (Auto) (0-0.5) x10^3/uL Immature Gran # (Auto) (0.00-0.03) x10^3u/L Absolute Lymphs (auto) (1.0-4.6) x10^3/uL Absolute Monos (auto) (0.0-1.3) x10^3/uL Absolute Nucleated RBC (0.00-0.01) x10^3u/L Lymphocytes % (24.0-44.0) % Monocytes % (0.0-12.0) % Eosinophils % (0.00-5.0) % Basophils % (0.0-0.4) % Absolute Granulocytes (1.4-6.9) x10^3/uL Basophils # (0-0.4) x10^3/uL Sodium 137 (137-145) mmol/L Potassium 4.4 (3.5-5.1) mmol/L Chloride 104 (98-107) mmol/L Carbon Dioxide 28 (22-30) mmol/L Anion Gap 9.8 (5-15) MEQ/L BUN 34 H (9-20) mg/dL Creatinine 1.19 (0.66-1.25) mg/dL Estimated GFR > 60.0 ML/MIN Glucose 115 H (74-106) mg/dL Calcium 8.4 (8.4-10.2) mg/dL Total Bilirubin 0.40 (0.2-1.3) mg/dL AST 28 (17-59) U/L ALT 13 (0-50) U/L Alkaline Phosphatase 90 (38-126) U/L Serum Total Protein 6.6 (6.3-8.2) g/dL Albumin 3.3 L (3.5-5.0) g/dL Influenza Type A Ag (NEGATIVE) Influenza Type B Ag (NEGATIVE) RSV (PCR) (Negative) SARS-CoV-2 (PCR) (NEGATIVE) Microbiology 03/30/22 22:09 Blood Culture - Preliminary Blood NO GROWTH TO DATE 03/30/22 21:55 Blood Culture - Preliminary Blood NO GROWTH TO DATE - Radiology Impressions Radiology Exams & Impressions: Radiology Procedures Category Date Time Status CHEST 1 VIEW (PORTABLE) Stat Exams 03/30/22 21:51 Completed - Other Procedures and Tests Respiratory Therapy 03/31/22 00:25 Respiratory Therapy Assessment DAILY 03/31/22 05:22 Oxygen Nasal Cannula 2 lpm Assessment/Plan (1) Pneumonia Current Visit: Yes Status: Acute Qualifiers: Pneumonia type: due to Pneumococcus Laterality: bilateral Lung location: lower lobe of lung Qualified Code(s): J13 - Pneumonia due to Streptococcus pneumoniae Assessment & Plan: Chief Complaint Diagnosis Pneumonia, fever, hypoxia Allergies Allergy/AdvReac Type Severity Reaction Status Date / Time No Known Drug Allergies Allergy Verified 03/30/22 21:05 Vital Signs (Last 24 hours) Temp Pulse Resp BP Pulse Ox 03/31/22 16:00 98.9 F 87 20 146/65 91 L 03/31/22 12:00 99.5 F 89 31 H 115/57 95 03/31/22 07:52 99.1 F 90 30 H 117/65 93 L 06/22/22 07:09 93 H 16 97 03/31/22 04:10 98.9 F 82 19 127/58 96 03/31/22 00:58 99.1 F 91 H 20 118/58 99 03/31/22 00:52 93 L 03/31/22 00:27 89 27 H 97 03/31/22 00:18 90 L 03/31/22 00:00 90 22 113/61 94 L 03/30/22 22:24 98 H 119/63 95 03/30/22 21:55 97 03/30/22 21:03 101.6 F 97 H 22 117/57 90 L Home Medications Medication Instructions Recorded Confirmed Last Taken Type Fluticasone/Vilanterol [Breo 1 puff IH DAILY 03/30/22 03/30/22 Unknown History Ellipta 100-25 Mcg INH] Oxycodone HCl 15 mg PO Q6H PRN PRN 03/30/22 03/30/22 Unknown History Calcium Carbonate 750 mg [Tums 750 mg PO Q6HPRN PRN 03/31/22 03/30/22 Unknown History EX 750 MG] Current Medications Generic Name Dose Route Start Last Admin Trade Name Freq PRN Reason Stop Dose Admin Acetaminophen 0 mg 03/31/22 11:44 Acetaminophen 500 Mg Tablet PO 04/30/22 11:43 Q4H PRN PRN HEADACHE/PAIN/FEVER Albuterol Sulfate 2 puff 03/31/22 12:00 Albuterol Common Canister Inhaler 04/30/22 11:59 DAILY GONZALO Ascorbic Acid 1,000 mg 03/31/22 12:00 03/31/22 14:10 Ascorbic Acid 500 Mg Tablet PO 04/30/22 11:59 1,000 mg DAILY GONZALO Administration Bisacodyl 10 mg 03/31/22 11:44 Bisacodyl 10 Mg Supp.Rect PA 04/30/22 11:43 QDP PRN CONSTIPATION Calcium Carbonate/Glycine 750 mg 03/31/22 11:44 Calcium Carbonate 750 Mg 750 Mg Tab.Chew PO 04/30/22 11:43 Q6HPRN PRN indigestion/heartburn Famotidine 20 mg 03/31/22 12:00 03/31/22 14:10 Famotidine 20 Mg Tablet PO 04/30/22 11:59 20 mg BID GONZALO Administration Gabapentin 300 mg 03/31/22 15:00 03/31/22 14:09 Gabapentin 300 Mg Capsule PO 04/30/22 14:59 300 mg TID GONZALO Administration Glimepiride 2 mg 03/31/22 12:00 03/31/22 14:10 Glimepiride 2 Mg Tablet PO 04/30/22 11:59 2 mg BREAKFAST GONZALO Administration Ceftriaxone Sodium/Dextrose 1 g in 50 mls @ 100 mls/hr 03/31/22 22:00 Rocephin 1 Gm-D5w 50 Ml Bag IV 04/03/22 21:59 Q24H22 GONZALO Azithromycin 500 mg in 250 mls @ 250 mls/hr 03/31/22 10:00 03/31/22 10:30 Zithromax 500 Mg/ 250 Ml Nacl Premix IV 04/30/22 09:59 250 mls/hr Q24H10 GONZALO Administration Losartan Potassium 100 mg 03/31/22 12:00 03/31/22 14:09 Losartan Potassium 50 Mg Tablet PO 04/30/22 11:59 100 mg DAILY GONZALO Administration Miscellaneous Information 1 each 03/31/22 12:00 Medication Intervention 1 Each Each 04/30/22 11:59 .RN TO CHECK GONZALO Miscellaneous Information 1 each 03/31/22 12:00 Medication Intervention 1 Each Each 04/30/22 11:59 .RT TO CHECK GONZALO Oxycodone HCl 15 mg 03/31/22 11:49 03/31/22 14:09 Oxycodone Hcl 5 Mg Ir Tab PO 04/05/22 11:48 15 mg Q6H PRN PRN Administration PAIN Rivaroxaban 20 mg 03/31/22 12:00 03/31/22 14:09 Rivaroxaban 10 Mg Tablet PO 04/30/22 11:59 20 mg DAILY GONZALO Administration Senna/Docusate Sodium 1 udtab 03/31/22 12:00 03/31/22 14:09 Senna/Docusate Sodium 1 Udtab Tablet PO 04/30/22 11:59 1 udtab DAILY GONZALO Administration Zinc Gluconate 50 mg 03/31/22 12:00 03/31/22 14:09 Zinc Gluconate 50 Mg Tablet PO 04/30/22 11:59 50 mg BID GONZALO Administration Discontinued Medications Generic Name Dose Route Start Last Admin Trade Name Eddie HARRISON Reason Stop Dose Admin Acetaminophen 975 mg 03/30/22 22:11 03/30/22 22:15 Acetaminophen 325 Mg Tablet PO 03/30/22 22:12 975 mg STAT ONE Administration Acetaminophen Confirm 03/30/22 22:14 Acetaminophen 325 Mg Tablet Administered 03/30/22 22:15 Dose 975 mg .ROUTE .STK-MED ONE Albuterol Sulfate 2.5 mg 03/31/22 03:00 03/31/22 05:26 Albuterol Sulfate 2.5 Mg/3 Ml [facility] 04/30/22 02:59 Not Given Q4HRT GONZALO Albuterol/Ipratropium 3 ml 03/31/22 00:00 03/31/22 00:27 Ipratropium/Albuterol Sulfate 3 Ml Ampul.Neb 03/31/22 00:01 3 ml STAT ONE Administration Albuterol/Ipratropium Confirm 03/31/22 00:23 Ipratropium/Albuterol Sulfate 3 Ml Ampul.Neb Administered 03/31/22 00:24 Dose 3 ml IH .STK-MED ONE Sodium Chloride 1,000 mls @ 100 mls/hr 03/30/22 22:00 03/30/22 21:56 Sodium Chloride 0.9% 1000 Ml IV 04/29/22 21:59 100 mls/hr .Q10H GONZALO Administration Ceftriaxone Sodium/Dextrose 2 g in 50 mls @ 100 mls/hr 03/30/22 23:56 03/31/22 00:01 Rocephin 2 Gm-D5w 50ml Bag IV 03/31/22 00:25 100 ml/hr STAT STA 100 mls/hr Administration Azithromycin / Sodium Chloride 250 mls @ 125 mls/hr 03/30/22 23:56 IV 03/31/22 01:55 STAT ONE Ceftriaxone Sodium/Dextrose Confirm 03/31/22 00:00 Rocephin 2 Gm-D5w 50ml Bag Administered 03/31/22 00:01 Dose 2 g in 50 mls @ ud IV .STK-MED ONE Sodium Chloride Confirm 03/30/22 21:55 Sodium Chloride 0.9% 1000 Ml Administered 03/30/22 21:56 Dose 1,000 mls @ ud .ROUTE .STK-MED ONE Intake & Output (Last 24 hours) 03/29/22 03/30/22 03/31/22 04/01/22 11:59 11:59 11:59 11:59 Intake Total 400 720 Output Total 440 825 Balance -40 -105 Weight 67.3 kg Microbiology Results (Last 24 hours) 03/30/22 22:09 Blood Blood Culture Gram Stain - Pending 03/30/22 22:09 Blood Blood Culture - Preliminary NO GROWTH TO DATE 03/30/22 21:55 Blood Blood Culture Gram Stain - Pending 03/30/22 21:55 Blood Blood Culture - Preliminary NO GROWTH TO DATE Laboratory Results (Last 24 hours) 03/31/22 03/31/22 03/30/22 04:20 04:00 21:55 WBC 5.7 RBC 3.45 L Hgb 11.2 L Hct 34.3 L MCV 99.4 MCH 32.5 H MCHC 32.7 RDW 14.4 H Plt Count 226 MPV 8.6 Gran % Immature Gran % (Auto) Nucleat RBC Rel Count Eos # (Auto) Immature Gran # (Auto) Absolute Lymphs (auto) Absolute Monos (auto) Absolute Nucleated RBC Lymphocytes % Monocytes % Eosinophils % Basophils % Absolute Granulocytes Basophils # Sodium 137 137 Potassium 4.4 4.6 Chloride 104 101 Carbon Dioxide 28 26 Anion Gap 9.8 14.8 BUN 34 H 34 H Creatinine 1.19 1.36 H Estimated GFR > 60.0 52.8 Glucose 115 H 131 H Calcium 8.4 9.0 Total Bilirubin 0.40 0.70 AST 28 30 ALT 13 17 Alkaline Phosphatase 90 118 Serum Total Protein 6.6 8.2 Albumin 3.3 L 4.2 Influenza Type A Ag Influenza Type B Ag RSV (PCR) SARS-CoV-2 (PCR) 03/30/22 03/30/22 21:55 21:35 WBC 6.7 RBC 3.90 L Hgb 12.5 Hct 38.5 L MCV 98.7 MCH 32.1 H MCHC 32.5 RDW 14.1 H Plt Count 253 MPV 8.8 Gran % 66.7 H Immature Gran % (Auto) 0.4 Nucleat RBC Rel Count 0.0 Eos # (Auto) 0.01 Immature Gran # (Auto) 0.03 Absolute Lymphs (auto) 1.54 Absolute Monos (auto) 0.63 Absolute Nucleated RBC 0.00 Lymphocytes % 23.1 L Monocytes % 9.4 Eosinophils % 0.1 Basophils % 0.3 Absolute Granulocytes 4.45 Basophils # 0.02 Sodium Potassium Chloride Carbon Dioxide Anion Gap BUN Creatinine Estimated GFR Glucose Calcium Total Bilirubin AST ALT Alkaline Phosphatase Serum Total Protein Albumin Influenza Type A Ag NEGATIVE Influenza Type B Ag NEGATIVE RSV (PCR) NEGATIVE SARS-CoV-2 (PCR) NEGATIVE Orders (Last 24 hours) Category Date Time Status Bedrest ROUTINE Activity 03/31/22 00:52 Active Medical Staff Physician STAT Care 03/30/22 21:52 Completed Code Status Order ROUTINE Care 03/31/22 00:52 Active IV Care Q6H Care 03/31/22 00:52 Active IV Insertion STAT Care 03/30/22 21:[address] in Observation ROUTINE Care 03/31/22 00:52 Active Pulse Oximetry (ED) STAT Care 03/30/22 21:51 Completed Gary Ricardo, Apply ROUTINE Care 03/31/22 00:52 Active Telemetry q4h Care 03/31/22 00:52 Active Weight,Daily 0600 Care 03/31/22 00:52 Active Consistent Carbohydrate Diet 1800 Calorie Diet 03/31/22 Breakfast Active Discharge Planning,Consult Routine Discharge 03/31/22 Active CHEST 1 VIEW (PORTABLE) Stat Exams 03/30/22 21:51 Completed BLOOD CULTURE Stat Lab 03/30/22 22:09 Results CBC AM.LAB Lab 03/31/22 04:20 Completed CBC W DIFF Stat Lab 03/30/22 21:55 Completed CMP AM.LAB Lab 03/31/22 04:00 Completed CMP Stat Lab 03/30/22 21:55 Completed COVID/FLU/RSV Panel Stat Lab 03/30/22 21:35 Completed UA W/RFX CULTURE Stat Lab 03/31/22 04:28 Ordered Acetaminophen 325 mg [Tylenol 325 mg] Med 03/30/22 22:14 Discontinued 975 mg .ROUTE .STK-MED ONE Acetaminophen 325 mg [Tylenol 325 mg] Med 03/30/22 22:11 Discontinued 975 mg PO STAT ONE Acetaminophen 500 mg [Tylenol Extra Strength 500 mg* Med 03/31/22 11:44 Active ] See Dose Instructions PO Q4H PRN PRN Albuterol 2.5 mg/3 ml Neb [Proventil 2.5 mg/3 ml Neb Med 03/31/22 03:00 Discontinued ] 2.5 mg IH Q4HRT Albuterol Common Canister [Ventolin Common Canister* Med 03/31/22 12:00 Active ] 2 puff IH DAILY Albuterol/Ipratropium 3ml Neb* [DUONEB 0.5-3 MG/3 ml Med 03/31/22 00:23 Discontinued Neb] 3 ml IH .STK-MED ONE Albuterol/Ipratropium 3ml Neb* [DUONEB 0.5-3 MG/3 ml Med 03/31/22 00:00 Discontinued Neb] 3 ml IH STAT ONE Ascorbic Acid 500 mg [Vitamin C 500 MG] Med 03/31/22 12:00 Active 1,000 mg PO DAILY Azithromycin 500 mg/250 ml [Zithromax 500 MG/ 250 ML Med 03/31/22 10:00 Active NaCl Premix] 500 mg in 250 ml IV Q24H10 Azithromycin Inj [Zithromax IV] 0 mg Med 03/30/22 23:56 Discontinued NaCl 0.9% 250 ml [Sodium Chloride 0.9% 250 ML] 250 ml IV STAT Bisacodyl 10 mg [Dulcolax 10 MG SUPP] Med 03/31/22 11:44 Active 10 mg PA QDP PRN Calcium Carbonate 750 mg [Tums EX 750 MG] Med 03/31/22 11:44 Active 750 mg PO Q6HPRN PRN Ceftriaxone 1 GM/50 ML PREMIX* [ROCEPHIN 1 Gm-D5w 50 ml Med 03/31/22 22:00 Active Bag] 1 g in 50 ml IV Q24H22 Ceftriaxone 2 GM/50 ML PREMIX* [ROCEPHIN 2 Gm-D5w 50ML Med 03/30/22 23:56 Discontinued BAG] 2 g in 50 ml IV STAT Ceftriaxone 2 GM/50 ML PREMIX* [ROCEPHIN 2 Gm-D5w 50ML Med 03/31/22 00:00 Discontinued BAG] 2 g in 50 ml IV UD Famotidine 20 mg [Pepcid 20 MG] Med 03/31/22 12:00 Active 20 mg PO BID Gabapentin [Neurontin ] Med 03/31/22 15:00 Active 300 mg PO TID Glimepiride 2 mg [Amaryl 2 MG] Med 03/31/22 12:00 Active 2 mg PO BREAKFAST Losartan Potassium 50 mg [Cozaar 50 MG] Med 03/31/22 12:00 Active 100 mg PO DAILY Medication Intervention Med 03/31/22 12:00 Active 1 each MC .RN TO CHECK Medication Intervention Med 03/31/22 12:00 Active 1 each MC .RT TO CHECK NaCl 0.9% 1000 ml [Sodium Chloride 0.9% 1000 ML] 1,000 Med 03/30/22 21:55 Discontinued ml .ROUTE UD NaCl 0.9% 1000 ml [Sodium Chloride 0.9% 1000 ML] 1,000 Med 03/30/22 22:00 Discontinued ml IV 100 mls/hr Oxycodone HCl 5 mg Ir [Oxy-IR 5 MG] Med 03/31/22 11:49 Active 15 mg PO Q6H PRN PRN Rivaroxaban 10 mg Tablet [Xarelto 10 mg Tablet] Med 03/31/22 12:00 Active 20 mg PO DAILY Senna/Docusate Sodium Tab [Senokot-S Tablet] Med 03/31/22 12:00 Active 1 udtab PO DAILY Zinc Gluconate 50 mg [Zinc Gluconate 50 MG] Med 03/31/22 12:00 Active 50 mg PO BID PT Eval & Treat (MD Order) ONCE PT 03/31/22 11:54 Completed Oxygen Nasal Cannula 2 lpm RT 03/31/22 05:22 Active Pulse Oximetry CONTINUOUS RT 03/31/22 00:52 Active Respiratory Therapy Assessment DAILY RT 03/31/22 00:25 Active Transfer Order Routine Transfer 03/31/22 Completed Patient Care Notes (Last 24 hours) 03/31/22 15:22 Case Management Note by Danielle Church ORDER TO [facility] PER DR HANSEN FOR ROLL[facility] PER RECOMMENDATIONS GLENIS HERRERA PRosmeryT. Initialized on 03/31/22 15:22 - END OF NOTE 03/31/22 12:56 Case Management Note by Esme Smith PATIENT HAS HAD HHC WITH [facility] BEFORE- REFERRAL SENT TO THEM AGAIN AT THIS TIME Initialized on 03/31/22 12:56 - END OF NOTE 03/31/22 12:55 Case Management Note by Danielle Church REFERRAL FAXED TO [facility], PER PT REQUEST TO USE THEM FOR [facility] SUPPORT ON DISCHARGE. HE HAS USED THIS PROVIDER IN THE PAST. Initialized on 03/31/22 12:55 - END OF NOTE 03/31/22 12:14 Case Management Note by Esme Smith [facility] DEN[facility] EVER CARING FOR PATIENT. CALLED AND LM FOR DAUGHTER TO ASK HER WHAT COMPANY HE USED SO IT CAN BE SET UP AGAIN Initialized on 03/31/22 12:14 - END OF NOTE 03/31/22 11:30 (created 03/31/22 16:19) Nursing Note by Citlali Hassan Dr. called for update on patient. New order received to resume all home medications as listed. Initialized on 03/31/22 16:19 - END OF NOTE 03/31/22 05:22 Respiratory Note by Nomi Mullen PT STATED THAT HE'D LIKE TO HAVE SOMEONE BRING IN HIS ALB MDI AND BREO MDI TO USE WHILE HE IS IN THE HOSPITAL. WILL PASS INFO ON TO DAYSHIFT TO CHECK WITH PT AND NOTIFIED NURSING. Initialized on 03/31/22 05:22 - END OF NOTE Code(s): J18.9 - PNEUMONIA, UNSPECIFIED ORGANISM (2) Fever Current Visit: Yes Status: Acute Qualifiers: Fever type: due to other condition Qualified Code(s): R50.81 - Fever presenting with conditions classified elsewhere Code(s): R50.9 - FEVER, UNSPECIFIED
[2022-03-31] MEDS ORDERED: LASIX 20 MG ONE (20:38)
[2022-03-31] MEDS: LASIX 20 MG PO SCH (20:42)
[2022-03-31] MEDS: ROCEPHIN 1 Gm-D5w 50 ml Bag** 1 G/50 ML IVPB IV SCH (21:41)
[2022-03-31] MEDS ORDERED: LUBIPROSTONE 8 MCG PO SCH (22:00)
[2022-03-31] MEDS ORDERED: ZINC SULFATE 220 MG PO SCH (22:00)
[2022-04-01] MEDS: VENTOLIN COMMON CANISTER IH SCH ×2 (07:18→19:37)
[2022-04-01] MEDS: PATIENT OWN MEDICATION IH SCH (07:22)
[2022-04-01 09:40] LABS: ANION GAP 9.8 MEQ/L (5-15); BLOOD UREA NITROGEN 23 mg/dL (9-20); CHLORIDE 101 mmol/L (98-107); Calcium 8.7 mg/dL (8.4-10.2); Carbon Dioxide 31 mmol/L (22-30); Creatinine 1 0.95 mg/dL (0.66-1.25); EST GLOMERULAR FILTRATION RATE > 60.0 ML/MIN; Glucose 157 mg/dL (74-106); Hematocrit 39.5 % (42-50); Mean Corpuscular Hemoglobin 32.3 pg (26-32); Mean Corpuscular Hgb Concent. 32.9 g/dL (32-36); Mean Platelet Volume 8.7 fL (7.5-11.0); Platelet Count 237 x10^3/uL (150-450); Potassium 3.9 mmol/L (3.5-5.1); Red Blood Count 4.03 x10^6/uL (4.1-5.6); SODIUM 138 mmol/L (137-145); White Blood Count 6.2 x10^3/uL (4.0-10.5)
[2022-04-01] MEDS: Zinc Gluconate 50 MG PO SCH ×2 (09:45→21:17)
[2022-04-01] MEDS: Zithromax 500 MG/ 250 ML NaCl Premix 500 MG/250 ML IVPB IV SCH (09:45)
[2022-04-01] MEDS: Oxy-IR 5 MG PO PRN (09:45)
[2022-04-01] MEDS: Senokot-S Tablet PO SCH (09:45)
[2022-04-01] MEDS: NEURONTIN PO SCH ×3 (09:45→21:17)
[2022-04-01] MEDS: Vitamin C 500 MG PO SCH (09:46)
[2022-04-01] MEDS: Cozaar 50 MG PO SCH (09:46)
[2022-04-01] MEDS: Amaryl 2 MG PO SCH (09:51)
[2022-04-01] MEDS: XARELTO 10 MG TABLET PO SCH (09:52)
[2022-04-01] MEDS: Pepcid 20 MG PO SCH ×2 (09:54→21:17)
[2022-04-01] MEDS ORDERED: NON-FORMULARY ITEM (Rivaroxaban [Xarelto] 20 MG Tablet) PO SCH (10:00)
[2022-04-01] MEDS ORDERED: NON-FORMULARY ITEM (Losartan Potassium [Cozaar] 100 MG Tablet) PO SCH (10:00)
[2022-04-01] MEDS ORDERED: VENTOLIN COMMON CANISTER IH SCH (10:00)
[2022-04-01] MEDS ORDERED: NON-FORMULARY ITEM (Fluticasone/Vilanterol [Breo Ellipta 100-25 Mcg Inh] 1 EACH Blst.W.Dev IH SCH (10:00)
[2022-04-01] MEDS ORDERED: GLIMEPIRIDE 1 MG PO SCH (10:00)
--- NOTE | 2022-04-01 12:21 | PCM.NOTE ---
Date and Time: 04/01/221218 Subjective Assessment: doing better today - Review of Systems Constitutional: No Fever, No Chills Eyes: No Symptoms Ears, Nose, & Throat: No Symptoms Respiratory: Cough, Wheezing, No Short Of Breath Cardiac: No Chest Pain, No Edema, No Syncope Abdominal/Gastrointestinal: No Abdominal Pain, No Nausea, No Vomiting, No Diarrhea Genitourinary Symptoms: No Dysuria Musculoskeletal: No Back Pain, No Neck Pain Skin: No Rash Neurological: No Dizziness, No Focal Weakness, No Sensory Changes Psychological: No Symptoms Endocrine: No Symptoms Hematologic/Lymphatic: No Symptoms Immunological/Allergic: No Symptoms Objective Exam General Appearance: no apparent distress, alert Neurologic Exam: alert, oriented x 3, cooperative, normal mood/affect, nml cerebellar function, sensation nml, No motor deficits Skin Exam: normal color, warm, dry Eye Exam: PERRL, EOMI, eyes nml inspection Ears, Nose, Throat Exam: normal ENT inspection, pharynx normal, moist mucous membranes Neck Exam: normal inspection, non-tender, supple, full range of motion Respiratory Exam: diminished breath sounds, wheezing, No respiratory distress Cardiovascular Exam: regular rate/rhythm, normal heart sounds Gastrointestinal/Abdomen Exam: soft, No tenderness, No mass Extremity Exam: normal inspection, normal range of motion Back Exam: normal inspection, normal range of motion, No CVA tenderness, No vertebral tenderness Male Genitalia Exam: deferred Rectal Exam: deferred OBJECTIVE DATA Vital Signs: Vital Signs - 24 hr Temp Pulse Resp BP Pulse Ox 04/01/22 11:48 98.9 F 63 17 130/63 97 04/01/22 07:57 98.9 F 84 18 132/68 95 04/01/22 07:23 84 16 95 04/01/22 04:00 97.9 F 82 16 122/62 95 04/01/22 00:00 83 16 119/57 95 03/31/22 20:00 97.9 F 78 16 110/56 97 03/31/22 19:21 78 18 97 03/31/22 16:00 98.9 F 87 20 146/65 91 L Pain Assessment - Last Documented Pain Intensity 2 Pain Scale Used 0-10 Pain Scale Intake and Output: Intake & Output 03/30/22 03/31/22 04/01/22 04/02/22 11:59 11:59 11:59 11:59 Intake Total 400 1110 Output Total 440 9585 Balance -40 -1065 Weight 67.3 kg Lab Results: Lab Results-Last 24 Hours 04/01/22 04/01/22 04/01/22 Range/Units 09:20 09:20 10:21 WBC 6.2 (4.0-10.5) x10^3/uL RBC 4.03 L (4.1-5.6) x10^6/uL Hgb 13.0 (12.5-18.0) g/dL Hct 39.5 L (42-50) % MCV 98.0 (78-100) fL MCH 32.3 H (26-32) pg MCHC 32.9 (32-36) g/dL RDW 14.0 (11.5-14.0) % Plt Count 237 (150-450) x10^3/uL MPV 8.7 (7.5-11.0) fL Sodium 138 (137-145) mmol/L Potassium 3.9 (3.5-5.1) mmol/L Chloride 101 (98-107) mmol/L Carbon Dioxide 31 H (22-30) mmol/L Anion Gap 9.8 (5-15) MEQ/L BUN 23 H (9-20) mg/dL Creatinine 0.95 (0.66-1.25) mg/dL Estimated GFR > 60.0 ML/MIN Glucose 157 H (74-106) mg/dL Calcium 8.7 (8.4-10.2) mg/dL Troponin I 0.049 H* (0.000-0.034) ng/mL Radiology Exams: Radiology Procedures Category Date Time Status CHEST 1 VIEW (PORTABLE) Stat Exams 03/30/22 21:51 Completed Multi-Disciplinary Progress Notes: Multi-Disciplinary Progress Notes 04/01/22 11:50 Case Management Note by Esme Smith STATED PATIENT JUST GOT A WALKER IN 2021. IF HE WANTS THE ROLLATOR HE WILL HAVE TO PAY OUT OF POCKET FOR IT. PATIENT VERIFIED HE DID GET A REGULAR WALKER IN OCT. HE JUST CHOOSES TO USE HIS 'S INSTEAD. PATIENT DECLINED PAYING FOR NEW ROLLATOR. HE WILL CONTINUE TO USE HIS 'S. [facility] NOTIFIED TO CANCEL ORDER PER [facility]. ANNIKA IN PT NOTIFIED Initialized on 04/01/22 11:50 - END OF NOTE 06/23/22 11:09 Physical Therapy Note by Bárbara(L#[id number])Annika PT. SEEN BY P.T. THIS A.M. REPORTS LBP AT 05/19. NSG GAVE PT. PN MED. PT. HAS CHRONIC LBP FOR WHICH HE SEES PN MG'T. PT. UP IN CHAIR UPON P.T. ARRIVAL TO ROOM. PT. AGREEABLE TO P.T. ON 1 L O2. IV PRESENT. SAT 97% AT REST ON 1 L. PERFORMED SEATED LE EX'S OF LAQS, MARCHES, HEEL SLIDES, ANKLE PUMPS, SLRS, QUAD AND GLUT SETS X 10 REPS. PT. REQUIRES OCCASIONAL V.C. FOR DEEP BREATHING. PERFORMED SIT TO STAND W/ SBA W/ ROLLATOR PRESENT. AMBULATED ~120' W/ ROLLATOR AND 1 L O2. O2 SATS 97% AFTER WALKING. NSG DID NOTE TELEMETRY REVEALED V TACH/V FIB WHILE WALKING; BUT PT. DID NOT C/O CP OR SOB. ARRIVED BACK TO ROOM AND ELEVATED LES; CALL LIGHT IN REACH. APPLIED CP TO L-SPINE TO DECREASE LBP. NSG TO CALL DR. HANSEN RE: V-TACH. WILL CONT. P.T. 5X/WK TOLERATED. TO D/C HOME W/ P.T./O.T. VIA [facility] WHEN STABLE. WILL NEED ROLLATOR W/ SEAT AT D/C. RX TOME - [id number] Initialized on 04/01/22 11:09 - END OF NOTE 04/01/22 10:20 Case Management Note by Esme Smith S/Brian PATIENT- NO CHANGE IN DC PLANS AT THIS TIME- HE PLANS TO RETURN HOME WITH [facility] AND NEW ROLLATOR. Initialized on 04/01/22 10:20 - END OF NOTE 04/01/22 10:20 Case Management Note by Esme Smith CALLED [facility] S/W AND REQUESTED ROLLATOR BE DELIVERED TODAY TO [facility] Initialized on 04/01/22 10:20 - END OF NOTE 04/01/22 10:14 Case Management Note by Esme Smith A [facility] HAS ACCEPTED PATIENT. THEY WILL NEED NOTIFIED AT TIME OF DC AT [phone]. THEY WILL NEED FAXED THE DC INSTRUCTIONS, DC MED LIST, DC SUMMARY (IF AVAILABLE) TO [phone] Initialized on 04/01/22 10:14 - END OF NOTE 03/31/22 15:22 Case Management Note by Danielle Church ORDER TO [facility] PER DR HANSEN FOR ROLLATOR WALKER PER RECOMMENDATIONS ANNIKA HERRERA P.T. Initialized on 03/31/22 15:22 - END OF NOTE 03/31/22 12:56 Case Management Note by Esme Smith PATIENT HAS [facility] BEFORE- REFERRAL SENT TO THEM AGAIN AT THIS TIME Initialized on 03/31/22 12:56 - END OF NOTE 03/31/22 12:55 Case Management Note by Danielle Church REFERRAL FAXED TO [facility], PER PT REQUEST TO USE THEM FOR [facility] SUPPORT ON DISCHARGE. HE HAS USED THIS PROVIDER IN THE PAST. Initialized on 03/31/22 12:55 - END OF NOTE Assessment/Plan (1) Pneumonia Current Visit: Yes Status: Acute Qualifiers: Pneumonia type: due to Pneumococcus Laterality: bilateral Lung location: lower lobe of lung Qualified Code(s): J13 - Pneumonia due to Streptococcus pneumoniae Assessment & Plan: Chief Complaint Diagnosis fever and cough for 2 days Allergies Allergy/AdvReac Type Severity Reaction Status Date / Time No Known Drug Allergies Allergy Verified 03/30/22 21:05 Vital Signs (Last 24 hours) Temp Pulse Resp BP Pulse Ox 04/01/22 11:48 98.9 F 63 17 130/63 97 04/01/22 07:57 98.9 F 84 18 132/68 95 04/01/22 07:23 84 16 95 04/01/22 04:00 97.9 F 82 16 122/62 95 04/01/22 00:00 83 16 119/57 95 03/31/22 20:00 97.9 F 78 16 110/56 97 03/31/22 19:21 78 18 97 03/31/22 16:00 98.9 F 87 20 146/65 91 L Home Medications Medication Instructions Recorded Confirmed Last Taken Type Fluticasone/Vilanterol [Breo 1 puff IH DAILY 03/30/22 03/30/22 Unknown History Ellipta 100-25 Mcg INH] Oxycodone HCl 15 mg PO Q6H PRN PRN 03/30/22 03/30/22 Unknown History Calcium Carbonate 750 mg [Tums 750 mg PO Q6HPRN PRN 03/31/22 03/30/22 Unknown History EX 750 MG] Fluticasone/Vilanterol [Breo 1 mcg IH DAILY 03/31/22 03/31/22 Unknown History Ellipta 100-25 Mcg INH] Furosemide 20 mg [Lasix 20 20 mg PO DAILY 03/31/22 03/31/22 Unknown History mg] Current Medications Generic Name Dose Route Start Last Admin Trade Name Freq PRN Reason Stop Dose Admin Acetaminophen 0 mg 03/31/22 11:44 Acetaminophen 500 Mg Tablet PO 04/30/22 11:43 Q4H PRN PRN HEADACHE/PAIN/FEVER Albuterol Sulfate 2 puff 03/31/22 12:00 04/01/22 07:18 Albuterol Common Canister Inhaler IH 04/30/22 11:59 2 puff DAILY GONZALO Administration Ascorbic Acid 1,000 mg 03/31/22 12:00 04/01/22 09:46 Ascorbic Acid 500 Mg Tablet PO 04/30/22 11:59 1,000 mg DAILY GONZALO Administration Bisacodyl 10 mg 03/31/22 11:44 Bisacodyl 10 Mg Supp.Rect FL 04/30/22 11:43 QDP PRN CONSTIPATION Calcium Carbonate/Glycine 750 mg 03/31/22 11:44 Calcium Carbonate 750 Mg 750 Mg Tab.Chew PO 04/30/22 11:43 Q6HPRN PRN indigestion/heartburn Famotidine 20 mg 03/31/22 12:00 04/01/22 09:54 Famotidine 20 Mg Tablet PO 04/30/22 11:59 20 mg BID GONZALO Administration Furosemide 20 mg 04/01/22 10:00 03/31/22 20:42 Furosemide 20 Mg Tablet PO 05/01/22 09:59 20 mg DAILY GONZALO Administration Gabapentin 300 mg 03/31/22 15:00 04/01/22 09:45 Gabapentin 300 Mg Capsule PO 04/30/22 14:59 300 mg TID GONZALO Administration Glimepiride 2 mg 03/31/22 12:00 04/01/22 09:51 Glimepiride 2 Mg Tablet PO 04/30/22 11:59 2 mg BREAKFAST GONZALO Administration Ceftriaxone Sodium/Dextrose 1 g in 50 mls @ 100 mls/hr 03/31/22 22:00 03/31/22 21:41 Rocephin 1 Gm-D5w 50 Ml Bag IV 04/03/22 21:59 100 mls/hr Q24H22 GONZALO Administration Azithromycin 500 mg in 250 mls @ 250 mls/hr 03/31/22 10:00 04/01/22 09:45 Zithromax 500 Mg/ 250 Ml Nacl Premix IV 04/30/22 09:59 250 mls/hr Q24H10 GONZALO Administration Losartan Potassium 100 mg 03/31/22 12:00 04/01/22 09:46 Losartan Potassium 50 Mg Tablet PO 04/30/22 11:59 100 mg DAILY GONZALO Administration Miscellaneous Information 1 each 03/31/22 12:00 Medication Intervention 1 Each Each 04/30/22 11:59 .RN TO CHECK GONZALO Oxycodone HCl 15 mg 03/31/22 11:49 04/01/22 09:45 Oxycodone Hcl 5 Mg Ir Tab PO 04/05/22 11:48 15 mg Q6H PRN PRN Administration PAIN Breo-Ellipta 100/ 1 each 04/01/22 07:00 04/01/22 07:22 25mcg Inhaler IH 05/01/22 06:59 1 each 0700 GONZALO Administration Rivaroxaban 20 mg 03/31/22 12:00 04/01/22 09:52 Rivaroxaban 10 Mg Tablet PO 04/30/22 11:59 20 mg DAILY GONZALO Administration Senna/Docusate Sodium 1 udtab 03/31/22 12:00 04/01/22 09:45 Senna/Docusate Sodium 1 Udtab Tablet PO 04/30/22 11:59 1 udtab DAILY GONZALO Administration Zinc Gluconate 50 mg 03/31/22 12:00 04/01/22 09:45 Zinc Gluconate 50 Mg Tablet PO 04/30/22 11:59 50 mg BID GONZALO Administration Discontinued Medications Generic Name Dose Route Start Last Admin Trade Name Freq PRN Reason Stop Dose Admin Acetaminophen 975 mg 03/30/22 22:11 03/30/22 22:15 Acetaminophen 325 Mg Tablet PO 03/30/22 22:12 975 mg STAT ONE Administration Acetaminophen Confirm 03/30/22 22:14 Acetaminophen 325 Mg Tablet Administered 03/30/22 22:15 Dose 975 mg .ROUTE .STK-MED ONE Albuterol Sulfate 2.5 mg 03/31/22 03:00 03/31/22 05:26 Albuterol Sulfate 2.5 Mg/3 Ml Neb 04/30/22 02:59 Not Given Q4HRT GONZALO Albuterol/Ipratropium 3 ml 03/31/22 00:00 03/31/22 00:27 Ipratropium/Albuterol Sulfate 3 Ml Ampul.Neb 03/31/22 00:01 3 ml STAT ONE Administration Albuterol/Ipratropium Confirm 03/31/22 00:23 Ipratropium/Albuterol Sulfate 3 Ml Ampul.Neb Administered 03/31/22 00:24 Dose 3 ml IH .STK-MED ONE Furosemide Confirm 03/31/22 20:38 Furosemide 20 Mg Tablet Administered 03/31/22 20:39 Dose 20 mg .ROUTE .STK-MED ONE Sodium Chloride 1,000 mls @ 100 mls/hr 03/30/22 22:00 03/30/22 21:56 Sodium Chloride 0.9% 1000 Ml IV 04/29/22 21:59 100 mls/hr .Q10H GONZALO Administration Ceftriaxone Sodium/Dextrose 2 g in 50 mls @ 100 mls/hr 03/30/22 23:56 03/31/22 00:01 Rocephin 2 Gm-D5w 50ml Bag IV 03/31/22 00:25 100 ml/hr STAT STA 100 mls/hr Administration Azithromycin / Sodium Chloride 250 mls @ 125 mls/hr 03/30/22 23:56 IV 03/31/22 01:55 STAT ONE Ceftriaxone Sodium/Dextrose Confirm 03/31/22 00:00 Rocephin 2 Gm-D5w 50ml Bag Administered 03/31/22 00:01 Dose 2 g in 50 mls @ ud IV .STK-MED ONE Sodium Chloride Confirm 03/30/22 21:55 Sodium Chloride 0.9% 1000 Ml Administered 03/30/22 21:56 Dose 1,000 mls @ ud .ROUTE .STK-MED ONE Miscellaneous Information 1 each 03/31/22 12:00 Medication Intervention 1 Each Each 04/30/22 11:59 .RT TO CHECK GONZALO Intake & Output (Last 24 hours) 03/30/22 03/31/22 04/01/22 04/02/22 11:59 11:59 11:59 11:59 Intake Total 400 1110 Output Total 440 2175 Balance -40 -1065 Weight 67.3 kg Microbiology Results (Last 24 hours) 03/30/22 22:09 Blood Blood Culture Gram Stain - Pending 03/30/22 22:09 Blood Blood Culture - Preliminary NO GROWTH TO DATE 03/30/22 21:55 Blood Blood Culture Gram Stain - Pending 03/30/22 21:55 Blood Blood Culture - Preliminary NO GROWTH TO DATE Laboratory Results (Last 24 hours) 04/01/22 04/01/22 04/01/22 10:21 09:20 09:20 WBC 6.2 RBC 4.03 L Hgb 13.0 Hct 39.5 L MCV 98.0 MCH 32.3 H MCHC 32.9 RDW 14.0 Plt Count 237 MPV 8.7 Sodium 138 Potassium 3.9 Chloride 101 Carbon Dioxide 31 H Anion Gap 9.8 BUN 23 H Creatinine 0.95 Estimated GFR > 60.0 Glucose 157 H Calcium 8.7 Troponin I 0.049 H* Orders (Last 24 hours) Category Date Time Status Tele-Health Consult ROUTINE Cons 04/01/22 10:51 Active BMP Routine Lab 04/01/22 09:20 Completed CBC Routine Lab 04/01/22 09:20 Completed TROPONIN Stat Lab 04/01/22 10:21 Completed Acetaminophen 500 mg [Tylenol Extra Strength 500 mg* Med 03/31/22 11:44 Ac tive ] See Dose Instructions PO Q4H PRN PRN Albuterol Common Canister [Ventolin Common Canister* Med 03/31/22 12:00 Active ] 2 puff IH DAILY Ascorbic Acid 500 mg [Vitamin C 500 MG] Med 03/31/22 12:00 Active 1,000 mg PO DAILY Bisacodyl 10 mg [Dulcolax 10 MG SUPP] Med 03/31/22 11:44 Active 10 mg FL QDP PRN Calcium Carbonate 750 mg [Tums EX 750 MG] Med 03/31/22 11:44 Active 750 mg PO Q6HPRN PRN Ceftriaxone 1 GM/50 ML PREMIX* [ROCEPHIN 1 Gm-D5w 50 ml Med 03/31/22 22:00 Active Bag] 1 g in 50 ml IV Q24H22 Famotidine 20 mg [Pepcid 20 MG] Med 03/31/22 12:00 Active 20 mg PO BID Furosemide 20 mg [Lasix 20 mg] Med 03/31/22 20:38 Discontinued 20 mg .ROUTE .STK-MED ONE Furosemide 20 mg [Lasix 20 mg] Med 04/01/22 10:00 Active 20 mg PO DAILY Gabapentin [Neurontin ] Med 03/31/22 15:00 Active 300 mg PO TID Glimepiride 2 mg [Amaryl 2 MG] Med 03/31/22 12:00 Active 2 mg PO BREAKFAST Losartan Potassium 50 mg [Cozaar 50 MG] Med 03/31/22 12:00 Active 100 mg PO DAILY Medication Intervention Med 03/31/22 12:00 Active 1 each MC .RN TO CHECK Medication Intervention Med 03/31/22 12:00 Discontinued 1 each MC .RT TO CHECK Oxycodone HCl 5 mg Ir [Oxy-IR 5 MG] Med 03/31/22 11:49 Active 15 mg PO Q6H PRN PRN Patient Own Med [Patient Own Medication] Med 04/01/22 07:00 Active 1 each IH 0700 Rivaroxaban 10 mg Tablet [Xarelto 10 mg Tablet] Med 03/31/22 12:00 Active 20 mg PO DAILY Senna/Docusate Sodium Tab [Senokot-S Tablet] Med 03/31/22 12:00 Active 1 udtab PO DAILY Zinc Gluconate 50 mg [Zinc Gluconate 50 MG] Med 03/31/22 12:00 Active 50 mg PO BID PT Eval & Treat (MD Order) ONCE PT 03/31/22 11:54 Completed EKG ROUTINE RT 04/01/22 10:49 Completed Pulse Oximetry .spot check RT 03/31/22 21:37 Active Respiratory MDI UD RT 04/01/22 07:22 Active Patient Care Notes (Last 24 hours) 04/01/22 11:50 Case Management Note by Esme Smith STATED PATIENT JUST GOT A WALKER IN 2021. IF HE WANTS THE ROLLATOR HE WILL HAVE TO PAY OUT OF POCKET FOR IT. PATIENT VERIFIED HE DID GET A REGULAR WALKER IN OCT. HE JUST CHOOSES TO USE HIS 'S INSTEAD. PATIENT DECLINED PAYING FOR NEW ROLLATOR. HE WILL CONTINUE TO USE HIS 'S. [facility] NOTIFIED TO CANCEL ORDER PER BUCK. ANNIKA IN PT NOTIFIED Initialized on 04/01/22 11:50 - END OF NOTE 04/01/22 11:14 (created 04/01/22 11:19) Nursing Note by Alma Baca FAXED RECORDS TO [facility] FOR TELE CARDIO CONSULT. Initialized on 04/01/22 11:19 - END OF NOTE 04/01/22 11:13 (created 04/01/22 11:15) Nursing Note by Alma Baca CALLED CONSULT TO [facility] Initialized on 04/01/22 11:15 - END OF NOTE 04/01/22 11:09 Physical Therapy Note by Bárbara(L#[id number]),Annika PT. SEEN BY P.T. THIS A.M. REPORTS LBP AT 05/19. NSG GAVE PT. PN MED. PT. HAS CHRONIC LBP FOR WHICH HE SEES PN MG'T. PT. UP IN CHAIR UPON P.T. ARRIVAL TO ROOM. PT. AGREEABLE TO P.T. ON 1 L O2. IV PRESENT. SAT 97% AT REST ON 1 L. PERFORMED SEATED LE EX'S OF LAQS, MARCHES, HEEL SLIDES, ANKLE PUMPS, SLRS, QUAD AND GLUT SETS X 10 REPS. PT. REQUIRES OCCASIONAL V.C. FOR DEEP BREATHING. PERFORMED SIT TO STAND W/ SBA W/ ROLLATOR PRESENT. AMBULATED ~120' W/ ROLLATOR AND 1 L O2. O2 SATS 97% AFTER WALKING. NSG DID NOTE TELEMETRY REVEALED V TACH/V FIB WHILE WALKING; BUT PT. DID NOT C/O CP OR SOB. ARRIVED BACK TO ROOM AND ELEVATED LES; CALL LIGHT IN REACH. APPLIED CP TO L-SPINE TO DECREASE LBP. NSG TO CALL DR. HANSEN RE: V-TACH. WILL CONT. P.T. 5X/WK TOLERATED. TO D/C HOME W/ P.T./O.T. VIA HHC WHEN STABLE. WILL NEED ROLLATOR W/ SEAT AT D/C. RX TOME - [id number] Initialized on 04/01/22 11:09 - END OF NOTE 04/01/22 10:52 Nursing Note by An Bush PT UP AND AMBULATED IN HALLWAY WITH PT. UPON RETURN TO PT ROOM PT HAD A 17 BEAT RUN OF V-TACH BEFORE RETURNING TO BASELINE. PT ASYMPTOMATIC AND DENIES SOB AND CHEST PAIN. CALLED AND UPDATED DR HANSEN AND RECEIVED ORDER FOR STAT TROPONIN X 1, EKG NOW AND TELE-CARDIOLOGY CONSULT. 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 Initialized on 04/01/22 10:52 - END OF NOTE 04/01/22 10:20 Case Management Note by Esme Smith S/W PATIENT- NO CHANGE IN DC PLANS AT THIS TIME- HE PLANS TO RETURN HOME WITH [facility] AND NEW ROLLATOR. Initialized on 04/01/22 10:20 - END OF NOTE 04/01/22 10:20 Case Management Note by Esme Smith CALLED TH [facility] S/W AND REQUESTED ROLLATOR BE DELIVERED TODAY TO [facility] Initialized on 04/01/22 10:20 - END OF NOTE 04/01/22 10:14 Case Management Note by Esme Smith [facility] HAS ACCEPTED PATIENT. THEY WILL NEED NOTIFIED AT TIME OF DC AT [phone]. THEY WILL NEED FAXED THE DC INSTRUCTIONS, DC MED LIST, DC SUMMARY (IF AVAILABLE) TO [phone] Initialized on 04/01/22 10:14 - END OF NOTE 04/01/22 08:58 Nursing Note by An Bush ROUNDED ON PT WITH DR. HANSEN. RECEIVED THE FOLLOWING ORDER: CBC AND BMP TODAY. TOLD PT HE WILL MOST LIKELY DISCHARGE TOMORROW 04/01/22. Initialized on 04/01/22 08:58 - END OF NOTE 03/31/22 15:22 Case Management Note by Danielle Church ORDER TO [facility] PER DR TYRONE FOR ROLLATOR WALKER PER RECOMMENDATIONS ANNIKA HERRERA P.T. Initialized on 03/31/22 15:22 - END OF NOTE 03/31/22 12:56 Case Management Note by Esme Smith PATIENT HAS [facility]HC [facility] BEFORE- REFERRAL SENT TO THEM AGAIN AT THIS TIME Initialized on 03/31/22 12:56 - END OF NOTE 03/31/22 12:55 Case Management Note by Danielle Church REFERRAL FAXED TO [facility], PER PT REQUEST TO USE THEM FOR [facility] SUPPORT ON DISCHARGE. HE HAS USED THIS PROVIDER IN THE PAST. Initialized on 03/31/22 12:55 - END OF NOTE Code(s): J18.9 - PNEUMONIA, UNSPECIFIED ORGANISM (2) Fever Current Visit: Yes Status: Acute Qualifiers: Fever type: due to other condition Qualified Code(s): R50.81 - Fever presenting with conditions classified elsewhere Code(s): R50.9 - FEVER, UNSPECIFIED
[2022-04-01] MEDS: Toprol-Xl 25MG Tablets PO SCH (15:53)
[2022-04-01] MEDS: ROCEPHIN 1 Gm-D5w 50 ml Bag** 1 G/50 ML IVPB IV SCH (21:17)
[2022-04-02] MEDS: VENTOLIN COMMON CANISTER IH SCH (06:46)
[2022-04-02] MEDS: PATIENT OWN MEDICATION IH SCH (06:46)
[2022-04-02] MEDS: Oxy-IR 5 MG PO PRN ×2 (08:39→13:14)
[2022-04-02] MEDS: Senokot-S Tablet PO SCH (08:39)
[2022-04-02] MEDS: XARELTO 10 MG TABLET PO SCH (08:39)
[2022-04-02] MEDS: Cozaar 50 MG PO SCH (08:40)
[2022-04-02] MEDS: Amaryl 2 MG PO SCH (08:40)
[2022-04-02] MEDS: Vitamin C 500 MG PO SCH (08:40)
[2022-04-02] MEDS: Toprol-Xl 25MG Tablets PO SCH (08:41)
[2022-04-02] MEDS: LASIX 20 MG PO SCH (08:41)
[2022-04-02] MEDS: Zinc Gluconate 50 MG PO SCH (08:41)
[2022-04-02] MEDS: Pepcid 20 MG PO SCH (08:41)
[2022-04-02] MEDS: NEURONTIN PO SCH (08:41)
[2022-04-02] MEDS: Zithromax 500 MG/ 250 ML NaCl Premix 500 MG/250 ML IVPB IV SCH (09:10)
[2022-04-02 12:59] VITALS: BP 131/72; PULSE 85; O2SAT 85
--- NOTE | 2022-04-08 13:59 | ECHO ---
DATE OF PROCEDURE: 04/02/2022 CLINICAL INFORMATION: Ventricular tachycardia. The M-mode 2D, and Doppler echocardiogram including color flow Doppler shows the left ventricle is normal in size. There is no thrombus present. There is moderate concentric left ventricular hypertrophy. There is normal contractility of the left ventricle. The ejection fraction is calculated to be 56%. The right ventricle is not well visualized. The left atrium is normal in size. The interatrial septum is intact. The right atrium is normal. The aortic valve opens well. There is no aortic regurgitation. There is mitral valve leaflet thickening and calcification associated with mild mitral regurgitation. There is mild tricuspid regurgitation. The right ventricular systolic pressure is calculated to be 32 mm of Mercury. The pulmonic valve is not well visualized. There is mild pulmonic regurgitation. The aortic root normal. There is no pericardial effusion present. IMPRESSION: 1) NORMAL CONTRACTILITY OF THE LEFT VENTRICLE. 2) MODERATE CONCENTRIC LEFT VENTRICULAR HYPERTROPHY. 3) MILD MITRAL REGURGITATION. 4) MILD TRICUSPID REGURGITATION. 5) MILD PULMONARY HYPERTENSION. 6) MILD PULMONIC REGURGITATION.
== END 2022-04-02 14:08 | disposition home health service (06) ==
LOC: ED 21:03 → MED SURG 03-31 00:51
PROVIDERS: ADMIT General Practice; ATTEND General Practice
DX: J18.9 Pneumonia, unspecified organism (principal); R50.9 Fever, unspecified; R79.89 Other specified abnormal findings of blood chemistry; I47.2 Ventricular tachycardia; E11.40 Type 2 diabetes mellitus with diabetic neuropathy, unspecified; I10 Essential (primary) hypertension; I44.7 Left bundle-branch block, unspecified; Z79.899 Other long term (current) drug therapy; Z20.828 Contact with and (suspected) exposure to other viral communicable diseases
CPT/HCPCS: 0241U; 36000; 36415; 71045; 80048; 80053; 84484; 85025; 85027; 87040; 93005; 93041; 93268; 93306; 94640; 94760; 94762; 96374; 96375; 97110; 97161; 97530; 99284; G0378; Q3014; J0456; J0696; A9270-GY

== ENCOUNTER 2022-12-04 18:23 | Emergency (ER) | payer MEDICARE ==
--- NOTE | 2022-12-04 18:25 | ERPHSYRPT ---
- History of Present Illness Time Seen by Provider: 12/04/22 18:25 Source: patient, EMS, old records Physician History: This is an 87-year-old white male patient of Dr. Hansen and presents via EMS on a backboard and with a c-collar in place. Patient was supposed to be driving his car and he took his dog to the store and while at the store he tripped on a air hose and hit his head. He has a laceration to the left forehead just above his left eyebrow. Patient states he did not lose consciousness. He has some mild neck pain and headache in the area of the laceration. Patient is awake alert and oriented. Patient's tetanus status is not up-to-date per his report. He denies chest pain. He denies shortness of breath. He denies abdominal pain. Patient has a history of [id number] diabetes and hypertension. He is also on Xarelto. Occurred: just prior to arrival Severity: moderate Head Injury Location: frontal (Left frontal forehead above left eyebrow) Method of Injury: fell Loss of Consciousness: no loss of consciousness Associated Symptoms: denies symptoms Allergies/Adverse Reactions: No Known Drug Allergies Allergy (Verified 12/04/22 18:32) Home Medications: Glimepiride [Amaryl] 2 mg PO DAILY 12/17/14 [History] Losartan Potassium [Cozaar] 100 mg PO DAILY 04/05/20 [History] Gabapentin [Neurontin ] 300 mg PO TID 08/24/21 [History] Albuterol Sulfate [Albuterol Sulfate Hfa] 8.5 gm IH DAILY 09/04/21 [History] Ascorbic Acid 500 mg [Vitamin C 500 MG] 1,000 mg PO DAILY 09/04/21 [History] Lubiprostone 8 mcg PO BID 09/04/21 [History] Rivaroxaban [Xarelto] 20 mg PO DAILY 09/04/21 [History] Zinc Sulfate 220 mg PO BID 09/04/21 [History] Fluticasone/Vilanterol [Breo Ellipta 100-25 Mcg INH] 1 puff IH DAILY 03/30/22 [History] Oxycodone HCl 15 mg PO Q6H PRN PRN 03/30/22 [History] Fluticasone/Vilanterol [Breo Ellipta 100-25 Mcg INH] 1 mcg IH DAILY 03/31/22 [History] Furosemide 20 mg [Lasix 20 mg] 20 mg PO DAILY 03/31/22 [History] Hx Tetanus, Diphtheria Vaccination/Date Given: Yes Hx Influenza Vaccination/Date Given: Yes Hx Pneumococcal Vaccination/Date Given: Yes Travel Risk - International Travel Have you traveled outside of the country in past 3 weeks: No - Coronavirus Screening Are you exhibiting any of the following symptoms?: No Close contact with a COVID-19 positive Pt in past 14-21 Days: No - Vaccine Status Have you recieved a Covid-19 vaccination: Yes Signals Analyst: Unknown - Vaccination Dates Date of 2cond Vaccination (if applicable): August 2021 Dates if Unknown: August 2021 - Review of Systems Constitutional: No Symptoms Eyes: No Symptoms Ears, Nose, & Throat: No Symptoms Respiratory: No Symptoms Cardiac: No Symptoms Abdominal/Gastrointestinal: No Symptoms Genitourinary Symptoms: No Symptoms Musculoskeletal: Neck Pain, Fall Skin: Other (Laceration) Neurological: No Symptoms Psychological: No Symptoms Endocrine: No Symptoms Hematologic/Lymphatic: No Symptoms Immunological/Allergic: No Symptoms All Other Systems: Reviewed and Negative - Past Medical History Pertinent Past Medical History: Yes Neurological History: No Pertinent History ENT History: Cataracts Cardiac History: Hypertension Respiratory History: No Pertinent History Endocrine Medical History: Diabetes Type II Musculoskeletal History: Arthritis GI Medical History: No Pertinent History History: Other Psycho-Social History: No Pertinent History Male Reproductive Disorders: No Pertinent History Other Medical History: SEES DR. HANSEN EVERY 3 MONTHS. KIDNEY STONES. RECENT HERNIA SURGERY APPROX. 3 MONTHS AGO - Past Surgical History Past Surgical History: Yes Neuro Surgical History: No Pertinent History Cardiac: No Pertinent History Respiratory: No Pertinent History Gastrointestinal: Cholecystectomy, Hernia Repair Genitourinary: No Pertinent History Musculoskeletal: No Pertinent History Male Surgical History: No Pertinent History Other Surgical History: back,cataracts rt/lt - Social History Smoking Status: Former smoker Exposure to second hand smoke: No Drug Use: none Patient Lives Alone: No - Nursing Vital Signs Nursing Vital Signs: Initial Vital Signs Temperature 97.1 F 12/04/22 18:33 Pulse Rate 84 12/04/22 18:33 Respiratory Rate 20 12/04/22 18:33 Blood Pressure 151/76 02/25/23 18:33 O2 Sat by Pulse Oximetry 92 L 12/04/22 18:33 Pain Scale Pain Intensity 6 - Jody Coma Score Best Eye Response (Jody): (4) open spontaneously Best Verbal Response (Hooper): (5) oriented Best Motor Response (Jody): (6) obeys commands Hooper Total: 15 - Physical Exam General Appearance: no apparent distress, alert, anxiety, thin Head Injury: lacerations (Laceration 4.5 cm irregular bordered above left eyebrow no step-off visible), swelling (Above left eyebrow), tenderness Eye Exam: bilateral eye: normal inspection, PERRL, EOMI ENT Exam: airway nml, nml ext.inspection Neck Exam: normal inspection, paraspinous muscle tender (Bilaterally to pa lpation), c-collar in place Cardiovascular/Respiratory Exam: normal breath sounds, regular rate/rhythm, heart sounds normal, no ecchymosis, normal peripheral pulses, No chest non- tender, No no respiratory distress, No subcutaneous emphysema Gastrointestinal/Abdominal Exam: soft, non tender, no distention, no mass, no guarding, no ecchymosis, no pulsatile mass, normal bowel sounds Rectal Exam: not done Back Exam: normal inspection, normal range of motion, No CVA tenderness, No vertebral tenderness Extremity Exam: non-tender, normal range of motion, normal inspection Mental Status Exam: alert, oriented x 3, cooperative hospital educator Exam: normal hearing, normal speech, PERRL, tongue midline Motor/Sensory Exam: no motor deficit, no sensory deficit, no pronator drift Skin Exam: laceration (As described above. There is no foreign body present. skin edge bleeding present) Lymphatic Exam: No adenopathy SpO2 Interpretation: borderline oxygenation O2 Delivery: Room Air (Patient arrives off of his oxygen.) Procedures - Laceration/Wound Repair Left Head Time of Procedure: 18:30 Wound Location: Left, forehead Wound Length (cm): 4.5 Wound's Depth, Shape: stellate Wound Explored: clean Irrigated: Yes Hibiclens Prep: Yes Anesthesia: 1% Lidocaine Volume Anesthetic (ccs): 8 Wound Debrided: minimal Wound Repaired With: sutures Suture Size/Type: 3-0, nylon Number of Sutures: 7 Layer Closure?: No Progress: 12/04/22 19:00 Complications. Patient procedure well. The area was cleaned dried thin layer of antibiotic ointment is applied as was a nonstick dressing with the pressure dressing. Ordered Tests: Active Orders 24 hr Category Date Time Status CERVICAL SPINE WO CONTRAST [CT] Stat Exams 12/04/22 19:00 Taken HEAD WITHOUT CONTRAST [CT] Stat Exams 12/04/22 19:00 Taken Medication Summary Discontinued Medications Generic Name Dose Route Start Last Admin Trade Name Eddie PRN Reason Stop Dose Admin Diphtheria/Tetanus/Acell Pertussis 0.5 ml 12/04/22 19:01 12/04/22 19:24 Tdap --Diph,Pertuss(Acell),Tet Vac/Pf 0.5 Ml Vial IM 12/04/22 19:02 0.5 ml .ONCE ONE Administration Diphtheria/Tetanus/Acell Pertussis Confirm 12/04/22 19:23 Tdap --Diph,Pertuss(Acell),Tet Vac/Pf 0.5 Ml Vial Administered 12/04/22 19:24 Dose 0.5 ml IM .STK-MED ONE - Progress Progress: improved, pain not gone completely, re-examined Progress Note: 12/04/22 19:47 CT scan of head without contrast shows left frontal scalp contusion. There is stable age-related diffuse cerebral volume loss and chronic microvascular ischemic disease. 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 There is no acute intracranial pathology. CT scan of the cervical spine without contrast shows an acute type II dens fracture which is mildly displaced and there is additional acute nondisplaced fracture of the right and left aspect of the posterior C1 arch 12/04/22 19:49 This patient's medical issue is of high complexity given the mechanism of action, primary complaint, history of present illness, physical findings and based on those components, we ordered a CAT scan of his head and cervical spine as well as repaired the left forehead laceration. We provided the patient with Adacel intramuscular injection. I reviewed the telemetry radiologist report. The CAT scan of the head is negative for any acute intracranial abnormality. However, the CT scan of the cervical spine shows acute type II dens fracture which is mildly displaced and there is additional acute nondisplaced fractures of the right and left aspect of the posterior C1 arch. Patient will be kept in a c-collar. We will contact neurosurgery for for transfer. The findings were discussed with the patient and his family. 12/04/22 20:19 Spoke with Laura at the [facility] center. She has excepted the patient via auto acceptance process. She stated that I did not need to contact the emergency department because she has provided Dr. Greg Martinez and the information that I provided her. We are making arrangements for transportation to [facility] emergency department. This was discussed in detail with the patient's family. Counseled pt/family regarding: diagnosis, rad results Medical Desision Making - Independent Historian Additional History obtained from: Human Factors Ergonomist/EMT - Discussion of managment Agreed on:: Treatment plan - Diagnostic Testing Diagnostic test were ordered, analyzed, and reviewed by me: Yes Radiological Interpretation: Reviewed by me, Teleradiologist Report - Risk of complications The pt has a mod risk of morbidity or mortality based on: Need for minor surgical intervention in patient with know risk factors The pt has a high risk of morbidity or mortality based on: Decision regarding hospitilization or escalation of hosp level of care - Departure Departure Disposition: Transfer Clinical Impression: Type II dens fracture of second cervical vertebra, Fracture of anterior arch of C1, Nondisp posterior arch fracture of C1 vertebra with routine healing Condition: Stable Critical Care Time: No Referrals: TYRONE HANSEN MD [Primary Care Provider] - Follow up/PCP as directed
[2022-12-04] MEDS ORDERED: Adacel Vial IM ONE ×2 (19:01→19:23)
--- NOTE | 2022-12-04 20:29 | XRAY ---
Indication: Pain following fall. Multiple contiguous axial images obtained through the head without contrast. Comparison: August 24, 2021 Again age-appropriate global atrophy, mild periventricular degenerative micro-ischemia bilaterally, and remote bilateral basal ganglia lacunar infarcts. Stable bilateral basal ganglia and cerebellar benign calcifications. No acute intracranial hemorrhage, abnormal extra-axial fluid collection, or mass effect. Fourth ventral is midline without hydrocephalus. New moderate left frontal scalp hematoma. Bony calvarium intact. Mild mucosal thickening both ethmoid sinuses. Mastoid air cells are clear. CT cervical spine reported separately. Impression: 1. New left frontal scalp hematoma. No underlying fracture or acute intracranial abnormalities. 2. Again normal aging brain including atrophy and degenerative micro-ischemia. Stable bilateral basal ganglia remote lacunar infarcts. Comment: Preliminary interpretation made by C. No critical discrepancy.
[2022-12-04] MEDS ORDERED: Sodium Chloride 0.9% 1000 ML 1,000 ML IV SCH (20:30)
[2022-12-04] MEDS ORDERED: Sodium Chloride 0.9% 1000 ML 1,000 ML ONE (20:31)
--- NOTE | 2022-12-04 20:35 | XRAY ---
Indication: Pain following fall. Multiple contiguous axial images obtained through the cervical spine. Sagittal and coronal reformatted images obtained. Comparison: August 24, 2021 Osseous structures remain demineralized. New nondisplaced fractures right posterior arc C1 and nondisplaced C2 odontoid type II fracture. Again mild/moderate multilevel degenerative endplate spurring and bilateral degenerative facet hypertrophy. Sagittal and coronal reformatted images again demonstrates 1 mm anterolisthesis of C4 on C5 and 3 mm anterolisthesis of C6 on C7. No acute compression fracture or jumped facet. Normal appearing cranial cervical junction. Visualized noncontrasted soft tissues again demonstrates moderate bilateral carotid calcifications. Visualized lung apices demonstrates pulmonary emphysema with scattered fibrosis/scarring and incompletely visualized bilateral patchy airspace disease. Impression: 1. New nondisplaced C1 and C2 acute fractures as detailed. 2. Again osteopenia, multilevel degenerative spondylosis, and minimal grade 1 C4/C6 anterolisthesis. 2. New incompletely visualized biapical pulmonary patchy airspace disease. Comment: Preliminary interpretation made by [facility] who does not report biapical pulmonary findings.
[2022-12-04] MEDS ORDERED: MORPHINE SULFATE 4 MG INJ IV ONE (20:41)
[2022-12-04] MEDS ORDERED: Zofran 4 MG/2 ML VIAL IV ONE (20:41)
[2022-12-04] MEDS ORDERED: Zofran 4 MG/2 ML VIAL ONE (20:44)
[2022-12-04] MEDS ORDERED: MORPHINE SULFATE 4 MG INJ ONE (20:44)
[2022-12-04 21:04] VITALS: BP 152/76; PULSE 91; O2SAT 100
== END 2022-12-04 21:38 | disposition short-term general hospital (02) ==
LOC: ED 18:23
DX: S12.121A Other nondisplaced dens fracture, initial encounter for closed fracture (principal); S12.091A Other nondisplaced fracture of first cervical vertebra, initial encounter for closed fracture; S01.81XA Laceration without foreign body of other part of head, initial encounter; W22.8XXA Striking against or struck by other objects, initial encounter; Y92.512 Supermarket, store or market as the place of occurrence of the external cause; E11.9 Type 2 diabetes mellitus without complications; I10 Essential (primary) hypertension; Z79.01 Long term (current) use of anticoagulants; Z79.84 Long term (current) use of oral hypoglycemic drugs; Z79.891 Long term (current) use of opiate analgesic; Z79.899 Other long term (current) drug therapy
CPT/HCPCS: 12013; 70450; 72125; 90471; 90715; 96374; 99284; J2270; J2405

== ENCOUNTER 2023-07-25 15:32 | Inpatient (IN) | payer MEDICARE ==
--- NOTE | 2023-07-25 16:12 | ERPHSYRPT ---
- History of Present Illness Time Seen by Provider: 07/25/23 15:35 Source: patient, family Exam Limitations: no limitations Patient Subjective Stated Complaint: Pt c/o of fever, body aches and cough Triage Nursing Assessment: Pt brought to the ER by his daughter after pt was seen in Dr. Hansen's office and was found to be positive for covid and was told to come to the ER to be admitted rather than be a direct admit, vitals wnl although upon arrival pt was not wearing any oxygen and his lips and face was purple and his oxygen was 78% and his daughter stated that she couldn't carry the oxygen and help him in, pulses normal, skin n/w/d, pt states that he has had a fever at home because he starts shivering and then he's sweating, lungs clear and no difficulty breathing once he was placed on oxygen Physician History: 88Years years old male with history of atrial fibrillation on Xarelto, hypertension, hyperlipidemia, diabetes mellitus, COPD with chronic respiratory failure on 5-6 L oxygen presented in the ER from primary care office with worsening shortness of breath cough congestion and fever chills. Patient reports symptoms been going on since yesterday with progressive worsening, coughing up yellow-green sputum moderate in amount. He was tested positive for COVID-19 at PCP office and his oxygen saturation was in upper 70s. Patient was not having any oxygen on and is sent in ER for further evaluation and possible admission. Patient oxygen saturation is 79% on room air on presentation, placed on 5 L oxygen and it is in upper 90s. Patient denies any chest pain or palpitations. No abdominal pain nausea or vomiting reported. Positive sick contact with COVID-19. Allergies/Adverse Reactions: No Known Drug Allergies Allergy (Verified 07/25/23 15:56) Home Medications: Glimepiride [Amaryl] 1 mg PO DAILY 12/17/14 [History] Losartan Potassium [Cozaar] 50 mg PO DAILY 04/05/20 [History] Gabapentin [Neurontin ] 100 mg PO TID 08/24/21 [History] Albuterol Sulfate [Albuterol Sulfate Hfa] 8.5 gm IH DAILY 09/04/21 [History] Ascorbic Acid 500 mg [Vitamin C 500 MG] 1,000 mg PO DAILY 09/04/21 [History] Lubiprostone 8 mcg PO BID 09/04/21 [History] Rivaroxaban [Xarelto] 20 mg PO DAILY 09/04/21 [History] Zinc Sulfate 220 mg PO BID 09/04/21 [History] Fluticasone/Vilanterol [Breo Ellipta 100-25 Mcg Inhalr] 1 puff IH DAILY 03/30/22 [History] Oxycodone HCl 15 mg PO Q6H PRN PRN 03/30/22 [History] Furosemide 20 mg [Lasix 20 mg] 20 mg PO DAILY 03/31/22 [History] Acetaminophen 500 mg [Tylenol Extra Strength 500 mg] 325 mg PO Q6H PRN 07/25/23 [History] Dapagliflozin Propanediol [Farxiga] 10 mg PO DAILY 07/25/23 [History] Famotidine 20 mg [Pepcid 20 MG] 20 mg PO BID 07/25/23 [History] Oxycodone HCl 5 mg PO Q6H 07/25/23 [History] Hx Tetanus, Diphtheria Vaccination/Date Given: Yes Hx Influenza Vaccination/Date Given: Yes Hx Pneumococcal Vaccination/Date Given: Yes Travel Risk - International Travel Have you traveled outside of the country in past 3 weeks: No - Coronavirus Screening Are you exhibiting any of the following symptoms?: Yes Symptoms: Fever, Cough: New Onset, Shortness of Breath, Headaches/Body Aches/Fatigue Close contact with a COVID-19 positive Pt in past 14-21 Days: No - Vaccine Status Have you recieved a Covid-19 vaccination: Yes 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 - Vaccination Dates Date of 2cond Vaccination (if applicable): August 2021 Dates if Unknown: August 2021 - Review of Systems Constitutional: Fever, Chills, Fatigue, Weakness Eyes: No Symptoms Ears, Nose, & Throat: No Symptoms Respiratory: Cough, Dyspnea, Wheezing Cardiac: Edema Abdominal/Gastrointestinal: No Symptoms Genitourinary Symptoms: No Symptoms Musculoskeletal: Neck Pain, Myalgias Neurological: No Symptoms Psychological: No Symptoms Endocrine: No Symptoms Hematologic/Lymphatic: Easy Bleeding - Past Medical History Pertinent Past Medical History: Yes Neurological History: No Pertinent History ENT History: Cataracts Cardiac History: Hypertension Respiratory History: No Pertinent History Endocrine Medical History: Diabetes Type II Musculoskeletal History: Arthritis GI Medical History: No Pertinent History, Hernia History: Other Psycho-Social History: No Pertinent History Male Reproductive Disorders: No Pertinent History Other Medical History: SEES DR. HANSEN EVERY 3 MONTHS. KIDNEY STONES - Past Surgical History Past Surgical History: Yes Neuro Surgical History: No Pertinent History Cardiac: No Pertinent History Respiratory: No Pertinent History Gastrointestinal: Cholecystectomy, Hernia Repair Genitourinary: No Pertinent History Musculoskeletal: No Pertinent History Male Surgical History: No Pertinent History Other Surgical History: back,cataracts rt/lt - Social History Smoking Status: Former smoker Exposure to second hand smoke: No Drug Use: none Patient Lives Alone: No - Nursing Vital Signs Nursing Vital Signs: Initial Vital Signs Temperature 99.2 F 07/25/23 15:46 Pulse Rate 89 07/25/23 15:46 Blood Pressure 129/64 07/25/23 15:46 O2 Sat by Pulse Oximetry 100 07/25/23 15:46 Pain Scale Pain Intensity 7 - Physical Exam General Appearance: mild distress, alert Eye Exam: PERRL/EOMI, eyes nml inspection Ears, Nose, Throat Exam: hearing grossly normal, normal ENT inspection, normal pharynx Neck Exam: normal inspection, other (Chronic C1-C2 fracture with c-collar in place) Respiratory Exam: rhonchi, wheezing Cardiovascular/Chest Exam: normal heart sounds, regular rate/rhythm Abdominal/Gastrointestinal Exam: soft, normal bowel sounds Extremity Exam: non-tender, normal range of motion, No no pedal edema Neurologic Exam: alert, oriented x 3, cooperative Skin Exam: normal color SpO2 Interpretation: hypoxic, O2 applied SpO2: 100 O2 Delivery: Nasal Cannula (5 L) - Course EKG Interpreted by Me: RATE (78), A-fib, Left [place] Deviation, Left Bundle Branch Block, Non-specific ST Changes Ordered Tests: Active Orders 24 hr Category Date Time Status Assistant Athletic Trainer STAT Care 07/25/23 16:06 Active EKG-ER Only STAT Care 07/25/23 16:04 Active IV Insertion STAT Care 07/25/23 16:04 Active Oxygen-ED Only Nasal Cannula 5 lpm Care 07/25/23 16:04 Active CHEST 1 VIEW (PORTABLE) Stat Exams 07/25/23 16:06 Completed ARTERIAL BLOOD GASES Stat Lab 07/25/23 16:37 Completed BLOOD CULTURE Stat Lab 07/25/23 16:37 Received CBC W DIFF Stat Lab 07/25/23 16:20 Completed CMP Stat Lab 07/25/23 16:20 Completed Lactic Acid Stat Lab 07/25/23 16:37 Completed MAGNESIUM Stat Lab 07/25/23 16:20 Completed NT PRO BNPII Stat Lab 07/25/23 16:37 Completed PROCALCITONIN Stat Lab 07/25/23 Completed TROPONIN Q4H Lab 07/25/23 16:37 Completed TROPONIN Q4H Lab 07/25/23 20:15 Ordered TROPONIN Q4H Lab 07/26/23 00:15 Ordered UA W/RFX UR CULTURE Stat Lab 07/25/23 16:05 Ordered Transfer Order Routine Transfer 07/25/23 Ordered Medication Summary Generic Name Dose Route Start Last Admin Trade Name Freq PRN Reason Stop Dose Admin Remdesivir 200 mg/ Sodium 250 mls @ 125 mls/hr 07/25/23 17:56 Chloride IV 07/25/23 19:55 ONCE ONE Discontinued Medications Generic Name Dose Route Start Last Admin Trade Name Freq PRN Reason Stop Dose Admin Albuterol Sulfate 2 puff 07/25/23 16:37 07/25/23 16:37 Albuterol Common Canister Inhaler IH 07/25/23 16:38 2 puff ONCE ONE Administration Dexamethasone Sodium Phosphate 6 mg 07/25/23 17:57 Dexamethasone Sod Phosphate 10 Mg/Ml IV 07/25/23 17:58 STAT ONE Lab/Rad Data: Laboratory Result Diagrams 07/25/23 16:20 07/25/23 16:20 Laboratory Results 07/25/23 07/25/23 07/25/23 Range/Units Unknown 16:55 16:37 WBC (4.0-10.5) x10^3/uL RBC (4.1-5.6) x10^6/uL Hgb (12.5-18.0) g/dL Hct (42-50) % MCV (78-100) fL MCH (26-32) pg MCHC (32-36) g/dL RDW (11.5-14.0) % Plt Count (150-450) x10^3/uL MPV (7.5-11.0) fL Gran % (36.0-66.0) % Immature Gran % (Auto) (0.00-0.4) % Nucleat RBC Rel Count (0.00-0.1) % Eos # (Auto) (0-0.5) x10^3/uL Immature Gran # (Auto) (0.00-0.03) x10^3u/L Absolute Lymphs (auto) (1.0-4.6) x10^3/uL Absolute Monos (auto) (0.0-1.3) x10^3/uL Absolute Nucleated RBC (0.00-0.01) x10^3u/L Lymphocytes % (24.0-44.0) % Monocytes % (0.0-12.0) % Eosinophils % (0.00-5.0) % Basophils % (0.0-0.4) % Absolute Granulocytes (1.4-6.9) x10^3/uL Basophils # (0-0.4) x10^3/uL Puncture Site pCO2 (35-45) mmHg pO2 (75-100) mmHg Base Excess (-2.0-2.0) O2 Saturation (94-100) g/dF ABG pH (7.35-7.45) ABG HCO3 (22-28) ABG O2 Sat (Measured) (95-100) % Yosi Test A-a Gradient a/A Ratio Hemoglobin Carboxyhemoglobin (0.0-6.9) % THgb Methemoglobin (1.4-1.5) % Temperature C POC O2 Flow Rate % Sodium (137-145) mmol/L Potassium (3.5-5.1) mmol/L Chloride (98-107) mmol/L Carbon Dioxide (22-30) mmol/L Anion Gap (5-15) MEQ/L BUN (9-20) mg/dL Creatinine (0.66-1.25) mg/dL Estimated GFR ML/MIN Glucose (74-106) mg/dL Lactic Acid (0.4-2.0) Calcium (8.4-10.2) mg/dL Magnesium (1.6-2.3) mg/dL Total Bilirubin (0.2-1.3) mg/dL AST (17-59) U/L ALT (0-50) U/L Alkaline Phosphatase (38-126) U/L Troponin I (0.000-0.034) ng/mL NT-Pro-B Natriuret Pep 24990 (<300) pg/mL Serum Total Protein (6.3-8.2) g/dL Albumin (3.5-5.0) g/dL Procalcitonin 0.100 H (0.030-0.080) ng/mL Influenza Type A Ag NEGATIVE (NEGATIVE) Influenza Type B Ag NEGATIVE (NEGATIVE) RSV (PCR) NEGATIVE (NEGATIVE) SARS-CoV-2 (PCR) POSITIVE A (NEGATIVE) Slides for Path Review 07/25/23 07/25/23 07/25/23 Range/Units 16:37 16:37 16:20 WBC (4.0-10.5) x10^3/uL RBC (4.1-5.6) x10^6/uL Hgb (12.5-18.0) g/dL Hct (42-50) % MCV (78-100) fL MCH (26-32) pg MCHC (32-36) g/dL RDW (11.5-14.0) % Plt Count (150-450) x10^3/uL MPV (7.5-11.0) fL Gran % (36.0-66.0) % Immature Gran % (Auto) (0.00-0.4) % Nucleat RBC Rel Count (0.00-0.1) % Eos # (Auto) (0-0.5) x10^3/uL Immature Gran # (Auto) (0.00-0.03) x10^3u/L Absolute Lymphs (auto) (1.0-4.6) x10^3/uL Absolute Monos (auto) (0.0-1.3) x10^3/uL Absolute Nucleated RBC (0.00-0.01) x10^3u/L Lymphocytes % (24.0-44.0) % Monocytes % (0.0-12.0) % Eosinophils % (0.00-5.0) % Basophils % (0.0-0.4) % Absolute Granulocytes (1.4-6.9) x10^3/uL Basophils # (0-0.4) x10^3/uL Puncture Site LEFT RADIAL pCO2 40 (35-45) mmHg pO2 159 H* (75-100) mmHg Base Excess 2.8 H (-2.0-2.0) O2 Saturation 97.2 (94-100) g/dF ABG pH 7.44 (7.35-7.45) ABG HCO3 27.2 (22-28) ABG O2 Sat (Measured) 98.8 (95-100) % Yosi Test YES A-a Gradient 76 a/A Ratio 0.68 Hemoglobin 11.8 Carboxyhemoglobin 0.7 (0.0-6.9) % THgb Methemoglobin 0.9 L (1.4-1.5) % Temperature 37.0 C POC O2 Flow Rate 40 % Sodium 137 (137-145) mmol/L Potassium 4.2 4.2 (3.5-5.1) mmol/L Chloride 104 (98-107) mmol/L Carbon Dioxide 26 (22-30) mmol/L Anion Gap 12.1 (5-15) MEQ/L BUN 33 H (9-20) mg/dL Creatinine 1.35 H (0.66-1.25) mg/dL Estimated GFR 53.0 ML/MIN Glucose 138 H (74-106) mg/dL Lactic Acid 1.6 (0.4-2.0) Calcium 8.9 (8.4-10.2) mg/dL Magnesium 2.4 H (1.6-2.3) mg/dL Total Bilirubin 0.80 (0.2-1.3) mg/dL AST 27 (17-59) U/L ALT 19 (0-50) U/L Alkaline Phosphatase 108 (38-126) U/L Troponin I 0.086 H* (0.000-0.034) ng/mL NT-Pro-B Natriuret Pep (<300) pg/mL Serum Total Protein 7.5 (6.3-8.2) g/dL Albumin 4.3 (3.5-5.0) g/dL Procalcitonin (0.030-0.080) ng/mL Influenza Type A Ag (NEGATIVE) Influenza Type B Ag (NEGATIVE) RSV (PCR) (NEGATIVE) SARS-CoV-2 (PCR) (NEGATIVE) Slides for Path Review 07/25/23 Range/Units 16:20 WBC 6.2 (4.0-10.5) x10^3/uL RBC 3.72 L (4.1-5.6) x10^6/uL Hgb 12.2 L (12.5-18.0) g/dL Hct 38.4 L (42-50) % MCV 103.2 H (78-100) fL MCH 32.8 H (26-32) pg MCHC 31.8 L (32-36) g/dL RDW 14.5 H (11.5-14.0) % Plt Count 215 (150-450) x10^3/uL MPV 8.8 (7.5-11.0) fL Gran % 80.7 H (36.0-66.0) % Immature Gran % (Auto) 0.5 H (0.00-0.4) % Nucleat RBC Rel Count 0.0 (0.00-0.1) % Eos # (Auto) 0 (0-0.5) x10^3/uL Immature Gran # (Auto) 0.03 (0.00-0.03) x10^3u/L Absolute Lymphs (auto) 0.58 L (1.0-4.6) x10^3/uL Absolute Monos (auto) 0.56 (0.0-1.3) x10^3/uL Absolute Nucleated RBC 0.00 (0.00-0.01) x10^3u/L Lymphocytes % 9.3 L (24.0-44.0) % Monocytes % 9.0 (0.0-12.0) % Eosinophils % 0.0 (0.00-5.0) % Basophils % 0.5 (0.0-0.4) % Absolute Granulocytes 5.04 (1.4-6.9) x10^3/uL Basophils # 0.03 (0-0.4) x10^3/uL Puncture Site pCO2 (35-45) mmHg pO2 (75-100) mmHg Base Excess (-2.0-2.0) O2 Saturation (94-100) g/dF ABG pH (7.35-7.45) ABG HCO3 (22-28) ABG O2 Sat (Measured) (95-100) % Yosi Test A-a Gradient a/A Ratio Hemoglobin Carboxyhemoglobin (0.0-6.9) % THgb Methemoglobin (1.4-1.5) % Temperature C POC O2 Flow Rate % Sodium (137-145) mmol/L Potassium (3.5-5.1) mmol/L Chloride (98-107) mmol/L Carbon Dioxide (22-30) mmol/L Anion Gap (5-15) MEQ/L BUN (9-20) mg/dL Creatinine (0.66-1.25) mg/dL Estimated GFR ML/MIN Glucose (74-106) mg/dL Lactic Acid (0.4-2.0) Calcium (8.4-10.2) mg/dL Magnesium (1.6-2.3) mg/dL Total Bilirubin (0.2-1.3) mg/dL AST (17-59) U/L ALT (0-50) U/L Alkaline Phosphatase (38-126) U/L Troponin I (0.000-0.034) ng/mL NT-Pro-B Natriuret Pep (<300) pg/mL Serum Total Protein (6.3-8.2) g/dL Albumin (3.5-5.0) g/dL Procalcitonin (0.030-0.080) ng/mL Influenza Type A Ag (NEGATIVE) Influenza Type B Ag (NEGATIVE) RSV (PCR) (NEGATIVE) SARS-CoV-2 (PCR) (NEGATIVE) Slides for Path Review YES - Progress Progress: improved, re-examined Air Movement: fair Progress Note: 07/25/23 16:11 88Years years old male with history of atrial fibrillation on Xarelto, hypertension, hyperlipidemia, diabetes mellitus, COPD with chronic respiratory failure on 5-6 L oxygen presented in the ER from primary care office with worsening shortness of breath cough congestion and fever chills. Patient reports symptoms been going on since yesterday with progressive worsening, coughing up yellow-green sputum moderate in amount. He was tested positive for COVID-19 at PCP office and his oxygen saturation was in upper 70s. Patient was not having any oxygen on and is sent in ER for further evaluation and possible admission. Patient oxygen saturation is 79% on room air on presentation, placed on 5 L oxygen and it is in upper 90s. Patient denies any chest pain or palpitations. No abdominal pain nausea or vomiting reported. Positive sick contact with COVID-19. 07/25/23 17:57 Patient work-up showed normal white count, stable kidney functions and EKG A-fib rate controlled with no ST elevation but initial troponin of 0.086. Patient does not have any chest pain. He is given albuterol inhaler puffs. Chest x-ray showed bilateral airspace disease consistent with COVID-pneumonia. Patient is on 5 L oxygen with saturation in mid 90s. Not in any distress. I have discussed with Dr. Quesada hospitalist on-call, reviewed history, work-up and agreed with starting him on remdesivir and Decadron and accepted for admission. I have discussed the results of work-up with patient and family and plan of admission and they agree with it. Blood Culture(s) Obtained: Yes Antibiotics given: Yes Discussed with Dr.: Other ( [id number]) Will see patient in: hospital (observation) Counseled pt/family regarding: lab results, diagnosis, rad results Medical Desision Making - Independent Historian Additional History obtained from: Child - Discussion of managment Care discussed with:: hospitalist Reviewed:: Test results Agreed on:: Treatment plan, place in obs Will see patient: in hospital - Diagnostic Testing Diagnostic test were ordered, analyzed, and reviewed by me: Yes Radiological Interpretation: Reviewed by me - Risk of complications The pt has a high risk of morbidity or mortality based on: Decision regarding hospitilization or escalation of hosp level of care - Departure Departure Disposition: Observation Clinical Impression: Pneumonia due to COVID-19 virus, Elevated troponin Respiratory failure Qualifiers: Chronicity: acute on chronic Respiratory failure complication: hypoxia Qualified Code(s): J96.21 - Acute and chronic respiratory failure with hypoxia Condition: Stable Critical Care Time: No Referrals: TYRONE HANSEN MD [Primary Care Provider] - Follow up/PCP as directed
[2023-07-25 16:37] LABS: Absolute Neutrophil Ct (ANC) 5.04 x10^3/uL (1.4-6.9); BASOPHIL % 0.5 % (0.0-0.4); Basophil (Absolute #) 0.03 x10^3/uL (0-0.4); Eosinophil (Absolute #) 0 x10^3/uL (0-0.5); Hematocrit 38.4 % (42-50); Hemoglobin 12.2 g/dL (12.5-18.0); IMMATURE GRAN # 0.03 x10^3u/L (0.00-0.03); IMMATURE GRAN % 0.5 % (0.00-0.4); Lymphocyte (Absolute #) 0.58 x10^3/uL (1.0-4.6); Lymphocytes % 9.3 % (24.0-44.0); Mean Cell Volume 103.2 fL (78-100); Mean Corpuscular Hemoglobin 32.8 pg (26-32); Mean Corpuscular Hgb Concent. 31.8 g/dL (32-36); Mean Platelet Volume 8.8 fL (7.5-11.0); Monocyte (Absolute #) 0.56 x10^3/uL (0.0-1.3); Neutrophil % 80.7 % (36.0-66.0); Platelet Count 215 x10^3/uL (150-450); Red Blood Count 3.72 x10^6/uL (4.1-5.6); Red Cell Distribution Width 14.5 % (11.5-14.0); White Blood Count 6.2 x10^3/uL (4.0-10.5)
[2023-07-25] MEDS ORDERED: VENTOLIN COMMON CANISTER IH ONE (16:37)
[2023-07-25 16:43] LABS: A-aADO2 76; ABG HEMOGLOBIN 11.8; ABG POTASSIUM 4.2 (3.5-5.1); ARTERIAL BLD GAS O2 SATURATION 98.8 % (95-100); ARTERIAL BLOOD GAS BASE EXCESS 2.8 (-2.0-2.0); ARTERIAL BLOOD GAS FIO2 40 %; ARTERIAL BLOOD GAS PCO2 40 mmHg (35-45); ARTERIAL BLOOD GAS PO2 159 mmHg (75-100); ARTERIAL BLOOD GAS pH 7.44 (7.35-7.45); CARBOXYHEMOGLOBIN 0.7 % THgb (0.0-6.9); HCO3- 27.2 (22-28); HGB O2 SAT 97.2 g/dF (94-100); Lactic Acid 1.6 (0.4-2.0); Methhemoglobin 0.9 % (1.4-1.5); paO2 pAO1 0.68
[2023-07-25 16:45] LABS: ABG SITE LEFT RADIAL; ALLEN TEST OK? YES
[2023-07-25 16:52] LABS: ALBUMIN 4.3 g/dL (3.5-5.0); ANION GAP 12.1 MEQ/L (5-15); BILIRUBIN,TOTAL 0.8 mg/dL (0.2-1.3); Calcium 8.9 mg/dL (8.4-10.2); Creatinine 1 1.35 mg/dL (0.66-1.25); MAGNESIUM 2.4 mg/dL (1.6-2.3); Potassium 4.2 mmol/L (3.5-5.1); Total Protein 7.5 g/dL (6.3-8.2)
--- NOTE | 2023-07-25 17:03 | XRAY ---
Indication: Cough and short of breath. Covid 19. Comparison: March 30, 2022 Portable chest again demonstrates mild bilateral mid to lower lung interstitial alveolar opacities concerning for recurrent Covid 19 pneumonia. No consolidation/large effusion. Heart not enlarged. Bony thorax intact again with osteopenia, degenerative changes, and right shoulder arthroplasty.
[2023-07-25 17:36] LABS: INFLUENZA A NEGATIVE (NEGATIVE); INFLUENZA B NEGATIVE (NEGATIVE); RESPIRATORY SYNCTIAL VIRUS NEGATIVE (NEGATIVE)
[2023-07-25 17:55] LABS: Slide Review 1 YES
[2023-07-25] MEDS ORDERED: REMDESIVIR 200 MG in Sodium Chloride 0.9% 250 ML 250 ML IV ONE (17:56)
[2023-07-25] MEDS ORDERED: DECADRON 10MG INJ. IV ONE (17:57)
[2023-07-25 17:59] LABS: SARS-CoV-2 Xpert Express POSITIVE (NEGATIVE)
[2023-07-25] MEDS ORDERED: DECADRON 10MG INJ. ONE (18:04)
[2023-07-25 18:36] LABS: ADD URINE CULTURE? NO (NO); Appearance Clear (Clear); Bacteria None Seen /HPF (None Seen); Bilirubin Negative (Negative); Blood Negative (Negative); Epithelial Cells None Seen /HPF (None Seen); Glucose, Urine >=1000 mg/dL (Negative); Hyaline Casts NONE SEEN /LPF (0-2); Ketones Negative (Negative); Leukocyte Esterase Negative (Negative); Nitrite Negative (Negative); Protein,Urine Dip Trace (Negative); RBC 0-2 /HPF (0-5); Specific Gravity 1.025 (1.005-1.030); Urobilinogen 0.2 mg/dL (0.2); WBC 0-2 /HPF (0-5)
--- NOTE | 2023-07-25 19:25 | PCM.HP ---
History of Present Illness - Chief Complaint Chief Complaint: Covid PNE Date: 07/25/23 History of Present Illness: is a 88 year old male admitted with increased dyspnea over past few days. He COPD and is on oxygen at 5L at home. He has had dyspnea at rest on 5L. He has had cough productive of yellow phlegm. He reports fever and chills at home. No sore throat. No chest pain. No edema. Patient is COVID positive. He is vaccinated. He has no abdominal pain, nausea or vomiting. NO change in bowels or bladder. He is wearing a neck brace. He has a nonhealing fracture in his neck secondary to fall and was told he will need to wear this the rest of his life. PMH includes Atrial fib, HTN, HLD, Diabetes type 2, and COPD. - Review of Systems Constitutional: Fever, Chills Eyes: No Symptoms Ears, Nose, & Throat: No Symptoms Respiratory: Cough, Short Of Breath, Wheezing Cardiac: Orthopnea, PND, No Chest Pain, No Edema Abdominal/Gastrointestinal: No Symptoms, No Nausea, No Vomiting, No Constipation Genitourinary Symptoms: No Symptoms, No Dysuria, No Hematuria Musculoskeletal: Neck Pain Skin: No Symptoms Neurological: No Symptoms Psychological: No Symptoms Endocrine: No Symptoms Hematologic/Lymphatic: No Symptoms Immunological/Allergic: No Symptoms Medications & Allergies Home Medications: Home Medication List Glimepiride [Amaryl] 1 mg PO DAILY 12/17/14 [History Confirmed 07/25/23] Losartan Potassium [Cozaar] 50 mg PO DAILY 04/05/20 [History Confirmed 07/25/23] Gabapentin [Neurontin ] 100 mg PO TID 08/24/21 [History Confirmed 07/25/23] Albuterol Sulfate [Albuterol Sulfate Hfa] 8.5 gm IH DAILY 09/04/21 [History Confirmed 07/25/23] Ascorbic Acid 500 mg [Vitamin C 500 MG] 1,000 mg PO DAILY 09/04/21 [History Confirmed 07/25/23] Lubiprostone 8 mcg PO BID 09/04/21 [History Confirmed 07/25/23] Rivaroxaban [Xarelto] 20 mg PO DAILY 09/04/21 [History Confirmed 07/25/23] Zinc Sulfate 220 mg PO BID 09/04/21 [History Confirmed 07/25/23] Senna/Docusate Sodium Tab [Senokot-S Tablet] 1 udtab PO DAILY tablet 09/11/21 [Rx Confirmed 07/25/23] Fluticasone/Vilanterol [Breo Ellipta 100-25 Mcg Inhalr] 1 puff IH DAILY 03/30/22 [History Confirmed 07/25/23] Oxycodone HCl 15 mg PO Q6H PRN PRN 03/30/22 [History Confirmed 07/25/23] Furosemide 20 mg [Lasix 20 mg] 20 mg PO DAILY 03/31/22 [History Confirmed 07/25/23] Metoprolol Succinate 25 mg Xl* [Toprol-Xl 25MG Tablets] 25 mg PO DAILY #30 tab 04/02/22 [Rx Confirmed 07/25/23] Acetaminophen 500 mg [Tylenol Extra Strength 500 mg] 325 mg PO Q6H PRN 07/25/23 [History Confirmed 07/25/23] Dapagliflozin Propanediol [Farxiga] 10 mg PO DAILY 07/25/23 [History Confirmed 07/25/23] Famotidine 20 mg [Pepcid 20 MG] 20 mg PO BID 07/25/23 [History Confirmed 07/25/23] Oxycodone HCl 5 mg PO Q6H 07/25/23 [History Confirmed 07/25/23] Allergies/Adverse Reactions: Allergies Allergy/AdvReac Type Severity Reaction Status Date / Time No Known Drug Allergies Allergy Verified 07/25/23 15:56 - Past Medical History Past Medical History: Yes Neurological History: No Pertinent History ENT History: Cataracts Cardiac History: High Cholesterol, Hypertension Respiratory History: No Pertinent History Endocrine Medical History: Diabetes Type II Musculoskelatal History: Arthritis GI Medical History: No Pertinent History, Hernia History: Other Pyscho-Social History: No Pertinent History Male Reproductive Disorders: No Pertinent History Comment: SEES DR. HANSEN EVERY 3 MONTHS. KIDNEY STONES - Past Surgical History Past Surgical History: Yes Neuro Surgical History: No Pertinent History Cardiac History: No Pertinent History Respiratory Surgery: No Pertinent History GI Surgical History: Cholecystectomy, Hernia Repair Genitourinary Surgical Hx: No Pertinent History Musculskeletal Surgical Hx: No Pertinent History Male Surgical History: No Pertinent History Other Surgical History: back,cataracts rt/lt - Social History Smoking Status: Former smoker Exposure to second hand smoke: No Alcohol: None Drug Use: none - Physical Exam Vital Signs: Vital Signs - 24 hr Temp Pulse Resp BP BP Pulse Ox 07/25/23 18:36 98.7 F 83 24 122/66 100 07/25/23 18:04 100 07/25/23 18:03 73 18 98 07/25/23 18:00 71 20 101/50 07/25/23 17:31 68 20 71/57 07/25/23 17:01 80 26 H 100/59 100 07/25/23 17:00 75 24 100 07/25/23 16:50 77 27 H 100 07/25/23 16:40 100 07/25/23 16:33 100 07/25/23 16:00 114/62 100 07/25/23 15:46 99.2 F 89 129/64 100 General Appearance: moderate distress Neurologic Exam: alert, oriented x 3, cooperative, normal mood/affect Eye Exam: PERRL/EOMI Ears, Nose, Throat Exam: normal ENT inspection Neck Exam: normal inspection, other (Neck brae) Respiratory Exam: crackles/rales, rhonchi, wheezing Cardiovascular Exam: normal heart sounds, irregular Gastrointestinal/Abdomen Exam: soft, normal bowel sounds Male Genitalia Exam: normal genitalia Rectal Exam: deferred Back Exam: normal inspection Extremity Exam: normal inspection Skin Exam: normal color, warm Lymphatic Exam: No adenopathy Results - Labs Lab/Micro Results: Lab Results-Last 24 Hours 07/25/23 07/25/23 07/25/23 Range/Units 16:20 16:20 16:37 WBC 6.2 (4.0-10.5) x10^3/uL RBC 3.72 L (4.1-5.6) x10^6/uL Hgb 12.2 L (12.5-18.0) g/dL Hct 38.4 L (42-50) % MCV 103.2 H (78-100) fL MCH 32.8 H (26-32) pg MCHC 31.8 L (32-36) g/dL RDW 14.5 H (11.5-14.0) % Plt Count 215 (150-450) x10^3/uL MPV 8.8 (7.5-11.0) fL Gran % 80.7 H (36.0-66.0) % Immature Gran % (Auto) 0.5 H (0.00-0.4) % Nucleat RBC Rel Count 0.0 (0.00-0.1) % Eos # (Auto) 0 (0-0.5) x10^3/uL Immature Gran # (Auto) 0.03 (0.00-0.03) x10^3u/L Absolute Lymphs (auto) 0.58 L (1.0-4.6) x10^3/uL Absolute Monos (auto) 0.56 (0.0-1.3) x10^3/uL Absolute Nucleated RBC 0.00 (0.00-0.01) x10^3u/L Lymphocytes % 9.3 L (24.0-44.0) % Monocytes % 9.0 (0.0-12.0) % Eosinophils % 0.0 (0.00-5.0) % Basophils % 0.5 (0.0-0.4) % Absolute Granulocytes 5.04 (1.4-6.9) x10^3/uL Basophils # 0.03 (0-0.4) x10^3/uL Puncture Site LEFT RADIAL pCO2 40 (35-45) mmHg pO2 159 H* (75-100) mmHg Base Excess 2.8 H (-2.0-2.0) O2 Saturation 97.2 (94-100) g/dF ABG pH 7.44 (7.35-7.45) ABG HCO3 27.2 (22-28) ABG O2 Sat (Measured) 98.8 (95-100) % Yosi Test YES A-a Gradient 76 a/A Ratio 0.68 Hemoglobin 11.8 Carboxyhemoglobin 0.7 (0.0-6.9) % THgb Methemoglobin 0.9 L (1.4-1.5) % Temperature 37.0 C POC O2 Flow Rate 40 % Sodium 137 (137-145) mmol/L Potassium 4.2 4.2 (3.5-5.1) mmol/L Chloride 104 (98-107) mmol/L Carbon Dioxide 26 (22-30) mmol/L Anion Gap 12.1 (5-15) MEQ/L BUN 33 H (9-20) mg/dL Creatinine 1.35 H (0.66-1.25) mg/dL Estimated GFR 53.0 ML/MIN Glucose 138 H (74-106) mg/dL Lactic Acid 1.6 (0.4-2.0) Calcium 8.9 (8.4-10.2) mg/dL Magnesium 2.4 H (1.6-2.3) mg/dL Total Bilirubin 0.80 (0.2-1.3) mg/dL AST 27 (17-59) U/L ALT 19 (0-50) U/L Alkaline Phosphatase 108 (38-126) U/L Troponin I (0.000-0.034) ng/mL NT-Pro-B Natriuret Pep (<300) pg/mL Serum Total Protein 7.5 (6.3-8.2) g/dL Albumin 4.3 (3.5-5.0) g/dL Procalcitonin (0.030-0.080) ng/mL Urine Color (Yellow) Urine Appearance (Clear) Urine pH (4.6-8.0) Ur Specific [place] (1.005-1.030) Urine Protein (Negative) Urine Glucose (UA) (Negative) mg/dL Urine Ketones (Negative) Urine Blood (Negative) Urine Nitrite (Negative) Urine Bilirubin (Negative) Urine Urobilinogen (0.2) mg/dL Ur Leukocyte Esterase (Negative) U Hyaline Cast (Auto) (0-2) /LPF Urine Microscopic RBC (0-5) /HPF Urine Microscopic WBC (0-5) /HPF Ur Epithelial Cells (None Seen) /HPF Urine Bacteria (None Seen) /HPF Urine Culture Reflexed (NO) Influenza Type A Ag (NEGATIVE) Influenza Type B Ag (NEGATIVE) RSV (PCR) (NEGATIVE) SARS-CoV-2 (PCR) (NEGATIVE) Slides for Path Review YES 07/25/23 07/25/23 07/25/23 Range/Units 16:37 16:37 16:55 WBC (4.0-10.5) x10^3/uL RBC (4.1-5.6) x10^6/uL Hgb (12.5-18.0) g/dL Hct (42-50) % MCV (78-100) fL MCH (26-32) pg MCHC (32-36) g/dL RDW (11.5-14.0) % Plt Count (150-450) x10^3/uL MPV (7.5-11.0) fL Gran % (36.0-66.0) % Immature Gran % (Auto) (0.00-0.4) % Nucleat RBC Rel Count (0.00-0.1) % Eos # (Auto) (0-0.5) x10^3/uL Immature Gran # (Auto) (0.00-0.03) x10^3u/L Absolute Lymphs (auto) (1.0-4.6) x10^3/uL Absolute Monos (auto) (0.0-1.3) x10^3/uL Absolute Nucleated RBC (0.00-0.01) x10^3u/L Lymphocytes % (24.0-44.0) % Monocytes % (0.0-12.0) % Eosinophils % (0.00-5.0) % Basophils % (0.0-0.4) % Absolute Granulocytes (1.4-6.9) x10^3/uL Basophils # (0-0.4) x10^3/uL Puncture Site pCO2 (35-45) mmHg pO2 (75-100) mmHg Base Excess (-2.0-2.0) O2 Saturation (94-100) g/dF ABG pH (7.35-7.45) ABG HCO3 (22-28) ABG O2 Sat (Measured) (95-100) % [place]osi Test A-a Gradient a/A Ratio Hemoglobin Carboxyhemoglobin (0.0-6.9) % THgb Methemoglobin (1.4-1.5) % Temperature C POC O2 Flow Rate % Sodium (137-145) mmol/L Potassium (3.5-5.1) mmol/L Chloride (98-107) mmol/L Carbon Dioxide (22-30) mmol/L Anion Gap (5-15) MEQ/L BUN (9-20) mg/dL Creatinine (0.66-1.25) mg/dL Estimated GFR ML/MIN Glucose (74-106) mg/dL Lactic Acid (0.4-2.0) Calcium (8.4-10.2) mg/dL Magnesium (1.6-2.3) mg/dL Total Bilirubin (0.2-1.3) mg/dL AST (17-59) U/L ALT (0-50) U/L Alkaline Phosphatase (38-126) U/L Troponin I 0.086 H* (0.000-0.034) ng/mL NT-Pro-B Natriuret Pep 93970 (<300) pg/mL Serum Total Protein (6.3-8.2) g/dL Albumin (3.5-5.0) g/dL Procalcitonin (0.030-0.080) ng/mL Urine Color (Yellow) Urine Appearance (Clear) Urine pH (4.6-8.0) Ur Specific [place] (1.005-1.030) Urine Protein (Negative) Urine Glucose (UA) (Negative) mg/dL Urine Ketones (Negative) Urine Blood (Negative) Urine Nitrite (Negative) Urine Bilirubin (Negative) Urine Urobilinogen (0.2) mg/dL Ur Leukocyte Esterase (Negative) U Hyaline Cast (Auto) (0-2) /LPF Urine Microscopic RBC (0-5) /HPF Urine Microscopic WBC (0-5) /HPF Ur Epithelial Cells (None Seen) /HPF Urine Bacteria (None Seen) /HPF Urine Culture Reflexed (NO) Influenza Type A Ag NEGATIVE (NEGATIVE) Influenza Type B Ag NEGATIVE (NEGATIVE) RSV (PCR) NEGATIVE (NEGATIVE) SARS-CoV-2 (PCR) POSITIVE A (NEGATIVE) Slides for Path Review 07/25/23 07/25/23 Range/Units 18:16 Unknown WBC (4.0-10.5) x10^3/uL RBC (4.1-5.6) x10^6/uL Hgb (12.5-18.0) g/dL Hct (42-50) % MCV (78-100) fL MCH (26-32) pg MCHC (32-36) g/dL RDW (11.5-14.0) % Plt Count (150-450) x10^3/uL MPV (7.5-11.0) fL Gran % (36.0-66.0) % Immature Gran % (Auto) (0.00-0.4) % Nucleat RBC Rel Count (0.00-0.1) % Eos # (Auto) (0-0.5) x10^3/uL Immature Gran # (Auto) (0.00-0.03) x10^3u/L Absolute Lymphs (auto) (1.0-4.6) x10^3/uL Absolute Monos (auto) (0.0-1.3) x10^3/uL Absolute Nucleated RBC (0.00-0.01) x10^3u/L Lymphocytes % (24.0-44.0) % Monocytes % (0.0-12.0) % Eosinophils % (0.00-5.0) % Basophils % (0.0-0.4) % Absolute Granulocytes (1.4-6.9) x10^3/uL Basophils # (0-0.4) x10^3/uL Puncture Site pCO2 (35-45) mmHg pO2 (75-100) mmHg Base Excess (-2.0-2.0) O2 Saturation (94-100) g/dF ABG pH (7.35-7.45) ABG HCO3 (22-28) ABG O2 Sat (Measured) (95-100) % [place]osi Test A-a Gradient a/A Ratio Hemoglobin Carboxyhemoglobin (0.0-6.9) % THgb Methemoglobin (1.4-1.5) % Temperature C POC O2 Flow Rate % Sodium (137-145) mmol/L Potassium (3.5-5.1) mmol/L Chloride (98-107) mmol/L Carbon Dioxide (22-30) mmol/L Anion Gap (5-15) MEQ/L BUN (9-20) mg/dL Creatinine (0.66-1.25) mg/dL Estimated GFR ML/MIN Glucose (74-106) mg/dL Lactic Acid (0.4-2.0) Calcium (8.4-10.2) mg/dL Magnesium (1.6-2.3) mg/dL Total Bilirubin (0.2-1.3) mg/dL AST (17-59) U/L ALT (0-50) U/L Alkaline Phosphatase (38-126) U/L Troponin I (0.000-0.034) ng/mL NT-Pro-B Natriuret Pep (<300) pg/mL Serum Total Protein (6.3-8.2) g/dL Albumin (3.5-5.0) g/dL Procalcitonin 0.100 H (0.030-0.080) ng/mL Urine Color Yellow (Yellow) Urine Appearance Clear (Clear) Urine pH 5.0 (4.6-8.0) Ur Specific [place] 1.025 (1.005-1.030) Urine Protein Trace A (Negative) Urine Glucose (UA) >=1000 A (Negative) mg/dL Urine Ketones Negative (Negative) Urine Blood Negative (Negative) Urine Nitrite Negative (Negative) Urine Bilirubin Negative (Negative) Urine Urobilinogen 0.2 (0.2) mg/dL Ur Leukocyte Esterase Negative (Negative) U Hyaline Cast (Auto) NONE SEEN (0-2) /LPF Urine Microscopic RBC 0-2 (0-5) /HPF Urine Microscopic WBC 0-2 (0-5) /HPF Ur Epithelial Cells None Seen (None Seen) /HPF Urine Bacteria None Seen (None Seen) /HPF Urine Culture Reflexed NO (NO) Influenza Type A Ag (NEGATIVE) Influenza Type B Ag (NEGATIVE) RSV (PCR) (NEGATIVE) SARS-CoV-2 (PCR) (NEGATIVE) Slides for Path Review - Radiology Impressions Radiology Exams & Impressions: Radiology Procedures Category Date Time Status CHEST 1 VIEW (PORTABLE) Stat Exams 07/25/23 16:06 Completed - Other Procedures and Tests Respiratory Therapy 07/25/23 18:30 Oxygen Nasal Cannula 5 lpm Respiratory Therapy Consult ONCE 07/25/23 18:55 RT Screen per Nursing Assess ONCE Assessment/Plan (1) COPD (chronic obstructive pulmonary disease) Current Visit: Yes Status: Acute Qualifiers: COPD type: COPD with acute exacerbation Qualified Code(s): J44.1 - Chronic obstructive pulmonary disease with (acute) exacerbation Assessment & Plan: Patient has acute on chronic respiratory failure Sats in ER down to 78% on 5L Patient is SOB and wheezing Plan supplemental oxygen as needed Exacerbation likely due to COVID infection Will plan Remdesivir and Decadron Procal is up. Will start antibiotics Plan bronchodilators as needed (2) Diabetes type 2, controlled Current Visit: Yes Status: Chronic Qualifiers: Diabetes mellitus complication status: without complication Assessment & Plan: Monitor BS. SS insulin Hold oral meds BS likely to go up with steroid therapy Code(s): E11.9 - TYPE 2 DIABETES MELLITUS WITHOUT COMPLICATIONS (3) Hypertension Current Visit: Yes Status: Chronic Qualifiers: Hypertension type: primary hypertension Qualified Code(s): I10 - Essential (primary) hypertension Assessment & Plan: Continue home meds Code(s): I10 - ESSENTIAL (PRIMARY) HYPERTENSION (4) Elevated troponin Current Visit: Yes Status: Acute Assessment & Plan: Likely demand ischemia due to hypoxia Will recheck Troponin EKG shows no acute changes Code(s): R77.8 - OTHER SPECIFIED ABNORMALITIES OF PLASMA PROTEINS (5) Respiratory failure Current Visit: Yes Status: Acute Qualifiers: Chronicity: acute on chronic Respiratory failure complication: hypoxia Qualified Code(s): J96.21 - Acute and chronic respiratory failure with hypoxia Assessment & Plan: Acute on chronic respiratory failure ARF due to COVID infection and exacerbation of COPD Supplemental oxygen as needed Code(s): J96.90 - RESPIRATORY FAILURE, UNSP, UNSP W HYPOXIA OR HYPERCAPNIA (6) SARS-CoV-2 positive Current Visit: No Status: Acute Assessment & Plan: Given severe hypoxia, plan Remdesivir and Decadron Patient has been vaccinated Code(s): U07.1 - COVID-19 (7) Type II dens fracture of second cervical vertebra Current Visit: No Status: Chronic Assessment & Plan: Neck brace in place Code(s): S12.110A - ANTERIOR DISPLACED TYPE II DENS FRACTURE, INIT FOR CLOS FX (8) Atrial fibrillation Current Visit: Yes Status: Chronic Assessment & Plan: Continue home meds Code(s): I48.91 - UNSPECIFIED ATRIAL FIBRILLATION Telemedicine Encounter - Telemedicine Encounter Telemedicine Encounter: The entirety of this encounter was performed via Telemedicine" after consent obtained. Discussed with ER provider Labs and imaging reviewed 70 minutes spent on care of this patient Tom Quesada MD [employer]
[2023-07-25] MEDS ORDERED: TYLENOL EXTRA STRENGTH 500 MG PO PRN (19:36)
[2023-07-25] MEDS ORDERED: OXYCODONE HCL 15 MG PO PRN (19:36)
[2023-07-25] MEDS ORDERED: REMDESIVIR 100 MG in Sodium Chloride 100ML MINI-BAG PLUS 100 ML IV SCH (19:45)
[2023-07-25] MEDS: Oxy-IR 5 MG PO SCH (20:01)
[2023-07-25] MEDS: Sodium Chloride 0.9% 1000 ML 1,000 ML IV SCH (20:07)
[2023-07-25] MEDS ORDERED: LUBIPROSTONE 8 MCG PO SCH (22:00)
[2023-07-25] MEDS ORDERED: ZINC SULFATE 220 MG PO SCH (22:00)
[2023-07-25] MEDS: Neurontin PO SCH (22:06)
[2023-07-25] MEDS: Pepcid 20 MG PO SCH (22:06)
[2023-07-26] MEDS ORDERED: DUONEB 0.5-3 MG/3 ml Neb IH SCH (01:00)
[2023-07-26] MEDS: VENTOLIN COMMON CANISTER IH SCH ×4 (01:10→19:10)
[2023-07-26] MEDS: Oxy-IR 5 MG PO SCH ×3 (02:04→13:39)
[2023-07-26 04:30] LABS: Hematocrit 33.5 % (42-50); Hemoglobin 10.6 g/dL (12.5-18.0); Mean Cell Volume 103.1 fL (78-100); Mean Corpuscular Hemoglobin 32.6 pg (26-32); Mean Corpuscular Hgb Concent. 31.6 g/dL (32-36); Platelet Count 180 x10^3/uL (150-450); Red Blood Count 3.25 x10^6/uL (4.1-5.6); Red Cell Distribution Width 14.6 % (11.5-14.0)
[2023-07-26 04:46] LABS: ALBUMIN 3.7 g/dL (3.5-5.0); ALKALINE PHOSPHATASE 101 U/L (38-126); ANION GAP 10.7 MEQ/L (5-15); BLOOD UREA NITROGEN 30 mg/dL (9-20); CHLORIDE 106 mmol/L (98-107); Calcium 8.4 mg/dL (8.4-10.2); Carbon Dioxide 24 mmol/L (22-30); Creatinine 1 1.12 mg/dL (0.66-1.25); EST GLOMERULAR FILTRATION RATE > 60.0 ML/MIN; Glucose 167 mg/dL (74-106); Potassium 4.5 mmol/L (3.5-5.1); SGOT/AST 26 U/L (17-59); SGPT/ALT 17 U/L (0-50); SODIUM 136 mmol/L (137-145); Total Protein 6.6 g/dL (6.3-8.2)
--- NOTE | 2023-07-26 05:55 | PCM.NOTE ---
Date and Time: 07/26/23 0549 Subjective Assessment: is a 88 year old male with a pmhx of Atrial fib, HTN, HLD, Diabetes type 2, and COPD who presented to ED 07/25/23 with c/o increased dyspnea. He is on a baseline of 5L of oxygen at home and on presentation to ED his spo2 was @ 78% on 5L. CXR demonstrates mild bilateral mid to lower lung interstitial alveolar opacities concerning for recurrent Covid 19 pneumonia. No consolidation/large effusion. Patient admitted for COVID/ COPD exacerbation, currently being treated with remdesivir, decadron, azithromycin, and ceftriaxone. Endorses productive cough with yellow sputum but overall improvement overnight. At baseline oxygen of 5L. - Review of Systems Constitutional: No Symptoms Eyes: No Symptoms Ears, Nose, & Throat: Nose Congestion Respiratory: Cough, Short Of Breath Cardiac: No Symptoms Abdominal/Gastrointestinal: No Symptoms Genitourinary Symptoms: No Symptoms Musculoskeletal: Joint Pain (neck brace) Skin: No Symptoms Neurological: No Symptoms Psychological: No Symptoms Objective Exam General Appearance: no apparent distress Neurologic Exam: alert, oriented x 3, cooperative Skin Exam: pale Eye Exam: PERRL Ears, Nose, Throat Exam: normal ENT inspection Respiratory Exam: crackles/rales, wheezing Cardiovascular Exam: regular rate/rhythm, normal heart sounds Gastrointestinal/Abdomen Exam: soft, normal bowel sounds Extremity Exam: normal inspection Back Exam: normal inspection OBJECTIVE DATA Vital Signs: Vital Signs - 24 hr Temp Pulse Resp BP BP Pulse Ox 07/26/23 04:00 97.8 F 92 H 20 112/79 94 L 07/26/23 01:09 78 18 97 07/25/23 23:26 96.8 F 84 23 139/53 97 07/25/23 20:00 90 L 07/25/23 18:45 78 20 99 07/25/23 18:36 98.7 F 83 24 122/66 100 07/25/23 18:04 100 07/25/23 18:03 73 18 98 07/25/23 18:00 71 20 101/50 07/25/23 17:31 68 20 71/57 07/25/23 17:01 80 26 H 100/59 100 07/25/23 17:00 75 24 100 07/25/23 16:50 77 27 H 100 10/16/23 16:40 100 07/25/23 16:33 100 07/25/23 16:00 114/62 100 07/25/23 15:46 99.2 F 89 129/64 100 Pain Assessment - Last Documented Pain Intensity 0 Pain Scale Used 0-10 Pain Scale Intake and Output: Intake & Output 07/23/23 07/24/23 07/25/23 07/26/23 11:59 11:59 11:59 11:59 Intake Total 610 Output Total 300 Balance 310 Weight 70.4 kg Lab Results: Lab Results-Last 24 Hours 07/25/23 07/25/23 07/25/23 Range/Units 16:20 16:20 16:37 WBC 6.2 (4.0-10.5) x10^3/uL RBC 3.72 L (4.1-5.6) x10^6/uL Hgb 12.2 L (12.5-18.0) g/dL Hct 38.4 L (42-50) % MCV 103.2 H (78-100) fL MCH 32.8 H (26-32) pg MCHC 31.8 L (32-36) g/dL RDW 14.5 H (11.5-14.0) % Plt Count 215 (150-450) x10^3/uL MPV 8.8 (7.5-11.0) fL Gran % 80.7 H (36.0-66.0) % Immature Gran % (Auto) 0.5 H (0.00-0.4) % Nucleat RBC Rel Count 0.0 (0.00-0.1) % Eos # (Auto) 0 (0-0.5) x10^3/uL Immature Gran # (Auto) 0.03 (0.00-0.03) x10^3u/L Absolute Lymphs (auto) 0.58 L (1.0-4.6) x10^3/uL Absolute Monos (auto) 0.56 (0.0-1.3) x10^3/uL Absolute Nucleated RBC 0.00 (0.00-0.01) x10^3u/L Lymphocytes % 9.3 L (24.0-44.0) % Monocytes % 9.0 (0.0-12.0) % Eosinophils % 0.0 (0.00-5.0) % Basophils % 0.5 (0.0-0.4) % Absolute Granulocytes 5.04 (1.4-6.9) x10^3/uL Basophils # 0.03 (0-0.4) x10^3/uL Puncture Site LEFT RADIAL pCO2 40 (35-45) mmHg pO2 159 H* (75-100) mmHg Base Excess 2.8 H (-2.0-2.0) O2 Saturation 97.2 (94-100) g/dF ABG pH 7.44 (7.35-7.45) ABG HCO3 27.2 (22-28) ABG O2 Sat (Measured) 98.8 (95-100) % Yosi Test YES A-a Gradient 76 a/A Ratio 0.68 Hemoglobin 11.8 Carboxyhemoglobin 0.7 (0.0-6.9) % THgb Methemoglobin 0.9 L (1.4-1.5) % Temperature 37.0 C POC O2 Flow Rate 40 % Sodium 137 (137-145) mmol/L Potassium 4.2 4.2 (3.5-5.1) mmol/L Chloride 104 (98-107) mmol/L Carbon Dioxide 26 (22-30) mmol/L Anion Gap 12.1 (5-15) MEQ/L BUN 33 H (9-20) mg/dL Creatinine 1.35 H (0.66-1.25) mg/dL Estimated GFR 53.0 ML/MIN Glucose 138 H (74-106) mg/dL POC Glucometer (74 to 106) mg/dL Lactic Acid 1.6 (0.4-2.0) Calcium 8.9 (8.4-10.2) mg/dL Magnesium 2.4 H (1.6-2.3) mg/dL Total Bilirubin 0.80 (0.2-1.3) mg/dL AST 27 (17-59) U/L ALT 19 (0-50) U/L Alkaline Phosphatase 108 (38-126) U/L Troponin I (0.000-0.034) ng/mL NT-Pro-B Natriuret Pep (<300) pg/mL Serum Total Protein 7.5 (6.3-8.2) g/dL Albumin 4.3 (3.5-5.0) g/dL Procalcitonin (0.030-0.080) ng/mL Urine Color (Yellow) Urine Appearance (Clear) Urine pH (4.6-8.0) Ur Specific Tow (1.005-1.030) Urine Protein (Negative) Urine Glucose (UA) (Negative) mg/dL Urine Ketones (Negative) Urine Blood (Negative) Urine Nitrite (Negative) Urine Bilirubin (Negative) Urine Urobilinogen (0.2) mg/dL Ur Leukocyte Esterase (Negative) U Hyaline Cast (Auto) (0-2) /LPF Urine Microscopic RBC (0-5) /HPF Urine Microscopic WBC (0-5) /HPF Ur Epithelial Cells (None Seen) /HPF Urine Bacteria (None Seen) /HPF Urine Culture Reflexed (NO) Influenza Type A Ag (NEGATIVE) Influenza Type B Ag (NEGATIVE) RSV (PCR) (NEGATIVE) SARS-CoV-2 (PCR) (NEGATIVE) Slides for Path Review YES 07/25/23 07/25/23 07/25/23 Range/Units 16:37 16:37 16:55 WBC (4.0-10.5) x10^3/uL RBC (4.1-5.6) x10^6/uL Hgb (12.5-18.0) g/dL Hct (42-50) % MCV (78-100) fL MCH (26-32) pg MCHC (32-36) g/dL RDW (11.5-14.0) % Plt Count (150-450) x10^3/uL MPV (7.5-11.0) fL Gran % (36.0-66.0) % Immature Gran % (Auto) (0.00-0.4) % Nucleat RBC Rel Count (0.00-0.1) % Eos # (Auto) (0-0.5) x10^3/uL Immature Gran # (Auto) (0.00-0.03) x10^3u/L Absolute Lymphs (auto) (1.0-4.6) x10^3/uL Absolute Monos (auto) (0.0-1.3) x10^3/uL Absolute Nucleated RBC (0.00-0.01) x10^3u/L Lymphocytes % (24.0-44.0) % Monocytes % (0.0-12.0) % Eosinophils % (0.00-5.0) % Basophils % (0.0-0.4) % Absolute Granulocytes (1.4-6.9) x10^3/uL Basophils # (0-0.4) x10^3/uL Puncture Site pCO2 (35-45) mmHg pO2 (75-100) mmHg Base Excess (-2.0-2.0) O2 Saturation (94-100) g/dF ABG pH (7.35-7.45) ABG HCO3 (22-28) ABG O2 Sat (Measured) (95-100) % Yosi Test A-a Gradient a/A Ratio Hemoglobin Carboxyhemoglobin (0.0-6.9) % THgb Methemoglobin (1.4-1.5) % Temperature C POC O2 Flow Rate % Sodium (137-145) mmol/L Potassium (3.5-5.1) mmol/L Chloride (98-107) mmol/L Carbon Dioxide (22-30) mmol/L Anion Gap (5-15) MEQ/L BUN (9-20) mg/dL Creatinine (0.66-1.25) mg/dL Estimated GFR ML/MIN Glucose (74-106) mg/dL POC Glucometer (74 to 106) mg/dL Lactic Acid (0.4-2.0) Calcium (8.4-10.2) mg/dL Magnesium (1.6-2.3) mg/dL Total Bilirubin (0.2-1.3) mg/dL AST (17-59) U/L ALT (0-50) U/L Alkaline Phosphatase (38-126) U/L Troponin I 0.086 H* (0.000-0.034) ng/mL NT-Pro-B Natriuret Pep 17730 (<300) pg/mL Serum Total Protein (6.3-8.2) g/dL Albumin (3.5-5.0) g/dL Procalcitonin (0.030-0.080) ng/mL Urine Color (Yellow) Urine Appearance (Clear) Urine pH (4.6-8.0) Ur Specific Tow (1.005-1.030) Urine Protein (Negative) Urine Glucose (UA) (Negative) mg/dL Urine Ketones (Negative) Urine Blood (Negative) Urine Nitrite (Negative) Urine Bilirubin (Negative) Urine Urobilinogen (0.2) mg/dL Ur Leukocyte Esterase (Negative) U Hyaline Cast (Auto) (0-2) /LPF Urine Microscopic RBC (0-5) /HPF Urine Microscopic WBC (0-5) /HPF Ur Epithelial Cells (None Seen) /HPF Urine Bacteria (None Seen) /HPF Urine Culture Reflexed (NO) Influenza Type A Ag NEGATIVE (NEGATIVE) Influenza Type B Ag NEGATIVE (NEGATIVE) RSV (PCR) NEGATIVE (NEGATIVE) SARS-CoV-2 (PCR) POSITIVE A (NEGATIVE) Slides for Path Review 07/25/23 07/25/23 07/25/23 Range/Units 18:16 20:11 21:36 WBC (4.0-10.5) x10^3/uL RBC (4.1-5.6) x10^6/uL Hgb (12.5-18.0) g/dL Hct (42-50) % MCV (78-100) fL MCH (26-32) pg MCHC (32-36) g/dL RDW (11.5-14.0) % Plt Count (150-450) x10^3/uL MPV (7.5-11.0) fL Gran % (36.0-66.0) % Immature Gran % (Auto) (0.00-0.4) % Nucleat RBC Rel Count (0.00-0.1) % Eos # (Auto) (0-0.5) x10^3/uL Immature Gran # (Auto) (0.00-0.03) x10^3u/L Absolute Lymphs (auto) (1.0-4.6) x10^3/uL Absolute Monos (auto) (0.0-1.3) x10^3/uL Absolute Nucleated RBC (0.00-0.01) x10^3u/L Lymphocytes % (24.0-44.0) % Monocytes % (0.0-12.0) % Eosinophils % (0.00-5.0) % Basophils % (0.0-0.4) % Absolute Granulocytes (1.4-6.9) x10^3/uL Basophils # (0-0.4) x10^3/uL Puncture Site pCO2 (35-45) mmHg pO2 (75-100) mmHg Base Excess (-2.0-2.0) O2 Saturation (94-100) g/dF ABG pH (7.35-7.45) ABG HCO3 (22-28) ABG O2 Sat (Measured) (95-100) % Yosi Test A-a Gradient a/A Ratio Hemoglobin Carboxyhemoglobin (0.0-6.9) % THgb Methemoglobin (1.4-1.5) % Temperature C POC O2 Flow Rate % Sodium (137-145) mmol/L Potassium (3.5-5.1) mmol/L Chloride (98-107) mmol/L Carbon Dioxide (22-30) mmol/L Anion Gap (5-15) MEQ/L BUN (9-20) mg/dL Creatinine (0.66-1.25) mg/dL Estimated GFR ML/MIN Glucose (74-106) mg/dL POC Glucometer 130 H (74 to 106) mg/dL Lactic Acid (0.4-2.0) Calcium (8.4-10.2) mg/dL Magnesium (1.6-2.3) mg/dL Total Bilirubin (0.2-1.3) mg/dL AST (17-59) U/L ALT (0-50) U/L Alkaline Phosphatase (38-126) U/L Troponin I 0.097 H* (0.000-0.034) ng/mL NT-Pro-B Natriuret Pep (<300) pg/mL Serum Total Protein (6.3-8.2) g/dL Albumin (3.5-5.0) g/dL Procalcitonin (0.030-0.080) ng/mL Urine Color Yellow (Yellow) Urine Appearance Clear (Clear) Urine pH 5.0 (4.6-8.0) Ur Specific Tow 1.025 (1.005-1.030) Urine Protein Trace A (Negative) Urine Glucose (UA) >=1000 A (Negative) mg/dL Urine Ketones Negative (Negative) Urine Blood Negative (Negative) Urine Nitrite Negative (Negative) Urine Bilirubin Negative (Negative) Urine Urobilinogen 0.2 (0.2) mg/dL Ur Leukocyte Esterase Negative (Negative) U Hyaline Cast (Auto) NONE SEEN (0-2) /LPF Urine Microscopic RBC 0-2 (0-5) /HPF Urine Microscopic WBC 0-2 (0-5) /HPF Ur Epithelial Cells None Seen (None Seen) /HPF Urine Bacteria None Seen (None Seen) /HPF Urine Culture Reflexed NO (NO) Influenza Type A Ag (NEGATIVE) Influenza Type B Ag (NEGATIVE) RSV (PCR) (NEGATIVE) SARS-CoV-2 (PCR) (NEGATIVE) Slides for Path Review 07/25/23 07/26/23 07/26/23 Range/Units Unknown 00:15 04:00 WBC 5.0 (4.0-10.5) x10^3/uL RBC 3.25 L (4.1-5.6) x10^6/uL Hgb 10.6 L (12.5-18.0) g/dL Hct 33.5 L (42-50) % MCV 103.1 H (78-100) fL MCH 32.6 H (26-32) pg MCHC 31.6 L (32-36) g/dL RDW 14.6 H (11.5-14.0) % Plt Count 180 (150-450) x10^3/uL MPV 9.0 (7.5-11.0) fL Gran % (36.0-66.0) % Immature Gran % (Auto) (0.00-0.4) % Nucleat RBC Rel Count (0.00-0.1) % Eos # (Auto) (0-0.5) x10^3/uL Immature Gran # (Auto) (0.00-0.03) x10^3u/L Absolute Lymphs (auto) (1.0-4.6) x10^3/uL Absolute Monos (auto) (0.0-1.3) x10^3/uL Absolute Nucleated RBC (0.00-0.01) x10^3u/L Lymphocytes % (24.0-44.0) % Monocytes % (0.0-12.0) % Eosinophils % (0.00-5.0) % Basophils % (0.0-0.4) % Absolute Granulocytes (1.4-6.9) x10^3/uL Basophils # (0-0.4) x10^3/uL Puncture Site pCO2 (35-45) mmHg pO2 (75-100) mmHg Base Excess (-2.0-2.0) O2 Saturation (94-100) g/dF ABG pH (7.35-7.45) ABG HCO3 (22-28) ABG O2 Sat (Measured) (95-100) % Yosi Test A-a Gradient a/A Ratio Hemoglobin Carboxyhemoglobin (0.0-6.9) % THgb Methemoglobin (1.4-1.5) % Temperature C POC O2 Flow Rate % Sodium (137-145) mmol/L Potassium (3.5-5.1) mmol/L Chloride (98-107) mmol/L Carbon Dioxide (22-30) mmol/L Anion Gap (5-15) MEQ/L BUN (9-20) mg/dL Creatinine (0.66-1.25) mg/dL Estimated GFR ML/MIN Glucose (74-106) mg/dL POC Glucometer (74 to 106) mg/dL Lactic Acid (0.4-2.0) Calcium (8.4-10.2) mg/dL Magnesium (1.6-2.3) mg/dL Total Bilirubin (0.2-1.3) mg/dL AST (17-59) U/L ALT (0-50) U/L Alkaline Phosphatase (38-126) U/L Troponin I 0.085 H* (0.000-0.034) ng/mL NT-Pro-B Natriuret Pep (<300) pg/mL Serum Total Protein (6.3-8.2) g/dL Albumin (3.5-5.0) g/dL Procalcitonin 0.100 H (0.030-0.080) ng/mL Urine Color (Yellow) Urine Appearance (Clear) Urine pH (4.6-8.0) Ur Specific Tow (1.005-1.030) Urine Protein (Negative) Urine Glucose (UA) (Negative) mg/dL Urine Ketones (Negative) Urine Blood (Negative) Urine Nitrite (Negative) Urine Bilirubin (Negative) Urine Urobilinogen (0.2) mg/dL Ur Leukocyte Esterase (Negative) U Hyaline Cast (Auto) (0-2) /LPF Urine Microscopic RBC (0-5) /HPF Urine Microscopic WBC (0-5) /HPF Ur Epithelial Cells (None Seen) /HPF Urine Bacteria (None Seen) /HPF Urine Culture Reflexed (NO) Influenza Type A Ag (NEGATIVE) Influenza Type B Ag (NEGATIVE) RSV (PCR) (NEGATIVE) SARS-CoV-2 (PCR) (NEGATIVE) Slides for Path Review 07/26/23 07/26/23 Range/Units 04:00 04:14 WBC (4.0-10.5) x10^3/uL RBC (4.1-5.6) x10^6/uL Hgb (12.5-18.0) g/dL Hct (42-50) % MCV (78-100) fL MCH (26-32) pg MCHC (32-36) g/dL RDW (11.5-14.0) % Plt Count (150-450) x10^3/uL MPV (7.5-11.0) fL Gran % (36.0-66.0) % Immature Gran % (Auto) (0.00-0.4) % Nucleat RBC Rel Count (0.00-0.1) % Eos # (Auto) (0-0.5) x10^3/uL Immature Gran # (Auto) (0.00-0.03) x10^3u/L Absolute Lymphs (auto) (1.0-4.6) x10^3/uL Absolute Monos (auto) (0.0-1.3) x10^3/uL Absolute Nucleated RBC (0.00-0.01) x10^3u/L Lymphocytes % (24.0-44.0) % Monocytes % (0.0-12.0) % Eosinophils % (0.00-5.0) % Basophils % (0.0-0.4) % Absolute Granulocytes (1.4-6.9) x10^3/uL Basophils # (0-0.4) x10^3/uL Puncture Site pCO2 (35-45) mmHg pO2 (75-100) mmHg Base Excess (-2.0-2.0) O2 Saturation (94-100) g/dF ABG pH (7.35-7.45) ABG HCO3 (22-28) ABG O2 Sat (Measured) (95-100) % Yosi Test A-a Gradient a/A Ratio Hemoglobin Carboxyhemoglobin (0.0-6.9) % THgb Methemoglobin (1.4-1.5) % Temperature C POC O2 Flow Rate % Sodium 136 L (137-145) mmol/L Potassium 4.5 (3.5-5.1) mmol/L Chloride 106 (98-107) mmol/L Carbon Dioxide 24 (22-30) mmol/L Anion Gap 10.7 (5-15) MEQ/L BUN 30 H (9-20) mg/dL Creatinine 1.12 (0.66-1.25) mg/dL Estimated GFR > 60.0 ML/MIN Glucose 167 H (74-106) mg/dL POC Glucometer (74 to 106) mg/dL Lactic Acid (0.4-2.0) Calcium 8.4 (8.4-10.2) mg/dL Magnesium (1.6-2.3) mg/dL Total Bilirubin 0.50 (0.2-1.3) mg/dL AST 26 (17-59) U/L ALT 17 (0-50) U/L Alkaline Phosphatase 101 (38-126) U/L Troponin I 0.083 H* (0.000-0.034) ng/mL NT-Pro-B Natriuret Pep (<300) pg/mL Serum Total Protein 6.6 (6.3-8.2) g/dL Albumin 3.7 (3.5-5.0) g/dL Procalcitonin (0.030-0.080) ng/mL Urine Color (Yellow) Urine Appearance (Clear) Urine pH (4.6-8.0) Ur Specific Tow (1.005-1.030) Urine Protein (Negative) Urine Glucose (UA) (Negative) mg/dL Urine Ketones (Negative) Urine Blood (Negative) Urine Nitrite (Negative) Urine Bilirubin (Negative) Urine Urobilinogen (0.2) mg/dL Ur Leukocyte Esterase (Negative) U Hyaline Cast (Auto) (0-2) /LPF Urine Microscopic RBC (0-5) /HPF Urine Microscopic WBC (0-5) /HPF Ur Epithelial Cells (None Seen) /HPF Urine Bacteria (None Seen) /HPF Urine Culture Reflexed (NO) Influenza Type A Ag (NEGATIVE) Influenza Type B Ag (NEGATIVE) RSV (PCR) (NEGATIVE) SARS-CoV-2 (PCR) (NEGATIVE) Slides for Path Review Radiology Exams: Radiology Procedures Category Date Time Status CHEST 1 VIEW (PORTABLE) Stat Exams 07/25/23 16:06 Completed Assessment/Plan (1) Pneumonia due to COVID-19 virus Current Visit: Yes Status: Acute Assessment & Plan: Given severe hypoxia, plan Remdesivir and Decadron Patient has been vaccinated -Ceftriaxone/azithromycin 07/26: -Continue remdesivir/IVabx/decadron Code(s): U07.1 - COVID-19; J12.82 - PNEUMONIA DUE TO CORONAVIRUS DISEASE 2019 (2) COPD with exacerbation Current Visit: Yes Status: Acute Assessment & Plan: Patient has acute on chronic respiratory failure Sats in ER down to 78% on 5L Patient is SOB and wheezing Plan supplemental oxygen as needed Exacerbation likely due to COVID infection Will plan Remdesivir and Decadron Procal is up. Will start antibiotics Plan bronchodilators as needed 07/26: -stable, now at baseline o2 of 5L, will continue plan as stated above Code(s): J44.1 - CHRONIC OBSTRUCTIVE PULMONARY DISEASE W (ACUTE) EXACERBATION (3) Elevated troponin Current Visit: Yes Status: Acute Assessment & Plan: Likely demand ischemia due to hypoxia Will recheck Troponin EKG shows no acute changes Code(s): R77.8 - OTHER SPECIFIED ABNORMALITIES OF PLASMA PROTEINS (4) Respiratory failure Current Visit: Yes Status: Acute Qualifiers: Chronicity: acute on chronic Respiratory failure complication: hypoxia Qualified Code(s): J96.21 - Acute and chronic respiratory failure with hypoxia Assessment & Plan: Acute on chronic respiratory failure ARF due to COVID infection and exacerbation of COPD Supplemental oxygen as needed Code(s): J96.90 - RESPIRATORY FAILURE, UNSP, UNSP W HYPOXIA OR HYPERCAPNIA (5) Atrial fibrillation Current Visit: Yes Status: Chronic Assessment & Plan: Continue home meds Code(s): I48.91 - UNSPECIFIED ATRIAL FIBRILLATION (6) Diabetes type 2, controlled Current Visit: Yes Status: Chronic Qualifiers: Diabetes mellitus complication status: without complication Assessment & Plan: Monitor BS. 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
[2023-07-26] MEDS: Advair Hfa 115/21 Common canister IH SCH ×2 (07:11→19:10)
[2023-07-26] MEDS ORDERED: MEDICATION INTERVENTION MC SCH ×2 (07:15→07:30)
[2023-07-26] MEDS ORDERED: TYLENOL 325 MG PO PRN (08:14)
[2023-07-26] MEDS: HUMALOG SQ PRN ×2 (08:25→17:31)
[2023-07-26] MEDS: Toprol-Xl 25MG Tablets PO SCH (08:41)
[2023-07-26] MEDS: Neurontin PO SCH ×3 (08:41→21:42)
[2023-07-26] MEDS: Pepcid 20 MG PO SCH ×2 (08:41→21:42)
[2023-07-26] MEDS: XARELTO 10 MG TABLET PO SCH (08:42)
[2023-07-26] MEDS: LASIX 20 MG PO SCH (08:42)
[2023-07-26] MEDS: Senokot-S Tablet PO SCH (08:42)
[2023-07-26] MEDS: DECADRON 10MG INJ. IV SCH (08:42)
[2023-07-26] MEDS: Cozaar 50 MG PO SCH (08:42)
[2023-07-26] MEDS: Zithromax 500 MG/ 250 ML NaCl Premix 500 MG/250 ML IVPB IV SCH (08:43)
[2023-07-26] MEDS: Zinc Gluconate 50 MG PO SCH ×2 (08:45→21:43)
[2023-07-26] MEDS ORDERED: VENTOLIN COMMON CANISTER IH SCH (10:00)
[2023-07-26] MEDS ORDERED: NON-FORMULARY ITEM (Dapagliflozin Propanediol [Farxiga] 10 MG Tablet) PO SCH (10:00)
[2023-07-26] MEDS ORDERED: NON-FORMULARY ITEM (Fluticasone/Vilanterol [Breo Ellipta 100-25 Mcg Inhalr] 1 EACH Blst.W. IH SCH (10:00)
[2023-07-26] MEDS ORDERED: NON-FORMULARY ITEM (Rivaroxaban [Xarelto] 20 MG Tablet) PO SCH (10:00)
[2023-07-26] MEDS ORDERED: NON-FORMULARY ITEM (Losartan Potassium [Cozaar] 100 MG Tablet) PO SCH (10:00)
[2023-07-26] MEDS: ROCEPHIN 1 Gm-D5w 50 ml Bag** 1 G/50 ML IVPB IV SCH (10:40)
[2023-07-26] MEDS: PATIENT OWN MEDICATION PO SCH ×3 (12:11→21:44)
[2023-07-26] MEDS: Sodium Chloride 0.9% 1000 ML 1,000 ML IV SCH (14:28)
[2023-07-26] MEDS: REMDESIVIR 100 MG in Sodium Chloride 100ML MINI-BAG PLUS 100 ML IV SCH (17:31)
[2023-07-27] MEDS: VENTOLIN COMMON CANISTER IH SCH ×4 (01:23→19:00)
[2023-07-27 04:49] LABS: Hemoglobin 11.1 g/dL (12.5-18.0); Mean Cell Volume 102.3 fL (78-100); Mean Corpuscular Hemoglobin 32.5 pg (26-32); Mean Corpuscular Hgb Concent. 31.7 g/dL (32-36); Mean Platelet Volume 9.1 fL (7.5-11.0); Platelet Count 193 x10^3/uL (150-450); Red Blood Count 3.42 x10^6/uL (4.1-5.6); White Blood Count 7.9 x10^3/uL (4.0-10.5)
[2023-07-27 05:14] LABS: ALBUMIN 3.7 g/dL (3.5-5.0); ALKALINE PHOSPHATASE 101 U/L (38-126); ANION GAP 13.5 MEQ/L (5-15); BLOOD UREA NITROGEN 42 mg/dL (9-20); CHLORIDE 106 mmol/L (98-107); Calcium 8.1 mg/dL (8.4-10.2); Carbon Dioxide 22 mmol/L (22-30); Creatinine 1 1.16 mg/dL (0.66-1.25); EST GLOMERULAR FILTRATION RATE > 60.0 ML/MIN; Glucose 158 mg/dL (74-106); Potassium 4.1 mmol/L (3.5-5.1); SGOT/AST 30 U/L (17-59); SGPT/ALT 19 U/L (0-50); SODIUM 137 mmol/L (137-145); Total Protein 6.8 g/dL (6.3-8.2)
--- NOTE | 2023-07-27 05:34 | PCM.NOTE ---
Date and Time: 07/27/2331 Subjective Assessment: is a 88 year old male with a pmhx of Atrial fib, HTN, HLD, Diabetes type 2, and COPD who presented to ED 07/25/23 with c/o increased dyspnea. He is on a baseline of 5L of oxygen at home and on presentation to ED his spo2 was @ 78% on 5L. CXR demonstrates mild bilateral mid to lower lung interstitial alveolar opacities concerning for recurrent Covid 19 pneumonia. No consolidation/large effusion. Patient admitted for COVID/ COPD exacerbation, currently being treated with remdesivir, decadron, azithromycin, and ceftriaxone. Endorses continued productive cough with yellow sputum. States coughing kept him up most of the night. Wheezing and fine crackles heard on auscultation. At baseline oxygen of 5L. Plan for repeat CXR today. - Review of Systems Constitutional: No Symptoms Eyes: No Symptoms Ears, Nose, & Throat: No Symptoms Respiratory: Cough, Short Of Breath, Wheezing Cardiac: No Symptoms Abdominal/Gastrointestinal: No Symptoms Genitourinary Symptoms: No Symptoms Musculoskeletal: Back Pain, Neck Pain Skin: No Symptoms Neurological: No Symptoms Psychological: No Symptoms Endocrine: No Symptoms Hematologic/Lymphatic: No Symptoms Immunological/Allergic: No Symptoms Objective Exam General Appearance: no apparent distress Neurologic Exam: alert, oriented x 3, cooperative Skin Exam: pale Eye Exam: PERRL Respiratory Exam: crackles/rales, wheezing Cardiovascular Exam: tachycardia Gastrointestinal/Abdomen Exam: soft, normal bowel sounds Extremity Exam: other (neck brace) Back Exam: vertebral tenderness, decreased range of motion OBJECTIVE DATA Vital Signs: Vital Signs - 24 hr Temp Pulse Resp BP Pulse Ox 07/27/23 04:00 97.7 F 77 17 137/79 99 07/27/23 00:00 98.0 F 74 15 112/64 99 07/26/23 20:21 98.2 F 74 17 116/53 98 07/26/23 19:55 75 16 98 07/26/23 17:00 98.0 F 94 H 20 100/63 96 07/26/23 13:16 94 H 20 96 07/26/23 11:51 98.0 F 73 18 100/63 99 07/26/23 09:05 84 20 133/65 96 07/26/23 07:16 67 20 99 07/26/23 06:44 98.0 F 65 20 124/61 99 Pain Assessment - Last Documented Pain Intensity 0 Pain Scale Used 0-10 Pain Scale Intake and Output: Intake & Output 07/24/23 07/25/23 07/26/23 07/27/23 11:59 11:59 11:59 11:59 Intake Total 850 2242 Output Total 450 1600 Balance 400 642 Weight 70.4 kg Lab Results: Lab Results-Last 24 Hours 07/26/23 07/26/23 07/26/23 Range/Units 06:29 10:49 15:42 WBC (4.0-10.5) x10^3/uL RBC (4.1-5.6) x10^6/uL Hgb (12.5-18.0) g/dL Hct (42-50) % MCV (78-100) fL MCH (26-32) pg MCHC (32-36) g/dL RDW (11.5-14.0) % Plt Count (150-450) x10^3/uL MPV (7.5-11.0) fL Sodium (137-145) mmol/L Potassium (3.5-5.1) mmol/L Chloride (98-107) mmol/L Carbon Dioxide (22-30) mmol/L Anion Gap (5-15) MEQ/L BUN (9-20) mg/dL Creatinine (0.66-1.25) mg/dL Estimated GFR ML/MIN Glucose (74-106) mg/dL POC Glucometer 206 H 194 H 228 H (74 to 106) mg/dL Calcium (8.4-10.2) mg/dL Total Bilirubin (0.2-1.3) mg/dL AST (17-59) U/L ALT (0-50) U/L Alkaline Phosphatase (38-126) U/L Serum Total Protein (6.3-8.2) g/dL Albumin (3.5-5.0) g/dL 07/26/23 07/27/23 07/27/23 Range/Units 20:55 04:41 04:41 WBC 7.9 (4.0-10.5) x10^3/uL RBC 3.42 L (4.1-5.6) x10^6/uL Hgb 11.1 L (12.5-18.0) g/dL Hct 35.0 L (42-50) % MCV 102.3 H (78-100) fL MCH 32.5 H (26-32) pg MCHC 31.7 L (32-36) g/dL RDW 15.0 H (11.5-14.0) % Plt Count 193 (150-450) x10^3/uL MPV 9.1 (7.5-11.0) fL Sodium 137 (137-145) mmol/L Potassium 4.1 (3.5-5.1) mmol/L Chloride 106 (98-107) mmol/L Carbon Dioxide 22 (22-30) mmol/L Anion Gap 13.5 (5-15) MEQ/L BUN 42 H (9-20) mg/dL Creatinine 1.16 (0.66-1.25) mg/dL Estimated GFR > 60.0 ML/MIN Glucose 158 H (74-106) mg/dL POC Glucometer 219 H (74 to 106) mg/dL Calcium 8.1 L (8.4-10.2) mg/dL Total Bilirubin 0.40 (0.2-1.3) mg/dL AST 30 (17-59) U/L ALT 19 (0-50) U/L Alkaline Phosphatase 101 (38-126) U/L Serum Total Protein 6.8 (6.3-8.2) g/dL Albumin 3.7 (3.5-5.0) g/dL Radiology Exams: Radiology Procedures Category Date Time Status CHEST 1 VIEW (PORTABLE) Stat Exams 07/25/23 16:06 Completed Multi-Disciplinary Progress Notes: Multi-Disciplinary Progress Notes 07/26/23 13:52 Case Management Note by Grace Fabian Addendum entered by Grace Fabian, RN 07/26/23 14:12: RECVD CALL BACK FROM [place], PATIENT DAUGHTER AND SHE ANSWERED SEVERAL QUESTIONS RE: PATIENT. EDWIGEIA IS O2 PROVIDER. PATIENT NEEDS GLUCOMETER IF PATIENT IS TO CHECK SUGARS AT HOME. Original Note: ATTEMPTED TO REACH PATIENT DAUGHTER SEVERAL TIMES VIA TELEPHONE BUT UNABLE TO REACH. WILL ATTEMPT AGAIN TOMORROW. Initialized on 07/26/23 13:52 - END OF NOTE Assessment/Plan (1) Pneumonia due to COVID-19 virus Current Visit: Yes Status: Acute Assessment & Plan: Given severe hypoxia, plan Remdesivir and Decadron Patient has been vaccinated -Ceftriaxone/azithromycin 07/26: -Continue remdesivir/IVabx/decadron 07/27: -CXR today -add robitussin for cough Code(s): U07.1 - COVID-19; J12.82 - PNEUMONIA DUE TO CORONAVIRUS DISEASE 2019 (2) COPD with exacerbation Current Visit: Yes Status: Acute Assessment & Plan: Patient has acute on chronic respiratory failure Sats in ER down to 78% on 5L Patient is SOB and wheezing Plan supplemental oxygen as needed Exacerbation likely due to COVID infection Will plan Remdesivir and Decadron Procal is up. Will start antibiotics Plan bronchodilators as needed 07/26: -stable, now at baseline o2 of 5L, will continue plan as stated above Code(s): J44.1 - CHRONIC OBSTRUCTIVE PULMONARY DISEASE W (ACUTE) EXACERBATION (3) Elevated troponin Current Visit: Yes Status: Acute Assessment & Plan: Likely demand ischemia due to hypoxia Will recheck Troponin EKG shows no acute changes Code(s): R77.8 - OTHER SPECIFIED ABNORMALITIES OF PLASMA PROTEINS (4) Respiratory failure Current Visit: Yes Status: Acute Qualifiers: Chronicity: acute on chronic Respiratory failure complication: hypoxia Qualified Code(s): J96.21 - Acute and chronic respiratory failure with hypoxia Assessment & Plan: Acute on chronic respiratory failure ARF due to COVID infection and exacerbation of COPD Supplemental oxygen as needed Code(s): J96.90 - RESPIRATORY FAILURE, UNSP, UNSP W HYPOXIA OR HYPERCAPNIA (5) Atrial fibrillation Current Visit: Yes Status: Chronic Assessment & Plan: Continue home meds 07/27: -trops/ekg, denies chest pain Code(s): I48.91 - UNSPECIFIED ATRIAL FIBRILLATION (6) Diabetes type 2, controlled Current Visit: Yes Status: Chronic Qualifiers: Diabetes mellitus complication status: without complication Assessment & Plan: Monitor BS. 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
[2023-07-27] MEDS ORDERED: PROVENTIL 2.5 MG/3 ML NEB IH ONE (06:44)
[2023-07-27] MEDS: Advair Hfa 115/21 Common canister IH SCH ×2 (06:56→19:00)
[2023-07-27] MEDS: Neurontin PO SCH ×3 (08:29→21:34)
[2023-07-27] MEDS: Oxy-IR 5 MG PO PRN (09:23)
[2023-07-27] MEDS: DECADRON 10MG INJ. IV SCH (09:23)
[2023-07-27] MEDS: Senokot-S Tablet PO SCH (09:23)
[2023-07-27] MEDS: Cozaar 50 MG PO SCH (09:23)
[2023-07-27] MEDS: LASIX 20 MG PO SCH (09:24)
[2023-07-27] MEDS: Pepcid 20 MG PO SCH ×2 (09:25→21:34)
[2023-07-27] MEDS: Toprol-Xl 25MG Tablets PO SCH (09:25)
[2023-07-27] MEDS: XARELTO 10 MG TABLET PO SCH (09:25)
[2023-07-27] MEDS: PATIENT OWN MEDICATION PO SCH ×3 (09:26→21:33)
[2023-07-27] MEDS: Zinc Gluconate 50 MG PO SCH ×2 (09:27→21:35)
[2023-07-27] MEDS: ROCEPHIN 1 Gm-D5w 50 ml Bag** 1 G/50 ML IVPB IV SCH (09:55)
[2023-07-27] MEDS: Zithromax 500 MG/ 250 ML NaCl Premix 500 MG/250 ML IVPB IV SCH (10:54)
[2023-07-27] MEDS: HUMALOG SQ PRN ×3 (12:07→20:38)
[2023-07-27] MEDS: Robitussin-Dm Syrup PO PRN ×2 (12:08→21:32)
[2023-07-27] MEDS: Sodium Chloride 0.9% 1000 ML 1,000 ML IV SCH (13:19)
--- NOTE | 2023-07-27 13:54 | XRAY ---
Indication: Short of breath. Positive Covid 19. Comparison: July 25, 2023 Portable chest demonstrates stable bilateral mid to lower lung interstitial alveolar opacities. New tiny bibasilar effusions. Remaining heart and lungs unremarkable again with a few incidental calcified granulomas.
[2023-07-27] MEDS: REMDESIVIR 100 MG in Sodium Chloride 100ML MINI-BAG PLUS 100 ML IV SCH (18:37)
[2023-07-28] MEDS: Oxy-IR 5 MG PO PRN (00:29)
[2023-07-28] MEDS: VENTOLIN COMMON CANISTER IH SCH ×4 (02:34→18:58)
[2023-07-28 04:43] LABS: Hematocrit 34.7 % (42-50); Hemoglobin 11.3 g/dL (12.5-18.0); Mean Cell Volume 102.4 fL (78-100); Mean Corpuscular Hemoglobin 33.3 pg (26-32); Mean Corpuscular Hgb Concent. 32.6 g/dL (32-36); Mean Platelet Volume 9.1 fL (7.5-11.0); Platelet Count 196 x10^3/uL (150-450); Red Blood Count 3.39 x10^6/uL (4.1-5.6); White Blood Count 7.8 x10^3/uL (4.0-10.5)
[2023-07-28] MEDS: Robitussin-Dm Syrup PO PRN ×3 (04:46→13:56)
[2023-07-28 05:06] LABS: ALBUMIN 3.6 g/dL (3.5-5.0); ALKALINE PHOSPHATASE 93 U/L (38-126); ANION GAP 12.2 MEQ/L (5-15); BLOOD UREA NITROGEN 42 mg/dL (9-20); CHLORIDE 109 mmol/L (98-107); Calcium 8.2 mg/dL (8.4-10.2); Carbon Dioxide 24 mmol/L (22-30); EST GLOMERULAR FILTRATION RATE > 60.0 ML/MIN; Glucose 176 mg/dL (74-106); Potassium 4.1 mmol/L (3.5-5.1); SGOT/AST 30 U/L (17-59); SGPT/ALT 20 U/L (0-50); SODIUM 140 mmol/L (137-145); Total Protein 6.6 g/dL (6.3-8.2)
[2023-07-28] MEDS: Advair Hfa 115/21 Common canister IH SCH ×2 (06:25→18:58)
--- NOTE | 2023-07-28 07:34 | PCM.NOTE ---
Date and Time: 07/28/23729 Subjective Assessment: is a 88 year old male with a pmhx of Atrial fib, HTN, HLD, Diabetes type 2, and COPD who presented to ED 07/25/23 with c/o increased dyspnea. He is on a baseline of 5L of oxygen at home and on presentation to ED his spo2 was @ 78% on 5L. CXR demonstrates mild bilateral mid to lower lung interstitial alveolar opacities concerning for recurrent Covid 19 pneumonia. No consolidation/large effusion. Patient admitted for COVID/ COPD exacerbation, during hospital course treated with remdesivir, decadron, azithromycin, and ceftriaxone. Repeat CXR showing stable bilateral mid/low lung interstitial alveolar opacities, tiny bibasilar effusions. Endorses improvement in shortness of breath and cough. Was able to sleep last night. Sputum now clear/white. Lung sounds with fine crackles/wheezing, improved. Most likely discharge tomorrow. - Review of Systems Constitutional: No Symptoms Eyes: No Symptoms Ears, Nose, & Throat: No Symptoms Respiratory: Cough, Short Of Breath Cardiac: No Symptoms Abdominal/Gastrointestinal: No Symptoms Genitourinary Symptoms: No Symptoms Musculoskeletal: Back Pain, Joint Pain, Other (neck brace) Neurological: No Symptoms Psychological: No Symptoms Objective Exam General Appearance: no apparent distress Neurologic Exam: alert, oriented x 3, cooperative Skin Exam: pale Eye Exam: PERRL Ears, Nose, Throat Exam: moist mucous membranes Neck Exam: other (neck brace) Respiratory Exam: crackles/rales, wheezing Cardiovascular Exam: irregular Gastrointestinal/Abdomen Exam: soft, normal bowel sounds Extremity Exam: normal inspection Back Exam: normal inspection OBJECTIVE DATA Vital Signs: Vital Signs - 24 hr Temp Pulse Resp BP Pulse Ox 07/28/23 06:25 74 16 97 07/28/23 04:00 97.9 F 71 21 131/79 97 07/27/23 23:41 97.8 F 99 H 15 121/73 94 L 07/27/23 20:00 97.8 F 88 20 117/73 94 L 07/27/23 19:10 77 18 99 07/27/23 16:00 97.6 F 68 24 121/58 95 07/27/23 13:28 63 23 93 L 07/27/23 12:00 82 22 94 L 07/27/23 07:39 97.1 F 87 18 134/74 99 Pain Assessment - Last Documented Pain Intensity 3 Pain Scale Used 0-10 Pain Scale Intake and Output: Intake & Output 07/25/23 07/26/23 07/27/23 07/28/23 11:59 11:59 11:59 11:59 Intake Total 850 2362 1640 Output Total 450 1800 2125 Balance 400 562 -485 Weight 70.4 kg 70.4 kg Lab Results: Lab Results-Last 24 Hours 07/27/23 07/27/23 07/27/23 Range/Units 10:56 11:07 16:36 WBC (4.0-10.5) x10^3/uL RBC (4.1-5.6) x10^6/uL Hgb (12.5-18.0) g/dL Hct (42-50) % MCV (78-100) fL MCH (26-32) pg MCHC (32-36) g/dL RDW (11.5-14.0) % Plt Count (150-450) x10^3/uL MPV (7.5-11.0) fL Sodium (137-145) mmol/L Potassium (3.5-5.1) mmol/L Chloride (98-107) mmol/L Carbon Dioxide (22-30) mmol/L Anion Gap (5-15) MEQ/L BUN (9-20) mg/dL Creatinine (0.66-1.25) mg/dL Estimated GFR ML/MIN Glucose (74-106) mg/dL POC Glucometer 208 H 175 H (74 to 106) mg/dL Calcium (8.4-10.2) mg/dL Total Bilirubin (0.2-1.3) mg/dL AST (17-59) U/L ALT (0-50) U/L Alkaline Phosphatase (38-126) U/L Troponin I 0.074 H* (0.000-0.034) ng/mL Serum Total Protein (6.3-8.2) g/dL Albumin (3.5-5.0) g/dL 07/27/23 07/27/23 07/28/23 Range/Units 20:14 22:51 04:38 WBC 7.8 (4.0-10.5) x10^3/uL RBC 3.39 L (4.1-5.6) x10^6/uL Hgb 11.3 L (12.5-18.0) g/dL Hct 34.7 L (42-50) % MCV 102.4 H (78-100) fL MCH 33.3 H (26-32) pg MCHC 32.6 (32-36) g/dL RDW 15.0 H (11.5-14.0) % Plt Count 196 (150-450) x10^3/uL MPV 9.1 (7.5-11.0) fL Sodium (137-145) mmol/L Potassium (3.5-5.1) mmol/L Chloride (98-107) mmol/L Carbon Dioxide (22-30) mmol/L Anion Gap (5-15) MEQ/L BUN (9-20) mg/dL Creatinine (0.66-1.25) mg/dL Estimated GFR ML/MIN Glucose (74-106) mg/dL POC Glucometer 265 H 281 H (74 to 106) mg/dL Calcium (8.4-10.2) mg/dL Total Bilirubin (0.2-1.3) mg/dL AST (17-59) U/L ALT (0-50) U/L Alkaline Phosphatase (38-126) U/L Troponin I (0.000-0.034) ng/mL Serum Total Protein (6.3-8.2) g/dL Albumin (3.5-5.0) g/dL 07/28/23 Range/Units 04:38 WBC (4.0-10.5) x10^3/uL RBC (4.1-5.6) x10^6/uL Hgb (12.5-18.0) g/dL Hct (42-50) % MCV (78-100) fL MCH (26-32) pg MCHC (32-36) g/dL RDW (11.5-14.0) % Plt Count (150-450) x10^3/uL MPV (7.5-11.0) fL Sodium 140 (137-145) mmol/L Potassium 4.1 (3.5-5.1) mmol/L Chloride 109 H (98-107) mmol/L Carbon Dioxide 24 (22-30) mmol/L Anion Gap 12.2 (5-15) MEQ/L BUN 42 H (9-20) mg/dL Creatinine 1.00 (0.66-1.25) mg/dL Estimated GFR > 60.0 ML/MIN Glucose 176 H (74-106) mg/dL POC Glucometer (74 to 106) mg/dL Calcium 8.2 L (8.4-10.2) mg/dL Total Bilirubin 0.40 (0.2-1.3) mg/dL AST 30 (17-59) U/L ALT 20 (0-50) U/L Alkaline Phosphatase 93 (38-126) U/L Troponin I (0.000-0.034) ng/mL Serum Total Protein 6.6 (6.3-8.2) g/dL Albumin 3.6 (3.5-5.0) g/dL Radiology Exams: Radiology Procedures Category Date Time Status CHEST 1 VIEW (PORTABLE) Stat Exams 07/27/23 11:19 Completed Multi-Disciplinary Progress Notes: Multi-Disciplinary Progress Notes 07/27/23 13:01 Case Management Note by Grace Fabian S/W PATIENT. NO NEW NEEDS FOR DC VOICED. SPOKE WITH GLENIS AT [facility]. FAXED ORDER TO SEE IF PATIENT WILL QUALIFY FOR SMALLER PORTABLE TANK WHEN HE IS DC'D HOME PER DAUGHTER REQUEST Initialized on 07/27/23 13:01 - END OF NOTE Assessment/Plan (1) Pneumonia due to COVID-19 virus Current Visit: Yes Status: Acute Assessment & Plan: Given severe hypoxia, plan Remdesivir and Decadron Patient has been vaccinated -Ceftriaxone/azithromycin 07/26: -Continue remdesivir/IVabx/decadron 07/27: -CXR today -add robitussin for cough 07/28: -Repeat CXR stable/unchanged -Continue current management, most likely d/c tomorrow Code(s): U07.1 - COVID-19; J12.82 - PNEUMONIA DUE TO CORONAVIRUS DISEASE 2019 (2) COPD with exacerbation Current Visit: Yes Status: Acute Assessment & Plan: Patient has acute on chronic respiratory failure Sats in ER down to 78% on 5L Patient is SOB and wheezing Plan supplemental oxygen as needed Exacerbation likely due to COVID infection Will plan Remdesivir and Decadron Procal is up. Will start antibiotics Plan bronchodilators as needed 07/26: -stable, now at baseline o2 of 5L, will continue plan as stated above Code(s): J44.1 - CHRONIC OBSTRUCTIVE PULMONARY DISEASE W (ACUTE) EXACERBATION (3) Elevated troponin Current Visit: Yes Status: Acute Assessment & Plan: Likely demand ischemia due to hypoxia Will recheck Troponin EKG shows no acute changes Code(s): R77.8 - OTHER SPECIFIED ABNORMALITIES OF PLASMA PROTEINS (4) Respiratory failure Current Visit: Yes Status: Acute Qualifiers: Chronicity: acute on chronic Respiratory failure complication: hypoxia Qualified Code(s): J96.21 - Acute and chronic respiratory failure with hypoxia Assessment & Plan: Acute on chronic respiratory failure ARF due to COVID infection and exacerbation of COPD Supplemental oxygen as needed Code(s): J96.90 - RESPIRATORY FAILURE, UNSP, UNSP W HYPOXIA OR HYPERCAPNIA (5) Atrial fibrillation Current Visit: Yes Status: Chronic Assessment & Plan: Continue home meds 07/27: -trops/ekg, denies chest pain Code(s): I48.91 - UNSPECIFIED ATRIAL FIBRILLATION (6) Diabetes type 2, controlled Current Visit: Yes Status: Chronic Qualifiers: Diabetes mellitus complication status: without complication Assessment & Plan: Monitor BS. SS insulin Hold oral meds BS likely to go up with steroid therapy Code(s): E11.9 - TYPE 2 DIABETES MELLITUS WITHOUT COMPLICATIONS (7) Hypertension Current Visit: Yes Status: Chronic Qualifiers: Hypertension type: primary hypertension Qualified Code(s): I10 - Essential (primary) hypertension Assessment & Plan: Continue home meds Code(s): I10 - ESSENTIAL (PRIMARY) HYPERTENSION (8) Type II dens fracture of second cervical vertebra Current Visit: No Status: Chronic Assessment & Plan: Neck brace in place -Continue pain management regimen Code(s): S12.110A - ANTERIOR DISPLACED TYPE II DENS FRACTURE, INIT FOR CLOS FX
[2023-07-28] MEDS: DECADRON 10MG INJ. IV SCH (08:11)
[2023-07-28] MEDS: Zithromax 500 MG/ 250 ML NaCl Premix 500 MG/250 ML IVPB IV SCH (08:12)
[2023-07-28] MEDS: Senokot-S Tablet PO SCH (08:12)
[2023-07-28] MEDS: Cozaar 50 MG PO SCH (08:12)
[2023-07-28] MEDS: LASIX 20 MG PO SCH (08:12)
[2023-07-28] MEDS: PATIENT OWN MEDICATION PO SCH ×3 (08:13→21:48)
[2023-07-28] MEDS: Neurontin PO SCH ×3 (08:13→21:49)
[2023-07-28] MEDS: Pepcid 20 MG PO SCH ×2 (08:14→21:49)
[2023-07-28] MEDS: Zinc Gluconate 50 MG PO SCH ×2 (08:15→21:49)
[2023-07-28] MEDS: XARELTO 10 MG TABLET PO SCH (08:17)
[2023-07-28] MEDS: Toprol-Xl 25MG Tablets PO SCH (09:25)
[2023-07-28] MEDS: ROCEPHIN 1 Gm-D5w 50 ml Bag** 1 G/50 ML IVPB IV SCH (09:26)
[2023-07-28] MEDS: HUMALOG SQ PRN ×2 (17:35→21:55)
[2023-07-28] MEDS: REMDESIVIR 100 MG in Sodium Chloride 100ML MINI-BAG PLUS 100 ML IV SCH (18:20)
[2023-07-29] MEDS: VENTOLIN COMMON CANISTER IH SCH ×3 (00:17→13:16)
[2023-07-29 05:01] LABS: Hematocrit 35.1 % (42-50); Hemoglobin 11.4 g/dL (12.5-18.0); Mean Cell Volume 103.2 fL (78-100); Mean Corpuscular Hemoglobin 33.5 pg (26-32); Mean Corpuscular Hgb Concent. 32.5 g/dL (32-36); Mean Platelet Volume 9.2 fL (7.5-11.0); Platelet Count 204 x10^3/uL (150-450); Red Cell Distribution Width 14.7 % (11.5-14.0); White Blood Count 8.2 x10^3/uL (4.0-10.5)
[2023-07-29 05:23] LABS: ALBUMIN 3.6 g/dL (3.5-5.0); ALKALINE PHOSPHATASE 91 U/L (38-126); ANION GAP 10.2 MEQ/L (5-15); BLOOD UREA NITROGEN 40 mg/dL (9-20); CHLORIDE 107 mmol/L (98-107); Calcium 8.6 mg/dL (8.4-10.2); Carbon Dioxide 26 mmol/L (22-30); Creatinine 1 0.86 mg/dL (0.66-1.25); EST GLOMERULAR FILTRATION RATE > 60.0 ML/MIN; Glucose 167 mg/dL (74-106); SGOT/AST 27 U/L (17-59); SGPT/ALT 22 U/L (0-50); SODIUM 140 mmol/L (137-145); Total Protein 6.5 g/dL (6.3-8.2)
--- NOTE | 2023-07-29 05:54 | PCM.DS ---
Discharge Summary Date of Admission: 07/25/23 19:37 Admitting Physician: FLAKITA CARDONA MD Primary Care Provider: TYRONE HANSEN Allergies Allergies No Known Drug Allergies Allergy (Verified 07/25/23 15:56) Hospital Summary - Hospital Course Hospital Course: is a 88 year old male with a pmhx of Atrial fib, HTN, HLD, Diabetes type 2, and COPD who presented to ED 07/25/23 with c/o increased dyspnea. He is on a baseline of 5L of oxygen at home and on presentation to ED his spo2 was @ 78% on 5L. CXR demonstrates mild bilateral mid to lower lung interstitial alveolar opa cities concerning for recurrent Covid 19 pneumonia. No consolidation/large effusion. Patient admitted for COVID/ COPD exacerbation, during hospital course treated with remdesivir, decadron, azithromycin, and ceftriaxone. Repeat CXR showing stable bilateral mid/low lung interstitial alveolar opacities, tiny bibasilar effusions. Patient has completed course of remdesivir and azithromycin, 4 days of rocephin, and 4/10 days of decadron. New Diagnosis: COVID pneumonia New Medications: Decadron x 6 more days Follow Up: PCP/pulm Latest Assessment & Plan (1) Pneumonia due to COVID-19 virus Current Visit: Yes Status: Acute Assessment & Plan: Given severe hypoxia, plan Remdesivir and Decadron Patient has been vaccinated -Ceftriaxone/azithromycin 07/26: -Continue remdesivir/IVabx/decadron 07/27: -CXR today -add robitussin for cough 07/28: -Repeat CXR stable/unchanged -Continue current management, most likely d/c tomorrow Code(s): U07.1 - COVID-19; J12.82 - PNEUMONIA DUE TO CORONAVIRUS DISEASE 2019 (2) COPD with exacerbation Current Visit: Yes Status: Acute Assessment & Plan: Patient has acute on chronic respiratory failure Sats in ER down to 78% on 5L Patient is SOB and wheezing Plan supplemental oxygen as needed Exacerbation likely due to COVID infection Will plan Remdesivir and Decadron Procal is up. Will start antibiotics Plan bronchodilators as needed 07/26: -stable, now at baseline o2 of 5L, will continue plan as stated above Code(s): J44.1 - CHRONIC OBSTRUCTIVE PULMONARY DISEASE W (ACUTE) EXACERBATION (3) Elevated troponin Current Visit: Yes Status: Acute Assessment & Plan: Likely demand ischemia due to hypoxia Will recheck Troponin EKG shows no acute changes Code(s): R77.8 - OTHER SPECIFIED ABNORMALITIES OF PLASMA PROTEINS (4) Respiratory failure Current Visit: Yes Status: Acute Qualifiers: Chronicity: acute on chronic Respiratory failure complication: hypoxia Qualified Code(s): J96.21 - Acute and chronic respiratory failure with hypoxia Assessment & Plan: Acute on chronic respiratory failure ARF due to COVID infection and exacerbation of COPD Supplemental oxygen as needed Code(s): J96.90 - RESPIRATORY FAILURE, UNSP, UNSP W HYPOXIA OR HYPERCAPNIA (5) Atrial fibrillation Current Visit: Yes Status: Chronic Assessment & Plan: Continue home meds 07/27: -trops/ekg, denies chest pain Code(s): I48.91 - UNSPECIFIED ATRIAL FIBRILLATION (6) Diabetes type 2, controlled Current Visit: Yes Status: Chronic Qualifiers: Diabetes mellitus complication status: without complication Assessment & Plan: Monitor BS. SS insulin Hold oral meds BS likely to go up with steroid therapy Code(s): E11.9 - TYPE 2 DIABETES MELLITUS WITHOUT COMPLICATIONS (7) Hypertension Current Visit: Yes Status: Chronic Qualifiers: Hypertension type: primary hypertension Qualified Code(s): I10 - Essential (primary) hypertension Assessment & Plan: Continue home meds Code(s): I10 - ESSENTIAL (PRIMARY) HYPERTENSION (8) Type II dens fracture of second cervical vertebra Current Visit: No Status: Chronic Assessment & Plan: Neck brace in place -Continue pain management regimen Code(s): S12.110A - ANTERIOR DISPLACED TYPE II DENS FRACTURE, INIT FOR CLOS FX I spent 35 minutes [id number] with the patient on the day of discharge performing discharge exam, discussing hospital stay and discharge instructions with patient and caregivers, preparation of discharge records, prescriptions & referral forms and addressing any questions/concerns the patient had as documented above. - Vitals & Intake/Output Vital Signs: Vital Signs Temperature 98.1 F 07/28/23 23:44 Pulse Rate 65 07/29/23 04:00 Respiratory Rate 18 07/29/23 04:00 Blood Pressure 129/55 07/28/23 23:44 O2 Sat by Pulse Oximetry 100 07/29/23 04:00 Intake & Output: Intake & Output 07/26/23 07/27/23 07/28/23 07/29/23 11:59 11:59 11:59 11:59 Intake Total 850 2362 1790 1160 Output Total 450 1800 3000 2000 Balance 400 116 -1219 -841 Weight 70.4 kg 70.4 kg - Lab Result Diagrams: 07/29/23 04:50 07/29/23 04:50 Lab Results-Last 24 Hrs: Lab Results-Last 24 Hours 07/28/23 07/28/23 07/28/23 Range/Units 08:21 11:18 16:36 WBC (4.0-10.5) x10^3/uL RBC (4.1-5.6) x10^6/uL Hgb (12.5-18.0) g/dL Hct (42-50) % MCV (78-100) fL MCH (26-32) pg MCHC (32-36) g/dL RDW (11.5-14.0) % Plt Count (150-450) x10^3/uL MPV (7.5-11.0) fL Sodium (137-145) mmol/L Potassium (3.5-5.1) mmol/L Chloride (98-107) mmol/L Carbon Dioxide (22-30) mmol/L Anion Gap (5-15) MEQ/L BUN (9-20) mg/dL Creatinine (0.66-1.25) mg/dL Estimated GFR ML/MIN Glucose (74-106) mg/dL POC Glucometer 133 H 192 H 262 H (74 to 106) mg/dL Calcium (8.4-10.2) mg/dL Total Bilirubin (0.2-1.3) mg/dL AST (17-59) U/L ALT (0-50) U/L Alkaline Phosphatase (38-126) U/L Serum Total Protein (6.3-8.2) g/dL Albumin (3.5-5.0) g/dL 07/28/23 07/29/23 07/29/23 Range/Units 20:40 04:50 04:50 WBC 8.2 (4.0-10.5) x10^3/uL RBC 3.40 L (4.1-5.6) x10^6/uL Hgb 11.4 L (12.5-18.0) g/dL Hct 35.1 L (42-50) % MCV 103.2 H (78-100) fL MCH 33.5 H (26-32) pg MCHC 32.5 (32-36) g/dL RDW 14.7 H (11.5-14.0) % Plt Count 204 (150-450) x10^3/uL MPV 9.2 (7.5-11.0) fL Sodium 140 (137-145) mmol/L Potassium 4.0 (3.5-5.1) mmol/L Chloride 107 (98-107) mmol/L Carbon Dioxide 26 (22-30) mmol/L Anion Gap 10.2 (5-15) MEQ/L BUN 40 H (9-20) mg/dL Creatinine 0.86 (0.66-1.25) mg/dL Estimated GFR > 60.0 ML/MIN Glucose 167 H (74-106) mg/dL POC Glucometer 303 H (74 to 106) mg/dL Calcium 8.6 (8.4-10.2) mg/dL Total Bilirubin 0.40 (0.2-1.3) mg/dL AST 27 (17-59) U/L ALT 22 (0-50) U/L Alkaline Phosphatase 91 (38-126) U/L Serum Total Protein 6.5 (6.3-8.2) g/dL Albumin 3.6 (3.5-5.0) g/dL Micro Results-Entire Visit: Microbiology 07/25/23 16:37 Blood Culture - Preliminary Blood 07/25/23 16:37 Blood Culture - Preliminary Blood Accuchecks Date 07/28/23 Date 07/28/23 Date 07/28/23 Date 07/28/23 Time 20:45 Time 16:43 Time 11:35 Time 08:36 - Radiology Exams Ordered Rad Exams-Entire Visit: Radiology Procedures Category Date Time Status CHEST 1 VIEW (PORTABLE) Stat Exams 07/27/23 11:19 Completed - Procedures and Test Procedures and Tests throughout Hospitalization: Therapy Orders & Screens 07/25/23 18:30 Oxygen Nasal Cannula 5 lpm Comment: Respiratory Therapy Consult ONCE Comment: Reason For Exam: 07/25/23 18:55 RT Screen per Nursing Assess ONCE Comment: Protocol Order Physician Instructions: Greater than 3 points order RT Admission Screen Reason For Exam: Triggered on Admission Diagnosis: Covid PNE Diagnosis: Covid PNE Pneumonia: Yes Home O2: Yes: 5L baseline Asthma: No CHF: No Home CPAP/BIPAP: No Home Nebs/MDI: No Total Points: 8 ST Screen per Nursing Assess ONCE Comment: Protocol Order Physician Instructions: Greater than [address] Admission Screening Reason For Exam: Triggered on Admission Diagnosis: Covid PNE CVA/Dyshpagia/Aphasia: No Cognitive Deficits: No Dehydration/Nutrition Deficit: Yes Reflux: No Oral-Motor Difficulties: No Pneumonia: Yes Senior Care Resident: No Total Points: 10 07/25/23 19:37 EKG REPEAT IN AM Comment: Diagnosis: Covid PNE 07/25/23 20:35 Respiratory MDI BID Comment: Diagnosis: Covid PNE 07/27/23 10:49 EKG STAT Comment: Diagnosis: Covid PNE Discharge Exam General Appearance: no apparent distress Neurologic Exam: alert, oriented x 3, cooperative Eye Exam: PERRL Ears, Nose, Throat Exam: normal ENT inspection Neck Exam: other (neck brace) Respiratory Exam: crackles/rales, wheezing Cardiovascular Exam: regular rate/rhythm, normal heart sounds Gastrointestinal/Abdomen Exam: soft, normal bowel sounds Male Genitalia Exam: deferred Rectal Exam: deferred Back Exam: normal inspection Extremity Exam: normal inspection Skin Exam: pale Final Diagnosis/Problem List - Final Discharge Diagnosis/Problem (1) Pneumonia due to COVID-19 virus Current Visit: Yes Status: Acute Code(s): U07.1 - COVID-19; J12.82 - PNEUMONIA DUE TO CORONAVIRUS DISEASE 2019 (2) COPD with exacerbation Current Visit: Yes Status: Acute Code(s): J44.1 - CHRONIC OBSTRUCTIVE PULMONARY DISEASE W (ACUTE) EXACERBATION (3) Elevated troponin Current Visit: Yes Status: Acute Code(s): R77.8 - OTHER SPECIFIED ABNORMALITIES OF PLASMA PROTEINS (4) Respiratory failure Current Visit: Yes Status: Acute Code(s): J96.90 - RESPIRATORY FAILURE, UNSP, UNSP W HYPOXIA OR HYPERCAPNIA (5) Atrial fibrillation Current Visit: Yes Status: Chronic Code(s): I48.91 - UNSPECIFIED ATRIAL FIBRILLATION (6) Diabetes type 2, controlled Current Visit: Yes Status: Chronic Code(s): E11.9 - TYPE 2 DIABETES MELLITUS WITHOUT COMPLICATIONS (7) Hypertension Current Visit: Yes Status: Chronic Code(s): I10 - ESSENTIAL (PRIMARY) HYPERTENSION (8) Type II dens fracture of second cervical vertebra Current Visit: No Status: Chronic Code(s): S12.110A - ANTERIOR DISPLACED TYPE II DENS FRACTURE, INIT FOR CLOS FX - Discharge Prescriptions: New Blood-Glucose Meter [Accu-Chek Guide Me Glucose Mtr] 1 each UD #1 misc Blood Sugar Diagnostic [Accu-Chek Guide Test Strip] 1 each ACHS #100 strip Lancets [Accu-Chek Softclix] 1 each ACHS #100 misc dexAMETHasone [Dexamethasone] 6 mg PO DAILY 6 Days #6 tablet Continue Glimepiride [Amaryl] 1 mg PO DAILY Losartan Potassium [Cozaar] 50 mg PO DAILY Albuterol Sulfate [Albuterol Sulfate Hfa] 8.5 gm IH DAILY Rivaroxaban [Xarelto] 20 mg PO DAILY Lubiprostone 8 mcg PO BID Ascorbic Acid 500 mg [Vitamin C 500 MG] 1,000 mg PO DAILY Zinc Sulfate 220 mg PO BID Senna/Docusate Sodium Tab [Senokot-S Tablet] 1 udtab PO DAILY tablet Fluticasone/Vilanterol [Breo Ellipta 100-25 Mcg Inhalr] 1 puff IH DAILY Oxycodone HCl 15 mg PO Q6H PRN PRN PRN Reason: Pain Furosemide 20 mg [Lasix 20 mg] 20 mg PO DAILY Metoprolol Succinate 25 mg Xl* [Toprol-Xl 25MG Tablets] 25 mg PO DAILY #30 tab Acetaminophen 500 mg [Tylenol Extra Strength 500 mg] 325 mg PO Q6H PRN PRN Reason: Headache Dapagliflozin Propanediol [Farxiga] 10 mg PO DAILY Famotidine 20 mg [Pepcid 20 MG] 20 mg PO BID Gabapentin 100 mg PO BID Gabapentin 200 mg PO QHS Instructions: COVID-19 (DC) Additional Instructions: CHECK YOUR BLOOD SUGAR THREE TIMES A DAY BEFORE MEALS AND AGAIN BEFORE BED GLUCOMETER AND SUPPLIES SENT TO PHARMACY Follow up with: TYRONE HANSEN MD [Primary Care Provider] - 08/05/23 10:30 am (at [email or web address] )
[2023-07-29] MEDS: Advair Hfa 115/21 Common canister IH SCH (06:55)
[2023-07-29 07:08] VITALS: RESP 16
[2023-07-29] MEDS: Senokot-S Tablet PO SCH (08:38)
[2023-07-29] MEDS: XARELTO 10 MG TABLET PO SCH (08:38)
[2023-07-29] MEDS: LASIX 20 MG PO SCH (08:39)
[2023-07-29] MEDS: Neurontin PO SCH (08:39)
[2023-07-29] MEDS: Pepcid 20 MG PO SCH (08:39)
[2023-07-29] MEDS: PATIENT OWN MEDICATION PO SCH ×2 (08:39→08:41)
[2023-07-29] MEDS: Toprol-Xl 25MG Tablets PO SCH (08:40)
[2023-07-29] MEDS: DECADRON 10MG INJ. IV SCH (08:41)
[2023-07-29] MEDS: Cozaar 50 MG PO SCH (08:41)
[2023-07-29] MEDS: Zinc Gluconate 50 MG PO SCH (08:41)
[2023-07-29] MEDS: ROCEPHIN 1 Gm-D5w 50 ml Bag** 1 G/50 ML IVPB IV SCH (08:41)
[2023-07-29] MEDS: Zithromax 500 MG/ 250 ML NaCl Premix 500 MG/250 ML IVPB IV SCH (09:28)
[2023-07-29 11:32] VITALS: BP 124/68; TEMP 97.9
[2023-07-29] MEDS: REMDESIVIR 100 MG in Sodium Chloride 100ML MINI-BAG PLUS 100 ML IV SCH (12:09)
[2023-07-29 13:19] VITALS: PULSE 71; O2SAT 96
== END 2023-07-29 13:55 | disposition home or self-care (01) | DRG 177 ==
LOC: ED 15:32 → MED SURG 18:24 → OBSVTOIN 19:37
PROVIDERS: ADMIT Internal Medicine; ATTEND Internal Medicine
DX: U07.1 COVID-19 (principal); J12.82 Pneumonia due to coronavirus disease 2019; J96.90 Respiratory failure, unspecified, unspecified whether with hypoxia or hypercapnia; J44.1 Chronic obstructive pulmonary disease with (acute) exacerbation; R77.8 Other specified abnormalities of plasma proteins; I48.91 Unspecified atrial fibrillation; E11.9 Type 2 diabetes mellitus without complications; I10 Essential (primary) hypertension; E78.5 Hyperlipidemia, unspecified; S12.110D Anterior displaced Type II dens fracture, subsequent encounter for fracture with routine healing; Z79.899 Other long term (current) drug therapy; Z20.828 Contact with and (suspected) exposure to other viral communicable diseases; Z79.01 Long term (current) use of anticoagulants; Z99.81 Dependence on supplemental oxygen
CPT/HCPCS: 0241U; 36000; 36415; 36600; 71045; 80053; 81001; 82375; 82803; 82947; 83605; 83735; 83880; 84145; 84484; 85025; 85027; 87040; 93005; 93041; 94640; 94762; 96365; 96374; 99284; Q3014; J0248; J0456; J0696; J1100; J1817; J7609; A9270-GY

== ENCOUNTER 2024-03-11 21:14 | Inpatient (IN) | payer MEDICARE ==
[2024-03-11 23:16] LABS: Appearance Cloudy (Clear); Bacteria None Seen /HPF (None Seen); Bilirubin Negative (Negative); Blood Negative (Negative); Epithelial Cells Rare /HPF (None Seen); Glucose, Urine >=1000 mg/dL (Negative); Ketones Trace (Negative); Leukocyte Esterase Negative (Negative); Nitrite Negative (Negative); Protein,Urine Dip 30 (Negative); RBC 0-2 /HPF (0-5); Specific Gravity >=1.030 (1.005-1.030); WBC 0-2 /HPF (0-5)
--- NOTE | 2024-03-11 23:19 | ERPHSYRPT ---
- History of Present Illness Time Seen by Provider: 03/11/24 23:19 Source: patient Exam Limitations: no limitations Patient Subjective Stated Complaint: daughter stays with patient throughout the week and comes back to his house on tuesday night, son stays with patient during the weekend. daughter states when she got to his house her brother states that pt has been feeling weak and urinating on himself which he doesn't normally do, pt did have a fall this am and hit his head, pt denies LOC Triage Nursing Assessment: pt assisted x2 from wheelchair to er cot, pt alert and oriented x3, skin pwd, pt c/o weakness and incontinence, pt is not normally incontient per daughter, pt did have a fall this am and hit head but denies any LOC, pt urine dark yellow and cloudy upon assessment during triage. pt denies any numbness or weakness per one side, pt is weak all over he states, +2 pitting edema on bilateraly extremities. Physician History: 88yo m presents via private vehicle w/ daughter for weakness. Pt reports he had a mechanical fall this AM in which he hit the back of his head on the carpeted floor. Daughter reports that she came to pt's house roughly 1h [employer] and found that he had urinated on himself and was slightly disoriented when she was asking him questions. Pt states his legs feel very weak and he has some soreness in both legs. Pt reports he has had a productive cough for the last 2 days, reports chills as well. Pt currently denies cp, soa, n/v/abdominal pain. Timing/Duration: today Activites at Onset: none Quality: other (incontinence) Pain Radiation: none Severity of Pain-Max: none Severity of Pain-Current: none Associated Symptoms: chills, dysuria, loss of bladder control, No abdominal pain, No nausea, No vomiting, No lower back pain Prior abdominal problems: none Sexual intercourse history: not active Allergies/Adverse Reactions: No Known Drug Allergies Allergy (Verified 03/11/24 22:45) Home Medications: Glimepiride [Amaryl] 1 mg PO DAILY 12/17/14 [History] Losartan Potassium [Cozaar] 50 mg PO DAILY 04/05/20 [History] Albuterol Sulfate [Albuterol Sulfate Hfa] 8.5 gm IH BID 09/04/21 [History] Lubiprostone 8 mcg PO BID 09/04/21 [History] Rivaroxaban [Xarelto] 20 mg PO DAILY 09/04/21 [History] Fluticasone/Vilanterol [Breo Ellipta 100-25 Mcg Inhalr] 1 puff IH DAILY 03/30/22 [History] Oxycodone HCl 15 mg PO Q6H PRN PRN 03/30/22 [History] Acetaminophen 500 mg [Tylenol Extra Strength 500 mg] 325 mg PO TID 07/25/23 [History] Dapagliflozin Propanediol [Farxiga] 10 mg PO DAILY 07/25/23 [History] Famotidine 20 mg [Pepcid 20 MG] 20 mg PO BID 07/25/23 [History] Gabapentin 100 mg PO TID 07/26/23 [History] Senna/Docusate Sodium Tab [Senokot-S Tablet] 1 udtab PO BID 03/11/24 [History] Zinc Gluconate [Zinc] 50 mg PO DAILY 03/11/24 [History] Hx Tetanus, Diphtheria Vaccination/Date Given: Yes Hx Influenza Vaccination/Date Given: Yes Hx Pneumococcal Vaccination/Date Given: Yes Immunizations Up to Date: Yes Travel Risk - International Travel Have you traveled outside of the country in past 3 weeks: No - Emerging Infectious Disease Are you exhibiting symptoms associated with any current EIDs: No - Past Medical History Pertinent Past Medical History: Yes Neurological History: Stroke ENT History: Cataracts Cardiac History: Hypertension Respiratory History: COPD Endocrine Medical History: Diabetes Type II Musculoskeletal History: Arthritis GI Medical History: No Pertinent History, Hernia History: Other Psycho-Social History: No Pertinent History Male Reproductive Disorders: No Pertinent History Other Medical History: 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; facial wells in july - Past Surgical History Past Surgical History: Yes Neuro Surgical History: No Pertinent History Cardiac: No Pertinent History Respiratory: No Pertinent History Gastrointestinal: Cholecystectomy, Hernia Repair Genitourinary: No Pertinent History Musculoskeletal: No Pertinent History Male Surgical History: No Pertinent History Other Surgical History: back,cataracts rt/lt - Social History Smoking Status: Former smoker Exposure to second hand smoke: No Drug Use: none Patient Lives Alone: No - Social Determinants of Health Will the patient participate in the screening: Yes Do you worry about a steady place to live?: No Do you have any problems with any of the following?: No known problems In the past 12 months,have you had to go without utilities?: No Transportation Issues: No Has anyone in your support network made you feel unsafe?: No Have you or anyone in your house had to go without enough: No - Review of Systems Constitutional: Chills, Fatigue, Malaise Ears, Nose, & Throat: No Symptoms Respiratory: Cough, No Dyspnea, No Stridor, No Wheezing Cardiac: No Symptoms Abdominal/Gastrointestinal: No Symptoms Genitourinary Symptoms: Incontinence Musculoskeletal: Arthralgias Neurological: No Symptoms Psychological: No Symptoms - Nursing Vital Signs Nursing Vital Signs: Initial Vital Signs Temperature 98.8 F 03/11/24 22:48 Pulse Rate 91 H 03/11/24 22:48 Respiratory Rate 18 03/11/24 22:48 Blood Pressure 102/94 03/11/24 22:48 O2 Sat by Pulse Oximetry 97 03/11/24 22:48 Pain Scale Pain Intensity 0 - Physical Exam General Appearance: no apparent distress, alert Neck Exam: normal inspection, non-tender Respiratory Exam: normal breath sounds, lungs clear, airway intact, No chest tenderness, No respiratory distress, No diminished breath sounds, No accessory muscle use, No wheezing, No stridor Cardiovascular Exam: regular rate/rhythm, normal heart sounds, No edema Gastrointestinal/Abdomen Exam: soft, No tenderness, No distention Neurologic Exam: alert (AxO x 2 - not oriented to time, daughter reports pt is usually AxO x 3), cooperative, normal mood/affect, sensation nml, motor weakness (b/l LEs 3/5 strength ), other (answers questions appropriately, too weak for gait testing), No facial droop, No slurred speech SpO2 Interpretation: normal SpO2: 96 O2 Delivery: Nasal Cannula (2L) - Course EKG Interpreted by Me: RATE (89), Sinus Rhythm, Non-specific ST Changes, Other (pr 265, qtcb 464, not suggestive of acute ischemia) Ordered Tests: Active Orders 24 hr Category Date Time Status Isolation, Initiate & Maintain STAT Care 03/11/24 23:28 Active NPO (ED) STAT Care 03/11/24 23:17 Active NPO (ED) STAT Care 03/11/24 23:18 Active cath [Cath for Specimen-Straight] STAT Care 03/11/24 22:58 Active CHEST 1 VIEW (PORTABLE) Stat Exams 03/11/24 23:28 Taken HEAD WITHOUT CONTRAST [CT] Stat Exams 03/11/24 23:17 Completed BLOOD CULTURE Stat Lab 03/11/24 23:55 Received CBC W DIFF Stat Lab 03/11/24 23:21 Completed CMP Stat Lab 03/11/24 23:21 Completed CULTURE,URINE Stat Lab 03/11/24 22:59 Received Lactic Acid Stat Lab 03/11/24 23:18 Completed PROCALCITONIN Stat Lab 03/12/24 00:00 Completed PROTIME WITH INR Stat Lab 03/11/24 23:21 Completed PTT Stat Lab 03/11/24 23:21 Completed UA W/RFX UR CULTURE Stat Lab 03/11/24 22:59 Completed Medication Summary Generic Name Dose Route Start Last Admin Trade Name Freq PRN Reason Stop Dose Admin Piperacillin Sod/Tazobactam 100 mls @ 200 mls/hr 03/12/24 00:33 03/12/24 00:41 Sod 3.375 gm/ Sodium Chloride IV 03/12/24 01:02 200 mls/hr STAT ONE Administration Discontinued Medications Generic Name Dose Route Start Last Admin Trade Name Freq PRN Reason Stop Dose Admin Sodium Chloride 1,000 mls @ 999 mls/hr 03/11/24 23:29 03/12/24 00:41 Sodium Chloride 0.9% 1000 Ml IV 03/12/24 00:29 Infused .Q1H1M STA Infusion Sodium Chloride Confirm 03/11/24 23:36 Sodium Chloride 0.9% 1000 Ml Administered 03/11/24 23:37 Dose 1,000 mls @ ud .ROUTE .STK-MED ONE Sodium Chloride Confirm 03/12/24 00:38 Sodium Chloride 100ml Mini-Bag Plus Administered 03/12/24 00:39 Dose 100 mls @ ud IV .STK-MED ONE Piperacillin Sod/Tazobactam Sod Confirm 03/12/24 00:37 Piperacillin/Tazobactam Sodium 3.375 Gm Vial Administered 03/12/24 00:38 Dose 3.375 gm IV .STK-MED ONE Lab/Rad Data: Laboratory Result Diagrams 03/11/24 23:21 03/11/24 23:21 Laboratory Results 03/12/24 03/11/24 03/11/24 Range/Units 00:00 23:21 23:21 WBC (4.0-10.5) x10^3/uL RBC (4.1-5.6) x10^6/uL Hgb (12.5-18.0) g/dL Hct (42-50) % MCV (78-100) fL MCH (26-32) pg MCHC (32-36) g/dL RDW (11.5-14.0) % Plt Count (150-450) x10^3/uL MPV (7.5-11.0) fL Gran % (36.0-66.0) % Immature Gran % (Auto) (0.00-0.4) % Nucleat RBC Rel Count (0.00-0.1) % Eos # (Auto) (0-0.5) x10^3/uL Immature Gran # (Auto) (0.00-0.03) x10^3u/L Absolute Lymphs (auto) (1.0-4.6) x10^3/uL Absolute Monos (auto) (0.0-1.3) x10^3/uL Absolute Nucleated RBC (0.00-0.01) x10^3u/L Lymphocytes % (24.0-44.0) % Monocytes % (0.0-12.0) % Eosinophils % (0.00-5.0) % Basophils % (0.0-0.4) % Absolute Granulocytes (1.4-6.9) x10^3/uL Basophils # (0-0.4) x10^3/uL PT 16.0 H (9.4-12.5) SECONDS INR 1.51 (0.8-3.0) APTT 41.9 H (25.1-36.5) SECONDS Sodium 140 (135-145) mmol/L Potassium 4.5 (3.5-5.1) mmol/L Chloride 108 H (98-107) mmol/L Carbon Dioxide 19 L (22-30) mmol/L Anion Gap 17.7 H (5-15) MEQ/L BUN 45 H (9-20) mg/dL Creatinine 1.56 H (0.66-1.25) mg/dL Estimated GFR 42.5 ML/MIN Glucose 155 H (74-106) mg/dL Lactic Acid (0.4-2.0) Calcium 9.4 (8.4-10.2) mg/dL Total Bilirubin 1.60 H (0.2-1.3) mg/dL AST 25 (17-59) U/L ALT 14 (0-50) U/L Alkaline Phosphatase 97 (38-126) U/L Serum Total Protein 7.9 (6.3-8.2) g/dL Albumin 4.3 (3.5-5.0) g/dL Procalcitonin 0.994 H (0.030-0.080) ng/mL Urine Color (Yellow) Urine Appearance (Clear) Urine pH (4.6-8.0) Ur Specific Richards (1.005-1.030) Urine Protein (Negative) Urine Glucose (UA) (Negative) mg/dL Urine Ketones (Negative) Urine Blood (Negative) Urine Nitrite (Negative) Urine Bilirubin (Negative) Urine Urobilinogen (0.2) mg/dL Ur Leukocyte Esterase (Negative) U Hyaline Cast (Auto) (0-2) /LPF Urine Microscopic RBC (0-5) /HPF Urine Microscopic WBC (0-5) /HPF Ur Epithelial Cells (None Seen) /HPF Urine Bacteria (None Seen) /HPF Urine Culture Reflexed (NO) 03/11/24 03/11/24 03/11/24 Range/Units 23:21 23:18 22:59 WBC 11.9 H (4.0-10.5) x10^3/uL RBC 3.78 L (4.1-5.6) x10^6/uL Hgb 12.4 L (12.5-18.0) g/dL Hct 37.3 L (42-50) % MCV 98.7 (78-100) fL MCH 32.8 H (26-32) pg MCHC 33.2 (32-36) g/dL RDW 14.3 H (11.5-14.0) % Plt Count 222 (150-450) x10^3/uL MPV 9.3 (7.5-11.0) fL Gran % 78.9 H (36.0-66.0) % Immature Gran % (Auto) 0.4 (0.00-0.4) % Nucleat RBC Rel Count 0.0 (0.00-0.1) % Eos # (Auto) 0 (0-0.5) x10^3/uL Immature Gran # (Auto) 0.05 H (0.00-0.03) x10^3u/L Absolute Lymphs (auto) 1.47 (1.0-4.6) x10^3/uL Absolute Monos (auto) 0.95 (0.0-1.3) x10^3/uL Absolute Nucleated RBC 0.00 (0.00-0.01) x10^3u/L Lymphocytes % 12.4 L (24.0-44.0) % Monocytes % 8.0 (0.0-12.0) % Eosinophils % 0.0 (0.00-5.0) % Basophils % 0.3 (0.0-0.4) % Absolute Granulocytes 9.37 H (1.4-6.9) x10^3/uL Basophils # 0.03 (0-0.4) x10^3/uL PT (9.4-12.5) SECONDS INR (0.8-3.0) APTT (25.1-36.5) SECONDS Sodium (135-145) mmol/L Potassium (3.5-5.1) mmol/L Chloride (98-107) mmol/L Carbon Dioxide (22-30) mmol/L Anion Gap (5-15) MEQ/L BUN (9-20) mg/dL Creatinine (0.66-1.25) mg/dL Estimated GFR ML/MIN Glucose (74-106) mg/dL Lactic Acid 1.3 (0.4-2.0) Calcium (8.4-10.2) mg/dL Total Bilirubin (0.2-1.3) mg/dL AST (17-59) U/L ALT (0-50) U/L Alkaline Phosphatase (38-126) U/L Serum Total Protein (6.3-8.2) g/dL Albumin (3.5-5.0) g/dL Procalcitonin (0.030-0.080) ng/mL Urine Color Dark Yellow (Yellow) Urine Appearance Cloudy A (Clear) Urine pH 5.0 (4.6-8.0) Ur Specific Richards >=1.030 A (1.005-1.030) Urine Protein 30 (Negative) Urine Glucose (UA) >=1000 A (Negative) mg/dL Urine Ketones Trace A (Negative) Urine Blood Negative (Negative) Urine Nitrite Negative (Negative) Urine Bilirubin Negative (Negative) Urine Urobilinogen 1.0 A (0.2) mg/dL Ur Leukocyte Esterase Negative (Negative) U Hyaline Cast (Auto) 3-5 A (0-2) /LPF Urine Microscopic RBC 0-2 (0-5) /HPF Urine Microscopic WBC 0-2 (0-5) /HPF Ur Epithelial Cells Rare (None Seen) /HPF Urine Bacteria None Seen (None Seen) /HPF Urine Culture Reflexed ORDERED SEPARATELY (NO) - Progress Progress Note: 03/11/24 23:51 mucus membranes dry on exam, 1L bolus IV NS started 03/12/24 00:50 CT head negative for acute hemorrhage wbc elevated, Cr elevated, blood/urine cx pending UA not suggestive of infection cxr shows no acute process plan to admit for obs for further IV fluids and abx discussed admission w/ Dr Alegria who accepts Will see patient in: hospital (observation) Counseled pt/family regarding: lab results, diagnosis, need for follow-up, rad results Medical Desision Making - Diagnostic Testing Diagnostic test were ordered, analyzed, and reviewed by me: Yes Radiological Interpretation: Interpreted by me, Reviewed by me, Teleradiologist Report - Risk of complications The pt has a high risk of morbidity or mortality based on: Decision regarding hospitilization or escalation of hosp level of care - Departure Departure Disposition: Observation Clinical Impression: Elevated serum creatinine, Body aches, Generalized weakness Leukocytosis Qualifiers: Leukocytosis type: unspecified Qualified Code(s): D72.829 - Elevated white blood cell count, unspecified Cough Qualifiers: Cough type: acute Qualified Code(s): R05.1 - Acute cough Condition: Stable Critical Care Time: No Referrals: TYRONE HANSEN MD [Primary Care Provider] - Follow up/PCP as directed
[2024-03-11 23:22] LABS: Absolute Neutrophil Ct (ANC) 9.37 x10^3/uL (1.4-6.9); BASOPHIL % 0.3 % (0.0-0.4); Basophil (Absolute #) 0.03 x10^3/uL (0-0.4); Eosinophil (Absolute #) 0 x10^3/uL (0-0.5); Hematocrit 37.3 % (42-50); Hemoglobin 12.4 g/dL (12.5-18.0); IMMATURE GRAN # 0.05 x10^3u/L (0.00-0.03); IMMATURE GRAN % 0.4 % (0.00-0.4); Lymphocyte (Absolute #) 1.47 x10^3/uL (1.0-4.6); Lymphocytes % 12.4 % (24.0-44.0); Mean Cell Volume 98.7 fL (78-100); Mean Corpuscular Hemoglobin 32.8 pg (26-32); Mean Corpuscular Hgb Concent. 33.2 g/dL (32-36); Mean Platelet Volume 9.3 fL (7.5-11.0); Monocyte (Absolute #) 0.95 x10^3/uL (0.0-1.3); Neutrophil % 78.9 % (36.0-66.0); Platelet Count 222 x10^3/uL (150-450); Red Blood Count 3.78 x10^6/uL (4.1-5.6); Red Cell Distribution Width 14.3 % (11.5-14.0); White Blood Count 11.9 x10^3/uL (4.0-10.5)
[2024-03-11 23:24] LABS: ADD URINE CULTURE? ORDERED SEPARATELY (NO)
[2024-03-11 23:28] LABS: ALBUMIN 4.3 g/dL (3.5-5.0); ANION GAP 17.7 MEQ/L (5-15); BILIRUBIN,TOTAL 1.6 mg/dL (0.2-1.3); Calcium 9.4 mg/dL (8.4-10.2); Creatinine 1 1.56 mg/dL (0.66-1.25); EST GLOMERULAR FILTRATION RATE 42.5 ML/MIN; Potassium 4.5 mmol/L (3.5-5.1); Total Protein 7.9 g/dL (6.3-8.2)
[2024-03-11 23:31] LABS: INR 1.51 (0.8-3.0); PTT 41.9 SECONDS (25.1-36.5)
[2024-03-11] MEDS ORDERED: Sodium Chloride 0.9% 1000 ML 1,000 ML ONE (23:36)
[2024-03-11] MEDS: Sodium Chloride 0.9% 1000 ML 1,000 ML IV STA (23:37)
[2024-03-12] MEDS ORDERED: PIPERACILLIN/TAZOBACTAM IV ONE (00:37)
[2024-03-12] MEDS ORDERED: Sodium Chloride 100ML MINI-BAG PLUS 100 ML IV ONE (00:38)
[2024-03-12] MEDS: PIPERACILLIN/TAZOBACTAM 3.375 GM in Sodium Chloride 100ML MINI-BAG PLUS 100 ML IV ONE (00:41)
--- NOTE | 2024-03-12 00:45 | XRAY ---
CLINICAL HISTORY: fall on xarelto COMPARISON: None TECHNIQUE: Axial noncontrast CT scan of the brain was performed from the skull base to the high parietal region .One of the following dose reduction techniques were utilized for this exam: Automated exposure control, adjustment of the mA and/or kV according to patient size, use of iterative reconstruction. FINDINGS: No intracerebral or extra axial hematoma. Tiny chronic lacunar infarcts noted in bilateral basal ganglio-capsular regions. Faint calcification of bilateral globus pallidus and dentate nuclei noted, likely age related. A 4 mm calcified focus/granuloma in medial aspect of right cerebellar region. There are hypodense areas noted in the subcortical and periventricular white matter bilaterally, suggestive of microvascular ischemic changes. The ventricular system, cortical sulci and basal cisterns are prominent consistent with senile changes. The rest of visualized brain parenchyma shows normal appearance. Normal CT appearance of the posterior fossa structures namely the cerebellar hemispheres, brainstem and cerebellar peduncles. The IACs are unremarkable. The cerebello-pontine angles are clear. The osseous structures in the skull base are unremarkable. No definite calvarium fractures. The scanned paranasal sinuses are clear. Bilateral mastoid air cells appear unremarkable. IMPRESSION: No acute traumatic injury seen in Plain CT brain. Tiny chronic lacunar infarcts in bilateral basal ganglio-capsular regions. 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 (03/12/2024 00:40:43 EDT)
[2024-03-12] MEDS ORDERED: OXYCODONE HCL 15 MG PO PRN (02:53)
--- NOTE | 2024-03-12 03:06 | PCM.HP ---
History of Present Illness - Chief Complaint Chief Complaint: cough, weakness Date: 03/12/24 History of Present Illness: 88-year-old male with history of COPD chronically on 2 L oxygen, A-fib, DM2, and HTN, who presents with 3 days of worsening cough productive of green sputum associated with severe chills and diffuse generalized weakness. He has had decreased p.o. intake, and this morning, was lightheaded on standing, and had a fall to the ground hitting his head on the floor. He has no headache or neurologic changes. Initially was feeling poorly until getting fluids and Zosyn in the ED. Already states he is feeling improved, although still weak. He remains on his home 2 L oxygen. Denies any fevers, sick contacts, chest pain, nausea, diarrhea, or dysuria. - Review of Systems Constitutional: Weakness, No Fever, No Night Sweats Eyes: No Vision Changes Respiratory: Cough, Short Of Breath, No Orthopnea, No Wheezing Cardiac: No Chest Pain, No Edema, No Palpitations, No Syncope Abdominal/Gastrointestinal: No Abdominal Pain, No Nausea, No Diarrhea Genitourinary Symptoms: No Dysuria, No Frequency Neurological: Headache, No Focal Weakness, No Gait Changes, No Sensory Changes All Other Systems: Reviewed and Negative Medications & Allergies Home Medications: Home Medication List Glimepiride [Amaryl] 1 mg PO DAILY 12/17/14 [History Confirmed 03/11/24] Losartan Potassium [Cozaar] 50 mg PO DAILY 04/05/20 [History Confirmed 03/11/24] Albuterol Sulfate [Albuterol Sulfate Hfa] 8.5 gm IH BID 09/04/21 [History Confirmed 03/11/24] Lubiprostone 8 mcg PO BID 09/04/21 [History Confirmed 03/11/24] Rivaroxaban [Xarelto] 20 mg PO DAILY 09/04/21 [History Confirmed 03/11/24] Fluticasone/Vilanterol [Breo Ellipta 100-25 Mcg Inhalr] 1 puff IH DAILY 03/30/22 [History Confirmed 03/11/24] Oxycodone HCl 15 mg PO Q6H PRN PRN 03/30/22 [History Confirmed 03/11/24] Metoprolol Succinate 25 mg Xl* [Toprol-Xl 25MG Tablets] 25 mg PO DAILY #30 tab 04/02/22 [Rx Confirmed 03/11/24] Acetaminophen 500 mg [Tylenol Extra Strength 500 mg] 325 mg PO TID 07/25/23 [History Confirmed 03/11/24] Dapagliflozin Propanediol [Farxiga] 10 mg PO DAILY 07/25/23 [History Confirmed 03/11/24] Famotidine 20 mg [Pepcid 20 MG] 20 mg PO BID 07/25/23 [History Confirmed 03/11/24] Gabapentin 100 mg PO TID 07/26/23 [History Confirmed 03/11/24] Blood Sugar Diagnostic [Accu-Chek Guide Test Strip] 1 each ACHS #100 strip 07/29/23 [Rx Confirmed 03/11/24] Blood-Glucose Meter [Accu-Chek Guide Me Glucose Mtr] 1 each UD #1 misc 07/29/23 [Rx Confirmed 03/11/24] Lancets [Accu-Chek Softclix] 1 each ACHS #100 misc 07/29/23 [Rx Confirmed 03/11/24] Senna/Docusate Sodium Tab [Senokot-S Tablet] 1 udtab PO BID 03/11/24 [History Confirmed 03/11/24] Zinc Gluconate [Zinc] 50 mg PO DAILY 03/11/24 [History Confirmed 03/11/24] Allergies/Adverse Reactions: Allergies Allergy/AdvReac Type Severity Reaction Status Date / Time No Known Drug Allergies Allergy Verified 03/11/24 22:45 - Past Medical History Past Medical History: Yes Neurological History: Stroke ENT History: Cataracts Cardiac History: Hypertension Respiratory History: COPD Endocrine Medical History: Diabetes Type II Musculoskelatal History: Arthritis, Osteoarthritis GI Medical History: Hernia History: No Pertinent History Pyscho-Social History: No Pertinent History Male Reproductive Disorders: No Pertinent History Comment: 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; facial wells in july - Past Surgical History Past Surgical History: Yes Neuro Surgical History: No Pertinent History Cardiac History: No Pertinent History Respiratory Surgery: No Pertinent History GI Surgical History: Cholecystectomy, Hernia Repair Genitourinary Surgical Hx: No Pertinent History Musculskeletal Surgical Hx: Joint Replacement, Orthopedic Surgery Male Surgical History: No Pertinent History Other Surgical History: back,cataracts rt/lt, R shoulder joint replaced, skin grafts - face & R upper anterior leg Significant Family History: no pertinent family hx - Social History Smoking Status: Former smoker Exposure to second hand smoke: No Alcohol: None Drug Use: none - Social Determinants of Health Will the patient participate in the screening: Yes Do you worry about a steady place to live?: No Do you have any problems with any of the following?: No known problems In the past 12 months,have you had to go without utilities?: No Have you or anyone in your house had to go without enough: No Transportation Issues: No Has anyone in your support network made you feel unsafe?: No Does the patient want assistance with any of the above?: No - Physical Exam Vital Signs: Vital Signs - 24 hr Temp Pulse Resp BP BP Pulse Ox 03/12/24 01:46 97 F 95 H 20 122/62 99 03/12/24 01:01 74 19 109/43 92 L 03/12/24 00:54 96 03/12/24 00:30 75 20 104/54 94 L 03/12/24 00:04 82 21 99/52 96 03/11/24 23:00 83 20 100/55 97 03/11/24 22:48 98.8 F 91 H 18 102/94 97 GEN: Thin man, lying in bed in no acute distress NEURO: No focal deficits CV: Regular rate & rhythm, no murmurs, no edema PULM: Good air movement, no wheezing or rhonchi, on 2 L of oxygen via nasal cannula ABD: Soft, non-distended, normoactive bowel sounds PSYCH: Alert, oriented x3 Results - Labs Lab/Micro Results: Lab Results-Last 24 Hours 03/11/24 03/11/24 03/11/24 Range/Units 22:59 23:18 23:21 WBC 11.9 H (4.0-10.5) x10^3/uL RBC 3.78 L (4.1-5.6) x10^6/uL Hgb 12.4 L (12.5-18.0) g/dL Hct 37.3 L (42-50) % MCV 98.7 (78-100) fL MCH 32.8 H (26-32) pg MCHC 33.2 (32-36) g/dL RDW 14.3 H (11.5-14.0) % Plt Count 222 (150-450) x10^3/uL MPV 9.3 (7.5-11.0) fL Gran % 78.9 H (36.0-66.0) % Immature Gran % (Auto) 0.4 (0.00-0.4) % Nucleat RBC Rel Count 0.0 (0.00-0.1) % Eos # (Auto) 0 (0-0.5) x10^3/uL Immature Gran # (Auto) 0.05 H (0.00-0.03) x10^3u/L Absolute Lymphs (auto) 1.47 (1.0-4.6) x10^3/uL Absolute Monos (auto) 0.95 (0.0-1.3) x10^3/uL Absolute Nucleated RBC 0.00 (0.00-0.01) x10^3u/L Lymphocytes % 12.4 L (24.0-44.0) % Monocytes % 8.0 (0.0-12.0) % Eosinophils % 0.0 (0.00-5.0) % Basophils % 0.3 (0.0-0.4) % Absolute Granulocytes 9.37 H (1.4-6.9) x10^3/uL Basophils # 0.03 (0-0.4) x10^3/uL PT (9.4-12.5) SECONDS INR (0.8-3.0) APTT (25.1-36.5) SECONDS Sodium (135-145) mmol/L Potassium (3.5-5.1) mmol/L Chloride (98-107) mmol/L Carbon Dioxide (22-30) mmol/L Anion Gap (5-15) MEQ/L BUN (9-20) mg/dL Creatinine (0.66-1.25) mg/dL Estimated GFR ML/MIN Glucose (74-106) mg/dL Lactic Acid 1.3 (0.4-2.0) Calcium (8.4-10.2) mg/dL Total Bilirubin (0.2-1.3) mg/dL AST (17-59) U/L ALT (0-50) U/L Alkaline Phosphatase (38-126) U/L Serum Total Protein (6.3-8.2) g/dL Albumin (3.5-5.0) g/dL Procalcitonin (0.030-0.080) ng/mL Urine Color Dark Yellow (Yellow) Urine Appearance Cloudy A (Clear) Urine pH 5.0 (4.6-8.0) Ur Specific [place] >=1.030 A (1.005-1.030) Urine Protein 30 (Negative) Urine Glucose (UA) >=1000 A (Negative) mg/dL Urine Ketones Trace A (Negative) Urine Blood Negative (Negative) Urine Nitrite Negative (Negative) Urine Bilirubin Negative (Negative) Urine Urobilinogen 1.0 A (0.2) mg/dL Ur Leukocyte Esterase Negative (Negative) U Hyaline Cast (Auto) 3-5 A (0-2) /LPF Urine Microscopic RBC 0-2 (0-5) /HPF Urine Microscopic WBC 0-2 (0-5) /HPF Ur Epithelial Cells Rare (None Seen) /HPF Urine Bacteria None Seen (None Seen) /HPF Urine Culture Reflexed ORDERED SEPARATELY (NO) 03/11/24 03/11/24 03/12/24 Range/Units 23:21 23:21 00:00 WBC (4.0-10.5) x10^3/uL RBC (4.1-5.6) x10^6/uL Hgb (12.5-18.0) g/dL Hct (42-50) % MCV (78-100) fL MCH (26-32) pg MCHC (32-36) g/dL RDW (11.5-14.0) % Plt Count (150-450) x10^3/uL MPV (7.5-11.0) fL Gran % (36.0-66.0) % Immature Gran % (Auto) (0.00-0.4) % Nucleat RBC Rel Count (0.00-0.1) % Eos # (Auto) (0-0.5) x10^3/uL Immature Gran # (Auto) (0.00-0.03) x10^3u/L Absolute Lymphs (auto) (1.0-4.6) x10^3/uL Absolute Monos (auto) (0.0-1.3) x10^3/uL Absolute Nucleated RBC (0.00-0.01) x10^3u/L Lymphocytes % (24.0-44.0) % Monocytes % (0.0-12.0) % Eosinophils % (0.00-5.0) % Basophils % (0.0-0.4) % Absolute Granulocytes (1.4-6.9) x10^3/uL Basophils # (0-0.4) x10^3/uL PT 16.0 H (9.4-12.5) SECONDS INR 1.51 (0.8-3.0) APTT 41.9 H (25.1-36.5) SECONDS Sodium 140 (135-145) mmol/L Potassium 4.5 (3.5-5.1) mmol/L Chloride 108 H (98-107) mmol/L Carbon Dioxide 19 L (22-30) mmol/L Anion Gap 17.7 H (5-15) MEQ/L BUN 45 H (9-20) mg/dL Creatinine 1.56 H (0.66-1.25) mg/dL Estimated GFR 42.5 ML/MIN Glucose 155 H (74-106) mg/dL Lactic Acid (0.4-2.0) Calcium 9.4 (8.4-10.2) mg/dL Total Bilirubin 1.60 H (0.2-1.3) mg/dL AST 25 (17-59) U/L ALT 14 (0-50) U/L Alkaline Phosphatase 97 (38-126) U/L Serum Total Protein 7.9 (6.3-8.2) g/dL Albumin 4.3 (3.5-5.0) g/dL Procalcitonin 0.994 H (0.030-0.080) ng/mL Urine Color (Yellow) Urine Appearance (Clear) Urine pH (4.6-8.0) Ur Specific [place] (1.005-1.030) Urine Protein (Negative) Urine Glucose (UA) (Negative) mg/dL Urine Ketones (Negative) Urine Blood (Negative) Urine Nitrite (Negative) Urine Bilirubin (Negative) Urine Urobilinogen (0.2) mg/dL Ur Leukocyte Esterase (Negative) U Hyaline Cast (Auto) (0-2) /LPF Urine Microscopic RBC (0-5) /HPF Urine Microscopic WBC (0-5) /HPF Ur Epithelial Cells (None Seen) /HPF Urine Bacteria (None Seen) /HPF Urine Culture Reflexed (NO) - Radiology Impressions Radiology Exams & Impressions: Radiology Procedures Category Date Time Status CHEST 1 VIEW (PORTABLE) Stat Exams 03/11/24 23:28 Taken HEAD WITHOUT CONTRAST [CT] Stat Exams 03/11/24 23:17 Completed Chest x-ray bibasilar atelectasis, no lobar consolidation. (Images reviewed) - Other Procedures and Tests Respiratory Therapy 03/12/24 02:54 Oxygen Nasal Cannula 2 lpm Assessment/Plan (1) Acute kidney injury Current Visit: Yes Status: Acute Assessment & Plan: 88-year-old male with history of COPD on home oxygen, type 2 diabetes, hypertension, and A-fib on Xarelto, here with bronchitis versus pneumonia and acute kidney injury. ## Acute kidney injury secondary to poor p.o. intake and hypovolemia. Given 1 L NS in the ED Continue NS at 100 mL/h Repeat BMP in the morning ## Bronchitis versus pneumonia with increasing cough, and some increased haziness in the chest x-ray but no clear pneumonia. Given Zosyn in the ER Start Rocephin and azithromycin Follow-up blood cultures ## COPD, chronic hypoxic respiratory failure chronically on home oxygen 2 L. Does not appear to have exacerbation at this time, with no wheezing, good air movement, and no increase in his oxygen requirements. Continue 2 L oxygen Give scheduled DuoNeb q.[address] of his home ICS/LABA inhaler PRN DuoNeb q.4 hours ## Type 2 diabetes on oral medications at home. Cover with low-dose sliding scale insulin ## Paroxysmal A-fib currently in sinus rhythm. Continue Xarelto 20 mg daily Continue Toprol-XL 25 mg daily ## Hypertension blood pressure currently well-controlled Continue losartan 50, Toprol-XL 25 CODE STATUS: Full code Prophylaxis: Xarelto Diet: Diabetic Code(s): N17.9 - ACUTE KIDNEY FAILURE, UNSPECIFIED Telemedicine Encounter - Telemedicine Encounter Telemedicine Encounter: The entirety of this encounter was performed via Telemedicine"
[2024-03-12] MEDS: Sodium Chloride 0.9% 1000 ML 1,000 ML IV SCH (03:11)
[2024-03-12 05:04] LABS: Hemoglobin 10.6 g/dL (12.5-18.0); Mean Corpuscular Hemoglobin 32.1 pg (26-32); Mean Corpuscular Hgb Concent. 32.1 g/dL (32-36); Platelet Count 193 x10^3/uL (150-450); Red Cell Distribution Width 14.5 % (11.5-14.0); White Blood Count 9.7 x10^3/uL (4.0-10.5)
[2024-03-12 05:21] LABS: ANION GAP 10.9 MEQ/L (5-15); Calcium 8.7 mg/dL (8.4-10.2); Creatinine 1 1.47 mg/dL (0.66-1.25); EST GLOMERULAR FILTRATION RATE 45.6 ML/MIN; PREALBUMIN 9.5 mg/dL (17.6-36.0); Potassium 4.2 mmol/L (3.5-5.1)
[2024-03-12] MEDS: DUONEB 0.5-3 MG/3 ml Neb IH SCH (06:27)
[2024-03-12] MEDS: Advair Hfa 115/21 Common canister IH SCH (06:32)
--- NOTE | 2024-03-12 08:47 | XRAY ---
Indication: Cough. Comparison: July 27, 2023 Portable chest again demonstrates minimal bibasilar discoid atelectasis/scarring and tiny left base calcified granuloma. Remaining lungs clear. Heart not enlarged. Bony thorax intact again with osteopenia, degenerative changes, and right shoulder arthroplasty.
[2024-03-12] MEDS ORDERED: NON-FORMULARY ITEM (Losartan Potassium [Cozaar] 100 MG Tablet) PO SCH (10:00)
[2024-03-12] MEDS ORDERED: NON-FORMULARY ITEM (Rivaroxaban [Xarelto] 20 MG Tablet) PO SCH (10:00)
[2024-03-12] MEDS: XARELTO 10 MG TABLET PO SCH (10:39)
[2024-03-12] MEDS: Cozaar 50 MG PO SCH (10:39)
[2024-03-12] MEDS: ROCEPHIN 1 GM / 100 ML NaCl 1 GM/100 ML IVPB IV SCH (10:39)
[2024-03-12] MEDS: Senokot-S Tablet PO SCH (10:39)
[2024-03-12] MEDS: Neurontin PO SCH (10:39)
[2024-03-12] MEDS: Pepcid 20 MG PO SCH (10:40)
[2024-03-12] MEDS: Toprol-Xl 25MG Tablets PO SCH (10:40)
[2024-03-12] MEDS: TYLENOL EXTRA STRENGTH 500 MG PO SCH (10:40)
[2024-03-12] MEDS: Zithromax 500 MG/ 250 ML NaCl Premix 500 MG/250 ML IVPB IV SCH (11:12)
[2024-03-12] MEDS: TYLENOL 325 MG PO SCH (21:02)
[2024-03-13] MEDS: Oxy-IR 5 MG PO PRN (02:24)
[2024-03-13] MEDS: DUONEB 0.5-3 MG/3 ml Neb IH PRN (02:28)
[2024-03-13] MEDS: Ativan 2 MG/1 ML VIAL IV ONE (03:00)
[2024-03-13] MEDS: Lasix 20 MG/2 ML IV ONE (03:01)
[2024-03-13 03:22] LABS: A-aADO2 99; ABG HEMOGLOBIN 13.3; ABG POTASSIUM 4.6 (3.5-5.1); ABG SITE LRA; ALLEN TEST OK? YES; ARTERIAL BLD GAS O2 SATURATION 93.7 % (95-100); ARTERIAL BLOOD GAS BASE EXCESS -6.3 (-2.0-2.0); ARTERIAL BLOOD GAS FIO2 28 %; ARTERIAL BLOOD GAS PCO2 31 mmHg (35-45); ARTERIAL BLOOD GAS PO2 62 mmHg (75-100); ARTERIAL BLOOD GAS pH 7.37 (7.35-7.45); CARBOXYHEMOGLOBIN 1.8 % THgb (0.0-6.9); HCO3- 17.9 (22-28); HGB O2 SAT 91.3 g/dF (94-100); Methhemoglobin 0.8 % (1.4-1.5); paO2 pAO1 0.39
[2024-03-13] MEDS: Lasix 40 MG/4 ML IV ONE (03:53)
[2024-03-13] MEDS ORDERED: PROVENTIL Solution 2.5 MG/0.5 ML IH ONE (04:07)
[2024-03-13 04:12] LABS: Hematocrit 40.8 % (42-50); Hemoglobin 12.9 g/dL (12.5-18.0); Mean Cell Volume 101.5 fL (78-100); Mean Corpuscular Hemoglobin 32.1 pg (26-32); Mean Corpuscular Hgb Concent. 31.6 g/dL (32-36); Mean Platelet Volume 9.9 fL (7.5-11.0); Platelet Count 240 x10^3/uL (150-450); Red Blood Count 4.02 x10^6/uL (4.1-5.6); Red Cell Distribution Width 15.1 % (11.5-14.0); White Blood Count 12.9 x10^3/uL (4.0-10.5)
[2024-03-13 04:22] LABS: Appearance Clear (Clear); Bacteria None Seen /HPF (None Seen); Bilirubin Negative (Negative); Blood Trace (Negative); Epithelial Cells None Seen /HPF (None Seen); Glucose, Urine >=1000 mg/dL (Negative); Ketones Negative (Negative); Leukocyte Esterase Negative (Negative); Nitrite Negative (Negative); Protein,Urine Dip 30 (Negative); Specific Gravity 1.015 (1.005-1.030); WBC 0-2 /HPF (0-5)
--- NOTE | 2024-03-13 04:38 | XRAY ---
CLINICAL HISTORY: shortness of breath COMPARISON: None. TECHNIQUE: X-ray of the chest was performed in 1 view: AP view. FINDINGS: Prominent hilar and perihilar vascular markings There are bilateral lower lung zones airspace opacities more prominent on the left side. Normal configuration of the mediastinum. Blunting of bilateral costophrenic angles. Bony thorax is unremarkable. Total prosthetic repllacement of right shoulder joint. IMPRESSION: Bilateral lower lung zones airspace opacities likely infection. Follow-up is advised. Blunting of bilateral costophrenic angles likely pleural effusion Electronically Signed by: Steph Bernal MD. (03/13/2024 04:35:41 EDT)
[2024-03-13] MEDS ORDERED: Sodium Chloride 100ML MINI-BAG PLUS 100 ML IV ONE (04:52)
[2024-03-13] MEDS ORDERED: PIPERACILLIN/TAZOBACTAM IV ONE (04:52)
[2024-03-13 04:54] LABS: ALBUMIN 4.3 g/dL (3.5-5.0); ANION GAP 20.6 MEQ/L (5-15); BILIRUBIN,TOTAL 1.3 mg/dL (0.2-1.3); Creatinine 1 1.17 mg/dL (0.66-1.25); Potassium 4.3 mmol/L (3.5-5.1); Total Protein 8.3 g/dL (6.3-8.2)
[2024-03-13] MEDS: PIPERACILLIN/TAZOBACTAM 4.5 GM in Sodium Chloride 100ML MINI-BAG PLUS 100 ML IV ONE (04:55)
[2024-03-13] MEDS: LOPRESSOR INJECTION IV ONE (04:55)
[2024-03-13] MEDS: Sodium Chloride 0.9% 1000 ML 1,000 ML IV SCH ×2 (04:55→06:03)
[2024-03-13 04:57] LABS: A-aADO2 269; ABG HEMOGLOBIN 13.4; ABG POTASSIUM 4.6 (3.5-5.1); ARTERIAL BLD GAS O2 SATURATION 98.7 % (95-100); ARTERIAL BLOOD GAS BASE EXCESS -11.5 (-2.0-2.0); ARTERIAL BLOOD GAS FIO2 60 %; ARTERIAL BLOOD GAS PCO2 41 mmHg (35-45); ARTERIAL BLOOD GAS PO2 108 mmHg (75-100); CARBOXYHEMOGLOBIN 1.4 % THgb (0.0-6.9); HGB O2 SAT 96.5 g/dF (94-100); Methhemoglobin 0.8 % (1.4-1.5); paO2 pAO1 0.29
[2024-03-13 04:58] LABS: ABG SITE LRA; ALLEN TEST OK? YES
[2024-03-13] MEDS: VANCOMYCIN 1 GRAM/200 ML BAG 1 GM/200 ML PIGGYBACK IV ONE (05:32)
[2024-03-13] MEDS: DUONEB 0.5-3 MG/3 ml Neb IH SCH (06:34)
[2024-03-13 07:42] LABS: A-aADO2 164; ABG HEMOGLOBIN 12.4; ABG POTASSIUM 4.2 (3.5-5.1); ABG SITE RIGHT RADIAL; ALLEN TEST OK? YES; ARTERIAL BLD GAS O2 SATURATION 98.5 % (95-100); ARTERIAL BLOOD GAS BASE EXCESS -8.7 (-2.0-2.0); ARTERIAL BLOOD GAS FIO2 40 %; ARTERIAL BLOOD GAS PCO2 28 mmHg (35-45); ARTERIAL BLOOD GAS PO2 86 mmHg (75-100); ARTERIAL BLOOD GAS VENT MODE BiPAP; ARTERIAL BLOOD GAS pH 7.35 (7.35-7.45); BIPAP(E) 8; BIPAP(I) 14; CARBOXYHEMOGLOBIN 2.4 % THgb (0.0-6.9); HCO3- 15.5 (22-28); HGB O2 SAT 95.7 g/dF (94-100); Methhemoglobin 0.4 % (1.4-1.5); paO2 pAO1 0.34
--- NOTE | 2024-03-13 09:56 | TM.IN ---
Tele-Medicine Incident Note - Incident Note Tel-Medicine Incident Note: 03/13/24 06:28 Overnight, the patient began to experience agitation and hypoxia, with evidence of potential volume overload (crackles detected on auscultation). The patient initially received IV Lasix (with discontinuation of IV fluids) and IV Ativan. There also was concern about potential urinary retention, so a [place] catheter was placed. A subsequent rapid response event was initiated for respiratory distress with CXR demonstrating worsening infiltrate. Antibiotics coverage was broadened and the patient was moved to the ICU and placed on BIPAP. Telemedicine Encounter - Telemedicine Encounter Telemedicine Encounter: The entirety of this encounter was performed via Telemedicine"
[2024-03-13] MEDS: SODIUM BICARBONATE PO SCH (10:49)
[2024-03-13] MEDS: Lasix 20 MG/2 ML IV SCH ×2 (10:50→15:31)
[2024-03-13] MEDS ORDERED: PHARMACY DOSING REQUIRED: VANCOMYCIN IV SCH (11:15)
[2024-03-13] MEDS: HUMALOG SQ PRN (12:13)
[2024-03-13] MEDS: VANCOMYCIN 1 GRAM/200 ML BAG 1 GM/200 ML PIGGYBACK IV SCH (12:13)
--- NOTE | 2024-03-13 13:36 | XRAY ---
Indication: Short of breath. Multiple contiguous axial images obtained through the chest using 80 cc Isovue 370 contrast and PE protocol. Comparison: August 28, 2021 Good opacification of the pulmonary arteries. However respiration artifact limits evaluation of the more distal lobar and segmental branches. No obvious pulmonary embolus. Heart is now borderline enlarged. Aorta is again mildly arteriosclerotic without aneurysm/dissection. Stable tiny subcarinal and left hilar calcified nodes. No pathologic mediastinal/hilar lymphadenopathy. Lungs again demonstrates moderate bilateral upper lobe airspace disease. New moderate bilateral effusions with mild bibasilar compressive atelectasis. Bony thorax intact again with osteopenia, flowing osteophytes throughout the spine, and right shoulder arthroplasty. Impression: 1. Respiration artifact limits evaluation for pulmonary embolus. No obvious pulmonary embolus. 2. New borderline cardiomegaly and moderate bilateral pleural effusions. Rule out cardiac decompensation/CHF versus fluid overload. 2. Again bilateral upper lobe airspace disease.
--- NOTE | 2024-03-13 14:08 | PCM.DS ---
Discharge Summary Date of Admission: 03/12/24 01:39 Date of Discharge: 03/13/24 Admitting Physician: JAKI STRICKLAND MD Consults: Consults on Case 03/13/24 08:16 Consult Cardiology ROUTINE Primary Care Provider: TYRONE,TYRONE Allergies Allergies No Known Drug Allergies Allergy (Verified 03/11/24 22:45) Hospital Summary - Hospital Course Hospital Course: 03/13/24 88-year-old male with history of COPD chronically on 2 L oxygen, A-fib, DM2, and HTN. He who presented on 03/12/24 3 days of worsening cough productive of green sputum associated with severe chills and diffuse generalized weakness. He has had decreased p.o. intake, and on 03/12 morning was lightheaded upon standing, and had a fall to the ground hitting his head on the floor. He has sone bruising to his eyes. CT showed no acute injury. Daughter did not want any facial xr's completed. He has no headache or neurologic changes. Initially was feeling poorly until getting fluids and Zosyn in the ED. On admission to floor on 03/12 he stated he was feeling improved, although still weak. He remained on his home 2 L oxygen. Denies any fevers, sick contacts, chest pain, nausea, diarrhea, or dysuria. Overnight he became SOB, a code rapid was called and he was tx to ICU. NOw on bipapat 40%. BNP 80579. Lactic acid 4.1, then repeat was 2.3. He was given 2 liters of NS bolus, He received a total of 60mg of lasix last night. Hie has a hx of a-fib and on admission heart rhythm was NSR and overnight changed to a-fib. Troponins are trending up and cardiology consulted. He appears to have cardiac decompensation and worsening pneumonia. CT of chest today shows; Respiration artifact limits evaluation for pulmonary embolus. No obvious pulmonary embolus. New borderline cardiomegaly and moderate bilateral pleural effusions. Rule out cardiac decompensation/CHF versus fluid overload. Again bilateral upper lobe airspace disease. Echo < 30% per instrument technologist. Awaiting cardiology recs. Will continue lasix BID. HORACE resolved. Antibiotics changed to Zosyn last night and IVF stopped. Pt was up and eating breakfast this AM then placed back on bipap afterward. He is awake and alert just c/o SOB. Lungs coarse. He denies CP, Abd. pain, N/V/D. Discussed with pt and daughter and pt wants to remain full code. - Vitals & Intake/Output Vital Signs: Vital Signs Temperature 97.0 F 03/13/24 13:24 Pulse Rate 68 03/13/24 13:24 Respiratory Rate 32 H 03/13/24 13:24 Blood Pressure 136/83 03/13/24 13:24 O2 Sat by Pulse Oximetry 100 03/13/24 13:24 Intake & Output: Intake & Output 03/11/24 03/12/24 03/13/24 03/14/24 11:59 11:59 11:59 11:59 Intake Total 780 4979 Output Total 200 1650 Balance 580 3329 Weight 65.1 kg - Lab Result Diagrams: 03/13/24 04:30 03/13/24 04:30 Lab Results-Last 24 Hrs: Lab Results-Last 24 Hours 03/12/24 03/12/24 03/13/24 Range/Units 16:31 21:21 02:46 WBC (4.0-10.5) x10^3/uL RBC (4.1-5.6) x10^6/uL Hgb (12.5-18.0) g/dL Hct (42-50) % MCV (78-100) fL MCH (26-32) pg MCHC (32-36) g/dL RDW (11.5-14.0) % Plt Count (150-450) x10^3/uL MPV (7.5-11.0) fL Puncture Site pCO2 (35-45) mmHg pO2 (75-100) mmHg Base Excess (-2.0-2.0) O2 Saturation (94-100) g/dF ABG pH (7.35-7.45) ABG HCO3 (22-28) ABG O2 Sat (Measured) (95-100) % Yosi Test A-a Gradient a/A Ratio Hemoglobin Carboxyhemoglobin (0.0-6.9) % THgb Methemoglobin (1.4-1.5) % Potassium (3.5-5.1) Temperature C POC O2 Flow Rate % Vent Mode Inspiratory BiPAP Expiratory BiPAP Sodium (135-145) mmol/L Chloride (98-107) mmol/L Carbon Dioxide (22-30) mmol/L Anion Gap (5-15) MEQ/L BUN (9-20) mg/dL Creatinine (0.66-1.25) mg/dL Estimated GFR ML/MIN Glucose (74-106) mg/dL POC Glucometer 119 H 148 H 153 H (74 to 106) mg/dL Lactic Acid (0.4-2.0) Calcium (8.4-10.2) mg/dL Total Bilirubin (0.2-1.3) mg/dL AST (17-59) U/L ALT (0-50) U/L Alkaline Phosphatase (38-126) U/L Creatine Kinase (55-170) U/L Troponin I (0.000-0.033) ng/mL NT-Pro-B Natriuret Pep (<300) pg/mL Serum Total Protein (6.3-8.2) g/dL Albumin (3.5-5.0) g/dL Urine Color (Yellow) Urine Appearance (Clear) Urine pH (4.6-8.0) Ur Specific [place] (1.005-1.030) Urine Protein (Negative) Urine Glucose (UA) (Negative) mg/dL Urine Ketones (Negative) Urine Blood (Negative) Urine Nitrite (Negative) Urine Bilirubin (Negative) Urine Urobilinogen (0.2) mg/dL Ur Leukocyte Esterase (Negative) U Hyaline Cast (Auto) (0-2) /LPF Urine Microscopic RBC (0-5) /HPF Urine Microscopic WBC (0-5) /HPF Ur Epithelial Cells (None Seen) /HPF Urine Bacteria (None Seen) /HPF 03/13/24 03/13/24 03/13/24 Range/Units 03:21 03:45 03:56 WBC (4.0-10.5) x10^3/uL RBC (4.1-5.6) x10^6/uL Hgb (12.5-18.0) g/dL Hct (42-50) % MCV (78-100) fL MCH (26-32) pg MCHC (32-36) g/dL RDW (11.5-14.0) % Plt Count (150-450) x10^3/uL MPV (7.5-11.0) fL Puncture Site LRA pCO2 31 L (35-45) mmHg pO2 62 L (75-100) mmHg Base Excess -6.3 L (-2.0-2.0) O2 Saturation 91.3 L (94-100) g/dF ABG pH 7.37 (7.35-7.45) ABG HCO3 17.9 L (22-28) ABG O2 Sat (Measured) 93.7 L (95-100) % Yosi Test YES A-a Gradient 99 a/A Ratio 0.39 Hemoglobin 13.3 Carboxyhemoglobin 1.8 (0.0-6.9) % THgb Methemoglobin 0.8 L (1.4-1.5) % Potassium 4.6 (3.5-5.1) Temperature 37.0 C POC O2 Flow Rate 28 % Vent Mode Inspiratory BiPAP Expiratory BiPAP Sodium (135-145) mmol/L Chloride (98-107) mmol/L Carbon Dioxide (22-30) mmol/L Anion Gap (5-15) MEQ/L BUN (9-20) mg/dL Creatinine (0.66-1.25) mg/dL Estimated GFR ML/MIN Glucose (74-106) mg/dL POC Glucometer (74 to 106) mg/dL Lactic Acid 4.1 H (0.4-2.0) Calcium (8.4-10.2) mg/dL Total Bilirubin (0.2-1.3) mg/dL AST (17-59) U/L ALT (0-50) U/L Alkaline Phosphatase (38-126) U/L Creatine Kinase (55-170) U/L Troponin I (0.000-0.033) ng/mL NT-Pro-B Natriuret Pep (<300) pg/mL Serum Total Protein (6.3-8.2) g/dL Albumin (3.5-5.0) g/dL Urine Color Yellow (Yellow) Urine Appearance Clear (Clear) Urine pH 5.0 (4.6-8.0) Ur Specific [place] 1.015 (1.005-1.030) Urine Protein 30 (Negative) Urine Glucose (UA) >=1000 A (Negative) mg/dL Urine Ketones Negative (Negative) Urine Blood Trace (Negative) Urine Nitrite Negative (Negative) Urine Bilirubin Negative (Negative) Urine Urobilinogen 1.0 A (0.2) mg/dL Ur Leukocyte Esterase Negative (Negative) U Hyaline Cast (Auto) 3-5 A (0-2) /LPF Urine Microscopic RBC 3-5 (0-5) /HPF Urine Microscopic WBC 0-2 (0-5) /HPF Ur Epithelial Cells None Seen (None Seen) /HPF Urine Bacteria None Seen (None Seen) /HPF 03/13/24 03/13/24 03/13/24 Range/Units 04:30 04:30 04:30 WBC 12.9 H (4.0-10.5) x10^3/uL RBC 4.02 L (4.1-5.6) x10^6/uL Hgb 12.9 D (12.5-18.0) g/dL Hct 40.8 L (42-50) % MCV 101.5 H (78-100) fL MCH 32.1 H (26-32) pg MCHC 31.6 L (32-36) g/dL RDW 15.1 H (11.5-14.0) % Plt Count 240 (150-450) x10^3/uL MPV 9.9 (7.5-11.0) fL Puncture Site pCO2 (35-45) mmHg pO2 (75-100) mmHg Base Excess (-2.0-2.0) O2 Saturation (94-100) g/dF ABG pH (7.35-7.45) ABG HCO3 (22-28) ABG O2 Sat (Measured) (95-100) % Yosi Test A-a Gradient a/A Ratio Hemoglobin Carboxyhemoglobin (0.0-6.9) % THgb Methemoglobin (1.4-1.5) % Potassium 4.3 (3.5-5.1) Temperature C POC O2 Flow Rate % Vent Mode Inspiratory BiPAP Expiratory BiPAP Sodium 145 (135-145) mmol/L Chloride 111 H (98-107) mmol/L Carbon Dioxide 18 L (22-30) mmol/L Anion Gap 20.6 H (5-15) MEQ/L BUN 33 H (9-20) mg/dL Creatinine 1.17 (0.66-1.25) mg/dL Estimated GFR 60.0 ML/MIN Glucose 230 H (74-106) mg/dL POC Glucometer (74 to 106) mg/dL Lactic Acid (0.4-2.0) Calcium 9.0 (8.4-10.2) mg/dL Total Bilirubin 1.30 (0.2-1.3) mg/dL AST 59 (17-59) U/L ALT 33 (0-50) U/L Alkaline Phosphatase 135 H (38-126) U/L Creatine Kinase (55-170) U/L Troponin I 0.156 H* (0.000-0.033) ng/mL NT-Pro-B Natriuret Pep 30511 (<300) pg/mL Serum Total Protein 8.3 H (6.3-8.2) g/dL Albumin 4.3 (3.5-5.0) g/dL Urine Color (Yellow) Urine Appearance (Clear) Urine pH (4.6-8.0) Ur Specific [place] (1.005-1.030) Urine Protein (Negative) Urine Glucose (UA) (Negative) mg/dL Urine Ketones (Negative) Urine Blood (Negative) Urine Nitrite (Negative) Urine Bilirubin (Negative) Urine Urobilinogen (0.2) mg/dL Ur Leukocyte Esterase (Negative) U Hyaline Cast (Auto) (0-2) /LPF Urine Microscopic RBC (0-5) /HPF Urine Microscopic WBC (0-5) /HPF Ur Epithelial Cells (None Seen) /HPF Urine Bacteria (None Seen) /HPF 03/13/24 03/13/24 03/13/24 Range/Units 04:30 04:56 07:14 WBC (4.0-10.5) x10^3/uL RBC (4.1-5.6) x10^6/uL Hgb (12.5-18.0) g/dL Hct (42-50) % MCV (78-100) fL MCH (26-32) pg MCHC (32-36) g/dL RDW (11.5-14.0) % Plt Count (150-450) x10^3/uL MPV (7.5-11.0) fL Puncture Site LRA pCO2 41 (35-45) mmHg pO2 108 H (75-100) mmHg Base Excess -11.5 L (-2.0-2.0) O2 Saturation 96.5 (94-100) g/dF ABG pH 7.20 L* (7.35-7.45) ABG HCO3 16.0 L* (22-28) ABG O2 Sat (Measured) 98.7 (95-100) % Yosi Test YES A-a Gradient 269 a/A Ratio 0.29 Hemoglobin 13.4 Carboxyhemoglobin 1.4 (0.0-6.9) % THgb Methemoglobin 0.8 L (1.4-1.5) % Potassium 4.6 (3.5-5.1) Temperature 37.0 C POC O2 Flow Rate 60 % Vent Mode Inspiratory BiPAP Expiratory BiPAP Sodium (135-145) mmol/L Chloride (98-107) mmol/L Carbon Dioxide (22-30) mmol/L Anion Gap (5-15) MEQ/L BUN (9-20) mg/dL Creatinine (0.66-1.25) mg/dL Estimated GFR ML/MIN Glucose (74-106) mg/dL POC Glucometer 196 H (74 to 106) mg/dL Lactic Acid (0.4-2.0) Calcium (8.4-10.2) mg/dL Total Bilirubin (0.2-1.3) mg/dL AST (17-59) U/L ALT (0-50) U/L Alkaline Phosphatase (38-126) U/L Creatine Kinase 182 H (55-170) U/L Troponin I (0.000-0.033) ng/mL NT-Pro-B Natriuret Pep (<300) pg/mL Serum Total Protein (6.3-8.2) g/dL Albumin (3.5-5.0) g/dL Urine Color (Yellow) Urine Appearance (Clear) Urine pH (4.6-8.0) Ur Specific [place] (1.005-1.030) Urine Protein (Negative) Urine Glucose (UA) (Negative) mg/dL Urine Ketones (Negative) Urine Blood (Negative) Urine Nitrite (Negative) Urine Bilirubin (Negative) Urine Urobilinogen (0.2) mg/dL Ur Leukocyte Esterase (Negative) U Hyaline Cast (Auto) (0-2) /LPF Urine Microscopic RBC (0-5) /HPF Urine Microscopic WBC (0-5) /HPF Ur Epithelial Cells (None Seen) /HPF Urine Bacteria (None Seen) /HPF 03/13/24 03/13/24 03/13/24 Range/Units 07:40 07:40 08:00 WBC (4.0-10.5) x10^3/uL RBC (4.1-5.6) x10^6/uL Hgb (12.5-18.0) g/dL Hct (42-50) % MCV (78-100) fL MCH (26-32) pg MCHC (32-36) g/dL RDW (11.5-14.0) % Plt Count (150-450) x10^3/uL MPV (7.5-11.0) fL Puncture Site RIGHT RADIAL pCO2 28 L (35-45) mmHg pO2 86 (75-100) mmHg Base Excess -8.7 L (-2.0-2.0) O2 Saturation 95.7 (94-100) g/dF ABG pH 7.35 (7.35-7.45) ABG HCO3 15.5 L* (22-28) ABG O2 Sat (Measured) 98.5 (95-100) % Yosi Test YES A-a Gradient 164 a/A Ratio 0.34 Hemoglobin 12.4 Carboxyhemoglobin 2.4 (0.0-6.9) % THgb Methemoglobin 0.4 L (1.4-1.5) % Potassium 4.2 (3.5-5.1) Temperature 37.0 C POC O2 Flow Rate 40 % Vent Mode BiPAP Inspiratory BiPAP 14 Expiratory BiPAP 8 Sodium (135-145) mmol/L Chloride (98-107) mmol/L Carbon Dioxide (22-30) mmol/L Anion Gap (5-15) MEQ/L BUN (9-20) mg/dL Creatinine (0.66-1.25) mg/dL Estimated GFR ML/MIN Glucose (74-106) mg/dL POC Glucometer (74 to 106) mg/dL Lactic Acid 2.3 H (0.4-2.0) Calcium (8.4-10.2) mg/dL Total Bilirubin (0.2-1.3) mg/dL AST (17-59) U/L ALT (0-50) U/L Alkaline Phosphatase (38-126) U/L Creatine Kinase (55-170) U/L Troponin I 0.335 H* (0.000-0.033) ng/mL NT-Pro-B Natriuret Pep (<300) pg/mL Serum Total Protein (6.3-8.2) g/dL Albumin (3.5-5.0) g/dL Urine Color (Yellow) Urine Appearance (Clear) Urine pH (4.6-8.0) Ur Specific [place] (1.005-1.030) Urine Protein (Negative) Urine Glucose (UA) (Negative) mg/dL Urine Ketones (Negative) Urine Blood (Negative) Urine Nitrite (Negative) Urine Bilirubin (Negative) Urine Urobilinogen (0.2) mg/dL Ur Leukocyte Esterase (Negative) U Hyaline Cast (Auto) (0-2) /LPF Urine Microscopic RBC (0-5) /HPF Urine Microscopic WBC (0-5) /HPF Ur Epithelial Cells (None Seen) /HPF Urine Bacteria (None Seen) /HPF 03/13/24 03/13/24 03/13/24 Range/Units 11:02 11:05 11:36 WBC (4.0-10.5) x10^3/uL RBC (4.1-5.6) x10^6/uL Hgb (12.5-18.0) g/dL Hct (42-50) % MCV (78-100) fL MCH (26-32) pg MCHC (32-36) g/dL RDW (11.5-14.0) % Plt Count (150-450) x10^3/uL MPV (7.5-11.0) fL Puncture Site pCO2 (35-45) mmHg pO2 (75-100) mmHg Base Excess (-2.0-2.0) O2 Saturation (94-100) g/dF ABG pH (7.35-7.45) ABG HCO3 (22-28) ABG O2 Sat (Measured) (95-100) % Yosi Test A-a Gradient a/A Ratio Hemoglobin Carboxyhemoglobin (0.0-6.9) % THgb Methemoglobin (1.4-1.5) % Potassium (3.5-5.1) Temperature C POC O2 Flow Rate % Vent Mode Inspiratory BiPAP Expiratory BiPAP Sodium (135-145) mmol/L Chloride (98-107) mmol/L Carbon Dioxide (22-30) mmol/L Anion Gap (5-15) MEQ/L BUN (9-20) mg/dL Creatinine (0.66-1.25) mg/dL Estimated GFR ML/MIN Glucose (74-106) mg/dL POC Glucometer 225 H (74 to 106) mg/dL Lactic Acid 3.8 H (0.4-2.0) Calcium (8.4-10.2) mg/dL Total Bilirubin (0.2-1.3) mg/dL AST (17-59) U/L ALT (0-50) U/L Alkaline Phosphatase (38-126) U/L Creatine Kinase (55-170) U/L Troponin I 0.507 H* (0.000-0.033) ng/mL NT-Pro-B Natriuret Pep (<300) pg/mL Serum Total Protein (6.3-8.2) g/dL Albumin (3.5-5.0) g/dL Urine Color (Yellow) Urine Appearance (Clear) Urine pH (4.6-8.0) Ur Specific [place] (1.005-1.030) Urine Protein (Negative) Urine Glucose (UA) (Negative) mg/dL Urine Ketones (Negative) Urine Blood (Negative) Urine Nitrite (Negative) Urine Bilirubin (Negative) Urine Urobilinogen (0.2) mg/dL Ur Leukocyte Esterase (Negative) U Hyaline Cast (Auto) (0-2) /LPF Urine Microscopic RBC (0-5) /HPF Urine Microscopic WBC (0-5) /HPF Ur Epithelial Cells (None Seen) /HPF Urine Bacteria (None Seen) /HPF Micro Results-Entire Visit: Microbiology 03/11/24 22:59 Urine Culture - Final Catherized NO GROWTH 03/11/24 23:55 Blood Culture - Preliminary Blood 03/11/24 22:55 Blood Culture - Preliminary Blood Accuchecks Date 03/13/24 Date 03/13/24 Date 03/12/24 Time 11:44 Time 07:46 Time 16:57 - Radiology Exams Ordered Rad Exams-Entire Visit: Radiology Procedures Category Date Time Status CHEST 1 VIEW (PORTABLE) Stat Exams 03/11/24 23:28 Completed CHEST 1 VIEW (PORTABLE) Stat Exams 03/13/24 03:45 Completed CHEST WITH CONTRAST [CT] Stat Exams 03/13/24 08:47 Completed ECHO W/2D AND DOPPLER [US] Routine Exams 03/13/24 09:56 Taken HEAD WITHOUT CONTRAST [CT] Stat Exams 03/11/24 23:17 Completed MODIFIED BARIUM SWALLOW EXAM Routine Exams 03/14/24 11:16 Ordered - Procedures and Test Procedures and Tests throughout Hospitalization: Therapy Orders & Screens 03/12/24 02:54 Oxygen Nasal Cannula 2 lpm Comment: Diagnosis: upper respiratory infection 03/12/24 03:52 Respiratory Therapy Assessment DAILY Comment: Diagnosis: cough, weakness 03/12/24 08:00 OT Screen per Nursing Assess ONCE Comment: Protocol Order Physician Instructions: Greater than 3 points order OT Admission Screening Reason For Exam: Triggered on Admission Diagnosis: upper respiratory infection Open Wound/Cellutlitis/Pressure Ulcers: Yes Acute Fx/ORIF/Change in wt bearing status: No Severe MUSCULOSKELETAL pain: No ADL Dysfunction: Yes Acute CVA w/Hemiparesis/Hemiplegia: No Decreased Functional Mobility/Strength: Yes Sprain/Strain: No Acute Post-op Mobility Dysfunction: No Total Points: 9 PT Screen per Nursing Assess ONCE Comment: Protocol Order Physician Instructions: Greater than 3 points order PT Admission Screenin Reason For Exam: Triggered on Admission Diagnosis: upper respiratory infection Open Wound/Cellutlitis/Pressure Ulcers: Yes Acute Fx/ORIF/Change in wt bearing status: No Severe MUSCULOSKELETAL pain: No ADL Dysfunction: Yes Acute CVA w/Hemiparesis/Hemiplegia: No Decreased Functional Mobility/Strength: Yes Sprain/Strain: No Acute Post-op Mobility Dysfunction: No Total Points: 9 03/12/24 08:30 Incentive Spirometry TID Comment: Diagnosis: cough, weakness 03/13/24 06:42 BiPap/CPAP ROUTINE Comment: Diagnosis: cough, weakness Discharge Exam General Appearance: no apparent distress, alert Neurologic Exam: alert, oriented x 3, cooperative, normal mood/affect, nml cere bellar function, sensation nml, No motor deficits Eye Exam: PERRL, EOMI, eyes nml inspection Ears, Nose, Throat Exam: normal ENT inspection, pharynx normal, moist mucous membranes Neck Exam: normal inspection, non-tender, supple, full range of motion Respiratory Exam: normal breath sounds, crackles/rales, No respiratory distress Cardiovascular Exam: normal heart sounds, irregular Gastrointestinal/Abdomen Exam: soft, No tenderness, No mass Male Genitalia Exam: deferred Rectal Exam: deferred Back Exam: normal inspection, normal range of motion, No CVA tenderness, No vert ebral tenderness Extremity Exam: normal inspection, normal range of motion Skin Exam: normal color, warm, dry Wound Assessment: Skin/Wound Assessment Wound/Incision Assessment Start: 03/12/24 02:44 Text: Status: Active Freq: Q6H Protocol: Document 03/13/24 07:17 [email or web address] (Rec: 03/13/24 07:32 [email or web address] [id number]) Wound/Incision Assessment Bilateral Bottom/Sacrum Wound Assessment Shift Assessment Wound Type Pressure Ulcer Wound Stage Stage I General Appearance Open to air,Reddened Comment BARRIER CREAM APPLIED Left Gluteal Fold Wound Assessment Shift Assessment Wound Type REDNESS Wound Stage Non Pressure Wound General Appearance Open to air,Clean/Dry,Reddened Comment BARRIER CREAM APPLIED Left Upper Arm Wound Assessment Shift Assessment Wound Type Skin Tear Drainage Amount None General Appearance Open to air Wound Photo Photo Taken No Final Diagnosis/Problem List - Final Discharge Diagnosis/Problem (1) Sepsis Current Visit: Yes Status: Acute Assessment & Plan: - 2:2 pneumonia - resp failure now on bipap in ICU - Lactic acid 4.1 2 liters fluid bolus gave last night, repeat lactic acid 2.3 - repeat lactic again 3 hours later 3.8- Lactic acid ordered for 4 hours later and was repeated early by RT, not as ordered- advised another lactic acid in 4 hours - Unable to give fluids at this time due to cardiac decompensation - Resp > 20, HR > 90, WBC 12.9, PCo2 28 - See pneumonia plan (2) Pneumonia Current Visit: Yes Status: Acute Assessment & Plan: - Antibiotic changed to Zosyn, vancomycin - continue duonebs, steriods, advair - increased SOB last night - Now on bipap 40% - Pulm consult - Chest XR 03/11 Portable chest again demonstrates minimal bibasilar discoid atelectasis/scarring and tiny left base calcified granuloma. Remaining lungs clear. Heart not enlarged. Bony thorax intact again with osteopenia, degenerative changes, and right shoulder arthroplasty - CXR 03/13 IMPRESSION: Bilateral lower lung zones airspace opacities likely infection. Follow-up is advised. Blunting of bilateral costophrenic angles likely pleural effusion - Chest CT 03/13 Impression: 1. Respiration artifact limits evaluation for pulmonary embolus. No obvious pulmonary embolus. 2. New borderline cardiomegaly and moderate bilateral pleural effusions. Rule out cardiac decompensation/CHF versus fluid overload. 2. Again bilateral upper lobe airspace disease. Code(s): J18.9 - PNEUMONIA, UNSPECIFIED ORGANISM (3) CHF (congestive heart failure) Current Visit: Yes Status: Acute Assessment & Plan: - acute on chronic - uncompensated, left sided - EF per instrument technologist < 30% - Cardiology consult - Bipap 40% - BNP 08258 - Lasix 20mg BID - appears to be worsening per CT results - [place] in place as pt is weak and in ICU, there was concern for urinary retention, need accurate I&O's. Code(s): I50.9 - HEART FAILURE, UNSPECIFIED (4) A-fib Current Visit: Yes Status: Acute Assessment & Plan: - chronic - Xarelto - tele - controlled Code(s): I48.91 - UNSPECIFIED ATRIAL FIBRILLATION (5) Acute kidney injury Current Visit: Yes Status: Resolved Assessment & Plan: - resolved Code(s): N17.9 - ACUTE KIDNEY FAILURE, UNSPECIFIED (6) COPD (chronic obstructive pulmonary disease) Current Visit: No Status: Acute Assessment & Plan: - acute on chronic - now on Bipap 40% - consult pulm - Baseline 2lNC (7) Elevated troponin Current Visit: No Status: Acute Assessment & Plan: - trop 0.156, 0.335, 0.507 - cardiology consulted - echo EF < 30% per instrument technologist - pt denies CP Code(s): R77.8 - OTHER SPECIFIED ABNORMALITIES OF PLASMA PROTEINS (8) Diabetes type 2, controlled Current Visit: No Status: Chronic Assessment & Plan: - A1C 6.38 controlled - Humalog s/s Code(s): E11.9 - TYPE 2 DIABETES MELLITUS WITHOUT COMPLICATIONS (9) Hypertension Current Visit: No Status: Chronic Assessment & Plan: - controlled - continue BP meds Code(s): I10 - ESSENTIAL (PRIMARY) HYPERTENSION - Discharge Discharge Date: 03/13/24 Disposition: Home, Self-Care Condition: Stable Prescriptions: Continue Glimepiride [Amaryl] 1 mg PO DAILY Losartan Potassium [Cozaar] 50 mg PO DAILY Albuterol Sulfate [Albuterol Sulfate Hfa] 8.5 gm IH BID Rivaroxaban [Xarelto] 20 mg PO DAILY Lubiprostone 8 mcg PO BID Fluticasone/Vilanterol [Breo Ellipta 100-25 Mcg Inhalr] 1 puff IH DAILY Oxycodone HCl 15 mg PO Q6H PRN PRN PRN Reason: Pain Metoprolol Succinate 25 mg Xl* [Toprol-Xl 25MG Tablets] 25 mg PO DAILY #30 tab Acetaminophen 500 mg [Tylenol Extra Strength 500 mg] 325 mg PO TID Dapagliflozin Propanediol [Farxiga] 10 mg PO DAILY Famotidine 20 mg [Pepcid 20 MG] 20 mg PO BID Gabapentin 100 mg PO TID Blood-Glucose Meter [Accu-Chek Guide Me Glucose Mtr] 1 each UD #1 misc Blood Sugar Diagnostic [Accu-Chek Guide Test Strip] 1 each ACHS #100 strip Lancets [Accu-Chek Softclix] 1 each ACHS #100 misc Senna/Docusate Sodium Tab [Senokot-S Tablet] 1 udtab PO BID Zinc Gluconate [Zinc] 50 mg PO DAILY Additional Instructions: [facility] HAS BEEN SET UP AGAIN. THEY WILL REACH OUT TO ARRANGE AN APT TO COME SEE YOU. THEIR PHONE NUMBER IS [phone] IF YOU NEED ANYTHING BEFORE THEIR FIRST VISIT Follow up with: CEE ALLEN [ACTIVE STAFF] - TYRONE HANSEN MD [Primary Care Provider] - Neymar Gallegos MD [CONSULTING PHYSICIAN] -
[2024-03-13] MEDS: PIPERACILLIN/TAZOBACTAM 3.375 GM in Sodium Chloride 100ML MINI-BAG PLUS 100 ML IV SCH (14:24)
--- NOTE | 2024-03-13 17:57 | PCM.NOTE ---
Date and Time: 03/13/241752 Subjective Assessment: 03/13/24 88-year-old male with history of COPD chronically on 2 L oxygen, A-fib, DM2, and HTN. He who presented on 03/12/24 3 days of worsening cough productive of green sputum associated with severe chills and diffuse generalized weakness. He has had decreased p.o. intake, and on 03/12 morning was lightheaded upon standing, and had a fall to the ground hitting his head on the floor. He has sone bruising to his eyes. CT showed no acute injury. Daughter did not want any facial xr's completed. He has no headache or neurologic changes. Initially was feeling poorly until getting fluids and Zosyn in the ED. On admission to floor on 03/12 he stated he was feeling improved, although still weak. He remained on his home 2 L oxygen. Denies any fevers, sick contacts, chest pain, nausea, diarrhea, or dysuria. Overnight he became SOB, a code rapid was called and he was tx to ICU. Now on bipap at 40%. BNP 06854. Lactic acid 4.1, then repeat was 2.3. He was given 2 liters of NS bolus, He received a total of 60mg of lasix last night. Hie has a hx of a-fib and on admission heart rhythm was NSR and overnight changed to a-fib. Troponins are trending up and cardiology consulted. He appears to have cardiac decompensation and worsening pneumonia. CT of chest today shows; Respiration artifact limits evaluation for pulmonary embolus. No obvious pulmonary embolus. New borderline cardiomegaly and moderate bilateral pleural effusions. Rule out cardiac decompensation/CHF versus fluid overload. Again jerzy ateral upper lobe airspace disease. Echo < 30% per criminalist technician. Awaiting cardiology recs. Will continue lasix BID. HORACE resolved. Antibiotics changed to Zosyn last night and IVF stopped. Pt was up and eating breakfast this AM then placed back on bipap afterward. He is awake and alert just c/o SOB. Lungs coarse. He denies CP, Abd. pain, N/V/D. Discussed with pt and daughter and pt wants to remain full code. Cardiology consulted and asked family to consider changing code status as EF is low and may have poor outcome. Family discussed code status again with pt and he wants to remain a full code. Pulm consulted and unable to see pt until tomorrow. At this time family wants to remain at [facility]. - Review of Systems Constitutional: Weakness, No Fever, No Chills Eyes: No Symptoms Ears, Nose, & Throat: No Symptoms Respiratory: Short Of Breath, No Cough Cardiac: Orthopnea, No Chest Pain, No Edema, No Syncope Abdominal/Gastrointestinal: No Abdominal Pain, No Nausea, No Vomiting, No Diarrhea Genitourinary Symptoms: No Dysuria Musculoskeletal: No Back Pain, No Neck Pain Skin: No Rash Neurological: No Dizziness, No Focal Weakness, No Sensory Changes Psychological: No Symptoms Endocrine: No Symptoms Hematologic/Lymphatic: No Symptoms Immunological/Allergic: No Symptoms Objective Exam General Appearance: no apparent distress, alert Neurologic Exam: alert, oriented x 3, cooperative, normal mood/affect, nml cerebellar function, sensation nml, No motor deficits Skin Exam: normal color, warm, dry Wound Assessment: Skin/Wound Assessment Wound/Incision Assessment Start: 03/12/24 02:44 Text: Status: Active Freq: Q6H Protocol: Document 03/13/24 14:00 [facility] (Rec: 03/13/24 14:41 [facility] [id number]) Wound/Incision Assessment Bilateral Bottom/Sacrum Wound Assessment Shift Assessment Wound Type Pressure Ulcer Wound Stage Stage I General Appearance Open to air,Reddened Left Gluteal Fold Wound Assessment Shift Assessment Wound Type REDNESS Wound Stage Non Pressure Wound General Appearance Open to air,Reddened Left Upper Arm Wound Assessment Shift Assessment Wound Type Skin Tear Wound Stage Non Pressure Wound Drainage Amount None General Appearance Open to air Wound Photo Photo Taken No Eye Exam: PERRL, EOMI, eyes nml inspection Ears, Nose, Throat Exam: normal ENT inspection, pharynx normal, moist mucous membranes Neck Exam: normal inspection, non-tender, supple, full range of motion Respiratory Exam: crackles/rales, No respiratory distress Cardiovascular Exam: irregular Gastrointestinal/Abdomen Exam: soft, No tenderness, No mass Extremity Exam: normal inspection, normal range of motion Back Exam: normal inspection, normal range of motion, No CVA tenderness, No vertebral tenderness Male Genitalia Exam: deferred Rectal Exam: deferred Objective Data Vital Signs: Vital Signs - 24 hr Temp Pulse Resp BP BP Pulse Ox 03/13/24 17:00 63 26 H 92/61 03/13/24 16:00 86 24 131/94 96 03/13/24 15:01 70 28 H 130/62 90 L 03/13/24 14:08 66 22 139/83 97 03/13/24 13:24 97.0 F 68 32 H 136/83 100 03/13/24 13:21 79 32 H 99 03/13/24 12:00 90 31 H 119/73 99 03/13/24 11:00 91 H 26 H 136/79 97 03/13/24 10:00 98.2 F 87 35 H 123/92 96 03/13/24 09:00 97 H 37 H 130/94 98 03/13/24 08:00 98.6 F 118 H 123/73 87 L 03/13/24 07:17 84 03/13/24 07:00 98.8 F 100 H 35 H 117/55 97 03/13/24 06:38 84 30 H 96 03/13/24 06:00 83 28 H 115/59 96 03/13/24 05:58 101 H 36 H 106/69 90 L 03/13/24 05:31 101 H 143/86 96 03/13/24 05:16 161/105 96 03/13/24 05:00 103 H 36 H 149/106 90 L 03/13/24 04:22 124 H 36 H 147/100 80 L 03/13/24 04:21 131 H 34 H 85 L 03/13/24 04:10 126 H 37 H 03/13/24 04:00 128 H 37 H 03/13/24 03:50 130 H 28 H 03/13/24 03:40 134 H 35 H 90 L 03/13/24 03:37 133 H 21 76 L 03/13/24 03:00 113 H 36 H 03/13/24 02:29 87 40 H 94 L 03/12/24 23:54 98.7 F 87 20 131/81 93 L 03/12/24 20:07 88 16 99 03/12/24 18:59 98.1 F 88 16 116/58 99 Pain Assessment - Last Documented Pain Intensity 4 Pain Scale Used 0-10 Pain Scale Intake and Output: Intake & Output 03/11/24 03/12/24 03/13/24 03/14/24 11:59 11:59 11:59 11:59 Intake Total 780 4979 340 Output Total 200 1650 900 Balance 580 6379 -560 Weight 65.1 kg Lab Results: Lab Results-Last 24 Hours 03/12/24 03/13/24 03/13/24 Range/Units 21:21 02:46 03:21 WBC (4.0-10.5) x10^3/uL RBC (4.1-5.6) x10^6/uL Hgb (12.5-18.0) g/dL Hct (42-50) % MCV (78-100) fL MCH (26-32) pg MCHC (32-36) g/dL RDW (11.5-14.0) % Plt Count (150-450) x10^3/uL MPV (7.5-11.0) fL Puncture Site LRA pCO2 31 L (35-45) mmHg pO2 62 L (75-100) mmHg Base Excess -6.3 L (-2.0-2.0) O2 Saturation 91.3 L (94-100) g/dF ABG pH 7.37 (7.35-7.45) ABG HCO3 17.9 L (22-28) ABG O2 Sat (Measured) 93.7 L (95-100) % Yosi Test YES A-a Gradient 99 a/A Ratio 0.39 Hemoglobin 13.3 Carboxyhemoglobin 1.8 (0.0-6.9) % THgb Methemoglobin 0.8 L (1.4-1.5) % Potassium 4.6 (3.5-5.1) Temperature 37.0 C POC O2 Flow Rate 28 % Vent Mode Inspiratory BiPAP Expiratory BiPAP Sodium (135-145) mmol/L Chloride (98-107) mmol/L Carbon Dioxide (22-30) mmol/L Anion Gap (5-15) MEQ/L BUN (9-20) mg/dL Creatinine (0.66-1.25) mg/dL Estimated GFR ML/MIN Glucose (74-106) mg/dL POC Glucometer 148 H 153 H (74 to 106) mg/dL Lactic Acid (0.4-2.0) Calcium (8.4-10.2) mg/dL Total Bilirubin (0.2-1.3) mg/dL AST (17-59) U/L ALT (0-50) U/L Alkaline Phosphatase (38-126) U/L Creatine Kinase (55-170) U/L Troponin I (0.000-0.033) ng/mL NT-Pro-B Natriuret Pep (<300) pg/mL Serum Total Protein (6.3-8.2) g/dL Albumin (3.5-5.0) g/dL Urine Color (Yellow) Urine Appearance (Clear) Urine pH (4.6-8.0) Ur Specific Edwards (1.005-1.030) Urine Protein (Negative) Urine Glucose (UA) (Negative) mg/dL Urine Ketones (Negative) Urine Blood (Negative) Urine Nitrite (Negative) Urine Bilirubin (Negative) Urine Urobilinogen (0.2) mg/dL Ur Leukocyte Esterase (Negative) U Hyaline Cast (Auto) (0-2) /LPF Urine Microscopic RBC (0-5) /HPF Urine Microscopic WBC (0-5) /HPF Ur Epithelial Cells (None Seen) /HPF Urine Bacteria (None Seen) /HPF 03/13/24 03/13/24 03/13/24 Range/Units 03:45 03:56 04:30 WBC 12.9 H (4.0-10.5) x10^3/uL RBC 4.02 L (4.1-5.6) x10^6/uL Hgb 12.9 D (12.5-18.0) g/dL Hct 40.8 L (42-50) % MCV 101.5 H (78-100) fL MCH 32.1 H (26-32) pg MCHC 31.6 L (32-36) g/dL RDW 15.1 H (11.5-14.0) % Plt Count 240 (150-450) x10^3/uL MPV 9.9 (7.5-11.0) fL Puncture Site pCO2 (35-45) mmHg pO2 (75-100) mmHg Base Excess (-2.0-2.0) O2 Saturation (94-100) g/dF ABG pH (7.35-7.45) ABG HCO3 (22-28) ABG O2 Sat (Measured) (95-100) % Yosi Test A-a Gradient a/A Ratio Hemoglobin Carboxyhemoglobin (0.0-6.9) % THgb Methemoglobin (1.4-1.5) % Potassium (3.5-5.1) Temperature C POC O2 Flow Rate % Vent Mode Inspiratory BiPAP Expiratory BiPAP Sodium (135-145) mmol/L Chloride (98-107) mmol/L Carbon Dioxide (22-30) mmol/L Anion Gap (5-15) MEQ/L BUN (9-20) mg/dL Creatinine (0.66-1.25) mg/dL Estimated GFR ML/MIN Glucose (74-106) mg/dL POC Glucometer (74 to 106) mg/dL Lactic Acid 4.1 H (0.4-2.0) Calcium (8.4-10.2) mg/dL Total Bilirubin (0.2-1.3) mg/dL AST (17-59) U/L ALT (0-50) U/L Alkaline Phosphatase (38-126) U/L Creatine Kinase (55-170) U/L Troponin I (0.000-0.033) ng/mL NT-Pro-B Natriuret Pep (<300) pg/mL Serum Total Protein (6.3-8.2) g/dL Albumin (3.5-5.0) g/dL Urine Color Yellow (Yellow) Urine Appearance Clear (Clear) Urine pH 5.0 (4.6-8.0) Ur Specific Edwards 1.015 (1.005-1.030) Urine Protein 30 (Negative) Urine Glucose (UA) >=1000 A (Negative) mg/dL Urine Ketones Negative (Negative) Urine Blood Trace (Negative) Urine Nitrite Negative (Negative) Urine Bilirubin Negative (Negative) Urine Urobilinogen 1.0 A (0.2) mg/dL Ur Leukocyte Esterase Negative (Negative) U Hyaline Cast (Auto) 3-5 A (0-2) /LPF Urine Microscopic RBC 3-5 (0-5) /HPF Urine Microscopic WBC 0-2 (0-5) /HPF Ur Epithelial Cells None Seen (None Seen) /HPF Urine Bacteria None Seen (None Seen) /HPF 03/13/24 03/13/24 03/13/24 Range/Units 04:30 04:30 04:30 WBC (4.0-10.5) x10^3/uL RBC (4.1-5.6) x10^6/uL Hgb (12.5-18.0) g/dL Hct (42-50) % MCV (78-100) fL MCH (26-32) pg MCHC (32-36) g/dL RDW (11.5-14.0) % Plt Count (150-450) x10^3/uL MPV (7.5-11.0) fL Puncture Site pCO2 (35-45) mmHg pO2 (75-100) mmHg Base Excess (-2.0-2.0) O2 Saturation (94-100) g/dF ABG pH (7.35-7.45) ABG HCO3 (22-28) ABG O2 Sat (Measured) (95-100) % Yosi Test A-a Gradient a/A Ratio Hemoglobin Carboxyhemoglobin (0.0-6.9) % THgb Methemoglobin (1.4-1.5) % Potassium 4.3 (3.5-5.1) Temperature C POC O2 Flow Rate % Vent Mode Inspiratory BiPAP Expiratory BiPAP Sodium 145 (135-145) mmol/L Chloride 111 H (98-107) mmol/L Carbon Dioxide 18 L (22-30) mmol/L Anion Gap 20.6 H (5-15) MEQ/L BUN 33 H (9-20) mg/dL Creatinine 1.17 (0.66-1.25) mg/dL Estimated GFR 60.0 ML/MIN Glucose 230 H (74-106) mg/dL POC Glucometer (74 to 106) mg/dL Lactic Acid (0.4-2.0) Calcium 9.0 (8.4-10.2) mg/dL Total Bilirubin 1.30 (0.2-1.3) mg/dL AST 59 (17-59) U/L ALT 33 (0-50) U/L Alkaline Phosphatase 135 H (38-126) U/L Creatine Kinase 182 H (55-170) U/L Troponin I 0.156 H* (0.000-0.033) ng/mL NT-Pro-B Natriuret Pep 13576 (<300) pg/mL Serum Total Protein 8.3 H (6.3-8.2) g/dL Albumin 4.3 (3.5-5.0) g/dL Urine Color (Yellow) Urine Appearance (Clear) Urine pH (4.6-8.0) Ur Specific Edwards (1.005-1.030) Urine Protein (Negative) Urine Glucose (UA) (Negative) mg/dL Urine Ketones (Negative) Urine Blood (Negative) Urine Nitrite (Negative) Urine Bilirubin (Negative) Urine Urobilinogen (0.2) mg/dL Ur Leukocyte Esterase (Negative) U Hyaline Cast (Auto) (0-2) /LPF Urine Microscopic RBC (0-5) /HPF Urine Microscopic WBC (0-5) /HPF Ur Epithelial Cells (None Seen) /HPF Urine Bacteria (None Seen) /HPF 03/13/24 03/13/24 03/13/24 Range/Units 04:56 07:14 07:40 WBC (4.0-10.5) x10^3/uL RBC (4.1-5.6) x10^6/uL Hgb (12.5-18.0) g/dL Hct (42-50) % MCV (78-100) fL MCH (26-32) pg MCHC (32-36) g/dL RDW (11.5-14.0) % Plt Count (150-450) x10^3/uL MPV (7.5-11.0) fL Puncture Site LRA pCO2 41 (35-45) mmHg pO2 108 H (75-100) mmHg Base Excess -11.5 L (-2.0-2.0) O2 Saturation 96.5 (94-100) g/dF ABG pH 7.20 L* (7.35-7.45) ABG HCO3 16.0 L* (22-28) ABG O2 Sat (Measured) 98.7 (95-100) % Yosi Test YES A-a Gradient 269 a/A Ratio 0.29 Hemoglobin 13.4 Carboxyhemoglobin 1.4 (0.0-6.9) % THgb Methemoglobin 0.8 L (1.4-1.5) % Potassium 4.6 (3.5-5.1) Temperature 37.0 C POC O2 Flow Rate 60 % Vent Mode Inspiratory BiPAP Expiratory BiPAP Sodium (135-145) mmol/L Chloride (98-107) mmol/L Carbon Dioxide (22-30) mmol/L Anion Gap (5-15) MEQ/L BUN (9-20) mg/dL Creatinine (0.66-1.25) mg/dL Estimated GFR ML/MIN Glucose (74-106) mg/dL POC Glucometer 196 H (74 to 106) mg/dL Lactic Acid 2.3 H (0.4-2.0) Calcium (8.4-10.2) mg/dL Total Bilirubin (0.2-1.3) mg/dL AST (17-59) U/L ALT (0-50) U/L Alkaline Phosphatase (38-126) U/L Creatine Kinase (55-170) U/L Troponin I (0.000-0.033) ng/mL NT-Pro-B Natriuret Pep (<300) pg/mL Serum Total Protein (6.3-8.2) g/dL Albumin (3.5-5.0) g/dL Urine Color (Yellow) Urine Appearance (Clear) Urine pH (4.6-8.0) Ur Specific Edwards (1.005-1.030) Urine Protein (Negative) Urine Glucose (UA) (Negative) mg/dL Urine Ketones (Negative) Urine Blood (Negative) Urine Nitrite (Negative) Urine Bilirubin (Negative) Urine Urobilinogen (0.2) mg/dL Ur Leukocyte Esterase (Negative) U Hyaline Cast (Auto) (0-2) /LPF Urine Microscopic RBC (0-5) /HPF Urine Microscopic WBC (0-5) /HPF Ur Epithelial Cells (None Seen) /HPF Urine Bacteria (None Seen) /HPF 03/13/24 03/13/24 03/13/24 Range/Units 07:40 08:00 11:02 WBC (4.0-10.5) x10^3/uL RBC (4.1-5.6) x10^6/uL Hgb (12.5-18.0) g/dL Hct (42-50) % MCV (78-100) fL MCH (26-32) pg MCHC (32-36) g/dL RDW (11.5-14.0) % Plt Count (150-450) x10^3/uL MPV (7.5-11.0) fL Puncture Site RIGHT RADIAL pCO2 28 L (35-45) mmHg pO2 86 (75-100) mmHg Base Excess -8.7 L (-2.0-2.0) O2 Saturation 95.7 (94-100) g/dF ABG pH 7.35 (7.35-7.45) ABG HCO3 15.5 L* (22-28) ABG O2 Sat (Measured) 98.5 (95-100) % Yosi Test YES A-a Gradient 164 a/A Ratio 0.34 Hemoglobin 12.4 Carboxyhemoglobin 2.4 (0.0-6.9) % THgb Methemoglobin 0.4 L (1.4-1.5) % Potassium 4.2 (3.5-5.1) Temperature 37.0 C POC O2 Flow Rate 40 % Vent Mode BiPAP Inspiratory BiPAP 14 Expiratory BiPAP 8 Sodium (135-145) mmol/L Chloride (98-107) mmol/L Carbon Dioxide (22-30) mmol/L Anion Gap (5-15) MEQ/L BUN (9-20) mg/dL Creatinine (0.66-1.25) mg/dL Estimated GFR ML/MIN Glucose (74-106) mg/dL POC Glucometer (74 to 106) mg/dL Lactic Acid (0.4-2.0) Calcium (8.4-10.2) mg/dL Total Bilirubin (0.2-1.3) mg/dL AST (17-59) U/L ALT (0-50) U/L Alkaline Phosphatase (38-126) U/L Creatine Kinase (55-170) U/L Troponin I 0.335 H* 0.507 H* (0.000-0.033) ng/mL NT-Pro-B Natriuret Pep (<300) pg/mL Serum Total Protein (6.3-8.2) g/dL Albumin (3.5-5.0) g/dL Urine Color (Yellow) Urine Appearance (Clear) Urine pH (4.6-8.0) Ur Specific Edwards (1.005-1.030) Urine Protein (Negative) Urine Glucose (UA) (Negative) mg/dL Urine Ketones (Negative) Urine Blood (Negative) Urine Nitrite (Negative) Urine Bilirubin (Negative) Urine Urobilinogen (0.2) mg/dL Ur Leukocyte Esterase (Negative) U Hyaline Cast (Auto) (0-2) /LPF Urine Microscopic RBC (0-5) /HPF Urine Microscopic WBC (0-5) /HPF Ur Epithelial Cells (None Seen) /HPF Urine Bacteria (None Seen) /HPF 03/13/24 03/13/2403/13/24 Range/Units 11:05 11:36 14:50 WBC (4.0-10.5) x10^3/uL RBC (4.1-5.6) x10^6/uL Hgb (12.5-18.0) g/dL Hct (42-50) % MCV (78-100) fL MCH (26-32) pg MCHC (32-36) g/dL RDW (11.5-14.0) % Plt Count (150-450) x10^3/uL MPV (7.5-11.0) fL Puncture Site pCO2 (35-45) mmHg pO2 (75-100) mmHg Base Excess (-2.0-2.0) O2 Saturation (94-100) g/dF ABG pH (7.35-7.45) ABG HCO3 (22-28) ABG O2 Sat (Measured) (95-100) % Yosi Test A-a Gradient a/A Ratio Hemoglobin Carboxyhemoglobin (0.0-6.9) % THgb Methemoglobin (1.4-1.5) % Potassium (3.5-5.1) Temperature C POC O2 Flow Rate % Vent Mode Inspiratory BiPAP Expiratory BiPAP Sodium (135-145) mmol/L Chloride (98-107) mmol/L Carbon Dioxide (22-30) mmol/L Anion Gap (5-15) MEQ/L BUN (9-20) mg/dL Creatinine (0.66-1.25) mg/dL Estimated GFR ML/MIN Glucose (74-106) mg/dL POC Glucometer 225 H (74 to 106) mg/dL Lactic Acid 3.8 H 2.3 H (0.4-2.0) Calcium (8.4-10.2) mg/dL Total Bilirubin (0.2-1.3) mg/dL AST (17-59) U/L ALT (0-50) U/L Alkaline Phosphatase (38-126) U/L Creatine Kinase (55-170) U/L Troponin I (0.000-0.033) ng/mL NT-Pro-B Natriuret Pep (<300) pg/mL Serum Total Protein (6.3-8.2) g/dL Albumin (3.5-5.0) g/dL Urine Color (Yellow) Urine Appearance (Clear) Urine pH (4.6-8.0) Ur Specific Edwards (1.005-1.030) Urine Protein (Negative) Urine Glucose (UA) (Negative) mg/dL Urine Ketones (Negative) Urine Blood (Negative) Urine Nitrite (Negative) Urine Bilirubin (Negative) Urine Urobilinogen (0.2) mg/dL Ur Leukocyte Esterase (Negative) U Hyaline Cast (Auto) (0-2) /LPF Urine Microscopic RBC (0-5) /HPF Urine Microscopic WBC (0-5) /HPF Ur Epithelial Cells (None Seen) /HPF Urine Bacteria (None Seen) /HPF 03/13/24 Range/Units 16:46 WBC (4.0-10.5) x10^3/uL RBC (4.1-5.6) x10^6/uL Hgb (12.5-18.0) g/dL Hct (42-50) % MCV (78-100) fL MCH (26-32) pg MCHC (32-36) g/dL RDW (11.5-14.0) % Plt Count (150-450) x10^3/uL MPV (7.5-11.0) fL Puncture Site pCO2 (35-45) mmHg pO2 (75-100) mmHg Base Excess (-2.0-2.0) O2 Saturation (94-100) g/dF ABG pH (7.35-7.45) ABG HCO3 (22-28) ABG O2 Sat (Measured) (95-100) % Yosi Test A-a Gradient a/A Ratio Hemoglobin Carboxyhemoglobin (0.0-6.9) % THgb Methemoglobin (1.4-1.5) % Potassium (3.5-5.1) Temperature C POC O2 Flow Rate % Vent Mode Inspiratory BiPAP Expiratory BiPAP Sodium (135-145) mmol/L Chloride (98-107) mmol/L Carbon Dioxide (22-30) mmol/L Anion Gap (5-15) MEQ/L BUN (9-20) mg/dL Creatinine (0.66-1.25) mg/dL Estimated GFR ML/MIN Glucose (74-106) mg/dL POC Glucometer 150 H (74 to 106) mg/dL Lactic Acid (0.4-2.0) Calcium (8.4-10.2) mg/dL Total Bilirubin (0.2-1.3) mg/dL AST (17-59) U/L ALT (0-50) U/L Alkaline Phosphatase (38-126) U/L Creatine Kinase (55-170) U/L Troponin I (0.000-0.033) ng/mL NT-Pro-B Natriuret Pep (<300) pg/mL Serum Total Protein (6.3-8.2) g/dL Albumin (3.5-5.0) g/dL Urine Color (Yellow) Urine Appearance (Clear) Urine pH (4.6-8.0) Ur Specific Edwards (1.005-1.030) Urine Protein (Negative) Urine Glucose (UA) (Negative) mg/dL Urine Ketones (Negative) Urine Blood (Negative) Urine Nitrite (Negative) Urine Bilirubin (Negative) Urine Urobilinogen (0.2) mg/dL Ur Leukocyte Esterase (Negative) U Hyaline Cast (Auto) (0-2) /LPF Urine Microscopic RBC (0-5) /HPF Urine Microscopic WBC (0-5) /HPF Ur Epithelial Cells (None Seen) /HPF Urine Bacteria (None Seen) /HPF Radiology Exams: Radiology Procedures Category Date Time Status CHEST 1 VIEW (PORTABLE) Stat Exams 03/11/24 23:28 Completed CHEST 1 VIEW (PORTABLE) Stat Exams 03/13/24 03:45 Completed CHEST WITH CONTRAST [CT] Stat Exams 03/13/24 08:47 Completed ECHO W/2D AND DOPPLER [US] Routine Exams 03/13/24 09:56 Taken HEAD WITHOUT CONTRAST [CT] Stat Exams 03/11/24 23:17 Completed MODIFIED BARIUM SWALLOW EXAM Routine Exams 03/14/24 11:16 Ordered Multi-Disciplinary Progress Notes: Multi-Disciplinary Progress Notes 03/13/24 16:57 Respiratory Note by Joselyn Rosado I SPOKE WITH DR. ALLEN AND HE WILL BE HERE SOMETIME TOMORROW TO SEE THE PT. NURSE AWARE. Initialized on 03/13/24 16:57 - END OF NOTE 03/13/24 11:35 Case Management Note by Esme Smith PATIENT CRITICALLY ILL AND FULL CODE AT THIS TIME. WILL HOLD FURTHER DC PLANNING AT THIS TIME Initialized on 03/13/24 11:35 - END OF NOTE Assessment/Plan (1) Sepsis Current Visit: Yes Status: Acute (2) Pneumonia Current Visit: Yes Status: Acute Code(s): J18.9 - PNEUMONIA, UNSPECIFIED ORGANISM (3) CHF (congestive heart failure) Current Visit: Yes Status: Acute Code(s): I50.9 - HEART FAILURE, UNSPECIFIED (4) A-fib Current Visit: Yes Status: Acute Code(s): I48.91 - UNSPECIFIED ATRIAL FIBRILLATION (5) Acute kidney injury Current Visit: Yes Status: Resolved Code(s): N17.9 - ACUTE KIDNEY FAILURE, UNSPECIFIED (6) COPD (chronic obstructive pulmonary disease) Current Visit: No Status: Acute Qualifiers: COPD type: COPD with acute exacerbation Qualified Code(s): J44.1 - Chronic obstructive pulmonary disease with (acute) exacerbation (7) Elevated troponin Current Visit: No Status: Acute Code(s): R77.8 - OTHER SPECIFIED ABNORMALITIES OF PLASMA PROTEINS (8) Diabetes type 2, controlled Current Visit: No Status: Chronic Qualifiers: Diabetes mellitus complication status: without complication Code(s): E11.9 - TYPE 2 DIABETES MELLITUS WITHOUT COMPLICATIONS (9) Hypertension Current Visit: No Status: Chronic Qualifiers: Hypertension type: primary hypertension Qualified Code(s): I10 - Essential (primary) hypertension Assessment & Plan: (1) Sepsis Current Visit: Yes Status: Acute Assessment & Plan: - 2:2 pneumonia - resp failure now on bipap in ICU - Lactic acid 4.1 2 liters fluid bolus gave last night, repeat lactic acid 2.3 - repeat lactic again 3 hours later 3.8- Lactic acid ordered for 4 hours later and was repeated early by RT, not as ordered- advised another lactic acid in 4 hours - Unable to give fluids at this time due to cardiac decompensation - Resp > 20, HR > 90, WBC 12.9, PCo2 28 - See pneumonia plan - placed in ICU bed overnight (2) Pneumonia Current Visit: Yes Status: Acute Assessment & Plan: - Antibiotic changed to Zosyn, vancomycin - continue duonebs, steriods, advair - increased SOB last night - Now on bipap 40% - RT eval and treat - ABG reviewed - Pulm consult - Tele- ICU - Chest XR 03/11 Portable chest again demonstrates minimal bibasilar discoid atelectasis/scarring and tiny left base calcified granuloma. Remaining lungs clear. Heart not enlarged. Bony thorax intact again with osteopenia, degenerative changes, and right shoulder arthroplasty - CXR 03/13 IMPRESSION: Bilateral lower lung zones airspace opacities likely infection. Follow-up is advised. Blunting of bilateral costophrenic angles likely pleural effusion - Chest CT 03/13 Impression: 1. Respiration artifact limits evaluation for pulmonary embolus. No obvious pulmonary embolus. 2. New borderline cardiomegaly and moderate bilateral pleural effusions. Rule out cardiac decompensation/CHF versus fluid overload. 2. Again bilateral upper lobe airspace disease. Code(s): J18.9 - PNEUMONIA, UNSPECIFIED ORGANISM (3) CHF (congestive heart failure) Current Visit: Yes Status: Acute Assessment & Plan: - acute on chronic - uncompensated, left sided - EF per criminalist technician < 30% - Cardiology consult with recs- xarelto changed to 15mg daily, Lasix changed to 40mg Q8 - Bipap 40% - BNP 15954 - appears to be worsening per CT results - [place] in place as pt is weak and in ICU, there was concern for urinary retention, need accurate I&O's. Code(s): I50.9 - HEART FAILURE, UNSPECIFIED (4) A-fib Current Visit: Yes Status: Acute Assessment & Plan: - chronic - Xarelto - tele - controlled Code(s): I48.91 - UNSPECIFIED ATRIAL FIBRILLATION (5) Acute kidney injury Current Visit: Yes Status: Resolved Assessment & Plan: - resolved Code(s): N17.9 - ACUTE KIDNEY FAILURE, UNSPECIFIED (6) COPD (chronic obstructive pulmonary disease) Current Visit: No Status: Acute Assessment & Plan: - acute on chronic - now on Bipap 40% - consult pulm - Baseline 2lNC (7) Elevated troponin Current Visit: No Status: Acute Assessment & Plan: - trop 0.156, 0.335, 0.507 - cardiology consulted - echo EF < 30% per criminalist technician - pt denies CP Code(s): R77.8 - OTHER SPECIFIED ABNORMALITIES OF PLASMA PROTEINS (8) Diabetes type 2, controlled Current Visit: No Status: Chronic Assessment & Plan: - A1C 6.38 controlled - Humalog s/s Code(s): E11.9 - TYPE 2 DIABETES MELLITUS WITHOUT COMPLICATIONS (9) Hypertension Current Visit: No Status: Chronic Assessment & Plan: - controlled - continue BP meds Code(s): I10 - ESSENTIAL (PRIMARY) HYPERTENSION VTE: Xarelto PPI: Pepcid Next of KIN: daughter D/C plan: 2-3 days code status: Full Code(s): I10 - ESSENTIAL (PRIMARY) HYPERTENSION
[2024-03-14 05:21] LABS: Hematocrit 34.2 % (42-50); Hemoglobin 11.4 g/dL (12.5-18.0); Mean Cell Volume 97.2 fL (78-100); Mean Corpuscular Hemoglobin 32.4 pg (26-32); Mean Corpuscular Hgb Concent. 33.3 g/dL (32-36); Mean Platelet Volume 9.8 fL (7.5-11.0); Platelet Count 214 x10^3/uL (150-450); Red Blood Count 3.52 x10^6/uL (4.1-5.6); Red Cell Distribution Width 14.8 % (11.5-14.0); White Blood Count 11.2 x10^3/uL (4.0-10.5)
[2024-03-14 06:07] LABS: ALBUMIN 3.6 g/dL (3.5-5.0); ANION GAP 14.5 MEQ/L (5-15); BILIRUBIN,TOTAL 1.1 mg/dL (0.2-1.3); Calcium 8.6 mg/dL (8.4-10.2); Creatinine 1 1.43 mg/dL (0.66-1.25); EST GLOMERULAR FILTRATION RATE 47.1 ML/MIN; Potassium 3.4 mmol/L (3.5-5.1)
[2024-03-14] MEDS: Sodium Chloride 0.9% 1000 ML 1,000 ML IV SCH (08:08)
[2024-03-14] MEDS: POTASSIUM CHLORIDE 20 mEq IN WATER 100ML 100 ML IV SCH (08:08)
[2024-03-14] MEDS: XARELTO 10 MG TABLET PO SCH (09:33)
--- NOTE | 2024-03-14 12:45 | PCM.NOTE ---
Date and Time: 03/14/24 1240 Subjective Assessment: 03/13/24 88-year-old male with history of COPD chronically on 2 L oxygen, A-fib, DM2, and HTN. He who presented on 03/12/24 3 days of worsening cough productive of green sputum associated with severe chills and diffuse generalized weakness. He has had decreased p.o. intake, and on 03/12 morning was lightheaded upon standing, and had a fall to the ground hitting his head on the floor. He has sone bruising to his eyes. CT showed no acute injury. Daughter did not want any facial xr's completed. He has no headache or neurologic changes. Initially was feeling poorly until getting fluids and Zosyn in the ED. On admission to floor on 03/12 he stated he was feeling improved, although still weak. He remained on his home 2 L oxygen. Denies any fevers, sick contacts, chest pain, nausea, diarrhea, or dysuria. Overnight he became SOB, a code rapid was called and he was tx to ICU. Now on bipap at 40%. BNP 69060. Lactic acid 4.1, then repeat was 2.3. He was given 2 liters of NS bolus, He received a total of 60mg of lasix last night. Hie has a hx of a-fib and on admission heart rhythm was NSR and overnight changed to a-fib. Troponins are trending up and cardiology consulted. He appears to have cardiac decompensation and worsening pneumonia. CT of chest today shows; Respiration artifact limits evaluation for pulmonary embolus. No obvious pulmonary embolus. New borderline cardiomegaly and moderate bilateral pleural effusions. Rule out cardiac decompensation/CHF versus fluid overload. Again jerzy ateral upper lobe airspace disease. Echo < 30% per refrigerating technician. Awaiting cardiology recs. Will continue lasix BID. HORACE resolved. Antibiotics changed to Zosyn last night and IVF stopped. Pt was up and eating breakfast this AM then placed back on bipap afterward. He is awake and alert just c/o SOB. Lungs coarse. He denies CP, Abd. pain, N/V/D. Discussed with pt and daughter and pt wants to remain full code. Cardiology consulted and asked family to consider changing code status as EF is low and may have poor outcome. Family discussed code status again with pt and he wants to remain a full code. Pulm consulted and unable to see pt until tomorrow. At this time family wants to remain at [place]. 03/14/24 Pt resting in bed. he was taken off bipap at 6am and placed on 3lnc-91% by RT. Lungs sounds have improved. Pulmonology to see pt today. Family continues to want pt to be a full code. K+ 3.4 and replaced. WBC is better with change of antibiotics, Sputum sample pending. Will continue lasix per cardiology recs. This has caused some decrease in kidney function. Pt to have a barium swallow today as he appears to be aspirating with food and fluids. Discussed pt case with daughter in room today. He denies CP, Abd. pain, N/V/D. - Review of Systems Constitutional: No Fever, No Chills Eyes: No Symptoms Ears, Nose, & Throat: No Symptoms, Other (left eye redness from recent fall at home and bruising) Respiratory: Cough (with eating or drinking), Short Of Breath Cardiac: No Chest Pain, No Edema, No Syncope Abdominal/Gastrointestinal: No Abdominal Pain, No Nausea, No Vomiting, No Diarrhea Genitourinary Symptoms: No Dysuria Musculoskeletal: No Back Pain, No Neck Pain Skin: No Rash Neurological: No Dizziness, No Focal Weakness, No Sensory Changes Psychological: No Symptoms Endocrine: No Symptoms Hematologic/Lymphatic: No Symptoms Immunological/Allergic: No Symptoms Objective Exam General Appearance: no apparent distress, alert, thin Neurologic Exam: alert, oriented x 3, cooperative, normal mood/affect, nml cerebellar function, sensation nml, No motor deficits Skin Exam: normal color, warm, dry Wound Assessment: Skin/Wound Assessment Wound/Incision Assessment Start: 03/12/24 02:44 Text: Status: Active Freq: Q6H Protocol: Document 03/14/24 08:00 TAMICA (Rec: 03/14/24 08:43 TAMICA [id number]) Wound/Incision Assessment Bilateral Bottom/Sacrum Wound Assessment Shift Assessment Wound Type Pressure Ulcer Wound Stage Stage I General Appearance Open to air,Reddened Comment WILL APPLY BARRIER CREAM Left Gluteal Fold Wound Assessment Shift Assessment Wound Type REDNESS Wound Stage Non Pressure Wound General Appearance Open to air,Reddened Comment WILL APPLY BARRIER CREAM Left Upper Arm Wound Assessment Shift Assessment Wound Type Skin Tear Wound Stage Non Pressure Wound Drainage Amount None General Appearance Open to air Eye Exam: PERRL, EOMI, eyes nml inspection, other (left eye bloodshot and bruised) Ears, Nose, Throat Exam: normal ENT inspection, pharynx normal, moist mucous membranes Neck Exam: normal inspection, non-tender, supple, full range of motion Respiratory Exam: normal breath sounds, lungs clear, diminished breath sounds (BLLL), No respiratory distress Cardiovascular Exam: regular rate/rhythm, normal heart sounds Gastrointestinal/Abdomen Exam: soft, No tenderness, No mass Extremity Exam: normal inspection, normal range of motion Back Exam: normal inspection, normal range of motion, No CVA tenderness, No vertebral tenderness Male Genitalia Exam: deferred Rectal Exam: deferred Objective Data Vital Signs: Vital Signs - 24 hr Temp Pulse Resp BP BP Pulse Ox 03/14/24 12:06 98.5 F 92 H 22 106/55 100 03/14/24 12:00 79 03/14/24 09:00 87 38 H 128/70 91 L 03/14/24 08:00 96 H 25 H 120/70 91 L 03/14/24 07:38 98.1 F 94 H 28 H 110/61 91 L 03/14/24 07:17 87 31 H 110/61 03/14/24 07:00 96 H 22 128/67 95 03/14/24 06:56 86 16 95 03/14/24 06:00 71 29 H 127/84 03/14/24 05:50 99 03/14/24 05:00 82 31 H 109/62 03/14/24 04:00 97.3 F 63 25 H 120/71 99 03/14/24 03:00 74 28 H 113/56 03/14/24 02:21 69 24 114/59 03/14/24 02:00 97.7 F 83 28 H 86/43 03/14/24 01:00 59 L 29 H 110/64 03/14/24 00:01 97.2 F 77 22 125/71 03/13/24 23:09 76 30 H 86/55 03/13/24 23:02 68 26 H 03/13/24 22:00 84 21 118/69 03/13/24 21:24 76 31 H 111/76 03/13/24 21:22 97.5 F 85 35 H 124/67 03/13/24 20:05 86 30 H 134/77 03/13/24 20:04 85 25 H 03/13/24 20:02 88 38 H 03/13/24 20:00 81 03/13/24 19:31 95 H 25 H 03/13/24 19:00 87 32 H 101/71 03/13/24 18:00 63 33 H 107/64 97 03/13/24 17:00 63 26 H 92/61 03/13/24 16:00 86 24 131/94 96 03/13/24 15:01 70 28 H 130/62 90 L 03/13/24 14:08 66 22 139/83 97 03/13/24 13:24 97.0 F 68 32 H 136/83 100 03/13/24 13:21 79 32 H 99 Pain Assessment - Last Documented Pain Intensity 0 Pain Scale Used 0-10 Pain Scale Intake and Output: Intake & Output 03/12/24 03/13/24 03/14/24 03/15/24 11:59 11:59 11:59 11:59 Intake Total 780 4979 653 Output Total 200 1650 5200 Balance 580 8315 -8718 Weight 65.1 kg Lab Results: Lab Results-Last 24 Hours 03/13/24 03/13/24 03/13/24 Range/Units 14:50 16:46 21:00 WBC (4.0-10.5) x10^3/uL RBC (4.1-5.6) x10^6/uL Hgb (12.5-18.0) g/dL Hct (42-50) % MCV (78-100) fL MCH (26-32) pg MCHC (32-36) g/dL RDW (11.5-14.0) % Plt Count (150-450) x10^3/uL MPV (7.5-11.0) fL Sodium (135-145) mmol/L Potassium (3.5-5.1) mmol/L Chloride (98-107) mmol/L Carbon Dioxide (22-30) mmol/L Anion Gap (5-15) MEQ/L BUN (9-20) mg/dL Creatinine (0.66-1.25) mg/dL Estimated GFR ML/MIN Glucose (74-106) mg/dL POC Glucometer 150 H (74 to 106) mg/dL Lactic Acid 2.3 H 3.4 H (0.4-2.0) Calcium (8.4-10.2) mg/dL Magnesium (1.6-2.3) mg/dL Total Bilirubin (0.2-1.3) mg/dL AST (17-59) U/L ALT (0-50) U/L Alkaline Phosphatase (38-126) U/L Serum Total Protein (6.3-8.2) g/dL Albumin (3.5-5.0) g/dL 03/13/24 03/14/24 03/14/24 Range/Units 22:10 04:00 04:41 WBC 11.2 H (4.0-10.5) x10^3/uL RBC 3.52 L (4.1-5.6) x10^6/uL Hgb 11.4 L (12.5-18.0) g/dL Hct 34.2 L (42-50) % MCV 97.2 (78-100) fL MCH 32.4 H (26-32) pg MCHC 33.3 (32-36) g/dL RDW 14.8 H (11.5-14.0) % Plt Count 214 (150-450) x10^3/uL MPV 9.8 (7.5-11.0) fL Sodium (135-145) mmol/L Potassium (3.5-5.1) mmol/L Chloride (98-107) mmol/L Carbon Dioxide (22-30) mmol/L Anion Gap (5-15) MEQ/L BUN (9-20) mg/dL Creatinine (0.66-1.25) mg/dL Estimated GFR ML/MIN Glucose (74-106) mg/dL POC Glucometer 106 (74 to 106) mg/dL Lactic Acid 0.9 (0.4-2.0) Calcium (8.4-10.2) mg/dL Magnesium (1.6-2.3) mg/dL Total Bilirubin (0.2-1.3) mg/dL AST (17-59) U/L ALT (0-50) U/L Alkaline Phosphatase (38-126) U/L Serum Total Protein (6.3-8.2) g/dL Albumin (3.5-5.0) g/dL 03/14/24 03/14/24 03/14/24 Range/Units 04:41 04:41 07:16 WBC (4.0-10.5) x10^3/uL RBC (4.1-5.6) x10^6/uL Hgb (12.5-18.0) g/dL Hct (42-50) % MCV (78-100) fL MCH (26-32) pg MCHC (32-36) g/dL RDW (11.5-14.0) % Plt Count (150-450) x10^3/uL MPV (7.5-11.0) fL Sodium 146 H (135-145) mmol/L Potassium 3.4 L D (3.5-5.1) mmol/L Chloride 112 H (98-107) mmol/L Carbon Dioxide 22 (22-30) mmol/L Anion Gap 14.5 (5-15) MEQ/L BUN 37 H (9-20) mg/dL Creatinine 1.43 H (0.66-1.25) mg/dL Estimated GFR 47.1 ML/MIN Glucose 151 H (74-106) mg/dL POC Glucometer 137 H (74 to 106) mg/dL Lactic Acid (0.4-2.0) Calcium 8.6 (8.4-10.2) mg/dL Magnesium 2.2 (1.6-2.3) mg/dL Total Bilirubin 1.10 (0.2-1.3) mg/dL AST 140 H (17-59) U/L ALT 116 H (0-50) U/L Alkaline Phosphatase 112 (38-126) U/L Serum Total Protein 7.0 (6.3-8.2) g/dL Albumin 3.6 (3.5-5.0) g/dL 03/14/24 Range/Units 11:19 WBC (4.0-10.5) x10^3/uL RBC (4.1-5.6) x10^6/uL Hgb (12.5-18.0) g/dL Hct (42-50) % MCV (78-100) fL MCH (26-32) pg MCHC (32-36) g/dL RDW (11.5-14.0) % Plt Count (150-450) x10^3/uL MPV (7.5-11.0) fL Sodium (135-145) mmol/L Potassium (3.5-5.1) mmol/L Chloride (98-107) mmol/L Carbon Dioxide (22-30) mmol/L Anion Gap (5-15) MEQ/L BUN (9-20) mg/dL Creatinine (0.66-1.25) mg/dL Estimated GFR ML/MIN Glucose (74-106) mg/dL POC Glucometer 158 H (74 to 106) mg/dL Lactic Acid (0.4-2.0) Calcium (8.4-10.2) mg/dL Magnesium (1.6-2.3) mg/dL Total Bilirubin (0.2-1.3) mg/dL AST (17-59) U/L ALT (0-50) U/L Alkaline Phosphatase (38-126) U/L Serum Total Protein (6.3-8.2) g/dL Albumin (3.5-5.0) g/dL Radiology Exams: Radiology Procedures Category Date Time Status CHEST 1 VIEW (PORTABLE) Stat Exams 03/13/24 03:45 Completed CHEST WITH CONTRAST [CT] Stat Exams 03/13/24 08:47 Completed ECHO W/2D AND DOPPLER [US] Routine Exams 03/13/24 09:56 Taken MODIFIED BARIUM SWALLOW EXAM Routine Exams 03/14/24 11:16 Ordered Multi-Disciplinary Progress Notes: Multi-Disciplinary Progress Notes 03/13/24 20:04 Respiratory Note by Janet Ulrich Family at bedside. Pt trying to talk with bipap mask on. Bipap on standby at 1930 and pt placed on 3lpm nasal cannula. This RT swabbed pt's mouth with water and pt was able to cough up a moderate amount of thick yellow mucous. Pt used the yankuer to remove the secretions. Pt tolerating being off of the bipap. Will resume bipap later this evening. Will continue to monitor closely. Initialized on 03/13/24 20:04 - END OF NOTE 03/13/24 16:57 Respiratory Note by Joselyn Rosado I SPOKE WITH DR. ALLEN AND HE WILL BE HERE SOMETIME TOMORROW TO SEE THE PT. NURSE AWARE. Initialized on 03/13/24 16:57 - END OF NOTE Assessment/Plan (1) Sepsis Current Visit: Yes Status: Acute (2) Pneumonia Current Visit: Yes Status: Acute Code(s): J18.9 - PNEUMONIA, UNSPECIFIED ORGANISM (3) CHF (congestive heart failure) Current Visit: Yes Status: Acute Code(s): I50.9 - HEART FAILURE, UNSPECIFIED (4) A-fib Current Visit: Yes Status: Acute Code(s): I48.91 - UNSPECIFIED ATRIAL FIBRILLATION (5) Acute kidney injury Current Visit: Yes Status: Resolved Code(s): N17.9 - ACUTE KIDNEY FAILURE, UNSPECIFIED (6) COPD (chronic obstructive pulmonary disease) Current Visit: No Status: Acute Qualifiers: COPD type: COPD with acute exacerbation Qualified Code(s): J44.1 - Chronic obstructive pulmonary disease with (acute) exacerbation (7) Elevated troponin Current Visit: No Status: Acute Code(s): R77.8 - OTHER SPECIFIED ABNORMALITIES OF PLASMA PROTEINS (8) Diabetes type 2, controlled Current Visit: No Status: Chronic Qualifiers: Diabetes mellitus complication status: without complication Code(s): E11.9 - TYPE 2 DIABETES MELLITUS WITHOUT COMPLICATIONS (9) Hypertension Current Visit: No Status: Chronic Qualifiers: Hypertension type: primary hypertension Qualified Code(s): I10 - Essential (primary) hypertension Assessment & Plan: (1) Sepsis Current Visit: Yes Status: Acute Assessment & Plan: - 2:2 pneumonia - resp failure now on bipap in ICU - Lactic acid 4.1 2 liters fluid bolus gave last night, repeat lactic acid 2.3 - repeat lactic again 3 hours later 3.8- Lactic acid ordered for 4 hours later and was repeated early by RT, not as ordered- advised another lactic acid in 4 hours - Unable to give fluids at this time due to cardiac decompensation - Resp > 20, HR > 90, WBC 12.9, PCo2 28 - See pneumonia plan - placed in ICU bed overnight 03/14 - Lactic acid 0.9 (2) Pneumonia Current Visit: Yes Status: Acute Assessment & Plan: - Antibiotic changed to Zosyn, vancomycin - continue duonebs, steriods, advair - increased SOB last night - Now on bipap 40% - RT eval and treat - ABG reviewed - Pulm consult - Tele- ICU - Chest XR 03/11 Portable chest again demonstrates minimal bibasilar discoid atelectasis/scarring and tiny left base calcified granuloma. Remaining lungs clear. Heart not enlarged. Bony thorax intact again with osteopenia, degenerative changes, and right shoulder arthroplasty - CXR 03/13 IMPRESSION: Bilateral lower lung zones airspace opacities likely infection. Follow-up is advised. Blunting of bilateral costophrenic angles likely pleural effusion - Chest CT 03/13 Impression: 1. Respiration artifact limits evaluation for pulmonary embolus. No obvious pulmonary embolus. 2. New borderline cardiomegaly and moderate bilateral pleural effusions. Rule out cardiac decompensation/CHF versus fluid overload. 2. Again bilateral upper lobe airspace disease. 03/14 - Bipapoff at 6am and placed on 3LNC- 91% - appreciate pulm recs - sxs improving - WBC improved 11.2 Code(s): J18.9 - PNEUMONIA, UNSPECIFIED ORGANISM (3) CHF (congestive heart failure) Current Visit: Yes Status: Acute Assessment & Plan: - acute on chronic - uncompensated, left sided - EF per refrigerating technician < 30% - Cardiology consult with recs- xarelto changed to 15mg daily, Lasix changed to 40mg Q8 - Bipap 40% - BNP 31094 - appears to be worsening per CT results - [place] in place as pt is weak and in ICU, there was concern for urinary retention, need accurate I&O's. 03/14 - Continue lasix per cardiology recs - sxs improved today Code(s): I50.9 - HEART FAILURE, UNSPECIFIED (4) A-fib Current Visit: Yes Status: Acute Assessment & Plan: - chronic - Xarelto - tele - controlled Code(s): I48.91 - UNSPECIFIED ATRIAL FIBRILLATION (5) Acute kidney injury Current Visit: Yes Status: Resolved Assessment & Plan: -03/14 - HORACE 2:2 increased lasix dose - Creat 1.43- baseline normal Code(s): N17.9 - ACUTE KIDNEY FAILURE, UNSPECIFIED (6) COPD (chronic obstructive pulmonary disease) Current Visit: No Status: Acute Assessment & Plan: - acute on chronic - now on Bipap 40% - consult pulm - Baseline 2lNC 03/14 - Off bipap at 6am - lung sounds improved - on 3LNC 91% (7) Elevated troponin Current Visit: No Status: Acute Assessment & Plan: - trop 0.156, 0.335, 0.507 - cardiology consulted - echo EF < 30% per refrigerating technician - pt denies CP - cardiology asked family to consider changing code status - pt and family wants to remain full code Code(s): R77.8 - OTHER SPECIFIED ABNORMALITIES OF PLASMA PROTEINS (8) Diabetes type 2, controlled Current Visit: No Status: Chronic Assessment & Plan: - A1C 6.38 controlled - Humalog s/s Code(s): E11.9 - TYPE 2 DIABETES MELLITUS WITHOUT COMPLICATIONS (9) Hypertension Current Visit: No Status: Chronic Assessment & Plan: - controlled - continue BP meds Code(s): I10 - ESSENTIAL (PRIMARY) HYPERTENSION Code(s): I10 - ESSENTIAL (PRIMARY) HYPERTENSION (10) Hypokalemia Current Visit: Yes Status: Acute Assessment & Plan: - K+ 3.4- replaced- trend VTE: Xarelto PPI: Pepcid Next of KIN: daughter D/C plan: 2-3 days code status: Full Code(s): E87.6 - HYPOKALEMIA
--- NOTE | 2024-03-14 14:12 | XRAY ---
Indication: Possible aspiration with food. Modified barium swallow study performed by the department of speech therapy with fluoroscopic assistance provided. Patient ingested multiple consistencies of solids and liquids. Full report and recommendations will be reported separately. Approximately 2 minutes 13 seconds used.
[2024-03-15 04:56] LABS: Hematocrit 37.6 % (42-50); Hemoglobin 12.7 g/dL (12.5-18.0); Mean Cell Volume 95.2 fL (78-100); Mean Corpuscular Hemoglobin 32.2 pg (26-32); Mean Corpuscular Hgb Concent. 33.8 g/dL (32-36); Mean Platelet Volume 9.8 fL (7.5-11.0); Platelet Count 258 x10^3/uL (150-450); Red Blood Count 3.95 x10^6/uL (4.1-5.6); Red Cell Distribution Width 14.5 % (11.5-14.0); White Blood Count 9.2 x10^3/uL (4.0-10.5)
[2024-03-15 05:33] LABS: ALBUMIN 3.8 g/dL (3.5-5.0); ANION GAP 15.9 MEQ/L (5-15); BILIRUBIN,TOTAL 1.2 mg/dL (0.2-1.3); Calcium 9.2 mg/dL (8.4-10.2); Creatinine 1 1.44 mg/dL (0.66-1.25); EST GLOMERULAR FILTRATION RATE 46.7 ML/MIN; Potassium 3.1 mmol/L (3.5-5.1)
--- NOTE | 2024-03-15 08:49 | CONS ---
CONSULT DATE: REASON FOR CONSULT: Evaluation of shortness of breath, hypoxic respiratory failure. HISTORY: Jordi Lezama is an 88-year-old male, known to me, who has been hospitalized with URI-like symptoms. The patient initially was being treated on the Med/Surg floor where he developed worsening shortness of breath with hypoxemia requiring BiPAP. He was evaluated by cardiology service and was thought to have congestive heart failure. His BNP was 14,000 with mildly positive troponins. He has been placed on diuretic therapy, which seems to have helped well. Since yesterday, he has been weaned off of BiPAP. He is currently on nasal cannula. The patient had a CT chest performed that also showed bilateral pleural effusion with congestive changes, likely from volume overload along with cardiomegaly. He is followed by Dr. Gallegos. At the time of my evaluation, the patient is sitting in a chair having a meal. He appears weak but comfortable. He has had streaky hemoptysis. He has been on anticoagulation with Xarelto and the dose was reduced from 20 to 15 mg per cardiology recommendation. PAST MEDICAL HISTORY: Positive for history of chronic hypoxemia, prior history of COVID, history of pulmonary embolism, diabetes mellitus, hypertension, gastroesophageal reflux disease, nicotine addiction in the past. PAST SURGICAL HISTORY: No recent surgery. PERSONAL AND SOCIAL HISTORY: Reviewed. MEDICATIONS: Medications noted. He is on Zosyn along with diuresis and other therapies. ALLERGIES: NKDA. PHYSICAL EXAMINATION: An elderly male. Vital signs stable. CVS: Heart rate is somewhat irregular. RESPIRATORY: Shows diminished breath sounds, crackles are heard, occasional rhonchi heard. ABDOMEN: Soft. EXTREMITIES: No significant edema is noted. LABORATORY DATA AND TESTS: I have reviewed the labs along with x-rays and CT's as well. ASSESSMENT: This is an 88-year-old male admitted with: 1) Acute on chronic hypoxic respiratory failure of acute component resolved. 2) Bilateral pleural effusions with elevated BNP suggestive of congestive heart failure with decompensation. 3) Acute bronchitis, pneumonia? 4) Prior history of pulmonary embolism. 5) Comorbidities as listed above. RECOMMENDATIONS: 1) The patient has shown clinical improvement and I recommend continuing diuretics, cautiously monitoring renal function, which is marginally abnormal. 2) Continue anticoagulation, continue supplemental oxygen. Will require physical therapy. 3) The patient had speech swallow evaluation as well as modified barium and results were reviewed. I will follow up in outpatient setting. Thank you for allowing me to participate in the care of your patient Jordi Lezama.
--- NOTE | 2024-03-15 11:46 | PCM.NOTE ---
Date and Time: 03/15/24 1136 Subjective Assessment: 03/13/24 88-year-old male with history of COPD chronically on 2 L oxygen, A-fib, DM2, and HTN. He who presented on 03/12/24 3 days of worsening cough productive of green sputum associated with severe chills and diffuse generalized weakness. He has had decreased p.o. intake, and on 03/12 morning was lightheaded upon standing, and had a fall to the ground hitting his head on the floor. He has sone bruising to his eyes. CT showed no acute injury. Daughter did not want any facial xr's completed. He has no headache or neurologic changes. Initially was feeling poorly until getting fluids and Zosyn in the ED. On admission to floor on 03/12 he stated he was feeling improved, although still weak. He remained on his home 2 L oxygen. Denies any fevers, sick contacts, chest pain, nausea, diarrhea, or dysuria. Overnight he became SOB, a code rapid was called and he was tx to ICU. Now on bipap at 40%. BNP 06703. Lactic acid 4.1, then repeat was 2.3. He was given 2 liters of NS bolus, He received a total of 60mg of lasix last night. Hie has a hx of a-fib and on admission heart rhythm was NSR and overnight changed to a-fib. Troponins are trending up and cardiology consulted. He appears to have cardiac decompensation and worsening pneumonia. CT of chest today shows; Respiration artifact limits evaluation for pulmonary embolus. No obvious pulmonary embolus. New borderline cardiomegaly and moderate bilateral pleural effusions. Rule out cardiac decompensation/CHF versus fluid overload. Again jerzy ateral upper lobe airspace disease. Echo < 30% per certified histologic technician. Awaiting cardiology recs. Will continue lasix BID. HORACE resolved. Antibiotics changed to Zosyn last night and IVF stopped. Pt was up and eating breakfast this AM then placed back on bipap afterward. He is awake and alert just c/o SOB. Lungs coarse. He denies CP, Abd. pain, N/V/D. Discussed with pt and daughter and pt wants to remain full code. Cardiology consulted and asked family to consider changing code status as EF is low and may have poor outcome. Family discussed code status again with pt and he wants to remain a full code. Pulm consulted and unable to see pt until tomorrow. At this time family wants to remain at [facility]. 03/14/24 Pt resting in bed. he was taken off bipap at 6am and placed on 3lnc-91% by RT. Lungs sounds have improved. Pulmonology to see pt today. Family continues to want pt to be a full code. K+ 3.4 and replaced. WBC is better with change of antibiotics, Sputum sample pending. Will continue lasix per cardiology recs. This has caused some decrease in kidney function. Pt to have a barium swallow today as he appears to be aspirating with food and fluids. Discussed pt case with daughter in room today. He denies CP, Abd. pain, N/V/D. 03/15/24 Pt resting in chair today. He was weak but assisted by staff to the chair this morning to eat breakfast. Yesterday he had a modified barium swallow and advised to eat a soft diet. He eats but does not swallow and holds on to food in his mouth. He has to be encouraged and reminded to swallow. Lsix stopped today as anion gap 15.9 with some HORACE. Pt was able to sustain on 3lNC all night. Will tx pt out of ICU. Gal[place] to be removed. Will have pt work with PT today for rehab eval needs. May possible d/c tomorrow. Pt denies CP, SOB, Abd. pain, N/V/D. - Review of Systems Constitutional: Weakness, No Fever, No Chills Eyes: No Symptoms Ears, Nose, & Throat: No Symptoms Respiratory: No Cough, No Short Of Breath Cardiac: No Chest Pain, No Edema, No Syncope Abdominal/Gastrointestinal: No Abdominal Pain, No Nausea, No Vomiting, No Diarrhea Genitourinary Symptoms: No Dysuria Musculoskeletal: No Back Pain, No Neck Pain Skin: No Rash Neurological: No Dizziness, No Focal Weakness, No Sensory Changes Psychological: No Symptoms Endocrine: No Symptoms Hematologic/Lymphatic: No Symptoms Immunological/Allergic: No Symptoms Objective Exam General Appearance: no apparent distress, alert, thin Neurologic Exam: alert, oriented x 3, cooperative, normal mood/affect, nml cerebellar function, sensation nml, motor weakness, No motor deficits Skin Exam: normal color, warm, dry Wound Assessment: Skin/Wound Assessment Wound/Incision Assessment Start: 03/12/24 02:44 Text: Status: Active Freq: Q6H Protocol: Document 03/15/24 08:00 MALICKMG (Rec: 03/15/24 08:46 MALICKMG [id number]) Wound/Incision Assessment Bilateral Bottom/Sacrum Wound Assessment Shift Assessment Wound Type Pressure Ulcer Wound Stage Stage I General Appearance Open to air,Reddened Left Gluteal Fold Wound Assessment Shift Assessment Wound Type redness Wound Stage Non Pressure Wound General Appearance Open to air,Reddened Left Upper Arm Wound Assessment Shift Assessment Wound Type Skin Tear Wound Stage Non Pressure Wound Drainage Amount None General Appearance Open to air Comment no drainage noted at this time Wound Photo Photo Taken Yes Date: 03/12/24 Time: 03:00 Eye Exam: PERRL, EOMI, eyes nml inspection Ears, Nose, Throat Exam: normal ENT inspection, pharynx normal, moist mucous membranes Neck Exam: normal inspection, non-tender, supple, full range of motion Respiratory Exam: normal breath sounds, lungs clear, No respiratory distress Cardiovascular Exam: regular rate/rhythm, normal heart sounds Gastrointestinal/Abdomen Exam: soft, No tenderness, No mass Extremity Exam: normal inspection, normal range of motion Back Exam: normal inspection, normal range of motion, No CVA tenderness, No vertebral tenderness Male Genitalia Exam: deferred Rectal Exam: deferred Objective Data Vital Signs: Vital Signs - 24 hr Temp Pulse Resp BP BP Pulse Ox 03/15/24 08:00 75 03/15/24 07:26 98.6 F 84 30 H 129/75 98 03/15/24 06:55 81 18 94 L 03/15/24 04:00 97.8 F 94 H 29 H 122/80 95 03/15/24 01:59 86 28 H 96 03/15/24 00:01 80 03/15/24 00:00 97.8 F 80 29 H 132/57 94 L 03/14/24 20:00 97.7 F 96 H 28 H 125/55 96 03/14/24 18:31 86 30 H 97 03/14/24 16:56 97.6 F 78 23 131/60 98 03/14/24 16:00 86 03/14/24 14:10 94 H 18 100 03/14/24 12:06 98.5 F 92 H 22 106/55 100 03/14/24 12:00 79 Pain Assessment - Last Documented Pain Intensity 0 Pain Scale Used [facility] Intake and Output: Intake & Output 03/12/24 03/13/24 03/14/24 03/15/24 11:59 11:59 11:59 11:59 Intake Total 780 7789 653 1482 Output Total 200 5719 2348 4505 Balance 580 8023 -4691 -2653 Weight 65.1 kg 62.7 kg Lab Results: Lab Results-Last 24 Hours 03/14/24 03/14/24 03/14/24 Range/Units 13:28 16:26 22:25 WBC (4.0-10.5) x10^3/uL RBC (4.1-5.6) x10^6/uL Hgb (12.5-18.0) g/dL Hct (42-50) % MCV (78-100) fL MCH (26-32) pg MCHC (32-36) g/dL RDW (11.5-14.0) % Plt Count (150-450) x10^3/uL MPV (7.5-11.0) fL Sodium (135-145) mmol/L Potassium 3.8 (3.5-5.1) mmol/L Chloride (98-107) mmol/L Carbon Dioxide (22-30) mmol/L Anion Gap (5-15) MEQ/L BUN (9-20) mg/dL Creatinine (0.66-1.25) mg/dL Estimated GFR ML/MIN Glucose (74-106) mg/dL POC Glucometer 171 H 208 H (74 to 106) mg/dL Calcium (8.4-10.2) mg/dL Magnesium (1.6-2.3) mg/dL Total Bilirubin (0.2-1.3) mg/dL AST (17-59) U/L ALT (0-50) U/L Alkaline Phosphatase (38-126) U/L Serum Total Protein (6.3-8.2) g/dL Albumin (3.5-5.0) g/dL 03/15/24 03/15/24 03/15/24 Range/Units 04:12 04:12 04:12 WBC 9.2 (4.0-10.5) x10^3/uL RBC 3.95 L (4.1-5.6) x10^6/uL Hgb 12.7 (12.5-18.0) g/dL Hct 37.6 L (42-50) % MCV 95.2 (78-100) fL MCH 32.2 H (26-32) pg MCHC 33.8 (32-36) g/dL RDW 14.5 H (11.5-14.0) % Plt Count 258 (150-450) x10^3/uL MPV 9.8 (7.5-11.0) fL Sodium 148 H (135-145) mmol/L Potassium 3.1 L (3.5-5.1) mmol/L Chloride 105 (98-107) mmol/L Carbon Dioxide 30 (22-30) mmol/L Anion Gap 15.9 H (5-15) MEQ/L BUN 37 H (9-20) mg/dL Creatinine 1.44 H (0.66-1.25) mg/dL Estimated GFR 46.7 ML/MIN Glucose 126 H (74-106) mg/dL POC Glucometer (74 to 106) mg/dL Calcium 9.2 (8.4-10.2) mg/dL Magnesium 2.0 (1.6-2.3) mg/dL Total Bilirubin 1.20 (0.2-1.3) mg/dL AST 88 H (17-59) U/L ALT 102 H (0-50) U/L Alkaline Phosphatase 118 (38-126) U/L Serum Total Protein 7.0 (6.3-8.2) g/dL Albumin 3.8 (3.5-5.0) g/dL 03/15/24 Range/Units 06:54 WBC (4.0-10.5) x10^3/uL RBC (4.1-5.6) x10^6/uL Hgb (12.5-18.0) g/dL Hct (42-50) % MCV (78-100) fL MCH (26-32) pg MCHC (32-36) g/dL RDW (11.5-14.0) % Plt Count (150-450) x10^3/uL MPV (7.5-11.0) fL Sodium (135-145) mmol/L Potassium (3.5-5.1) mmol/L Chloride (98-107) mmol/L Carbon Dioxide (22-30) mmol/L Anion Gap (5-15) MEQ/L BUN (9-20) mg/dL Creatinine (0.66-1.25) mg/dL Estimated GFR ML/MIN Glucose (74-106) mg/dL POC Glucometer 135 H (74 to 106) mg/dL Calcium (8.4-10.2) mg/dL Magnesium (1.6-2.3) mg/dL Total Bilirubin (0.2-1.3) mg/dL AST (17-59) U/L ALT (0-50) U/L Alkaline Phosphatase (38-126) U/L Serum Total Protein (6.3-8.2) g/dL Albumin (3.5-5.0) g/dL Radiology Exams: Radiology Procedures Category Date Time Status MODIFIED BARIUM SWALLOW EXAM Routine Exams 03/14/24 11:16 Completed Multi-Disciplinary Progress Notes: Multi-Disciplinary Progress Notes 03/14/24 16:25 Mod Barium Swallow Note by Sandra#[id number] Modified Barium Swallow Study ST Modified Barium Swallow Study Start: 03/14/24 15:58 Freq: Status: Active Protocol: Document 03/14/24 15:58 BM (Rec: 03/14/24 16:25 BM [id number]) E-Sign 03/14/24 15:58 BM Modified Barium Swallow Reason for Assessment Primary Diagnosis J18.9 - PNEUMONIA, UNSPECIFIED ORGANISM Primary Diagnosis (cont) I50.9 - HEART FAILURE, UNSPECIFIED Treatment Diagnosis #1 R13.12 - DYSPHAGIA, OROPHARYNGEAL PHASE Reason for Assessment PATIENT REFERRED FOR MBS STUDY BY CHEMICAL DEPENDENCY COUNSELOR DUE TO PNEUMONIA, SEPSIS, AND CHEST XRAY INDICATING POSSIBLE ASPIRATION Onset Date 03/12/24 Date of Evaluation/SOC 03/14/24 Pain Assessment Do you have pain on swallowing No Non-verbal signs & symptoms of pain No Modified Barium Swallow View This evaluation was completed to assess the functioning of the oral and pharyngeal phases of swallowing and to determine if the patient is aspirating or at risk for aspiration. Modified Barium Swallow View Lateral View Consistencies Assessed Barium trials included: Thin Liquid via Spoon,Thin Liquid via Cup,Thin Liquid via Straw,Maybee Liquid via Spoon ,Thin Honey Liquid via spoon, Honey Liquid via Spoon,Pudding Liquid via spoon,Pureed Food, Paste on a Cookie Aspiration Risk Aspiration Observed No Amount of Aspiration Observed None Patient considered at risk of aspiration Yes during oral intake Patient is at risk for aspiration After the swallow,Before the swallow Severity of Aspiration Risk Moderate Penetration into Laryngeal Vestibule Yes Penetration occured with Thin Liquid Reason for aspirational risk: PATIENT AT RISK FOR ASPIRATION BEFORE THE SWALLOW DUE TO PREMATURE SPILLAGE TO VALLECULAE RESULTING FROM DELAYED SWALLOW INITIATION. PATIENT AT RISK FOR ASPIRATION AFTER THE SWALLOW DUE TO LARGE VOLUME RESIDUE REMAINING IN VALLECULAE, PYRIFORM SINUSES, AND PHARYNGEAL RECESSES FOLLOWING SWALLOW COMPLETION. 8-Point Penetration-Aspiration Scale (Rosenbek) 2.Material enters the airway,remains Yes above the vocal folds and IS ejected from the airway Consistency Thin Method of presentation Teaspoon,Cup,Straw Residue/Retention Residue Observed Valleculae Right,Valleculae Left,Pyriform Sinus Right, Pyriform Sinus Left, Aryepiglottic folds,Tongue Base,Pharyngeal Wall Esophageal Function No Impairment (WFL) Other UNABLE TO FULLY ASSESS ESOPHAGEAL FUNCTION DURING THIS MBS STUDY DUE TO MOVEMENT LIMITATIONS OF EQUIPMENT UTILIZED. Assessment of Swallow Phases Oral Phase Labial Closure Minimal Impairment Bolus Formation Yes Bolus Control Pooling L/R No Impairment (WFL) Bolus Control under Tongue No Impairment (WFL) Bolus Control Scattered Loss Mild Impairment Mastication Effectiveness No Impairment (WFL) A/P Bolus Propulsion Moderate Impairment Premature Spillage into: Pyriform Sinuses,Valleculae A/P Lingual Propulsion Delay Moderate Impairment A/P Lingual Propulsion Delay (sec) 3 Lingual Movement Moderate Impairment Residue Clearing/Sensitivity Moderate Impairment Aspiration No Swallow Initiation Delay Moderate Impairment Swallow Delay Time (sec) 2 Other Oral Phase Observations PATIENT WITH ANTERIOR/ POSTERIOR PROPULSION DELAY AND SWALLOW INITIATION DELAY RESULTING IN PREMATURE SPILLAGE TO VALLECULAE, PYRIFORM SINUSES, AND PHARYNGEAL RECESSES. Pharyngeal Phase Base of Tongue Retraction Moderate Impairment Epiglottic Coverage No Impairment (WFL) Laryngeal Elevation No Impairment (WFL) Reduced Anterior Laryngeal Movement No Laryngeal Closure Minimal Impariment Vallecular Retention Clearing Severe Impairment Pharyn. Wall Residue Clearing Mild Impairment Pyriform Sinus Retention Moderate Impairment Penetration Yes Aspiration No Cricopharyngeal Dysfunction No Cough None Other Pharyngeal Phase Observation PATIENT DEMONSTRATED DECREASED EFFECTIVENESS WITH BOLUS MANIPULATION WITH ALL CONSISTENCIES TRIALLED. APPROXIMATELY HALF OF THE BOLUS REMAINED IN ORAL CAVITY, VALLECULAE, AND PHARYNGEAL RECESSES AFTER SWALLOW COMPLETION. WHEN CUED BY ST TO SWALLOW AGAIN, PATIENT INDICATED HE HAD ALREADY SWALLOWED. ADDITIONAL SWALLOWS RESULTED IN DECREASE OF RESIDUE VOLUME, BUT NOT COMPLETE CLEARING. Clinical Interpretation Clinical Interpretation PATIENT WITH MODERATE TO SEVERE OROPHARYNGEAL DYSPHAGIA WITHOUT ASPIRATION. Speech Therapy Teaching Record Teaching Summary Results/Recommendations Learning Preferences Discussion Barriers to Learning None Readiness for Learning Accepting Teaching Methods Discussion Teaching Recipient Patient Response to Teaching Verbalize understanding ST Recommendations Diet Consistency Soft Liquid Consistency Regular Thin Follow-Up Primary Physician regarding findings/ Yes recommendations Safe Swallow Compensatory Strategies Compensatory Strategies Upright Position for all meals ,Small bites and drinks,Dry swallows,Alternate solids/ liquids Medication Instructions Crush Medication(s),Medication (s) in pudding or applesauce Staff/Family Suggestions Reinforce Treatment Program Speech Therapist Treatment Program Oral Motor Exercises to improve strength Laryngeal,Lingual /ROM Therapeutic Feeds Teach Compensatory Techniques, Monitor Progress,Diet Consistency Analysis Rehabilitation Potential: FAIR Additional Comments: PATIENT WOULD BENEFIT FROM SKILLED ST INTERVENTION FOR SAFE SWALLOW COMPENSATORY TRAINING, WELL DIET CONSISTENCY ANALYSIS. Signatures Speech Therapist Signature ROYX, MS, CCC/VOLUNTEER ASSISTANT Physician Signature DR Trudy MUELLER, RADIOLOGIST Initialized on 03/14/24 16:25 - END OF NOTE Assessment/Plan (1) Sepsis Current Visit: Yes Status: Acute (2) Pneumonia Current Visit: Yes Status: Acute Code(s): J18.9 - PNEUMONIA, UNSPECIFIED ORGANISM (3) CHF (congestive heart failure) Current Visit: Yes Status: Acute Code(s): I50.9 - HEART FAILURE, UNSPECIFIED (4) A-fib Current Visit: Yes Status: Acute Code(s): I48.91 - UNSPECIFIED ATRIAL FIBRILLATION (5) Acute kidney injury Current Visit: Yes Status: Resolved Code(s): N17.9 - ACUTE KIDNEY FAILURE, UNSPECIFIED (6) COPD (chronic obstructive pulmonary disease) Current Visit: No Status: Acute Qualifiers: COPD type: COPD with acute exacerbation Qualified Code(s): J44.1 - Chronic obstructive pulmonary disease with (acute) exacerbation (7) Elevated troponin Current Visit: No Status: Acute Code(s): R77.8 - OTHER SPECIFIED ABNORMALITIES OF PLASMA PROTEINS (8) Diabetes type 2, controlled Current Visit: No Status: Chronic Qualifiers: Diabetes mellitus complication status: without complication Code(s): E11.9 - TYPE 2 DIABETES MELLITUS WITHOUT COMPLICATIONS (9) Hypertension Current Visit: No Status: Chronic Qualifiers: Hypertension type: primary hypertension Qualified Code(s): I10 - Essential (primary) hypertension Code(s): I10 - ESSENTIAL (PRIMARY) HYPERTENSION (10) Hypokalemia Current Visit: Yes Status: Acute Assessment & Plan: 1) Sepsis Current Visit: Yes Status: Acute Assessment & Plan: - 2:2 pneumonia - resp failure now on bipap in ICU - Lactic acid 4.1 2 liters fluid bolus gave last night, repeat lactic acid 2.3 - repeat lactic again 3 hours later 3.8- Lactic acid ordered for 4 hours later and was repeated early by RT, not as ordered- advised another lactic acid in 4 hours - Unable to give fluids at this time due to cardiac decompensation - Resp > 20, HR > 90, WBC 12.9, PCo2 28 - See pneumonia plan - placed in ICU bed overnight 03/14 - Lactic acid 0.9- resolved (2) Pneumonia Current Visit: Yes Status: Acute Assessment & Plan: - Antibiotic changed to Zosyn, vancomycin - continue duonebs, steriods, advair - increased SOB last night - Now on bipap 40% - RT eval and treat - ABG reviewed - Pulm consult - Tele- ICU - Chest XR 03/11 Portable chest again demonstrates minimal bibasilar discoid atelectasis/scarring and tiny left base calcified granuloma. Remaining lungs clear. Heart not enlarged. Bony thorax intact again with osteopenia, degenerative changes, and right shoulder arthroplasty - CXR 03/13 IMPRESSION: Bilateral lower lung zones airspace opacities likely infection. Follow-up is advised. Blunting of bilateral costophrenic angles likely pleural effusion - Chest CT 03/13 Impression: 1. Respiration artifact limits evaluation for pulmonary embolus. No obvious pulmonary embolus. 2. New borderline cardiomegaly and moderate bilateral pleural effusions. Rule out cardiac decompensation/CHF versus fluid overload. 2. Again bilateral upper lobe airspace disease. 03/14 - Bipap off at 6am and placed on 3LNC- 91% - appreciate pulm recs - sxs improving - WBC improved 11.2 03/15 -On 3lNC all night 98% - Pulm provided no new recs - WBC 9.2 Code(s): J18.9 - PNEUMONIA, UNSPECIFIED ORGANISM (3) CHF (congestive heart failure) Current Visit: Yes Status: Acute Assessment & Plan: - acute on chronic - uncompensated, left sided - EF per certified histologic technician < 30% - Cardiology consult with recs- xarelto changed to 15mg daily, Lasix changed to 40mg Q8 - Bipap 40% - BNP 61904 - appears to be worsening per CT results - [place] in place as pt is weak and in ICU, there was concern for urinary retention, need accurate I&O's. 03/14 - Continue lasix per cardiology recs - sxs improved today 03/15 - lasix stopped today- consider restarting tomorrow if HORACE improves Code(s): I50.9 - HEART FAILURE, UNSPECIFIED (4) A-fib Current Visit: Yes Status: Acute Assessment & Plan: - chronic - Xarelto - tele - controlled Code(s): I48.91 - UNSPECIFIED ATRIAL FIBRILLATION (5) Acute kidney injury Current Visit: Yes Status: Resolved Assessment & Plan: -03/14 - HORACE 2:2 increased lasix dose - Creat 1.43- baseline normal 03/15 - creat 1.44 - 2:2 lasix for CHF - Lasix stopped - Consider at d/c Lasix 20mg daily with potassium [id number] meq daily, daily weight- if > 5lbs call cardiology Code(s): N17.9 - ACUTE KIDNEY FAILURE, UNSPECIFIED (6) COPD (chronic obstructive pulmonary disease) Current Visit: No Status: Acute Assessment & Plan: - acute on chronic - now on Bipap 40% - consult pulm - Baseline 2lNC 03/14 - Off bipap at 6am - lung sounds improved - on 3LNC 91% 03/15 - remained on 3LNC all night- 98% (7) Elevated troponin Current Visit: No Status: Acute Assessment & Plan: - trop 0.156, 0.335, 0.507 - cardiology consulted - echo EF < 30% per certified histologic technician - pt denies CP - cardiology asked family to consider changing code status - pt and family wants to remain full code Code(s): R77.8 - OTHER SPECIFIED ABNORMALITIES OF PLASMA PROTEINS (8) Diabetes type 2, controlled Current Visit: No Status: Chronic Assessment & Plan: - A1C 6.38 controlled - Humalog s/s Code(s): E11.9 - TYPE 2 DIABETES MELLITUS WITHOUT COMPLICATIONS (9) Hypertension Current Visit: No Status: Chronic Assessment & Plan: - controlled - continue BP meds Code(s): I10 - ESSENTIAL (PRIMARY) HYPERTENSION (10) Hypokalemia Current Visit: Yes Status: Acute Assessment & Plan: - K+ 3.4- replaced- trend- repeat 3.8 6/6 - K+ 3.1- replaced- trend Code(s): E87.6 - HYPOKALEMIA (11) Weakness Current Visit: Yes Status: Acute Assessment & Plan: - PT eval - consider rehab placement VTE: Xarelto PPI: Pepcid Next of KIN: daughter D/C plan: 1-2 days code status: Full Code(s): R53.1 - WEAKNESS
[2024-03-15] MEDS: Klor Con PO SCH (12:17)
[2024-03-16 04:47] LABS: Hematocrit 38.7 % (40.1-51.0); Mean Cell Volume 95.1 fL (79.0-92.2); Mean Corpuscular Hemoglobin 31.9 pg (25.7-32.2); Mean Corpuscular Hgb Concent. 33.6 g/dL (32.3-36.5); Mean Platelet Volume 9.7 fL (9.4-12.4); Platelet Count 299 x10^3/uL (163-337); Red Blood Count 4.07 x10^6/uL (4.63-6.08); Red Cell Distribution Width 14.8 % (11.6-14.4); White Blood Count 8.1 x10^3/uL (4.23-9.07)
[2024-03-16 05:25] LABS: ALBUMIN 3.7 g/dL (3.5-5.0); ANION GAP 13.5 MEQ/L (5-15); BILIRUBIN,TOTAL 1.1 mg/dL (0.2-1.3); Calcium 9.6 mg/dL (8.4-10.2); Creatinine 1 1.06 mg/dL (0.66-1.25); EST GLOMERULAR FILTRATION RATE 67.5 ML/MIN; Potassium 3.7 mmol/L (3.5-5.1)
[2024-03-16] MEDS: LASIX 20 MG PO SCH (08:59)
--- NOTE | 2024-03-16 09:50 | PCM.DS ---
Discharge Summary Date of Admission: 03/13/24 03:40 Date of Discharge: 03/16/24 Admitting Physician: JAKI STRICKLAND MD Consults: Consults on Case 03/13/24 08:16 Consult Cardiology ROUTINE 03/13/24 14:22 Consult Pulmonology ROUTINE Primary Care Provider: TYRONE HANSEN Allergies Allergies No Known Drug Allergies Allergy (Verified 03/11/24 22:45) Hospital Summary - Hospital Course Hospital Course: 03/13/24 88-year-old male with history of COPD chronically on 2 L oxygen, A-fib, DM2, and HTN. He who presented on 03/12/24 3 days of worsening cough productive of green sputum associated with severe chills and diffuse generalized weakness. He has had decreased p.o. intake, and on 03/12 morning was lightheaded upon standing, and had a fall to the ground hitting his head on the floor. He has sone bruising to his eyes. CT showed no acute injury. Daughter did not want any facial xr's completed. He has no headache or neurologic changes. Initially was feeling poorly until getting fluids and Zosyn in the ED. On admission to floor on 03/12 he stated he was feeling improved, although still weak. He remained on his home 2 L oxygen. Denies any fevers, sick contacts, chest pain, nausea, diarrhea, or dys uria. Overnight he became SOB, a code rapid was called and he was tx to ICU. Now on bipap at 40%. BNP 24897. Lactic acid 4.1, then repeat was 2.3. He was given 2 liters of NS bolus, He received a total of 60mg of lasix last night. Hie has a hx of a-fib and on admission heart rhythm was NSR and overnight changed to a- fib. Troponins are trending up and cardiology consulted. He appears to have cardiac decompensation and worsening pneumonia. CT of chest today shows; Respiration artifact limits evaluation for pulmonary embolus. No obvious pulmonary embolus. New borderline cardiomegaly and moderate bilateral pleural effusions. Rule out cardiac decompensation/CHF versus fluid overload. Again bilateral upper lobe airspace disease. Echo < 30% per manufacturing technologist. Awaiting cardiology recs. Will continue lasix BID. HORACE resolved. Antibiotics changed to Zosyn last night and IVF stopped. Pt was up and eating breakfast this AM then placed back on bipap afterward. He is awake and alert just c/o SOB. Lungs coarse. He denies CP, Abd. pain, N/V/D. Discussed with pt and daughter and pt wants to remain full code. Cardiology consulted and asked family to consider changing code status as EF is low and may have poor outcome. Family discussed code status again with pt and he wants to remain a full code. Pulm consulted and unable to see pt until tomorrow. At this time family wants to remain at [place]. 03/14/24 Pt resting in bed. he was taken off bipap at 6am and placed on 3lnc-91% by RT. Lungs sounds have improved. Pulmonology to see pt today. Family continues to want pt to be a full code. K+ 3.4 and replaced. WBC is better with change of antibiotics, Sputum sample pending. Will continue lasix per cardiology recs. This has caused some decrease in kidney function. Pt to have a barium swallow today as he appears to be aspirating with food and fluids. Discussed pt case with daughter in room today. He denies CP, Abd. pain, N/V/D. 03/15/24 Pt resting in chair today. He was weak but assisted by staff to the chair this morning to eat breakfast. Yesterday he had a modified barium swallow and advised to eat a soft diet. He eats but does not swallow and holds on to food in his mouth. He has to be encouraged and reminded to swallow. Lsix stopped today as anion gap 15.9 with some HORACE. Pt was able to sustain on 3lNC all night. Will tx pt out of ICU. Galicia to be removed. Will have pt work with PT today for rehab eval needs. May possible d/c tomorrow. Pt denies CP, SOB, Abd. pain, N/V/D. 03/16/24 Pt resting in bed. He is feeling much better. He is on baseline 2lNC- 99%. HORACE has resolved. Restarted lasix 20mg daily po. Discussed he will need close OP f/u with cardiology and PCP to prevent readmissions. He will need to weight self daily and gains > 5lbs he will need to call cardiology. 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 He would be a good candidate for hospice. Pt and family want him to remain a full code. Plan is to d/c today with [facility] set up by [facility]. Pt will need to continue soft diet OP. He denies CP, SOB, abd. pain, N/V/D. - Vitals & Intake/Output Vital Signs: Vital Signs Temperature 97.7 F 03/16/24 07:45 Pulse Rate 96 H 03/16/24 07:45 Respiratory Rate 22 03/16/24 07:45 Blood Pressure 141/89 03/16/24 07:45 O2 Sat by Pulse Oximetry 99 03/16/24 07:45 Intake & Output: Intake & Output 03/13/24 03/14/24 03/15/24 03/16/24 11:59 11:59 11:59 11:59 Intake Total 4975 658 1486 1634 Output Total 1651 5370 4504 951 Balance 8905 -6749 -6775 679 Weight 62.7 kg 62.7 kg - Lab Result Diagrams: 03/16/24 04:18 03/16/24 04:18 Lab Results-Last 24 Hrs: Lab Results-Last 24 Hours 03/15/24 03/15/24 03/15/24 Range/Units 11:33 16:15 20:36 WBC (4.23-9.07) x10^3/uL RBC (4.63-6.08) x10^6/uL Hgb (13.7-17.5) g/dL Hct (40.1-51.0) % MCV (79.0-92.2) fL MCH (25.7-32.2) pg MCHC (32.3-36.5) g/dL RDW (11.6-14.4) % Plt Count (163-337) x10^3/uL MPV (9.4-12.4) fL Sodium (135-145) mmol/L Potassium 3.4 L (3.5-5.1) mmol/L Chloride (98-107) mmol/L Carbon Dioxide (22-30) mmol/L Anion Gap (5-15) MEQ/L BUN (9-20) mg/dL Creatinine (0.66-1.25) mg/dL Estimated GFR ML/MIN Glucose (74-106) mg/dL POC Glucometer 263 H 200 H (74 to 106) mg/dL Calcium (8.4-10.2) mg/dL Magnesium (1.6-2.3) mg/dL Total Bilirubin (0.2-1.3) mg/dL AST (17-59) U/L ALT (0-50) U/L Alkaline Phosphatase (38-126) U/L Serum Total Protein (6.3-8.2) g/dL Albumin (3.5-5.0) g/dL 03/15/24 03/16/24 03/16/24 Range/Units 21:36 04:18 04:18 WBC 8.1 (4.23-9.07) x10^3/uL RBC 4.07 L (4.63-6.08) x10^6/uL Hgb 13.0 L (13.7-17.5) g/dL Hct 38.7 L (40.1-51.0) % MCV 95.1 H (79.0-92.2) fL MCH 31.9 (25.7-32.2) pg MCHC 33.6 (32.3-36.5) g/dL RDW 14.8 H (11.6-14.4) % Plt Count 299 (163-337) x10^3/uL MPV 9.7 (9.4-12.4) fL Sodium (135-145) mmol/L Potassium (3.5-5.1) mmol/L Chloride (98-107) mmol/L Carbon Dioxide (22-30) mmol/L Anion Gap (5-15) MEQ/L BUN (9-20) mg/dL Creatinine (0.66-1.25) mg/dL Estimated GFR ML/MIN Glucose (74-106) mg/dL POC Glucometer 174 H (74 to 106) mg/dL Calcium (8.4-10.2) mg/dL Magnesium 2.1 (1.6-2.3) mg/dL Total Bilirubin (0.2-1.3) mg/dL AST (17-59) U/L ALT (0-50) U/L Alkaline Phosphatase (38-126) U/L Serum Total Protein (6.3-8.2) g/dL Albumin (3.5-5.0) g/dL 03/16/24 03/16/24 Range/Units 04:18 07:35 WBC (4.23-9.07) x10^3/uL RBC (4.63-6.08) x10^6/uL Hgb (13.7-17.5) g/dL Hct (40.1-51.0) % MCV (79.0-92.2) fL MCH (25.7-32.2) pg MCHC (32.3-36.5) g/dL RDW (11.6-14.4) % Plt Count (163-337) x10^3/uL MPV (9.4-12.4) fL Sodium 146 H (135-145) mmol/L Potassium 3.7 (3.5-5.1) mmol/L Chloride 108 H (98-107) mmol/L Carbon Dioxide 28 (22-30) mmol/L Anion Gap 13.5 (5-15) MEQ/L BUN 27 H (9-20) mg/dL Creatinine 1.06 (0.66-1.25) mg/dL Estimated GFR 67.5 ML/MIN Glucose 178 H (74-106) mg/dL POC Glucometer 202 H (74 to 106) mg/dL Calcium 9.6 (8.4-10.2) mg/dL Magnesium (1.6-2.3) mg/dL Total Bilirubin 1.10 (0.2-1.3) mg/dL AST 70 H (17-59) U/L ALT 86 H (0-50) U/L Alkaline Phosphatase 110 (38-126) U/L Serum Total Protein 7.0 (6.3-8.2) g/dL Albumin 3.7 (3.5-5.0) g/dL Micro Results-Entire Visit: Microbiology 03/14/24 14:22 Gram Stain - Final Sputum - Expectorant Sputum Culture - Preliminary ORGANISMS ISOLATED ARE CONSISTENT WITH NORMAL RESP MARICARMEN LIGHT GROWTH, NO PREDOMINANT ORGANISM 03/11/24 23:55 Blood Culture - Final Blood 03/11/24 22:55 Blood Culture - Final Blood 03/13/24 03:45 Urine Culture - Final Catherized NO GROWTH 03/11/24 22:59 Urine Culture - Final Catherized NO GROWTH Accuchecks Date 03/16/24 Date 03/15/24 Date 06/06/24 Time 07:45 - Radiology Exams Ordered Rad Exams-Entire Visit: Radiology Procedures Category Date Time Status MODIFIED BARIUM SWALLOW EXAM Routine Exams 03/14/24 11:16 Completed - Procedures and Test Procedures and Tests throughout Hospitalization: Therapy Orders & Screens 03/12/24 02:54 Oxygen Nasal Cannula 2 lpm Comment: Diagnosis: upper respiratory infection 03/12/24 03:52 Respiratory Therapy Assessment DAILY Comment: Diagnosis: cough, weakness 03/12/24 08:00 PT Screen per Nursing Assess ONCE Comment: Protocol Order Physician Instructions: Greater than 3 points order PT Admission Screenin Reason For Exam: Triggered on Admission Diagnosis: upper respiratory infection Open Wound/Cellutlitis/Pressure Ulcers: Yes Acute Fx/ORIF/Change in wt bearing status: No Severe MUSCULOSKELETAL pain: No ADL Dysfunction: Yes Acute CVA w/Hemiparesis/Hemiplegia: No Decreased Functional Mobility/Strength: Yes Sprain/Strain: No Acute Post-op Mobility Dysfunction: No Total Points: 9 03/12/24 08:30 Incentive Spirometry TID Comment: Diagnosis: cough, weakness 03/13/24 06:42 BiPap/CPAP ROUTINE Comment: Diagnosis: cough, weakness 03/14/24 08:03 EKG ROUTINE Comment: Diagnosis: cough, weakness 03/15/24 08:29 PT Eval & Treat (MD Order) ONCE Reason for Eval:: decreased functional mobility; possible need for rehab Diagnosis: CHF, PNEUMONIA Discharge Exam General Appearance: no apparent distress, alert Neurologic Exam: alert, oriented x 3, cooperative, normal mood/affect, nml cerebellar function, sensation nml, No motor deficits Eye Exam: PERRL, EOMI, eyes nml inspection Ears, Nose, Throat Exam: normal ENT inspection, pharynx normal, moist mucous membranes Neck Exam: normal inspection, non-tender, supple, full range of motion Respiratory Exam: normal breath sounds, lungs clear, No respiratory distress Cardiovascular Exam: regular rate/rhythm, normal heart sounds Gastrointestinal/Abdomen Exam: soft, No tenderness, No mass Male Genitalia Exam: deferred Rectal Exam: deferred Back Exam: normal inspection, normal range of motion, No CVA tenderness, No vertebral tenderness Extremity Exam: normal inspection, normal range of motion Skin Exam: normal color, warm, dry Wound Assessment: Skin/Wound Assessment Wound/Incision Assessment Start: 03/12/24 02:44 Text: Status: Active Freq: Q6H Protocol: Document 03/16/24 02:00 KD (Rec: 03/16/24 02:02 KD [id number]) Wound/Incision Assessment Bilateral Bottom/Sacrum Wound Assessment Shift Assessment Wound Type Pressure Ulcer Wound Stage Stage I General Appearance Open to air,Reddened Left Gluteal Fold Wound Assessment Shift Assessment Wound Type redness Wound Stage Non Pressure Wound General Appearance Open to air,Reddened Left Upper Arm Wound Assessment Shift Assessment Wound Type Skin Tear Wound Stage Non Pressure Wound Drainage Amount None General Appearance Open to air Comment no drainage noted at this time Wound Photo Photo Taken Yes Date: 03/12/24 Time: 03:00 Final Diagnosis/Problem List - Final Discharge Diagnosis/Problem (1) Sepsis Current Visit: Yes Status: Acute (2) Pneumonia Current Visit: Yes Status: Acute Code(s): J18.9 - PNEUMONIA, UNSPECIFIED ORGANISM (3) CHF (congestive heart failure) Current Visit: Yes Status: Acute Code(s): I50.9 - HEART FAILURE, UNSPECIFIED (4) A-fib Current Visit: Yes Status: Acute Code(s): I48.91 - UNSPECIFIED ATRIAL FIBRILLATION (5) Acute kidney injury Current Visit: Yes Status: Resolved Code(s): N17.9 - ACUTE KIDNEY FAILURE, UNSPECIFIED (6) COPD (chronic obstructive pulmonary disease) Current Visit: No Status: Acute (7) Elevated troponin Current Visit: No Status: Acute Code(s): R77.8 - OTHER SPECIFIED ABNORMALITIES OF PLASMA PROTEINS (8) Diabetes type 2, controlled Current Visit: No Status: Chronic Code(s): E11.9 - TYPE 2 DIABETES MELLITUS WITHOUT COMPLICATIONS (9) Hypertension Current Visit: No Status: Chronic Code(s): I10 - ESSENTIAL (PRIMARY) HYPERTENSION (10) Hypokalemia Current Visit: Yes Status: Acute Code(s): E87.6 - HYPOKALEMIA (11) Weakness Current Visit: Yes Status: Acute Assessment & Plan: 1) Sepsis Current Visit: Yes Status: Acute Assessment & Plan: - 2:2 pneumonia - resp failure now on bipap in ICU - Lactic acid 4.1 2 liters fluid bolus gave last night, repeat lactic acid 2.3 - repeat lactic again 3 hours later 3.8- Lactic acid ordered for 4 hours later and was repeated early by RT, not as ordered- advised another lactic acid in 4 hours - Unable to give fluids at this time due to cardiac decompensation - Resp > 20, HR > 90, WBC 12.9, PCo2 28 - See pneumonia plan - placed in ICU bed overnight 03/14 - Lactic acid 0.9- resolved (2) Pneumonia Current Visit: Yes Status: Acute Assessment & Plan: - Antibiotic changed to Zosyn, vancomycin - continue duonebs, steriods, advair - increased SOB last night - Now on bipap 40% - RT eval and treat - ABG reviewed - Pulm consult - Tele- ICU - Chest XR 03/11 Portable chest again demonstrates minimal bibasilar discoid atelectasis/scarring and tiny left base calcified granuloma. Remaining lungs clear. Heart not enlarged. Bony thorax intact again with osteopenia, degenerative changes, and right shoulder arthroplasty - CXR 03/13 IMPRESSION: Bilateral lower lung zones airspace opacities likely infection. Follow-up is advised. Blunting of bilateral costophrenic angles likely pleural effusion - Chest CT 03/13 Impression: 1. Respiration artifact limits evaluation for pulmonary embolus. No obvious pulmonary embolus. 2. New borderline cardiomegaly and moderate bilateral pleural effusions. Rule out cardiac decompensation/CHF versus fluid overload. 2. Again bilateral upper lobe airspace disease. 03/14 - Bipap off at 6am and placed on 3LNC- 91% - appreciate pulm recs - sxs improving - WBC improved 11.2 03/15 -On 3lNC all night 98% - Pulm provided no new recs - WBC 9.2 - barium swallow eval completed yesterday- diet changed to soft diet and will need to continue OP 03/16 - ST to follow pt OP with [facility] - Continue antibiotics Code(s): J18.9 - PNEUMONIA, UNSPECIFIED ORGANISM (3) CHF (congestive heart failure) Current Visit: Yes Status: Acute Assessment & Plan: - acute on chronic - uncompensated, left sided - EF per manufacturing technologist < 30% - Cardiology consult with recs- xarelto changed to 15mg daily, Lasix changed to 40mg Q8 - Bipap 40% - BNP 36033 - appears to be worsening per CT results - [place] in place as pt is weak and in ICU, there was concern for urinary retention, need accurate I&O's. 03/14 - Continue lasix per cardiology recs - sxs improved today 03/15 - lasix stopped today- consider restarting tomorrow if HORACE improves 03/16 - HORACE resolved - Continue lasix po daily Code(s): I50.9 - HEART FAILURE, UNSPECIFIED (4) A-fib Current Visit: Yes Status: Acute Assessment & Plan: - chronic - Xarelto - tele - controlled Code(s): I48.91 - UNSPECIFIED ATRIAL FIBRILLATION (5) Acute kidney injury Current Visit: Yes Status: Resolved Assessment & Plan: -03/14 - HORACE 2:2 increased lasix dose - Creat 1.43- baseline normal 03/15 - creat 1.44 - 2:2 lasix for CHF - Lasix stopped - Consider at d/c Lasix 20mg daily with potassium [id number] meq daily, daily weight- if > 5lbs call cardiology 03/16 - HORACE resolved - Continue lasix po daily Code(s): N17.9 - ACUTE KIDNEY FAILURE, UNSPECIFIED (6) COPD (chronic obstructive pulmonary disease) Current Visit: No Status: Acute Assessment & Plan: - acute on chronic - now on Bipap 40% - consult pulm - Baseline 2lNC 03/14 - Off bipap at 6am - lung sounds improved - on 3LNC 91% 03/15 - remained on 3LNC all night- 98% 03/16 - on baseline O2 2lNC -99% (7) Elevated troponin Current Visit: No Status: Acute Assessment & Plan: - trop 0.156, 0.335, 0.507 - cardiology consulted - echo EF < 30% per manufacturing technologist - pt denies CP - cardiology asked family to consider changing code status - pt and family wants to remain full code Code(s): R77.8 - OTHER SPECIFIED ABNORMALITIES OF PLASMA PROTEINS (8) Diabetes type 2, controlled Current Visit: No Status: Chronic Assessment & Plan: - A1C 6.38 controlled - Humalog s/s Code(s): E11.9 - TYPE 2 DIABETES MELLITUS WITHOUT COMPLICATIONS (9) Hypertension Current Visit: No Status: Chronic Assessment & Plan: - controlled - continue BP meds Code(s): I10 - ESSENTIAL (PRIMARY) HYPERTENSION (10) Hypokalemia Current Visit: Yes Status: Acute Assessment & Plan: - K+ 3.4- replaced- trend- repeat 3.8 03/15 - K+ 3.1- replaced- trend 03/16 - K+3.7 resolved - will continue potassium daily since on lasix PO daily Code(s): E87.6 - HYPOKALEMIA (11) Weakness Current Visit: Yes Status: Acute Assessment & Plan: - PT eval - consider rehab placement 03/16 - Pt to d/c with [facility] - family and pt do not want rehab and are willing to help at home with pt needs Code(s): R53.1 - WEAKNESS - Discharge Discharge Date: 03/16/24 Disposition: Home, Self-Care Condition: Stable Prescriptions: New Potassium Chloride Tab* [Klor Con] 10 meq PO DAILY 30 Days #30 tablet Furosemide 20 mg [Lasix 20 mg] 20 mg PO DAILY 30 Days #30 tablet Doxycycline Hyclate 100 mg [Vibramycin 100 MG] 100 mg PO BID 5 Days #10 tab Continue Glimepiride [Amaryl] 1 mg PO DAILY Losartan Potassium [Cozaar] 50 mg PO DAILY Albuterol Sulfate [Albuterol Sulfate Hfa] 8.5 gm IH BID Rivaroxaban [Xarelto] 20 mg PO DAILY Lubiprostone 8 mcg PO BID Fluticasone/Vilanterol [Breo Ellipta 100-25 Mcg Inhalr] 1 puff IH DAILY Oxycodone HCl 15 mg PO Q6H PRN PRN PRN Reason: Pain Metoprolol Succinate 25 mg Xl* [Toprol-Xl 25MG Tablets] 25 mg PO DAILY #30 tab Acetaminophen 500 mg [Tylenol Extra Strength 500 mg] 325 mg PO TID Dapagliflozin Propanediol [Farxiga] 10 mg PO DAILY Famotidine 20 mg [Pepcid 20 MG] 20 mg PO BID Gabapentin 100 mg PO TID Blood-Glucose Meter [Accu-Chek Guide Me Glucose Mtr] 1 each UD #1 misc Blood Sugar Diagnostic [Accu-Chek Guide Test Strip] 1 each ACHS #100 strip Lancets [Accu-Chek Softclix] 1 each ACHS #100 [facility] Senna/Docusate Sodium Tab [Senokot-S Tablet] 1 udtab PO BID Zinc Gluconate [Zinc] 50 mg PO DAILY Additional Instructions: [facility] HAS BEEN SET UP AGAIN. THEY WILL REACH OUT TO ARRANGE AN APT TO COME SEE YOU. THEIR PHONE NUMBER IS [phone] IF YOU NEED ANYTHING BEFORE THEIR FIRST VISIT Follow up with: CEE ALLEN [ACTIVE STAFF] - 04/04/24 1:30 pm ([place] Office) TYRONE HANSEN MD [Primary Care Provider] - 03/29/24 3:00 pm ([place] Office ) JANI TORO PA [NON-STAFF PHY W/O PRIVILEGES] - 03/22/24 10:30 am
[2024-03-16] MEDS: Klor Con PO SCH (11:11)
[2024-03-16] MEDS ORDERED: TROUGH DRUG LEVELS IJ ONE (11:30)
[2024-03-16 11:58] VITALS: BP 126/63; PULSE 77; RESP 23; TEMP 97.6; O2SAT 93
== END 2024-03-16 13:59 | disposition home or self-care (01) | DRG 871 ==
LOC: ED 21:14 → MED SURG 03-12 01:39 → OBSVTOIN 03-13 03:40 → ICU 03-13 04:18
PROVIDERS: ADMIT Internal Medicine; ATTEND Internal Medicine
DX: A41.9 Sepsis, unspecified organism (principal); J18.9 Pneumonia, unspecified organism; N17.9 Acute kidney failure, unspecified; I11.0 Hypertensive heart disease with heart failure; I50.9 Heart failure, unspecified; I48.91 Unspecified atrial fibrillation; J44.9 Chronic obstructive pulmonary disease, unspecified; R77.8 Other specified abnormalities of plasma proteins; E11.9 Type 2 diabetes mellitus without complications; E87.6 Hypokalemia; R53.1 Weakness; Z79.01 Long term (current) use of anticoagulants; Z79.899 Other long term (current) drug therapy; L89.151 Pressure ulcer of sacral region, stage 1; W19.XXXA Unspecified fall, initial encounter; Z99.81 Dependence on supplemental oxygen
CPT/HCPCS: 36000; 36415; 36600; 70450; 71045; 71260; 74230; 80048; 80053; 81001; 82375; 82550; 82803; 82947; 83036; 83605; 83735; 83880; 84132; 84134; 84145; 84484; 85025; 85027; 85610; 85730; 87040; 87070; 87086; 92611; 93005; 93268; 93306; 94002; 94003; 94640; 94760; 96365; 97110; 97161; 97530; 99285; G0378; P9612; Q3014; J0456; J0696; J1817; J1940; J2060; J2543; J3480; A9270-GY; J3370

== ENCOUNTER 2024-07-16 19:18 | Emergency (ER) | payer MEDICARE ==
--- NOTE | 2024-07-16 19:22 | ERPHSYRPT ---
- History of Present Illness Time Seen by Provider: 07/16/24 19:21 Source: patient, family Exam Limitations: no limitations Physician History: This is an 89-year-old white male patient who arrives by private vehicle and is a patient of Dr. Hansen. Patient fell from standing position onto edge of a couch and then onto the ground hitting his right chest wall, head and neck. He complains of pain in all of these areas. Patient also fell last week and injured his left chest and ribs with external signs of ecchymosis. Patient has an unsteady gait even with a rolling walker. He is on anticoagulation therapy (Xarelto). Patient has a history of diabetes, hypertension, COPD, CVA and arthritis. Patient is not short of breath. Occurred: this afternoon Reason for Fall: lost balance, fell from standing pos Injuries/Pain Location: head, neck, chest (Right side of his chest) Loss of Consciousness: unsure Severity of Pain-Max: mild Severity of Pain-Current: mild Modifying Factors: Improves With: movement Associated Symptoms (Fall): headache, neck pain, No extremity injury, No shortness of breath Allergies/Adverse Reactions: No Known Drug Allergies Allergy (Verified 03/11/24 22:45) Home Medications: Glimepiride [Amaryl] 1 mg PO DAILY 12/17/14 [History] Losartan Potassium [Cozaar] 50 mg PO DAILY 04/05/20 [History] Albuterol Sulfate [Albuterol Sulfate Hfa] 8.5 gm IH BID 09/04/21 [History] Lubiprostone 8 mcg PO BID 09/04/21 [History] Rivaroxaban [Xarelto] 20 mg PO DAILY 09/04/21 [History] Fluticasone/Vilanterol [Breo Ellipta 100-25 Mcg Inhalr] 1 puff IH DAILY 03/30/22 [History] Oxycodone HCl 15 mg PO Q6H PRN PRN 03/30/22 [History] Acetaminophen 500 mg [Tylenol Extra Strength 500 mg] 325 mg PO TID 07/25/23 [History] Dapagliflozin Propanediol [Farxiga] 10 mg PO DAILY 07/25/23 [History] Famotidine 20 mg [Pepcid 20 MG] 20 mg PO BID 07/25/23 [History] Gabapentin 100 mg PO TID 07/26/23 [History] Senna/Docusate Sodium Tab [Senokot-S Tablet] 1 udtab PO BID 03/11/24 [History] Zinc Gluconate [Zinc] 50 mg PO DAILY 03/11/24 [History] Hx Tetanus, Diphtheria Vaccination/Date Given: Yes Hx Influenza Vaccination/Date Given: Yes Hx Pneumococcal Vaccination/Date Given: Yes Travel Risk - International Travel Have you traveled outside of the country in past 3 weeks: No - Emerging Infectious Disease Are you exhibiting symptoms associated with any current EIDs: Yes Symptoms: Shortness of Breath - Review of Systems Constitutional: No Symptoms Eyes: No Symptoms Ears, Nose, & Throat: No Symptoms Respiratory: No Symptoms Cardiac: No Symptoms Abdominal/Gastrointestinal: No Symptoms Genitourinary Symptoms: No Symptoms Musculoskeletal: Neck Pain, Injury (Head, neck, right side of chest) Skin: No Symptoms Neurological: Headache Psychological: No Symptoms Endocrine: No Symptoms Hematologic/Lymphatic: No Symptoms Immunological/Allergic: No Symptoms All Other Systems: Reviewed and Negative - Past Medical History Pertinent Past Medical History: Yes Neurological History: Stroke ENT History: Cataracts Cardiac History: Hypertension Respiratory History: COPD Endocrine Medical History: Diabetes Type II Musculoskeletal History: Arthritis, Osteoarthritis GI Medical History: Hernia History: No Pertinent History Psycho-Social History: No Pertinent History Male Reproductive Disorders: No Pertinent History Other Medical History: 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; facial wells in july - Past Surgical History Past Surgical History: Yes Neuro Surgical History: No Pertinent History Cardiac: No Pertinent History Respiratory: No Pertinent History Gastrointestinal: Cholecystectomy, Hernia Repair Genitourinary: No Pertinent History Musculoskeletal: Joint Replacement, Orthopedic Surgery Male Surgical History: No Pertinent History Other Surgical History: back,cataracts rt/lt, R shoulder joint replaced, skin grafts - face & R upper anterior leg Significant Family History: no pertinent family hx - Social History Smoking Status: Former smoker Exposure to second hand smoke: No Drug Use: none Patient Lives Alone: No - Social Determinants of Health Will the patient participate in the screening: Yes Do you worry about a steady place to live?: No In the past 12 months,have you had to go without utilities?: No Transportation Issues: No Has anyone in your support network made you feel unsafe?: No Have you or anyone in your house had to go without enough: No - Nursing Vital Signs Nursing Vital Signs: Initial Vital Signs Temperature 97.6 F 07/16/24 19:46 Pulse Rate 71 07/16/24 19:46 Respiratory Rate 18 07/16/24 19:46 Blood Pressure 105/61 07/16/24 19:46 O2 Sat by Pulse Oximetry 97 07/16/24 19:46 Pain Scale Pain Intensity 5 - [place] Coma Score Best Eye Response ([place]): (4) open spontaneously Best Verbal Response (Jody): (5) oriented Best Motor Response (Jody): (6) obeys commands Jody Total: 15 - Physical Exam General Appearance: no apparent distress, alert, anxiety, thin Head Injury: no evidence of injury Eye Exam: PERRL/EOMI, eyes nml inspection ENT Exam: airway nml, nml ext.inspection, No evidence of ENT injury Neck Exam: supple, trachea midline, full range of motion, normal alignment, normal inspection Respiratory/Chest Exam: normal breath sounds, ecchymosis (Left anterior lateral chest wallold bruising), rib tenderness (Bilateral ribs), No respiratory distress, No crepitus Cardiovascular Exam: normal heart sounds, regular rate/rhythm Gastrointestinal Exam: soft, normal bowel sounds, No tenderness Rectal Exam: not done Back Exam: normal inspection, normal range of motion, No CVA tenderness, No vertebral tenderness Extremity Exam: normal inspection, normal range of motion Neurologic Exam: alert, oriented x 3, cooperative, 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 tested, sensation nml Skin Exam: normal color, warm, dry SpO2 Interpretation: normal - Course Nursing assessment & vital signs reviewed: Yes Ordered Tests: Active Orders 24 hr Category Date Time Status CERVICAL SPINE WO CONTRAST [CT] Stat Exams 07/16/24 20:13 Taken CHEST WITHOUT CONTRAST [CT] Stat Exams 07/16/24 20:13 Taken HEAD WITHOUT CONTRAST [CT] Stat Exams 07/16/24 20:13 Taken - Progress Progress: unchanged, pain not gone completely, re-examined Progress Note: 07/16/24 20:20 My medical decision making and the assignment of low to moderate complexity of this patient's medical issue today is based on review of the patient's past medical history, review the patient's medication list, reviewed patient drug allergy list, history present illness and physical findings on examination. The workup in this patient includes CT scan of the head, CT scan of the cervical spine, CT scan of the chest. All of the studies will be without contrast. Differential diagnosis includes but is not limited to contusions, acute intracranial pathology, acute cervical spine pathology, acute intrathoracic/thoracic pathology 07/16/24 21:[address] scans of the chest without contrast, head without contrast and cervical spine without contrast were all interpreted by the radiologist and I reviewed the impression: CT scan of the chest without contrast shows improved bilateral diffuse airspace disease with emphysema. There is osteopenia and degenerative spondylosis. No acute process CT scan of the cervical spine without contrast shows a healed C1 fracture. The previous odontoid type II fracture is nonunited and nondisplaced. There is stable osteopenia. No new, acute findings. There is multilevel degenerative disc disease. CT scan of the head without contrast when compared to the similar study dated 03/11/2024, there is a nonacute senile brain with remote basal ganglia lacunar infarcts. Counseled pt/family regarding: diagnosis, rad results Medical Desision Making - Diagnostic Testing Diagnostic test were ordered, analyzed, and reviewed by me: Yes Radiological Interpretation: Reviewed by me, Teleradiologist Report - Risk of complications Low Risk: Low risk of morbidity from additional dx testing or treatment - Departure Departure Disposition: Home Clinical Impression: Fall with no significant injury Condition: Stable Critical Care Time: No Referrals: TYRONE HANSEN MD [Primary Care Provider] - Follow up/PCP as directed Additional Instructions: Continue medications as prescribed. Call your primary care provider tomorrow, 07/17/2024 to make arranges for follow-up appointment for further evaluation management
[2024-07-16 20:06] VITALS: TEMP 97.6
[2024-07-16 22:16] VITALS: BP 98/65; PULSE 55; RESP 15; O2SAT 97
--- NOTE | 2024-07-17 08:49 | XRAY ---
Indication: Status post fall. Multiple contiguous axial images obtained through the head without contrast. Comparison: March 11, 2024 Again age-appropriate global atrophy, mild periventricular degenerative micro-ischemia, and remote bilateral basal ganglia lacunar infarcts. Stable benign bilateral basal ganglia and cerebellar calcifications. No acute intracranial hemorrhage, abnormal extra-axial fluid collection, or mass effect. Fourth ventricle is midline without hydrocephalus. Bony calvarium intact. Visualized paranasal sinuses and mastoid air cells are clear. Impression: Again nonacute senile brain with bilateral basal ganglia remote lacunar infarcts.
--- NOTE | 2024-07-17 08:55 | XRAY ---
Indication: Status post fall. Multiple contiguous axial images obtained through the cervical spine. Sagittal and coronal reformatted images obtained. Comparison: December 04, 2022 Again osteopenia and mild/moderate multilevel degenerative endplate spurring with bilateral degenerative facet hypertrophy. Previous C1 fracture has healed. Previous nondisplaced odontoid type II fracture reidentified appearing nonunited. No new acute fracture, suspicious bony lesions, or spinal canal stenosis. Sagittal and coronal reformatted images again demonstrates 1 mm anterolisthesis C4 on C5, 3 mm anterolisthesis C6 on C7, and multilevel degenerative disc space narrowing greatest at C7-T1. No acute compression fracture or jumped facet. Normal appearing craniocervical junction. Visualized noncontrasted soft tissues again demonstrates moderate bilateral carotid calcifications. Lung apices again demonstrates pulmonary emphysema with scattered fibrosis/scarring. Impression: 1. Old nonunited nondisplaced odontoid fracture. No new acute fracture. 2. Chronic findings including osteopenia, multilevel degenerative spondylosis, grade 1 C4/C6 anterolisthesis, arteriosclerotic disease, pulmonary emphysema, and pulmonary fibrosis/scarring.
--- NOTE | 2024-07-17 08:59 | XRAY ---
Indication: Status post fall. Multiple contiguous axial images obtained through the chest without contrast. Comparison: March 13, 2024 Previous diffuse bilateral airspace disease has improved with minimal residual versus recurrent opacities seen in both upper lobes, right greater than left. Previous bilateral effusions have cleared. Remaining lungs demonstrates moderate bilateral dependent atelectasis, moderate diffuse pulmonary emphysema, scattered bilateral fibrosis/scarring, and a few tiny calcified granulomas. Heart not enlarged with minimal aortic and mitral valve calcifications. Aorta again mildly arteriosclerotic without aneurysm. Stable small subcarinal and tiny left hilar calcified nodes. No pathologic mediastinal lymphadenopathy. Bony thorax intact again with osteopenia, flowing osteophytes throughout spine, and right shoulder arthroplasty. Limited upper abdomen again demonstrates cholecystectomy clips. Impression: 1. Minimal residual/recurrent bilateral airspace disease as detailed. 2. Chronic findings including pulmonary emphysema, atelectasis/scarring, arteriosclerotic disease, chronic bony findings, and old granulomatous disease. 3. Remaining CT chest without contrast exam is negative.
== END 2024-07-16 22:34 | disposition home or self-care (01) ==
LOC: ED 19:18
DX: Z04.3 Encounter for examination and observation following other accident (principal); R07.89 Other chest pain; R51.9 Headache, unspecified; M54.2 Cervicalgia; R26.81 Unsteadiness on feet; E11.9 Type 2 diabetes mellitus without complications; I10 Essential (primary) hypertension; Z79.84 Long term (current) use of oral hypoglycemic drugs; Z79.01 Long term (current) use of anticoagulants; Z79.899 Other long term (current) drug therapy
CPT/HCPCS: 70450; 71250; 72125; 99283

== ENCOUNTER 2024-07-25 19:43 | Observation (INO) | payer MEDICARE ==
--- NOTE | 2024-07-25 21:05 | ERPHSYRPT ---
- History of Present Illness Time Seen by Provider: 07/25/24 21:03 Source: patient Exam Limitations: no limitations Patient Subjective Stated Complaint: fever, chilling, low back pain. per pt's daughter she believes patient has a UTI Triage Nursing Assessment: pt assisted to wheelchair with assist x1 to bed, pt presents to ED with daughter, pt c/o low back pain, fever, and chills. daughter believes that patient has a UTI. oral temp was 100.3 Physician History: 89-year-old male history of COPD, A-fib, CHF on 2 to 3 L home O2 presents to our ED for evaluation. Patient here with his daughter who lives with him. She reports that patient has been weak febrile.. She observed his urine to be concentrated foul-smelling. He is concerned for possible UTI. Daughter reports patient normally gets around independently at home. He is not unable to stand. Patient describes a dull back ache. Pain is constant. No specific worsening or improving factors. Patient voices no other complaints or concerns at this time. Timing/Duration: today Severity: moderate Modifying Factors: Improves With: nothing Associated Symptoms: denies symptoms Allergies/Adverse Reactions: No Known Drug Allergies Allergy (Verified 03/11/24 22:45) Home Medications: Glimepiride [Amaryl] 1 mg PO DAILY 12/17/14 [History] Losartan Potassium [Cozaar] 50 mg PO DAILY 04/05/20 [History] Albuterol Sulfate [Albuterol Sulfate Hfa] 2 puffs IH UD 09/04/21 [History] Lubiprostone 8 mcg PO BID 09/04/21 [History] Rivaroxaban [Xarelto] 20 mg PO DAILY 09/04/21 [History] Fluticasone/Vilanterol [Breo Ellipta 100-25 Mcg Inhalr] 1 puff IH DAILY 03/30/22 [History] Oxycodone HCl 15 mg PO Q6H PRN PRN 03/30/22 [History] Acetaminophen 500 mg [Tylenol Extra Strength 500 mg] 325 mg PO TID 07/25 [History] Famotidine 20 mg [Pepcid 20 MG] 20 mg PO BID 07/25/23 [History] Gabapentin 100 mg PO TID 07/26/23 [History] Senna/Docusate Sodium Tab [Senokot-S Tablet] 1 udtab PO BID 03/11/24 [History] Zinc Gluconate [Zinc] 50 mg PO DAILY 03/11/24 [History] Dapagliflozin Propanediol [Farxiga] 1 tab PO DAILY 07/25/24 [History] Metoprolol Succinate 25 mg Xl* [Toprol-Xl 25MG Tablets] 0.5 tab PO DAILY 07/25/24 [History] Spironolactone 1 tab PO DAILY 07/25/24 [History] hydrOXYzine HCL [Hydroxyzine HCl] 10 mg PO BID 07/25/24 [History] Hx Tetanus, Diphtheria Vaccination/Date Given: Yes Hx Influenza Vaccination/Date Given: Yes Hx Pneumococcal Vaccination/Date Given: Yes Travel Risk - International Travel Have you traveled outside of the country in past 3 weeks: No - Emerging Infectious Disease Are you exhibiting symptoms associated with any current EIDs: Yes Symptoms: Fever - Review of Systems Constitutional: No Symptoms, No Fever, No Chills Eyes: No Symptoms Ears, Nose, & Throat: No Symptoms Respiratory: No Symptoms, No Cough, No Dyspnea Cardiac: No Symptoms, No Chest Pain, No Edema, No Syncope Abdominal/Gastrointestinal: No Symptoms, No Abdominal Pain, No Nausea, No Vomiting, No Diarrhea Genitourinary Symptoms: No Symptoms, No Dysuria Musculoskeletal: No Symptoms, No Back Pain, No Neck Pain Skin: No Symptoms, No Rash Neurological: No Symptoms, No Dizziness, No Focal Weakness, No Sensory Changes Psychological: No Symptoms Endocrine: No Symptoms Hematologic/Lymphatic: No Symptoms Immunological/Allergic: No Symptoms All Other Systems: Reviewed and Negative - Past Medical History Pertinent Past Medical History: Yes Neurological History: Stroke ENT History: Cataracts Cardiac History: Hypertension Respiratory History: COPD Endocrine Medical History: Diabetes Type II Musculoskeletal History: Arthritis, Osteoarthritis GI Medical History: Hernia History: No Pertinent History Psycho-Social History: No Pertinent History Male Reproductive Disorders: No Pertinent History Other Medical History: 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; facial wells in july - Past Surgical History Past Surgical History: Yes Neuro Surgical History: No Pertinent History Cardiac: No Pertinent History Respiratory: No Pertinent History Gastrointestinal: Cholecystectomy, Hernia Repair Genitourinary: No Pertinent History Musculoskeletal: Joint Replacement, Orthopedic Surgery Male Surgical History: No Pertinent History Other Surgical History: back,cataracts rt/lt, R shoulder joint replaced, skin grafts - face & R upper anterior leg Significant Family History: no pertinent family hx - Social History Smoking Status: Former smoker Exposure to second hand smoke: No Drug Use: none Patient Lives Alone: No - Social Determinants of Health Will the patient participate in the screening: Declined to provide - Nursing Vital Signs Nursing Vital Signs: Initial Vital Signs Temperature 100.3 F 07/25/24 20:51 Pulse Rate 98 H 07/25/24 20:51 Respiratory Rate 30 H 07/25/24 20:51 Blood Pressure 106/57 07/25/24 20:51 O2 Sat by Pulse Oximetry 97 07/25/24 20:51 Pain Scale Pain Intensity 4 - Physical Exam General Appearance: no apparent distress, alert Eye Exam: PERRL/EOMI, eyes nml inspection Ears, Nose, Throat Exam: normal ENT inspection, TMs normal, pharynx normal, moist mucous membranes Neck Exam: normal inspection, non-tender, supple, full range of motion Respiratory Exam: normal breath sounds, lungs clear, No respiratory distress Cardiovascular Exam: regular rate/rhythm, normal heart sounds, normal peripheral pulses Gastrointestinal/Abdomen Exam: soft, normal bowel sounds, No tenderness, No mass Back Exam: normal inspection, normal range of motion, No CVA tenderness, No vertebral tenderness Extremity Exam: normal inspection, normal range of motion, pelvis stable Neurologic Exam: alert, oriented x 3, cooperative, normal mood/affect, sensation nml, No motor deficits Skin Exam: normal color, warm, dry, No rash Lymphatic Exam: No adenopathy SpO2 Interpretation: normal SpO2: 97 O2 Delivery: Room Air - Course Nursing assessment & vital signs reviewed: Yes EKG Interpreted by Me: RATE (98, a flutter), Right [place] Deviation, Left Bundle Branch Block - CT Exams Abdomen/Pelvis CT Interpretation: Tele-radiologist Report (Bilateral airspace disease, fecal stasis, chronic bony findings) Ordered Tests: Active Orders 24 hr Category Date Time Status Field Administrative Assistant STAT Care 07/25/24 20:59 Active IV Insertion STAT Care 07/25/24 20:59 Active Pulse Oximetry (ED) STAT Care 07/25/24 20:59 Active ABDOMEN AND PELVIS W/0 CONTRAS [CT] Stat Exams 07/25/24 21:15 Taken CHEST 1 VIEW (PORTABLE) Stat Exams 07/25/24 20:59 Completed RECONSTRUCTION [CT] Stat Exams 07/25/24 21:15 Taken BLOOD CULTURE Stat Lab 07/25/24 21:20 Received CBC W DIFF Stat Lab 07/25/24 21:05 Completed CMP Stat Lab 07/25/24 21:05 Completed CMP Stat Lab 07/26/24 00:05 Completed CULTURE,URINE Stat Lab 07/25/24 21:58 Received POCT GLUCOSE Stat Lab 07/25/24 22:45 Completed POCT GLUCOSE Stat Lab 07/26/24 00:06 Completed UA W/RFX UR CULTURE Stat Lab 07/25/24 21:58 Completed Respiratory Therapy Assessment DAILY RT 07/25/24 22:17 Active Transfer Order Routine Transfer 07/26/24 Ordered Medication Summary Generic Name Dose Route Start Last Admin Trade Name Eddie PRN Reason Stop Dose Admin Sodium Chloride 1,000 mls @ 50 mls/hr 07/25/24 21:00 07/25/24 22:51 Sodium Chloride 0.9% 1000 Ml IV 08/24/24 20:59 0 mls/hr .Q20H GONZALO Infusion Sodium Bicarbonate 75 meq/ 1,000 mls @ 100 mls/hr 07/25/24 22:00 07/26/24 00:33 Sodium Chloride IV 08/24/24 21:59 0 mls/hr .Q10H GONZALO 0 mls/hr Infusion Azithromycin 500 mg in 250 mls @ 250 mls/hr 07/25/24 23:59 Zithromax 500 Mg/ 250 Ml Nacl Premix IV 07/26/24 00:58 STAT STA Discontinued Medications Generic Name Dose Route Start Last Admin Trade Name Eddie PRN Reason Stop Dose Admin Albuterol Sulfate 2.5 mg 07/25/24 22:03 07/25/24 22:14 Albuterol Sulfate 2.5 Mg/3 Ml Neb IH 07/25/24 22:04 2.5 mg STAT ONE Administration Albuterol Sulfate Confirm 07/25/24 22:13 Albuterol Sulfate 2.5 Mg/3 Ml Neb Administered 07/25/24 22:14 Dose 2.5 mg IH .STK-MED ONE Calcium Gluconate 1,000 mg 07/25/24 21:57 07/25/24 22:52 Calcium Gluconate 1000 Mg/10 Ml Vial IV 07/25/24 21:58 1,000 mg STAT ONE Administration Calcium Gluconate Confirm 07/25/24 22:39 Calcium Gluconate 1000 Mg/10 Ml Vial Administered 07/25/24 22:40 Dose 1,000 mg IV .STK-MED ONE Dextrose 50 ml 07/25/24 22:01 07/25/24 22:52 Dextrose 50%-Water 50 Ml Abboject IV 07/25/24 22:02 50 ml STAT ONE Administration Dextrose Confirm 07/25/24 22:41 Dextrose 50%-Water 50 Ml Abboject Administered 07/25/24 22:42 Dose 50 ml IV .STK-MED ONE Ceftriaxone Sodium 2 gm in 100 mls @ 200 mls/hr 07/25/24 23:59 07/26/24 00:20 Rocephin 2 Gm/100 Ml Nacl IV 07/26/24 00:28 200 mls/hr STAT ONE 200 mls/hr Administration Ceftriaxone Sodium Confirm 07/26/24 00:17 Rocephin 2 Gm/100 Ml Nacl Administered 07/26/24 00:18 Dose 2 gm in 100 mls @ ud IV .STK-MED ONE Insulin Human Regular 5 unit 07/25/24 22:01 07/25/24 22:53 Insulin Regular, Human 1 Unit IV 07/25/24 22:02 5 unit STAT ONE Administration Insulin Human Regular Confirm 07/25/24 22:41 Insulin Regular, Human 1 Unit Administered 07/25/24 22:42 Dose 5 unit .ROUTE .STK-MED ONE Patiromer 8.4 gm 07/25/24 21:59 07/25/24 23:14 Patiromer Calcium Sorbitex 8.4 Gm Powd.Pack PO 07/25/24 22:00 Not Given STAT STA Patiromer Confirm 07/25/24 22:42 Patiromer Calcium Sorbitex 8.4 Gm Powd.Pack Administered 07/25/24 22:43 Dose 8.4 gm PO .STK-MED ONE Sodium Bicarbonate Confirm 07/25/24 22:41 Sodium Bicarbonate 1 Meq/Ml 50ml Vial Administered 07/25/24 22:42 Dose 50 meq .ROUTE .STK-MED ONE Lab/Rad Data: Laboratory Result Diagrams 07/25/24 21:05 07/26/24 00:05 Laboratory Results 07/26/24 07/26/24 07/25/24 Range/Units 00:06 00:05 22:45 WBC (4.23-9.07) x10^3/uL RBC (4.63-6.08) x10^6/uL Hgb (13.7-17.5) g/dL Hct (40.1-51.0) % MCV (79.0-92.2) fL MCH (25.7-32.2) pg MCHC (32.3-36.5) g/dL RDW (11.6-14.4) % Plt Count (163-337) x10^3/uL MPV (9.4-12.4) fL Gran % (34.0-67.9) % Immature Gran % (Auto) (0.001-0.429) % Nucleat RBC Rel Count (0.00-0.2) % Eos # (Auto) (0.04-0.54) x10^3/uL Immature Gran # (Auto) (0.001-0.031) x10^3u/L Absolute Lymphs (auto) (1.32-3.57) x10^3/uL Absolute Monos (auto) (0.30-0.82) x10^3/uL Absolute Nucleated RBC (0.00-0.012) x10^3u/L Lymphocytes % (21.8-53.1) % Monocytes % (5.3-12.2) % Eosinophils % (0.8-7.0) % Basophils % (0.2-1.2) % Absolute Granulocytes (1.78-5.38) x10^3/uL Basophils # (0.01-0.08) x10^3/uL Sodium 138 (135-145) mmol/L Potassium 5.1 (3.5-5.1) mmol/L Chloride 104 (98-107) mmol/L Carbon Dioxide 22 (22-30) mmol/L Anion Gap 16.7 H (5-15) MEQ/L BUN 56 H (9-20) mg/dL Creatinine 2.03 H (0.66-1.25) mg/dL Estimated GFR 30.8 ML/MIN Glucose 202 H (74-106) mg/dL POC Glucometer 197 H 179 H (74 to 106) mg/dL Calcium 9.2 (8.4-10.2) mg/dL Total Bilirubin 0.60 (0.2-1.3) mg/dL AST 26 (17-59) U/L ALT 24 (0-50) U/L Alkaline Phosphatase 93 (38-126) U/L Serum Total Protein 6.8 (6.3-8.2) g/dL Albumin 3.5 (3.5-5.0) g/dL Urine Color (Yellow) Urine Appearance (Clear) Urine pH (4.6-8.0) Ur Specific [place] (1.005-1.030) Urine Protein (Negative) Urine Glucose (UA) (Negative) mg/dL Urine Ketones (Negative) Urine Blood (Negative) Urine Nitrite (Negative) Urine Bilirubin (Negative) Urine Urobilinogen (0.2) mg/dL Ur Leukocyte Esterase (Negative) U Hyaline Cast (Auto) (0-2) /LPF Urine Microscopic RBC (0-5) /HPF Urine Microscopic WBC (0-5) /HPF Ur Epithelial Cells (None Seen) /HPF Urine Bacteria (None Seen) /HPF Urine Culture Reflexed (NO) Influenza Type A Ag (NEGATIVE) Influenza Type B Ag (NEGATIVE) RSV (PCR) (NEGATIVE) SARS-CoV-2 (PCR) (NEGATIVE) Slides for Path Review 07/25/24 07/25/24 07/25/24 Range/Units 21:58 21:20 21:05 WBC (4.23-9.07) x10^3/uL RBC (4.63-6.08) x10^6/uL Hgb (13.7-17.5) g/dL Hct (40.1-51.0) % MCV (79.0-92.2) fL MCH (25.7-32.2) pg MCHC (32.3-36.5) g/dL RDW (11.6-14.4) % Plt Count (163-337) x10^3/uL MPV (9.4-12.4) fL Gran % (34.0-67.9) % Immature Gran % (Auto) (0.001-0.429) % Nucleat RBC Rel Count (0.00-0.2) % Eos # (Auto) (0.04-0.54) x10^3/uL Immature Gran # (Auto) (0.001-0.031) x10^3u/L Absolute Lymphs (auto) (1.32-3.57) x10^3/uL Absolute Monos (auto) (0.30-0.82) x10^3/uL Absolute Nucleated RBC (0.00-0.012) x10^3u/L Lymphocytes % (21.8-53.1) % Monocytes % (5.3-12.2) % Eosinophils % (0.8-7.0) % Basophils % (0.2-1.2) % Absolute Granulocytes (1.78-5.38) x10^3/uL Basophils # (0.01-0.08) x10^3/uL Sodium 138 (135-145) mmol/L Potassium 6.1 H* (3.5-5.1) mmol/L Chloride 101 (98-107) mmol/L Carbon Dioxide 23 (22-30) mmol/L Anion Gap 19.3 H (5-15) MEQ/L BUN 58 H (9-20) mg/dL Creatinine 2.05 H (0.66-1.25) mg/dL Estimated GFR 30.4 ML/MIN Glucose 219 H (74-106) mg/dL POC Glucometer (74 to 106) mg/dL Calcium 9.3 (8.4-10.2) mg/dL Total Bilirubin 0.70 (0.2-1.3) mg/dL AST 29 (17-59) U/L ALT 24 (0-50) U/L Alkaline Phosphatase 107 (38-126) U/L Serum Total Protein 7.9 (6.3-8.2) g/dL Albumin 4.2 (3.5-5.0) g/dL Urine Color Yellow (Yellow) Urine Appearance Clear (Clear) Urine pH 5.0 (4.6-8.0) Ur Specific [place] 1.025 (1.005-1.030) Urine Protein 30 (Negative) Urine Glucose (UA) >=1000 A (Negative) mg/dL Urine Ketones Negative (Negative) Urine Blood NHT (Negative) Urine Nitrite Negative (Negative) Urine Bilirubin Negative (Negative) Urine Urobilinogen 1.0 A (0.2) mg/dL Ur Leukocyte Esterase Negative (Negative) U Hyaline Cast (Auto) 3-5 A (0-2) /LPF Urine Microscopic RBC 3-5 (0-5) /HPF Urine Microscopic WBC 0-2 (0-5) /HPF Ur Epithelial Cells None Seen (None Seen) /HPF Urine Bacteria None Seen (None Seen) /HPF Urine Culture Reflexed NO (NO) Influenza Type A Ag NEGATIVE (NEGATIVE) Influenza Type B Ag NEGATIVE (NEGATIVE) RSV (PCR) NEGATIVE (NEGATIVE) SARS-CoV-2 (PCR) NEGATIVE (NEGATIVE) Slides for Path Review 07/25/24 Range/Units 21:05 WBC 9.5 H (4.23-9.07) x10^3/uL RBC 3.78 L (4.63-6.08) x10^6/uL Hgb 12.4 L (13.7-17.5) g/dL Hct 37.4 L (40.1-51.0) % MCV 98.9 H (79.0-92.2) fL MCH 32.8 H (25.7-32.2) pg MCHC 33.2 (32.3-36.5) g/dL RDW 14.3 (11.6-14.4) % Plt Count 277 (163-337) x10^3/uL MPV 9.3 L (9.4-12.4) fL Gran % 87.4 H (34.0-67.9) % Immature Gran % (Auto) 0.4 (0.001-0.429) % Nucleat RBC Rel Count 0.0 (0.00-0.2) % Eos # (Auto) 0.01 L (0.04-0.54) x10^3/uL Immature Gran # (Auto) 0.04 H (0.001-0.031) x10^3u/L Absolute Lymphs (auto) 0.58 L (1.32-3.57) x10^3/uL Absolute Monos (auto) 0.54 (0.30-0.82) x10^3/uL Absolute Nucleated RBC 0.00 (0.00-0.012) x10^3u/L Lymphocytes % 6.1 L (21.8-53.1) % Monocytes % 5.7 (5.3-12.2) % Eosinophils % 0.1 L (0.8-7.0) % Basophils % 0.3 (0.2-1.2) % Absolute Granulocytes 8.30 H (1.78-5.38) x10^3/uL Basophils # 0.03 (0.01-0.08) x10^3/uL Sodium (135-145) mmol/L Potassium (3.5-5.1) mmol/L Chloride (98-107) mmol/L Carbon Dioxide (22-30) mmol/L Anion Gap (5-15) MEQ/L BUN (9-20) mg/dL Creatinine (0.66-1.25) mg/dL Estimated GFR ML/MIN Glucose (74-106) mg/dL POC Glucometer (74 to 106) mg/dL Calcium (8.4-10.2) mg/dL Total Bilirubin (0.2-1.3) mg/dL AST (17-59) U/L ALT (0-50) U/L Alkaline Phosphatase (38-126) U/L Serum Total Protein (6.3-8.2) g/dL Albumin (3.5-5.0) g/dL Urine Color (Yellow) Urine Appearance (Clear) Urine pH (4.6-8.0) Ur Specific [place] (1.005-1.030) Urine Protein (Negative) Urine Glucose (UA) (Negative) mg/dL Urine Ketones (Negative) Urine Blood (Negative) Urine Nitrite (Negative) Urine Bilirubin (Negative) Urine Urobilinogen (0.2) mg/dL Ur Leukocyte Esterase (Negative) U Hyaline Cast (Auto) (0-2) /LPF Urine Microscopic RBC (0-5) /HPF Urine Microscopic WBC (0-5) /HPF Ur Epithelial Cells (None Seen) /HPF Urine Bacteria (None Seen) /HPF Urine Culture Reflexed (NO) Influenza Type A Ag (NEGATIVE) Influenza Type B Ag (NEGATIVE) RSV (PCR) (NEGATIVE) SARS-CoV-2 (PCR) (NEGATIVE) Slides for Path Review YES - Progress Progress: improved Progress Note: 89-year-old male presents to emergency department for evaluation of generalized weakness. Physical exam reveals a frail appearing weak appearing gentleman conversant in good spirits. Daughter at bedside. Laboratory workup reveals acute renal injury dehydration hyperkalemia. Chest x-ray reveals bilateral airspace disease. Blood cultures obtained. Antibiotics administered. Hyperkalemic management initiated. Potassium improved from 6.1-5.1. Patient reassessed she is resting comfortably. No active discomfort. Case discussed with Dr. Alegria at 11:[address] Weber accepts admission to observation. Plan of care discussed with patient and his daughter. They agreed admission to [facility] for further evaluation and treatment. Portions of this note were created with voice recognition technology. There may be grammatical, spelling, punctuation or sound alike errors Complexity problem addressed is high acute complicated. Critical care time is 5 hours. Management entailed decreasing critically high potassium. Potassium improved from 6.1-5.1. Complexity of data reviewed and analyzed is extensive. Test ordered test reviewed results analyzed and correlated clinically with history and physical exam. Management discussed with hospitalist who accepts admission to observation. Risk of morbidity/mortality of patient management is high. Patient requires hospitalization for further evaluation and treatment. Vital stable. Time spent admit patient is approximately 20 minutes. Plan of care established for shared decision making. No social determinants of health present to impede follow-up. Portions of this note were created with voice recognition technology. There may be grammatical, spelling, punctuation or sound alike errors 07/26/24 00:36 07/26/24 00:[address] Jj Will see patient in: hospital (observation) Counseled pt/family regarding: lab results, diagnosis, rad results - Departure Departure Disposition: Observation Clinical Impression: Dehydration, Acute renal injury, Generalized weakness, Hyperkalemia, Bilateral pneumonia, Fever Condition: Stable Critical Care Time: Yes Critical Care Time(excluding separately billable procedures): Critical > 194 mins Referrals: TYRONE HANSEN MD [Primary Care Provider] - Follow up/PCP as directed
[2024-07-25] MEDS: Sodium Chloride 0.9% 1000 ML 1,000 ML IV SCH (21:15)
[2024-07-25 21:27] LABS: BASOPHIL % 0.3 % (0.2-1.2); Basophil (Absolute #) 0.03 x10^3/uL (0.01-0.08); Eosinophil % 0.1 % (0.8-7.0); Eosinophil (Absolute #) 0.01 x10^3/uL (0.04-0.54); Hematocrit 37.4 % (40.1-51.0); Hemoglobin 12.4 g/dL (13.7-17.5); IMMATURE GRAN # 0.04 x10^3u/L (0.001-0.031); IMMATURE GRAN % 0.4 % (0.001-0.429); Lymphocyte (Absolute #) 0.58 x10^3/uL (1.32-3.57); Lymphocytes % 6.1 % (21.8-53.1); Mean Cell Volume 98.9 fL (79.0-92.2); Mean Corpuscular Hemoglobin 32.8 pg (25.7-32.2); Mean Corpuscular Hgb Concent. 33.2 g/dL (32.3-36.5); Mean Platelet Volume 9.3 fL (9.4-12.4); Monocyte (Absolute #) 0.54 x10^3/uL (0.30-0.82); Monocytes % 5.7 % (5.3-12.2); Neutrophil % 87.4 % (34.0-67.9); Platelet Count 277 x10^3/uL (163-337); Red Blood Count 3.78 x10^6/uL (4.63-6.08); Red Cell Distribution Width 14.3 % (11.6-14.4); White Blood Count 9.5 x10^3/uL (4.23-9.07)
[2024-07-25 21:38] LABS: ALBUMIN 4.2 g/dL (3.5-5.0); ANION GAP 19.3 MEQ/L (5-15); BILIRUBIN,TOTAL 0.7 mg/dL (0.2-1.3); Calcium 9.3 mg/dL (8.4-10.2); Creatinine 1 2.05 mg/dL (0.66-1.25); EST GLOMERULAR FILTRATION RATE 30.4 ML/MIN; Total Protein 7.9 g/dL (6.3-8.2)
[2024-07-25 21:44] LABS: Potassium 6.1 mmol/L (3.5-5.1)
[2024-07-25 22:04] LABS: INFLUENZA A NEGATIVE (NEGATIVE); INFLUENZA B NEGATIVE (NEGATIVE); RESPIRATORY SYNCTIAL VIRUS NEGATIVE (NEGATIVE); SARS-CoV-2 Xpert Express NEGATIVE (NEGATIVE)
[2024-07-25] MEDS ORDERED: PROVENTIL 2.5 MG/3 ML NEB IH ONE (22:13)
[2024-07-25 22:14] LABS: Appearance Clear (Clear); Bacteria None Seen /HPF (None Seen); Bilirubin Negative (Negative); Blood NHT (Negative); Epithelial Cells None Seen /HPF (None Seen); Glucose, Urine >=1000 mg/dL (Negative); Ketones Negative (Negative); Leukocyte Esterase Negative (Negative); Nitrite Negative (Negative); Protein,Urine Dip 30 (Negative); Specific Gravity 1.025 (1.005-1.030); WBC 0-2 /HPF (0-5)
[2024-07-25] MEDS: PROVENTIL 2.5 MG/3 ML NEB IH ONE (22:14)
[2024-07-25] MEDS ORDERED: Calcium Gluconate 10% 1000 MG IV ONE (22:39)
[2024-07-25] MEDS ORDERED: D50W 50 ml Abboject IV ONE (22:41)
[2024-07-25] MEDS ORDERED: HUMULIN R ONE (22:41)
[2024-07-25] MEDS ORDERED: Sodium Bicarbonate 50 MEQ/50 ML VIAL ONE (22:41)
[2024-07-25] MEDS ORDERED: VELTASSA PO ONE (22:42)
[2024-07-25] MEDS: VELTASSA PO STA (22:50)
[2024-07-25] MEDS: SODIUM CHLORIDE 0.9% IV SCH (22:51)
[2024-07-25] MEDS: SODIUM BICARBONATE IV SCH (22:51)
[2024-07-25] MEDS: Calcium Gluconate 10% 1000 MG IV ONE (22:52)
[2024-07-25] MEDS: D50W 50 ml Abboject IV ONE (22:52)
[2024-07-25] MEDS: HUMULIN R IV ONE (22:53)
--- NOTE | 2024-07-25 22:58 | XRAY ---
CLINICAL HISTORY: sob COMPARISON: 03/13/2024. TECHNIQUE: Radiograph of chest was acquired. FINDINGS: Suspicious reticulonodular opacities are noted involving right mid, lower zones. Linear atelectatic changes are noted in the right costo-phrenic angle region. Resolution of bilateral pleural effusion is noted in the current study. Cardiomegaly noted. Unfolding of the aorta is seen. No acute osseous abnormality. Shoulder replacement prosthesis is noted on the right side. Rest of the findings are unchanged compared to the previous radiograph. IMPRESSION: 1. Unchanged cardiomegaly. 2. Previously seen bilateral pleural effusion is not seen in the current study. 3. Suspicious reticulonodular opacities are noted involving right mid, lower zones. Findings suggestive of interstitial lung abnormality. 4. Linear atelectatic changes are noted in the right costo-phrenic angle region. Rest of the findings are unchanged compared to previous radiograph. Electronically Signed by: Ulisses Guzman MD. (07/25/2024 22:53:11 EDT)
[2024-07-25 23:01] LABS: Slide Review 1 YES
[2024-07-26] MEDS ORDERED: ROCEPHIN 2 GM/100 ML NACL 2 GM/100 ML IVPB IV ONE (00:17)
[2024-07-26] MEDS: ROCEPHIN 2 GM/100 ML NACL 2 GM/100 ML IVPB IV ONE (00:20)
[2024-07-26 00:23] LABS: ALBUMIN 3.5 g/dL (3.5-5.0); ANION GAP 16.7 MEQ/L (5-15); BILIRUBIN,TOTAL 0.6 mg/dL (0.2-1.3); Calcium 9.2 mg/dL (8.4-10.2); Creatinine 1 2.03 mg/dL (0.66-1.25); EST GLOMERULAR FILTRATION RATE 30.8 ML/MIN; Potassium 5.1 mmol/L (3.5-5.1); Total Protein 6.8 g/dL (6.3-8.2)
[2024-07-26] MEDS ORDERED: Zithromax 500 MG/ 250 ML NaCl Premix 500 MG/250 ML IVPB IV ONE (00:51)
[2024-07-26] MEDS: Zithromax 500 MG/ 250 ML NaCl Premix 500 MG/250 ML IVPB IV STA (00:53)
[2024-07-26] MEDS ORDERED: TYLENOL 325 MG PO PRN (02:04)
--- NOTE | 2024-07-26 02:12 | PCM.HP ---
History of Present Illness - Chief Complaint Chief Complaint: generalized weakness Date: 07/26/24 History of Present Illness: 89 y/o M with h/o HFrEF, A-fib on Xarelto, DM2, COPD on 2-3L oxygen, and hypertension, here with diffuse weakness. Patient brought in by daughter due to three days of diffuse generalized weakness, unable to get up from chair. Patient also notes some cough productive of yellow sputum along the way as well, although her remains on his home 2 L oxygen. He denies dyspnea or wheezing. He notes that throughout this time he has had no appetite and has eaten almost nothing. He remains compliant with his medications, including his diuretics. He had a borderline fever at home, but he has not noted any chills. He denies chest pain, abdominal pain, nausea, or dysuria. - Review of Systems All Other Systems: Reviewed and Negative Medications & Allergies Home Medications: Home Medication List Glimepiride [Amaryl] 1 mg PO DAILY 12/17/14 [History Confirmed 07/25/24] Losartan Potassium [Cozaar] 50 mg PO DAILY 04/05/20 [History Confirmed 07/25/24] Albuterol Sulfate [Albuterol Sulfate Hfa] 2 puffs IH UD 09/04/21 [History Confirmed 07/25/24] Lubiprostone 8 mcg PO BID 09/04/21 [History Confirmed 07/25/24] Rivaroxaban [Xarelto] 20 mg PO DAILY 09/04/21 [History Confirmed 07/25/24] Fluticasone/Vilanterol [Breo Ellipta 100-25 Mcg Inhalr] 1 puff IH DAILY 03/30/22 [History Confirmed 07/25/24] Oxycodone HCl 15 mg PO Q6H PRN PRN 03/30/22 [History Confirmed 07/25/24] Acetaminophen 500 mg [Tylenol Extra Strength 500 mg] 325 mg PO TID 07/25/23 [History Confirmed 07/25/24] Famotidine 20 mg [Pepcid 20 MG] 20 mg PO BID 07/25/23 [History Confirmed 07/25/24] Gabapentin 100 mg PO TID 07/26/23 [History Confirmed 07/25/24] Blood Sugar Diagnostic [Accu-Chek Guide Test Strip] 1 each ACHS #100 strip 07/29/23 [Rx Confirmed 07/25/24] Blood-Glucose Meter [Accu-Chek Guide Me Glucose Mtr] 1 each UD #1 misc 07/29/23 [Rx Confirmed 07/25/24] Lancets [Accu-Chek Softclix] 1 each ACHS #100 misc 07/29/23 [Rx Confirmed 07/25/24] Senna/Docusate Sodium Tab [Senokot-S Tablet] 1 udtab PO BID 03/11/24 [History Confirmed 07/25/24] Zinc Gluconate [Zinc] 50 mg PO DAILY 03/11/24 [History Confirmed 07/25/24] Furosemide 20 mg [Lasix 20 mg] 20 mg PO DAILY 30 Days #30 tablet 03/16/24 [Rx Confirmed 07/25/24] Dapagliflozin Propanediol [Farxiga] 1 tab PO DAILY 07/25/24 [History Confirmed 07/25/24] Metoprolol Succinate 25 mg Xl* [Toprol-Xl 25MG Tablets] 0.5 tab PO DAILY 07/25/24 [History Confirmed 07/25/24] Spironolactone 1 tab PO DAILY 07/25/24 [History Confirmed 07/25/24] hydrOXYzine HCL [Hydroxyzine HCl] 10 mg PO BID 07/25/24 [History Confirmed 07/25/24] Allergies/Adverse Reactions: Allergies Allergy/AdvReac Type Severity Reaction Status Date / Time No Known Drug Allergies Allergy Verified 03/11/24 22:45 - Past Medical History Past Medical History: Yes Neurological History: Stroke ENT History: Cataracts Cardiac History: Congestive Heart Failure (EF <30% on TTE in April), Hypertension Respiratory History: COPD Endocrine Medical History: Diabetes Type II Musculoskelatal History: Arthritis, Osteoarthritis GI Medical History: Hernia History: No Pertinent History Pyscho-Social History: No Pertinent History Male Reproductive Disorders: No Pertinent History Comment: 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; facial wells in july - Past Surgical History Past Surgical History: Yes Neuro Surgical History: No Pertinent History Cardiac History: No Pertinent History Respiratory Surgery: No Pertinent History GI Surgical History: Cholecystectomy, Hernia Repair Genitourinary Surgical Hx: No Pertinent History Musculskeletal Surgical Hx: Joint Replacement, Orthopedic Surgery Male Surgical History: No Pertinent History Other Surgical History: back,cataracts rt/lt, R shoulder joint replaced, skin grafts - face & R upper anterior leg, skin grafts Significant Family History: no pertinent family hx - Social History Smoking Status: Former smoker Exposure to second hand smoke: No Alcohol: None Drug Use: none - Social Determinants of Health Will the patient participate in the screening: Declined to provide Do you worry about a steady place to live?: No In the past 12 months,have you had to go without utilities?: No Have you or anyone in your house had to go without enough: No Transportation Issues: No Has anyone in your support network made you feel unsafe?: No Does the patient want assistance with any of the above?: No - Physical Exam Vital Signs: Vital Signs - 24 hr Temp Pulse Resp BP BP Pulse Ox 07/26/24 00:41 97 07/26/24 00:08 71 22 90/39 97 07/25/24 23:30 89 26 H 93/45 98 07/25/24 23:00 99 H 25 H 93/48 98 07/25/24 22:30 86 21 94/53 98 07/25/24 22:17 84 28 H 97 07/25/24 22:00 92 H 26 H 119/55 97 07/25/24 21:50 86 27 H 97/44 95 07/25/24 21:12 97 07/25/24 21:00 86 18 107/36 95 07/25/24 20:51 100.3 F 98 H 30 H 106/57 97 GENERAL: frail man, lying in bed in on acute distress HENT: dry mucous membranes CV: irregularly irregular, no murmurs, no edema PULM: clear to auscultation, no work of breathing, on 2L oxygen ABD: non-tender, non-distended PSYCH: Alert, oriented x3, appropriate affect NEURO: No focal weakness, face symmetric Results - Labs Lab/Micro Results: Lab Results-Last 24 Hours 07/25/24 07/25/24 07/25/24 Range/Units 21:05 21:05 21:20 WBC 9.5 H (4.23-9.07) x10^3/uL RBC 3.78 L (4.63-6.08) x10^6/uL Hgb 12.4 L (13.7-17.5) g/dL Hct 37.4 L (40.1-51.0) % MCV 98.9 H (79.0-92.2) fL MCH 32.8 H (25.7-32.2) pg MCHC 33.2 (32.3-36.5) g/dL RDW 14.3 (11.6-14.4) % Plt Count 277 (163-337) x10^3/uL MPV 9.3 L (9.4-12.4) fL Gran % 87.4 H (34.0-67.9) % Immature Gran % (Auto) 0.4 (0.001-0.429) % Nucleat RBC Rel Count 0.0 (0.00-0.2) % Eos # (Auto) 0.01 L (0.04-0.54) x10^3/uL Immature Gran # (Auto) 0.04 H (0.001-0.031) x10^3u/L Absolute Lymphs (auto) 0.58 L (1.32-3.57) x10^3/uL Absolute Monos (auto) 0.54 (0.30-0.82) x10^3/uL Absolute Nucleated RBC 0.00 (0.00-0.012) x10^3u/L Lymphocytes % 6.1 L (21.8-53.1) % Monocytes % 5.7 (5.3-12.2) % Eosinophils % 0.1 L (0.8-7.0) % Basophils % 0.3 (0.2-1.2) % Absolute Granulocytes 8.30 H (1.78-5.38) x10^3/uL Basophils # 0.03 (0.01-0.08) x10^3/uL Sodium 138 (135-145) mmol/L Potassium 6.1 H* (3.5-5.1) mmol/L Chloride 101 (98-107) mmol/L Carbon Dioxide 23 (22-30) mmol/L Anion Gap 19.3 H (5-15) MEQ/L BUN 58 H (9-20) mg/dL Creatinine 2.05 H (0.66-1.25) mg/dL Estimated GFR 30.4 ML/MIN Glucose 219 H (74-106) mg/dL POC Glucometer (74 to 106) mg/dL Calcium 9.3 (8.4-10.2) mg/dL Total Bilirubin 0.70 (0.2-1.3) mg/dL AST 29 (17-59) U/L ALT 24 (0-50) U/L Alkaline Phosphatase 107 (38-126) U/L Serum Total Protein 7.9 (6.3-8.2) g/dL Albumin 4.2 (3.5-5.0) g/dL Urine Color (Yellow) Urine Appearance (Clear) Urine pH (4.6-8.0) Ur Specific [place] (1.005-1.030) Urine Protein (Negative) Urine Glucose (UA) (Negative) mg/dL Urine Ketones (Negative) Urine Blood (Negative) Urine Nitrite (Negative) Urine Bilirubin (Negative) Urine Urobilinogen (0.2) mg/dL Ur Leukocyte Esterase (Negative) U Hyaline Cast (Auto) (0-2) /LPF Urine Microscopic RBC (0-5) /HPF Urine Microscopic WBC (0-5) /HPF Ur Epithelial Cells (None Seen) /HPF Urine Bacteria (None Seen) /HPF Urine Culture Reflexed (NO) Influenza Type A Ag NEGATIVE (NEGATIVE) Influenza Type B Ag NEGATIVE (NEGATIVE) RSV (PCR) NEGATIVE (NEGATIVE) SARS-CoV-2 (PCR) NEGATIVE (NEGATIVE) Slides for Path Review YES 07/25/24 07/25/24 07/26/24 Range/Units 21:58 22:45 00:05 WBC (4.23-9.07) x10^3/uL RBC (4.63-6.08) x10^6/uL Hgb (13.7-17.5) g/dL Hct (40.1-51.0) % MCV (79.0-92.2) fL MCH (25.7-32.2) pg MCHC (32.3-36.5) g/dL RDW (11.6-14.4) % Plt Count (163-337) x10^3/uL MPV (9.4-12.4) fL Gran % (34.0-67.9) % Immature Gran % (Auto) (0.001-0.429) % Nucleat RBC Rel Count (0.00-0.2) % Eos # (Auto) (0.04-0.54) x10^3/uL Immature Gran # (Auto) (0.001-0.031) x10^3u/L Absolute Lymphs (auto) (1.32-3.57) x10^3/uL Absolute Monos (auto) (0.30-0.82) x10^3/uL Absolute Nucleated RBC (0.00-0.012) x10^3u/L Lymphocytes % (21.8-53.1) % Monocytes % (5.3-12.2) % Eosinophils % (0.8-7.0) % Basophils % (0.2-1.2) % Absolute Granulocytes (1.78-5.38) x10^3/uL Basophils # (0.01-0.08) x10^3/uL Sodium 138 (135-145) mmol/L Potassium 5.1 (3.5-5.1) mmol/L Chloride 104 (98-107) mmol/L Carbon Dioxide 22 (22-30) mmol/L Anion Gap 16.7 H (5-15) MEQ/L BUN 56 H (9-20) mg/dL Creatinine 2.03 H (0.66-1.25) mg/dL Estimated GFR 30.8 ML/MIN Glucose 202 H (74-106) mg/dL POC Glucometer 179 H (74 to 106) mg/dL Calcium 9.2 (8.4-10.2) mg/dL Total Bilirubin 0.60 (0.2-1.3) mg/dL AST 26 (17-59) U/L ALT 24 (0-50) U/L Alkaline Phosphatase 93 (38-126) U/L Serum Total Protein 6.8 (6.3-8.2) g/dL Albumin 3.5 (3.5-5.0) g/dL Urine Color Yellow (Yellow) Urine Appearance Clear (Clear) Urine pH 5.0 (4.6-8.0) Ur Specific [place] 1.025 (1.005-1.030) Urine Protein 30 (Negative) Urine Glucose (UA) >=1000 A (Negative) mg/dL Urine Ketones Negative (Negative) Urine Blood NHT (Negative) Urine Nitrite Negative (Negative) Urine Bilirubin Negative (Negative) Urine Urobilinogen 1.0 A (0.2) mg/dL Ur Leukocyte Esterase Negative (Negative) U Hyaline Cast (Auto) 3-5 A (0-2) /LPF Urine Microscopic RBC 3-5 (0-5) /HPF Urine Microscopic WBC 0-2 (0-5) /HPF Ur Epithelial Cells None Seen (None Seen) /HPF Urine Bacteria None Seen (None Seen) /HPF Urine Culture Reflexed NO (NO) Influenza Type A Ag (NEGATIVE) Influenza Type B Ag (NEGATIVE) RSV (PCR) (NEGATIVE) SARS-CoV-2 (PCR) (NEGATIVE) Slides for Path Review 07/26/24 Range/Units 00:06 WBC (4.23-9.07) x10^3/uL RBC (4.63-6.08) x10^6/uL Hgb (13.7-17.5) g/dL Hct (40.1-51.0) % MCV (79.0-92.2) fL MCH (25.7-32.2) pg MCHC (32.3-36.5) g/dL RDW (11.6-14.4) % Plt Count (163-337) x10^3/uL MPV (9.4-12.4) fL Gran % (34.0-67.9) % Immature Gran % (Auto) (0.001-0.429) % Nucleat RBC Rel Count (0.00-0.2) % Eos # (Auto) (0.04-0.54) x10^3/uL Immature Gran # (Auto) (0.001-0.031) x10^3u/L Absolute Lymphs (auto) (1.32-3.57) x10^3/uL Absolute Monos (auto) (0.30-0.82) x10^3/uL Absolute Nucleated RBC (0.00-0.012) x10^3u/L Lymphocytes % (21.8-53.1) % Monocytes % (5.3-12.2) % Eosinophils % (0.8-7.0) % Basophils % (0.2-1.2) % Absolute Granulocytes (1.78-5.38) x10^3/uL Basophils # (0.01-0.08) x10^3/uL Sodium (135-145) mmol/L Potassium (3.5-5.1) mmol/L Chloride (98-107) mmol/L Carbon Dioxide (22-30) mmol/L Anion Gap (5-15) MEQ/L BUN (9-20) mg/dL Creatinine (0.66-1.25) mg/dL Estimated GFR ML/MIN Glucose (74-106) mg/dL POC Glucometer 197 H (74 to 106) mg/dL Calcium (8.4-10.2) mg/dL Total Bilirubin (0.2-1.3) mg/dL AST (17-59) U/L ALT (0-50) U/L Alkaline Phosphatase (38-126) U/L Serum Total Protein (6.3-8.2) g/dL Albumin (3.5-5.0) g/dL Urine Color (Yellow) Urine Appearance (Clear) Urine pH (4.6-8.0) Ur Specific [place] (1.005-1.030) Urine Protein (Negative) Urine Glucose (UA) (Negative) mg/dL Urine Ketones (Negative) Urine Blood (Negative) Urine Nitrite (Negative) Urine Bilirubin (Negative) Urine Urobilinogen (0.2) mg/dL Ur Leukocyte Esterase (Negative) U Hyaline Cast (Auto) (0-2) /LPF Urine Microscopic RBC (0-5) /HPF Urine Microscopic WBC (0-5) /HPF Ur Epithelial Cells (None Seen) /HPF Urine Bacteria (None Seen) /HPF Urine Culture Reflexed (NO) Influenza Type A Ag (NEGATIVE) Influenza Type B Ag (NEGATIVE) RSV (PCR) (NEGATIVE) SARS-CoV-2 (PCR) (NEGATIVE) Slides for Path Review - Radiology Impressions Radiology Exams & Impressions: Radiology Procedures Category Date Time Status ABDOMEN AND PELVIS W/0 CONTRAS [CT] Stat Exams 07/25/24 21:15 Taken CHEST 1 VIEW (PORTABLE) Stat Exams 07/25/24 20:59 Completed RECONSTRUCTION [CT] Stat Exams 07/25/24 21:15 Taken CXR - no consolidation. Mild platelike atelectasis in right base. (images reviewed) - Other Procedures and Tests Respiratory Therapy 07/25/24 22:17 Respiratory Therapy Assessment DAILY 07/26/24 02:04 Oxygen Nasal Cannula 2 lpm Respiratory Therapy Consult ONCE Assessment/Plan (1) Acute kidney injury Current Visit: No Status: Resolved Assessment & Plan: 89 y/o M with h/o HFrEF, DM2, A-fib, COPD, and chronic respiratory failure, here with HORACE, hyperkalemia, and diffuse weakness. ## Acute kidney injury - baseline Cr is unclear, but may be as low as 1. Now up to 2, likely due to dehydration and poor PO intake, in the setting of multiple medications for this CHF that would worsen his renal function if he were dry. Patient had similar presentation three months ago. Have to be cautious with IV fluids; during last admission, patient quickly went in to pulmonary edema and severe respiratory failure after IV fluids overnight, and was found to have severe CHF (see below). - gentle NS at 50 ml/hr - encourage PO intake as tolerated - hold home Lasix, losartan, spironolactone, and Farxiga - repeat BMP in AM ## Hyperkalemia - secondary to HORACE above, from dehydration. Given [place] in ED, with appropriate temporizing measures, and repeat K appears to be improving. Patient's levels were only mildly elevated initially, so possibly contributing to patient's generalized weakness, but no EKG changes, no palpitations or other symptoms to suggest symptomatic hyperkalemia. - repeat BMP in AM - gentle IV fluids as above - hold spironolactone for now ## Generalized weakness - Most likely this is due to dehydration and HORACE as above, although may have some contribution from hyperkalemia. However, patient's hyperkalemia was relatively mild, so suspect dehydration is main factor. - reassess patient after rehydration and correction of HORACE as above - if not improving rapidly with fluids, will get PT/OT evaluation, check TSH ## Chronic systolic heart failure - during April admission, patient had TTE done in setting of flash pulmonary edema. Multiple notes indicate a preliminary read of EF <30%, but no formal TTE read appears to be in the chart. As well, this was in the setting of severe pulmonary edema, so the degree of systolic dysfunction may have been over-represented. In any case, the patient is obviously sensitive to rapid changes in volume status. - gentle IV hydration as above - hold Lasix, spironolactone, Farxiga, and losartan due to HORACE - continue Toprol XL 12.5 mg daily - get formal read of TTE from April ## COPD, chronic hypoxic respiratory failure - patient is at his baseline oxygen needs. Although he appears to have URI that originally set off his malaise and led to poor appetite and thus HORACE, he does not have signs of severe infection, and no pneumonia on CXR. - d/c further antibiotics at this point - continue oxygen at 2L; titrate to maintain SpO2 91-94% - PRN DuoNeb - continue home Breo Davidta ## DM2 - fairly well controlled, with A1c of 6.4% in March - hold home oral meds given poor PO intake and HORACE - place on low-dose sliding scale insulin ## Permanent atrial fibrillation - currently rate-controlled. - continue Xarelto 20 - if patient's baseline Cr is closer to 1-1.2, this is the appropriate dose; otherwise, consider decreasing to 15 daily - continue low dose Toprol XL Code status: Full code Prophylaxis: Xarelto Diet: diabetic Dispo: place in observation, expect discharge to home in 1-2 days Code(s): N17.9 - ACUTE KIDNEY FAILURE, UNSPECIFIED Telemedicine Encounter - Telemedicine Encounter Telemedicine Encounter: "The entirety of this encounter was performed via Telemedicine" This visit was performed using real-time audio and video connection between my location and thepatients locationwith the assistance of a surrogateat the patients location. Written or verbal consent was obtained from the patient/guardian to perform this visit [facility] technology. Any patient questions regarding the telemedicine interaction were answered.
[2024-07-26] MEDS ORDERED: PROVENTIL 2.5 MG/3 ML NEB IH PRN (02:26)
[2024-07-26 05:31] LABS: Hematocrit 33.6 % (40.1-51.0); Hemoglobin 10.6 g/dL (13.7-17.5); Mean Cell Volume 99.7 fL (79.0-92.2); Mean Corpuscular Hemoglobin 31.5 pg (25.7-32.2); Mean Corpuscular Hgb Concent. 31.5 g/dL (32.3-36.5); Mean Platelet Volume 9.2 fL (9.4-12.4); Platelet Count 254 x10^3/uL (163-337); Red Blood Count 3.37 x10^6/uL (4.63-6.08); Red Cell Distribution Width 14.6 % (11.6-14.4); White Blood Count 13.1 x10^3/uL (4.23-9.07)
[2024-07-26 05:37] LABS: ANION GAP 15.9 MEQ/L (5-15); Calcium 9.3 mg/dL (8.4-10.2); Creatinine 1 2.16 mg/dL (0.66-1.25); EST GLOMERULAR FILTRATION RATE 28.6 ML/MIN; Potassium 5.4 mmol/L (3.5-5.1)
[2024-07-26] MEDS: VELTASSA PO ONE (05:57)
[2024-07-26] MEDS: Advair Hfa 115/21 Common canister IH SCH (08:40)
--- NOTE | 2024-07-26 09:03 | XRAY ---
Indication: Fever and chills. Low back pain. Multiple contiguous axial images obtained through the abdomen and pelvis without contrast. Comparison: March 15, 2019 Mild diffuse respiration artifact. Lung bases demonstrates new bilateral diffuse consolidating/nonconsolidating airspace disease with tiny effusions. Heart is now enlarged. Noncontrasted stomach and bowel loops appear nonobstructed. Again mild diffuse scattered colonic fecal debris and cholecystectomy. No free fluid/air. Remaining liver, pancreas, spleen, adrenal glands, kidneys, ureters, and bladder are unremarkable for noncontrast exam. There remains mild/moderate scattered aortoiliac calcifications without AAA. Osseous structures intact again with osteopenia, mild/moderate degenerative changes throughout thoracolumbar spine, and tiny multilevel thoracolumbar Schmorl nodes. Also stable moderate degenerative changes both hips and small fatty left inguinal hernia. Impression: 1. Respiration artifact. 2. New diffuse bibasilar airspace disease with tiny effusions. 3. New cardiomegaly. 4. Again mild diffuse fecal stasis, arteriosclerotic disease, chronic bony findings, and fatty left inguinal hernia.
--- NOTE | 2024-07-26 09:05 | XRAY ---
Indication: Low back pain. Sagittal, coronal, and axial reformatted images lumbar spine obtained using raw data from same day CT abdomen/pelvis. Comparison: CT abdomen/pelvis March 15, 2019. Osseous structures remain demineralized. No acute fracture or suspicious bony lesions. There remains mild/moderate multilevel thoracolumbar degenerative spondylosis throughout and small inferior L4 Schmorl node. Sagittal and coronal reformatted images again demonstrates normal lumbar alignment with minimal multilevel disc space narrowing. No acute compression fracture or subluxation. CT abdomen/pelvis reported separately. Impression: Again chronic findings including osteopenia, multilevel degenerative spondylosis, and L4 Schmorl node. No new/acute findings.
[2024-07-26] MEDS ORDERED: NON-FORMULARY ITEM (Fluticasone/Vilanterol [Breo Ellipta 100-25 Mcg Inhalr] 1 EACH Blst.W. IH SCH (10:00)
[2024-07-26] MEDS: ATARAX 25 MG PO SCH (10:15)
[2024-07-26] MEDS: Pepcid 20 MG PO SCH (10:15)
[2024-07-26] MEDS: TYLENOL 325 MG PO SCH (10:15)
[2024-07-26] MEDS: XARELTO 10 MG TABLET PO SCH (10:15)
[2024-07-26] MEDS: Neurontin PO SCH (10:16)
[2024-07-26] MEDS: Toprol-Xl 25MG Tablets PO SCH (10:16)
[2024-07-26] MEDS: HUMALOG SQ PRN (13:52)
[2024-07-26] MEDS: ROCEPHIN 1 GM / 100 ML NaCl 1 GM/100 ML IVPB IV SCH (21:20)
[2024-07-26] MEDS: Zithromax 500 MG/ 250 ML NaCl Premix 500 MG/250 ML IVPB IV SCH (22:31)
--- NOTE | 2024-07-27 05:19 | PCM.NOTE ---
Date and Time: 07/27/24 0514 Subjective Assessment: 89 y/o M with h/o HFrEF, A-fib on Xarelto, DM2, COPD on 2-3L oxygen, and hypertension, here with diffuse weakness. Patient brought in by daughter due to three days of diffuse generalized weakness, unable to get up from chair. Patient also notes some cough productive of yellow sputum along the way as well, although he remains on his home 2 L oxygen. He denies dyspnea or wheezing. He notes that throughout this time he has had no appetite and has eaten almost nothing. He remains compliant with his medications, including his diuretics. He has complaints of subjective fever and chills. : Met with patient bedside. Continues with cough, dyspnea, fever/chills, and weakness. Creat improved and HORACE resolved. Plan to continue abx. Denies cp, abdominal pain, CONCEPCION, dizziness, N/V/D. - Review of Systems Constitutional: Fever, Chills, Weakness Eyes: No Symptoms Ears, Nose, & Throat: No Symptoms Respiratory: Cough, Short Of Breath Cardiac: No Symptoms Abdominal/Gastrointestinal: No Symptoms Genitourinary Symptoms: No Symptoms Musculoskeletal: No Symptoms Skin: No Symptoms Neurological: No Symptoms Psychological: No Symptoms Endocrine: No Symptoms Hematologic/Lymphatic: No Symptoms Immunological/Allergic: No Symptoms Objective Exam General Appearance: no apparent distress Neurologic Exam: alert, oriented x 3, cooperative Skin Exam: pale Wound Assessment: Skin/Wound Assessment Wound/Incision Assessment Start: 07/26/24 02:24 Text: Status: Active Freq: Q6H Protocol: Document 07/27/24 02:00 MOI (Rec: 07/27/24 03:50 MOI [id number]) Wound/Incision Assessment Medial Coccyx Wound Assessment Shift Assessment Wound Type Pressure Ulcer Wound Stage Stage II Dressing Status Dry & Intact Drainage Amount None General Appearance Reddened Wound Bed Greatest Portion Red (Granulation) Surrounding Tissue [place],Dark Red Primary Dressing mepilex border Comment small stage II pressure area surrounded by blanchable redness - redness improving Wound Photo Photo Taken No Eye Exam: PERRL Ears, Nose, Throat Exam: dry mucous membranes Neck Exam: normal inspection Respiratory Exam: diminished breath sounds, crackles/rales Cardiovascular Exam: regular rate/rhythm, normal heart sounds Gastrointestinal/Abdomen Exam: soft, normal bowel sounds Extremity Exam: normal inspection Male Genitalia Exam: deferred Rectal Exam: deferred Objective Data Vital Signs: Vital Signs - 24 hr Temp Pulse Resp BP BP Pulse Ox 07/27/24 04:00 99.6 F 110 H 21 123/63 92 L 07/26/24 23:44 99.1 F 99 H 17 96/64 94 L 07/26/24 20:00 97.3 F 68 15 97/52 96 07/26/24 19:18 117 H 16 07/26/24 14:59 97.5 F 70 16 109/58 95 07/26/24 12:00 97.7 F 71 18 97/48 97 07/26/24 08:35 64 18 93 L 07/26/24 07:40 96/51 07/26/24 07:16 97.9 F 58 L 18 81/42 95 Pain Assessment - Last Documented Pain Intensity 0 Pain Scale Used 0-10 Pain Scale Intake and Output: Intake & Output 07/24/24 07/25/24 07/26/24 07/27/24 11:59 11:59 11:59 11:59 Intake Total 280 940 Output Total 675 Balance 280 265 Weight 59.8 kg Lab Results: Lab Results-Last 24 Hours 07/26/24 07/26/24 07/26/24 Range/Units 04:45 04:45 04:45 WBC 13.1 H (4.23-9.07) x10^3/uL RBC 3.37 L (4.63-6.08) x10^6/uL Hgb 10.6 L (13.7-17.5) g/dL Hct 33.6 L (40.1-51.0) % MCV 99.7 H (79.0-92.2) fL MCH 31.5 (25.7-32.2) pg MCHC 31.5 L (32.3-36.5) g/dL RDW 14.6 H (11.6-14.4) % Plt Count 254 (163-337) x10^3/uL MPV 9.2 L (9.4-12.4) fL Sodium 140 (135-145) mmol/L Potassium 5.4 H (3.5-5.1) mmol/L Chloride 105 (98-107) mmol/L Carbon Dioxide 24 (22-30) mmol/L Anion Gap 15.9 H (5-15) MEQ/L BUN 57 H (9-20) mg/dL Creatinine 2.16 H (0.66-1.25) mg/dL Estimated GFR 28.6 ML/MIN Glucose 151 H (74-106) mg/dL POC Glucometer (74 to 106) mg/dL Hemoglobin A1c 7.02 H (4.5-6.0) % Calcium 9.3 (8.4-10.2) mg/dL 07/26/24 07/26/24 07/26/24 Range/Units 07:00 11:35 16:11 WBC (4.23-9.07) x10^3/uL RBC (4.63-6.08) x10^6/uL Hgb (13.7-17.5) g/dL Hct (40.1-51.0) % MCV (79.0-92.2) fL MCH (25.7-32.2) pg MCHC (32.3-36.5) g/dL RDW (11.6-14.4) % Plt Count (163-337) x10^3/uL MPV (9.4-12.4) fL Sodium (135-145) mmol/L Potassium (3.5-5.1) mmol/L Chloride (98-107) mmol/L Carbon Dioxide (22-30) mmol/L Anion Gap (5-15) MEQ/L BUN (9-20) mg/dL Creatinine (0.66-1.25) mg/dL Estimated GFR ML/MIN Glucose (74-106) mg/dL POC Glucometer 143 H 202 H 105 (74 to 106) mg/dL Hemoglobin A1c (4.5-6.0) % Calcium (8.4-10.2) mg/dL 07/26/24 Range/Units 21:05 WBC (4.23-9.07) x10^3/uL RBC (4.63-6.08) x10^6/uL Hgb (13.7-17.5) g/dL Hct (40.1-51.0) % MCV (79.0-92.2) fL MCH (25.7-32.2) pg MCHC (32.3-36.5) g/dL RDW (11.6-14.4) % Plt Count (163-337) x10^3/uL MPV (9.4-12.4) fL Sodium (135-145) mmol/L Potassium (3.5-5.1) mmol/L Chloride (98-107) mmol/L Carbon Dioxide (22-30) mmol/L Anion Gap (5-15) MEQ/L BUN (9-20) mg/dL Creatinine (0.66-1.25) mg/dL Estimated GFR ML/MIN Glucose (74-106) mg/dL POC Glucometer 112 H (74 to 106) mg/dL Hemoglobin A1c (4.5-6.0) % Calcium (8.4-10.2) mg/dL Radiology Exams: Radiology Procedures Category Date Time Status ABDOMEN AND PELVIS W/0 CONTRAS [CT] Stat Exams 07/25/24 21:15 Completed CHEST 1 VIEW (PORTABLE) Stat Exams 07/25/24 20:59 Completed RECONSTRUCTION [CT] Stat Exams 07/25/24 21:15 Completed Multi-Disciplinary Progress Notes: Multi-Disciplinary Progress Notes 07/26/24 13:50 Case Management Note by Esme Smith REFERRAL FAXED TO [facility] PER FAMILY REQUEST. THEY WILL NEED NOTIFIED AT TIME OF DC AT [phone]. THEY WILL NEED FAXED THE DC INSTRUCTIONS, DC MED LIST AND DC SUMMARY TO [phone] Initialized on 07/26/24 13:50 - END OF NOTE Assessment/Plan (1) Acute renal injury Current Visit: Yes Status: Acute Assessment & Plan: - gentle NS at 50 ml/hr -discontinued 07/26 - encourage PO intake as tolerated - hold home Lasix, losartan, spironolactone, and Farxiga -monitor renal/lytes daily 07/27: -resolved Code(s): N17.9 - ACUTE KIDNEY FAILURE, UNSPECIFIED (2) Pneumonia Current Visit: Yes Status: Acute Assessment & Plan: -CT showing New diffuse bibasilar airspace disease with tiny effusions -patient febrile during hospitalization and endorses chills -WBC elevated 07/26 -Start on rocephin/azithromycin 07/27: -continue rocephin/azithromycin Code(s): J18.9 - PNEUMONIA, UNSPECIFIED ORGANISM (3) Generalized weakness Current Visit: Yes Status: Acute Assessment & Plan: -PT evaluation recommending inpatient stay d/t recent falls and lower extremity instability at this time- he is at significant risk for recurring falls Code(s): R53.1 - WEAKNESS (4) Hyperkalemia Current Visit: Yes Status: Acute Assessment & Plan: - secondary to HORACE/ dehydration. Given Veltassa in ED, with appropriate temporizing measures, and repeat K appears to be improving. Patient's levels were only mildly elevated initially, so possibly contributing to patient's generalized weakness, but no EKG changes, no palpitations or other symptoms to suggest symptomatic hyperkalemia. -hold spriolonolactone -monitor renal/lytes daily 07/27: -resolved Code(s): E87.5 - HYPERKALEMIA (5) A-fib Current Visit: No Status: Acute Assessment & Plan: -continue xarelto/toprol xl Code(s): I48.91 - UNSPECIFIED ATRIAL FIBRILLATION (6) CHF (congestive heart failure) Current Visit: No Status: Acute Assessment & Plan: - hold Lasix, spironolactone, Farxiga, and losartan -vtials stable, no edema noted on exam - continue Toprol XL 12.5 mg daily - echo from 04/02 with ef of 10-15% - IMPRESSION: 1) SEVERE LEFT VENTRICULAR SYSTOLIC DYSFUNCTION. 2) MULTIPLE WALL MOTION ABNORMALITIES CONSISTENT WITH NEW ISCHEMIC CARDIOMYOPATHY. 3) BORDERLINE CONCENTRIC LEFT VENTRICULAR HYPERTROPHY. 4) MILD TO MODERATE MITRAL REGURGITATION. 5) MILD LEFT ATRIAL DILATATION. 6) RIGHT VENTRICULAR DILATATION. 7) RIGHT ATRIAL DILATATION. Code(s): I50.9 - HEART FAILURE, UNSPECIFIED (7) COPD (chronic obstructive pulmonary disease) Current Visit: No Status: Acute Qualifiers: COPD type: COPD with acute exacerbation Qualified Code(s): J44.1 - Chronic obstructive pulmonary disease with (acute) exacerbation Assessment & Plan: - continue oxygen at 2L; titrate to maintain SpO2 91-94% - PRN DuoNeb - continue home Breo Ellipta -RT eval (8) Diabetes type 2, controlled Current Visit: No Status: Chronic Qualifiers: Diabetes mellitus complication status: without complication Assessment & Plan: -ADA diet -SSI -a1c at 7.02 Code status: Full code Prophylaxis: Xarelto Diet: diabetic Dispo: place in observation, expect discharge to home in 1-2 days Code(s): E11.9 - TYPE 2 DIABETES MELLITUS WITHOUT COMPLICATIONS
[2024-07-27 05:40] LABS: BASOPHIL % 0.3 % (0.2-1.2); Basophil (Absolute #) 0.03 x10^3/uL (0.01-0.08); Eosinophil % 0.9 % (0.8-7.0); Eosinophil (Absolute #) 0.08 x10^3/uL (0.04-0.54); Hemoglobin 11.2 g/dL (13.7-17.5); IMMATURE GRAN # 0.03 x10^3u/L (0.001-0.031); IMMATURE GRAN % 0.3 % (0.001-0.429); Lymphocyte (Absolute #) 0.97 x10^3/uL (1.32-3.57); Lymphocytes % 10.6 % (21.8-53.1); Mean Cell Volume 98.3 fL (79.0-92.2); Mean Corpuscular Hemoglobin 32.4 pg (25.7-32.2); Mean Corpuscular Hgb Concent. 32.9 g/dL (32.3-36.5); Mean Platelet Volume 9.1 fL (9.4-12.4); Monocyte (Absolute #) 0.66 x10^3/uL (0.30-0.82); Monocytes % 7.2 % (5.3-12.2); Neutrophil % 80.7 % (34.0-67.9); Platelet Count 248 x10^3/uL (163-337); Red Blood Count 3.46 x10^6/uL (4.63-6.08); Red Cell Distribution Width 14.6 % (11.6-14.4); White Blood Count 9.2 x10^3/uL (4.23-9.07)
[2024-07-27 06:03] LABS: ALBUMIN 3.8 g/dL (3.5-5.0); ANION GAP 17.7 MEQ/L (5-15); BILIRUBIN,TOTAL 0.7 mg/dL (0.2-1.3); Calcium 9.2 mg/dL (8.4-10.2); Creatinine 1 1.25 mg/dL (0.66-1.25); Total Protein 7.4 g/dL (6.3-8.2)
[2024-07-28 06:22] LABS: Hematocrit 32.1 % (40.1-51.0); Hemoglobin 10.5 g/dL (13.7-17.5); Mean Cell Volume 98.2 fL (79.0-92.2); Mean Corpuscular Hemoglobin 32.1 pg (25.7-32.2); Mean Corpuscular Hgb Concent. 32.7 g/dL (32.3-36.5); Mean Platelet Volume 9.1 fL (9.4-12.4); Platelet Count 246 x10^3/uL (163-337); Red Blood Count 3.27 x10^6/uL (4.63-6.08); Red Cell Distribution Width 14.6 % (11.6-14.4); White Blood Count 8.9 x10^3/uL (4.23-9.07)
[2024-07-28 06:38] LABS: ALBUMIN 3.6 g/dL (3.5-5.0); ANION GAP 15.3 MEQ/L (5-15); BILIRUBIN,TOTAL 0.6 mg/dL (0.2-1.3); Calcium 9.1 mg/dL (8.4-10.2); Creatinine 1 1.1 mg/dL (0.66-1.25); EST GLOMERULAR FILTRATION RATE 64.2 ML/MIN; Potassium 4.5 mmol/L (3.5-5.1); Total Protein 7.2 g/dL (6.3-8.2)
--- NOTE | 2024-07-28 09:09 | PCM.NOTE ---
Date and Time: 07/28/24902 Subjective Assessment: 89 y/o M with h/o HFrEF, A-fib on Xarelto, DM2, COPD on 2-3L oxygen, and hypertension, here with diffuse weakness. Patient brought in by daughter due to three days of diffuse generalized weakness, unable to get up from chair. Patient also notes some cough productive of yellow sputum along the way as well, although he remains on his home 2 L oxygen. He denies dyspnea or wheezing. He notes that throughout this time he has had no appetite and has eaten almost nothing. He remains compliant with his medications, including his diuretics. He has complaints of subjective fever and chills. 07/27/24: Met with patient bedside. Continues with cough, dyspnea, fever/chills, and weakness. Creat improved and HORACE resolved. Plan to continue abx. Denies cp, abdominal pain, CONCEPCION, dizziness, N/V/D. 07/28/24: Met with patient bedside. Endorses dyspnea is improved. AFebrile overnight. Still feels weak. Discussed with patient PT recommendations for IP rehab for gait/strengthening - patient declines. He reports he has 24 hour help at home. Creat now at baseline. Plan to continue IV abx and possible discharge tomorrow. Denies fever, cp, abdominal pain, CONCEPCION, dizziness, N/V/D. - Review of Systems Constitutional: Weakness Eyes: No Symptoms Ears, Nose, & Throat: No Symptoms Respiratory: Cough, Short Of Breath Cardiac: No Symptoms Abdominal/Gastrointestinal: No Symptoms Genitourinary Symptoms: No Symptoms Musculoskeletal: No Symptoms Skin: No Symptoms Neurological: No Symptoms Psychological: No Symptoms Endocrine: No Symptoms Hematologic/Lymphatic: No Symptoms Immunological/Allergic: No Symptoms Objective Exam General Appearance: no apparent distress Neurologic Exam: alert, oriented x 3, cooperative Skin Exam: pale Wound Assessment: Skin/Wound Assessment Wound/Incision Assessment Start: 07/26/24 02:24 Text: Status: Active Freq: Q6H Protocol: Document 07/28/24 02:00 KD (Rec: 07/28/24 02:25 KD [id number]) Wound/Incision Assessment Medial Coccyx Wound Assessment Shift Assessment Wound Type Pressure Ulcer Wound Stage Stage II Dressing Status Dry & Intact Drainage Amount None General Appearance Clean/Dry,Reddened Wound Bed Greatest Portion Red (Granulation) Surrounding Tissue [place],Dark Red Topical Solution/Irrigant Medicated Ointment Primary Dressing mepilex border Comment barrier cream & new mepilex applied post bowel movement Wound Photo Photo Taken No Eye Exam: PERRL Ears, Nose, Throat Exam: normal ENT inspection Neck Exam: normal inspection Respiratory Exam: crackles/rales Cardiovascular Exam: regular rate/rhythm, normal heart sounds Gastrointestinal/Abdomen Exam: soft, normal bowel sounds Extremity Exam: normal inspection Back Exam: normal inspection Male Genitalia Exam: deferred Rectal Exam: deferred Objective Data Vital Signs: Vital Signs - 24 hr Temp Pulse Resp BP BP Pulse Ox 07/28/24 08:06 86 18 94 L 07/28/24 08:00 98 F 81 20 105/54 90 L 07/28/24 04:00 98.7 F 78 20 89/54 96 07/28/24 00:00 76 07/27/24 23:33 99.5 F 93 H 26 H 107/74 95 07/27/24 20:10 85 22 91 L 07/27/24 20:00 99.1 F 81 21 104/53 94 L 07/27/24 16:50 97.8 F 07/27/24 16:40 100.4 F 85 28 H 122/69 92 L 07/27/24 12:00 97.8 F 71 18 101/56 97 Pain Assessment - Last Documented Pain Intensity 0 Pain Scale Used 0-10 Pain Scale Intake and Output: Intake & Output 07/25/24 07/26/24 07/27/24 07/28/24 11:59 11:59 11:59 11:59 Intake Total 280 2296 980 Output Total 675 200 Balance 280 1621 780 Weight 59.8 kg 60.3 kg 60.8 kg Lab Results: Lab Results-Last 24 Hours 07/27/24 07/27/24 07/27/24 Range/Units 12:16 16:55 21:56 WBC (4.23-9.07) x10^3/uL RBC (4.63-6.08) x10^6/uL Hgb (13.7-17.5) g/dL Hct (40.1-51.0) % MCV (79.0-92.2) fL MCH (25.7-32.2) pg MCHC (32.3-36.5) g/dL RDW (11.6-14.4) % Plt Count (163-337) x10^3/uL MPV (9.4-12.4) fL Sodium (135-145) mmol/L Potassium (3.5-5.1) mmol/L Chloride (98-107) mmol/L Carbon Dioxide (22-30) mmol/L Anion Gap (5-15) MEQ/L BUN (9-20) mg/dL Creatinine (0.66-1.25) mg/dL Estimated GFR ML/MIN Glucose (74-106) mg/dL POC Glucometer 212 H 129 H 253 H (74 to 106) mg/dL Calcium (8.4-10.2) mg/dL Total Bilirubin (0.2-1.3) mg/dL AST (17-59) U/L ALT (0-50) U/L Alkaline Phosphatase (38-126) U/L Serum Total Protein (6.3-8.2) g/dL Albumin (3.5-5.0) g/dL 07/28/24 07/28/24 07/28/24 Range/Units 05:30 05:45 07:49 WBC 8.9 (4.23-9.07) x10^3/uL RBC 3.27 L (4.63-6.08) x10^6/uL Hgb 10.5 L (13.7-17.5) g/dL Hct 32.1 L (40.1-51.0) % MCV 98.2 H (79.0-92.2) fL MCH 32.1 (25.7-32.2) pg MCHC 32.7 (32.3-36.5) g/dL RDW 14.6 H (11.6-14.4) % Plt Count 246 (163-337) x10^3/uL MPV 9.1 L (9.4-12.4) fL Sodium 142 (135-145) mmol/L Potassium 4.5 (3.5-5.1) mmol/L Chloride 107 (98-107) mmol/L Carbon Dioxide 24 (22-30) mmol/L Anion Gap 15.3 H (5-15) MEQ/L BUN 44 H (9-20) mg/dL Creatinine 1.10 (0.66-1.25) mg/dL Estimated GFR 64.2 ML/MIN Glucose 140 H (74-106) mg/dL POC Glucometer 149 H (74 to 106) mg/dL Calcium 9.1 (8.4-10.2) mg/dL Total Bilirubin 0.60 (0.2-1.3) mg/dL AST 32 (17-59) U/L ALT 24 (0-50) U/L Alkaline Phosphatase 107 (38-126) U/L Serum Total Protein 7.2 (6.3-8.2) g/dL Albumin 3.6 (3.5-5.0) g/dL Radiology Exams: Radiology Procedures Category Date Time Status ECHO W/2D AND DOPPLER [US] Stat Exams 07/27/24 10:58 Taken Multi-Disciplinary Progress Notes: Multi-Disciplinary Progress Notes 07/27/24 15:04 Radiology Note by JAYDEN GUTIERRES TRANSTHORACIC ECHOCARDIOGRAM 07/27/2024: 1. The patient is in atrial fibrillation. 2. Moderately dilated right atrium. Mildly dilated left atrium and right ventricle. Normal left ventricular chamber size. 3. Moderate to severe concentric left ventricular hypertrophy. The interatrial septum is hypertrophied. 4. Left ventricular systolic function is at the lower limits of normal with mild basal septal hypokinesis. Estimated EF 50-55%. 5. Unable to grade severity of diastolic dysfunction in the setting of atrial fibrillation. 6. Normal right ventricular systolic function. 7. Mild aortic sclerosis without stenosis. 8. Doppler: Mild mitral, tricuspid, and pulmonic regurgitation. 9. Mild pulmonary hypertension with an estimated PA systolic pressure 40 mmHg. 10. Mildly elevated right atrial pressure. 11. No pericardial effusion. 12. 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 No evidence of obstruction at the level of the left ventricular outflow tract at rest. Jayden Gutierres MD [facility] Initialized on 07/27/24 15:04 - END OF NOTE 07/27/24 13:45 Case Management Note by Esme Smith S/W PATIENT'S DAUGHTER- SHE WAS NOTIFIED THAT PATIENT WAS ABLE TO WALK WITH ASSISTANCE APPROX 60' 07/26. SHE WAS NOTIFIED THAT THERE WAS SOME UNSTEADINESS NOTED AT TIMES. WE DISCUSSED IF A REHAB STAY WOULD BE BENEFICIAL FOR PATIENT CONSIDERING HIS CURRENT REHAB POTENTIAL AND BASELINE VS WISHES/GOALS. SHE WAS NOTIFIED THAT PATIENT DEFINITELY NEEDS ASSISTANCE/SUPERVISION WITH WALKING AT ALL TIMES. SHE REPORTED SHE DOES NOT THINK PATIENT WILL WANT A REHAB STAY. SHE WILL PLAN TO TAKE PATIENT HOME WITH HHC AND STAY WITH HIM 02/05 UNTIL HE IS BACK TO HIS BASELINE. PATIENT WOULD ALSO BE APPROPRIATE FOR HOSPICE CARE IF FAMILY/PATIENT INTERESTED. THIS WAS MENTIONED TO DAUGHTER- SHE IS FAMILIAR AND HAS USED HOSPICE IN THE PAST WITH HER MOTHER (USED [facility]). SHE DOES NOT WANT TO INITIATE SERVICES YET BUT DOES WISH TO MEET WITH WILLIAMS WITH [facility] TO DISCUSS THIS POSSIBILITY IN THE FUTURE. S/W WILLIAMS - SHE WAS NOTIFIED AND GIVEN FACESHEET TO CALL DAUGHTER AND ARRANGE A MTG. PATIENT ALREADY HAS 24 HR HOME OXYGEN WITH PORTABILITY, NO OTHER NEW NEEDS IDENTIFIED AT THIS TIME. PATIENT TO DC HOME WITH DAUGHTER TO GIVEN 24 HR CARE AND HHC TO INITIATE. S/W PATIENT- PATIENT NOTED HE DOES NOT WANT TO GO TO A REHAB FACILITY- HE WISHES TO RETURN HOME WITH HIS DAUGHTER AT TIME OF DC Initialized on 07/27/24 13:45 - END OF NOTE Assessment/Plan (1) Acute renal injury Current Visit: Yes Status: Acute Assessment & Plan: 1) Acute renal injury Current Visit: Yes Status: Acute Assessment & Plan: - gentle NS at 50 ml/hr -discontinued 07/26 - encourage PO intake as tolerated - hold home Lasix, losartan, spironolactone, and Farxiga -monitor renal/lytes daily 07/27: -resolved Code(s): N17.9 - ACUTE KIDNEY FAILURE, UNSPECIFIED (2) Pneumonia Current Visit: Yes Status: Acute Assessment & Plan: -CT showing New diffuse bibasilar airspace disease with tiny effusions -patient febrile during hospitalization and endorses chills -WBC elevated 07/26 -Start on rocephin/azithromycin 07/27: -continue rocephin/azithromycin 07/28: -continue rocephin - completed course of azithromycin 07/27 -at baseline oxygen 2L Code(s): J18.9 - PNEUMONIA, UNSPECIFIED ORGANISM (3) Generalized weakness Current Visit: Yes Status: Acute Assessment & Plan: -PT evaluation recommending inpatient stay d/t recent falls and lower extremity instability at this time- he is at significant risk for recurring falls 07/28: -Patient declines rehab stay - family reports they can provide 24 hour care -Nursing order to walk pt with assistance TID as tolerated Code(s): R53.1 - WEAKNESS (4) Hyperkalemia Current Visit: Yes Status: Acute Assessment & Plan: - secondary to HORACE/ dehydration. Given Veltassa in ED, with appropriate temporizing measures, and repeat K appears to be improving. Patient's levels were only mildly elevated initially, so possibly contributing to patient's generalized weakness, but no EKG changes, no palpitations or other symptoms to suggest symptomatic hyperkalemia. -hold spriolonolactone -monitor renal/lytes daily 07/27: -resolved Code(s): E87.5 - HYPERKALEMIA (5) A-fib Current Visit: No Status: Acute Assessment & Plan: -continue xarelto/toprol xl Code(s): I48.91 - UNSPECIFIED ATRIAL FIBRILLATION (6) CHF (congestive heart failure) Current Visit: No Status: Acute Assessment & Plan: - hold Lasix, spironolactone, Farxiga, and losartan -vtials stable, no edema noted on exam - continue Toprol XL 12.5 mg daily - echo from 04/02 with ef of 10-15% - IMPRESSION: 1) SEVERE LEFT VENTRICULAR SYSTOLIC DYSFUNCTION. 2) MULTIPLE WALL MOTION ABNORMALITIES CONSISTENT WITH NEW ISCHEMIC CARDIOMYOPATHY. 3) BORDERLINE CONCENTRIC LEFT VENTRICULAR HYPERTROPHY. 4) MILD TO MODERATE MITRAL REGURGITATION. 5) MILD LEFT ATRIAL DILATATION. 6) RIGHT VENTRICULAR DILATATION. 7) RIGHT ATRIAL DILATATION. 07/28: -Echo 07/27 with EF 50-55% - impression with hypertropic cardiomyopathy Code(s): I50.9 - HEART FAILURE, UNSPECIFIED (7) COPD (chronic obstructive pulmonary disease) Current Visit: No Status: Acute Qualifiers: COPD type: COPD with acute exacerbation Qualified Code(s): J44.1 - Chronic obstructive pulmonary disease with (acute) exacerbation Assessment & Plan: - continue oxygen at 2L; titrate to maintain SpO2 91-94% - PRN DuoNeb - continue home Breo Ellipta -RT eval (8) Diabetes type 2, controlled Current Visit: No Status: Chronic Qualifiers: Diabetes mellitus complication status: without complication Assessment & Plan: -ADA diet -SSI -a1c at 7.02 Code status: Full code Prophylaxis: Xarelto Diet: diabetic Code(s): N17.9 - ACUTE KIDNEY FAILURE, UNSPECIFIED (2) Pneumonia Current Visit: Yes Status: Acute Code(s): J18.9 - PNEUMONIA, UNSPECIFIED ORGANISM (3) Generalized weakness Current Visit: Yes Status: Acute Code(s): R53.1 - WEAKNESS (4) Hyperkalemia Current Visit: Yes Status: Acute Code(s): E87.5 - HYPERKALEMIA (5) A-fib Current Visit: No Status: Acute Code(s): I48.91 - UNSPECIFIED ATRIAL FIBRILLATION (6) CHF (congestive heart failure) Current Visit: No Status: Acute Code(s): I50.9 - HEART FAILURE, UNSPECIFIED (7) COPD (chronic obstructive pulmonary disease) Current Visit: No Status: Acute Qualifiers: COPD type: COPD with acute exacerbation Qualified Code(s): J44.1 - Chronic obstructive pulmonary disease with (acute) exacerbation (8) Diabetes type 2, controlled Current Visit: No Status: Chronic Qualifiers: Diabetes mellitus complication status: without complication Code(s): E11.9 - TYPE 2 DIABETES MELLITUS WITHOUT COMPLICATIONS
[2024-07-29 05:41] LABS: Hematocrit 29.8 % (40.1-51.0); Hemoglobin 9.6 g/dL (13.7-17.5); Mean Cell Volume 96.1 fL (79.0-92.2); Mean Corpuscular Hgb Concent. 32.2 g/dL (32.3-36.5); Platelet Count 271 x10^3/uL (163-337); Red Cell Distribution Width 14.6 % (11.6-14.4); White Blood Count 8.9 x10^3/uL (4.23-9.07)
[2024-07-29 05:57] LABS: ALBUMIN 3.4 g/dL (3.5-5.0); ANION GAP 14.4 MEQ/L (5-15); BILIRUBIN,TOTAL 0.6 mg/dL (0.2-1.3); Calcium 8.7 mg/dL (8.4-10.2); Creatinine 1 0.96 mg/dL (0.66-1.25); EST GLOMERULAR FILTRATION RATE 75.6 ML/MIN; Potassium 4.3 mmol/L (3.5-5.1); Total Protein 6.9 g/dL (6.3-8.2)
--- NOTE | 2024-07-29 08:31 | PCM.NOTE ---
Date and Time: 07/29/24823 Subjective Assessment: 89 y/o M with h/o HFrEF, A-fib on Xarelto, DM2, COPD on 2-3L oxygen, and hypertension, here with diffuse weakness. Patient brought in by daughter due to three days of diffuse generalized weakness, unable to get up from chair. Patient also notes some cough productive of yellow sputum along the way as well, although he remains on his home 2 L oxygen. He denies dyspnea or wheezing. He notes that throughout this time he has had no appetite and has eaten almost nothing. He remains compliant with his medications, including his diuretics. He has complaints of subjective fever and chills. 07/27/24: Met with patient bedside. Continues with cough, dyspnea, fever/chills, and weakness. Creat improved and HORACE resolved. Plan to continue abx. Denies cp, abdominal pain, CONCEPCION, dizziness, N/V/D. 07/28/24: Met with patient bedside. Endorses dyspnea is improved. AFebrile overnight. Still feels weak. Discussed with patient PT recommendations for IP rehab for gait/strengthening - patient declines. He reports he has 24 hour help at home. Creat now at baseline. Plan to continue IV abx and possible discharge tomorrow. Denies fever, cp, abdominal pain, CONCEPCION, dizziness, N/V/D. 07/29/24: Patient febrile this morning. Endorses that he is feeling much better despite fever. No chills. Has been ambulating with nursing staff and doing okay. Lung sound with bilateral crackles - at baseline oxygen. Will repeat cxr today. <CRISTIN MOLINA - Last Filed: 07/29/24 08:24> Date and Time: 07/29/241936 <RYDER AYALA - Last Filed: 07/29/24 19:38> - Review of Systems Constitutional: Fever, Weakness Eyes: No Symptoms Ears, Nose, & Throat: No Symptoms Respiratory: Cough, Short Of Breath Cardiac: No Symptoms Abdominal/Gastrointestinal: No Symptoms Genitourinary Symptoms: No Symptoms Musculoskeletal: No Symptoms Skin: No Symptoms Neurological: No Symptoms Psychological: No Symptoms Endocrine: No Symptoms Hematologic/Lymphatic: No Symptoms Immunological/Allergic: No Symptoms <CRISTIN MOLINA - Last Filed: 07/29/24 08:24> Objective Exam General Appearance: no apparent distress Neurologic Exam: alert, oriented x 3, cooperative Skin Exam: decubitus, pale Wound Assessment: Skin/Wound Assessment Wound/Incision Assessment Start: 07/26/24 02:24 Text: Status: Active Freq: Q6H Protocol: Document 07/29/24 02:00 KD (Rec: 07/29/24 02:23 KD [id number]) Wound/Incision Assessment Medial Coccyx Wound Assessment Shift Assessment Wound Type Pressure Ulcer Wound Stage Stage II Dressing Status Dry & Intact Drainage Amount None General Appearance Clean/Dry,Reddened Wound Bed Greatest Portion Red (Granulation) Surrounding Tissue [place],Dark Red Topical Solution/Irrigant Medicated Ointment Primary Dressing mepilex border Comment mepilex pulled back to assess wound & put back on - remains true Wound Photo Photo Taken No Eye Exam: PERRL Ears, Nose, Throat Exam: normal ENT inspection Neck Exam: normal inspection Respiratory Exam: crackles/rales Cardiovascular Exam: regular rate/rhythm, normal heart sounds Gastrointestinal/Abdomen Exam: soft, normal bowel sounds Extremity Exam: normal inspection Back Exam: normal inspection Male Genitalia Exam: deferred Rectal Exam: deferred <CRISTIN MOLINA - Last Filed: 07/29/24 08:24> Wound Assessment: Skin/Wound Assessment Wound/Incision Assessment Start: 07/26/24 02:24 Text: Status: Active Freq: Q6H Protocol: Document 07/29/24 14:00 RDUHNE (Rec: 07/29/24 14:21 [email or web address] [id number]) Wound/Incision Assessment Medial Coccyx Wound Assessment Shift Assessment Wound Type Pressure Ulcer Wound Stage Stage II Dressing Status Dry & Intact Drainage Amount None General Appearance Clean/Dry,Reddened Wound Bed Greatest Portion Red (Granulation) Surrounding Tissue [place],Dark Red Primary Dressing mepilex border Comment mepilex pulled back to assess wound & put back on - remains true Wound Photo Photo Taken No <RYDER AYALA - Last Filed: 07/29/24 19:38> Objective Data Vital Signs: Vital Signs - 24 hr Temp Pulse Resp BP BP Pulse Ox 07/29/24 08:00 77 22 93 L 07/29/24 04:00 98.0 F 86 26 H 119/59 92 L 07/28/24 23:26 98.5 F 70 22 111/52 95 07/28/24 20:00 98.0 F 91 H 22 118/55 100 07/28/24 19:13 68 16 96 07/28/24 16:00 97.8 F 90 24 128/58 90 L 07/28/24 12:00 98 F 82 20 108/54 95 Pain Assessment - Last Documented Pain Intensity 2 Pain Scale Used 0-10 Pain Scale Intake and Output: Intake & Output 07/26/24 07/27/24 07/28/24 07/29/24 11:59 11:59 11:59 11:59 Intake Total 280 2296 1040 1067 Output Total 675 260 500 Balance 280 1621 780 567 Weight 59.8 kg 60.3 kg 60.8 kg Lab Results: Lab Results-Last 24 Hours 07/28/24 07/28/24 07/28/24 Range/Units 11:49 16:39 22:16 WBC (4.23-9.07) x10^3/uL RBC (4.63-6.08) x10^6/uL Hgb (13.7-17.5) g/dL Hct (40.1-51.0) % MCV (79.0-92.2) fL MCH (25.7-32.2) pg MCHC (32.3-36.5) g/dL RDW (11.6-14.4) % Plt Count (163-337) x10^3/uL MPV (9.4-12.4) fL Sodium (135-145) mmol/L Potassium (3.5-5.1) mmol/L Chloride (98-107) mmol/L Carbon Dioxide (22-30) mmol/L Anion Gap (5-15) MEQ/L BUN (9-20) mg/dL Creatinine (0.66-1.25) mg/dL Estimated GFR ML/MIN Glucose (74-106) mg/dL POC Glucometer 319 H 122 H 177 H (74 to 106) mg/dL Calcium (8.4-10.2) mg/dL Total Bilirubin (0.2-1.3) mg/dL AST (17-59) U/L ALT (0-50) U/L Alkaline Phosphatase (38-126) U/L Serum Total Protein (6.3-8.2) g/dL Albumin (3.5-5.0) g/dL 07/29/24 07/29/24 07/29/24 Range/Units 05:40 05:40 08:07 WBC 8.9 (4.23-9.07) x10^3/uL RBC 3.10 L (4.63-6.08) x10^6/uL Hgb 9.6 L (13.7-17.5) g/dL Hct 29.8 L (40.1-51.0) % MCV 96.1 H (79.0-92.2) fL MCH 31.0 (25.7-32.2) pg MCHC 32.2 L (32.3-36.5) g/dL RDW 14.6 H (11.6-14.4) % Plt Count 271 (163-337) x10^3/uL MPV 9.0 L (9.4-12.4) fL Sodium 142 (135-145) mmol/L Potassium 4.3 (3.5-5.1) mmol/L Chloride 109 H (98-107) mmol/L Carbon Dioxide 24 (22-30) mmol/L Anion Gap 14.4 (5-15) MEQ/L BUN 35 H (9-20) mg/dL Creatinine 0.96 (0.66-1.25) mg/dL Estimated GFR 75.6 ML/MIN Glucose 167 H (74-106) mg/dL POC Glucometer 169 H (74 to 106) mg/dL Calcium 8.7 (8.4-10.2) mg/dL Total Bilirubin 0.60 (0.2-1.3) mg/dL AST 36 (17-59) U/L ALT 27 (0-50) U/L Alkaline Phosphatase 113 (38-126) U/L Serum Total Protein 6.9 (6.3-8.2) g/dL Albumin 3.4 L (3.5-5.0) g/dL Radiology Exams: Radiology Procedures Category Date Time Status ECHO W/2D AND DOPPLER [US] Stat Exams 07/27/24 10:58 Taken <CRISTIN MOLINA - Last Filed: 07/29/24 08:24> Vital Signs: Vital Signs - 24 hr Temp Pulse Resp BP BP Pulse Ox 07/29/24 19:08 62 20 91 L 07/29/24 16:00 98.0 F 71 21 106/56 91 L 07/29/24 12:00 98.6 F 73 28 H 105/55 92 L 07/29/24 08:00 100.5 F 77 22 124/64 119/59 93 L 07/29/24 04:00 98.0 F 86 26 H 119/59 92 L 07/28/24 23:26 98.5 F 70 22 111/52 95 07/28/24 20:00 98.0 F 91 H 22 118/55 100 Pain Assessment - Last Documented Pain Intensity 0 Pain Scale Used 0-10 Pain Scale Intake and Output: Intake & Output 07/27/24 07/28/24 07/29/24 07/30/24 11:59 11:59 11:59 11:59 Intake Total 2296 1040 1207 981 Output Total 675 260 500 350 Balance 1621 780 707 631 Weight 60.3 kg 60.8 kg Lab Results: Lab Results-Last 24 Hours 07/28/24 07/29/24 07/29/24 Range/Units 22:16 05:40 05:40 WBC 8.9 (4.23-9.07) x10^3/uL RBC 3.10 L (4.63-6.08) x10^6/uL Hgb 9.6 L (13.7-17.5) g/dL Hct 29.8 L (40.1-51.0) % MCV 96.1 H (79.0-92.2) fL MCH 31.0 (25.7-32.2) pg MCHC 32.2 L (32.3-36.5) g/dL RDW 14.6 H (11.6-14.4) % Plt Count 271 (163-337) x10^3/uL MPV 9.0 L (9.4-12.4) fL Sodium 142 (135-145) mmol/L Potassium 4.3 (3.5-5.1) mmol/L Chloride 109 H (98-107) mmol/L Carbon Dioxide 24 (22-30) mmol/L Anion Gap 14.4 (5-15) MEQ/L BUN 35 H (9-20) mg/dL Creatinine 0.96 (0.66-1.25) mg/dL Estimated GFR 75.6 ML/MIN Glucose 167 H (74-106) mg/dL POC Glucometer 177 H (74 to 106) mg/dL Calcium 8.7 (8.4-10.2) mg/dL Total Bilirubin 0.60 (0.2-1.3) mg/dL AST 36 (17-59) U/L ALT 27 (0-50) U/L Alkaline Phosphatase 113 (38-126) U/L Serum Total Protein 6.9 (6.3-8.2) g/dL Albumin 3.4 L (3.5-5.0) g/dL Nasal Screen MRSA (PCR) (NEGATIVE) 07/29/24 07/29/24 07/29/24 Range/Units 08:07 10:13 12:00 WBC (4.23-9.07) x10^3/uL RBC (4.63-6.08) x10^6/uL Hgb (13.7-17.5) g/dL Hct (40.1-51.0) % MCV (79.0-92.2) fL MCH (25.7-32.2) pg MCHC (32.3-36.5) g/dL RDW (11.6-14.4) % Plt Count (163-337) x10^3/uL MPV (9.4-12.4) fL Sodium (135-145) mmol/L Potassium (3.5-5.1) mmol/L Chloride (98-107) mmol/L Carbon Dioxide (22-30) mmol/L Anion Gap (5-15) MEQ/L BUN (9-20) mg/dL Creatinine (0.66-1.25) mg/dL Estimated GFR ML/MIN Glucose (74-106) mg/dL POC Glucometer 169 H 204 H (74 to 106) mg/dL Calcium (8.4-10.2) mg/dL Total Bilirubin (0.2-1.3) mg/dL AST (17-59) U/L ALT (0-50) U/L Alkaline Phosphatase (38-126) U/L Serum Total Protein (6.3-8.2) g/dL Albumin (3.5-5.0) g/dL Nasal Screen MRSA (PCR) NOT DETECTED (NEGATIVE) 07/29/24 Range/Units 17:16 WBC (4.23-9.07) x10^3/uL RBC (4.63-6.08) x10^6/uL Hgb (13.7-17.5) g/dL Hct (40.1-51.0) % MCV (79.0-92.2) fL MCH (25.7-32.2) pg MCHC (32.3-36.5) g/dL RDW (11.6-14.4) % Plt Count (163-337) x10^3/uL MPV (9.4-12.4) fL Sodium (135-145) mmol/L Potassium (3.5-5.1) mmol/L Chloride (98-107) mmol/L Carbon Dioxide (22-30) mmol/L Anion Gap (5-15) MEQ/L BUN (9-20) mg/dL Creatinine (0.66-1.25) mg/dL Estimated GFR ML/MIN Glucose (74-106) mg/dL POC Glucometer 153 H (74 to 106) mg/dL Calcium (8.4-10.2) mg/dL Total Bilirubin (0.2-1.3) mg/dL AST (17-59) U/L ALT (0-50) U/L Alkaline Phosphatase (38-126) U/L Serum Total Protein (6.3-8.2) g/dL Albumin (3.5-5.0) g/dL Nasal Screen MRSA (PCR) (NEGATIVE) Radiology Exams: Radiology Procedures Category Date Time Status CHEST 1 VIEW (PORTABLE) Stat Exams 07/29/24 08:26 Completed Multi-Disciplinary Progress Notes: Multi-Disciplinary Progress Notes 07/29/24 10:19 Pharmacy Note by Torin Roberts Pharmacokinetic dosing service Date: 07/29/2024 Time: 1015 Objective: Patient: Jordi Lezama Floor: 112 Age: 89 yo Serum creatinine: 0.96 mg/dL Height: 67 Inches Weight (kg): 61 Diagnosis: worsening chest x ray, temp 100.5 Relevant medical/social history: Cultures and sensitivities: pending Other labs: wbc = 8.9 Assessment: IBW (kg): 66.10 Dosing wt(kg): 61 Estimated Creatinine clearance (ml/min): 45.0 CRCL method: Cockcroft and Gault using ibw(default). Drug selected: Vancomycin Loading dose (mg): 0 Vd (liters): 42.7 (factor used: 0.7 L/kg) Brennon (hr-1): 0.042 Half life (hrs): 16.50 Recommended dose: 1000 mg Interval: 24 hrs Infusion time (hrs): 1.5 Predicted peak (mcg/mL): 35.7 Predicted trough (mcg/mL): 13.88 Total body weight is being used for vancomycin dosing. Renal function is stable [ xxx] /unstable [ ] Recommendations: Give Vancomycin 1000 mg q 24 hrs with an expected Cpeak of 35.7 mcg/ml and an expected Ctrough of 13.88 mcg/ml Renal dosing of other antibiotics (review renal dosing of other medications and list guidelines here): nikolas Thank you for the consult, will continue to follow. Signature: kristy TROUGH 08/01/24 0930 Initialized on 07/29/24 10:19 - END OF NOTE <RYDER AYALA - Last Filed: 07/29/24 19:38> Assessment/Plan (1) Acute renal injury Current Visit: Yes Status: Acute Assessment & Plan: - gentle NS at 50 ml/hr -discontinued 07/26 - encourage PO intake as tolerated - hold home Lasix, losartan, spironolactone, and Farxiga -monitor renal/lytes daily 07/27: -resolved -continue to hold lasix/losaran/spironolactone farxiga Code(s): N17.9 - ACUTE KIDNEY FAILURE, UNSPECIFIED (2) Pneumonia Current Visit: Yes Status: Acute Assessment & Plan: -CT showing New diffuse bibasilar airspace disease with tiny effusions -patient febrile during hospitalization and endorses chills -WBC elevated 07/26 -Start on rocephin/azithromycin 07/27: -continue rocephin/azithromycin 07/28: -continue rocephin - completed course of azithromycin 07/27 -at baseline oxygen 2L 07/29: -Febrile -CXR -sputum culture pending -WBC WNL -on Basleline oxygen 2L Code(s): J18.9 - PNEUMONIA, UNSPECIFIED ORGANISM (3) Generalized weakness Current Visit: Yes Status: Acute Assessment & Plan: -PT evaluation recommending inpatient stay d/t recent falls and lower extremity instability at this time- he is at significant risk for recurring falls 07/28: -Patient declines rehab stay - family reports they can provide 24 hour care -Nursing order to walk pt with assistance TID as tolerated Code(s): R53.1 - WEAKNESS (4) Hyperkalemia Current Visit: Yes Status: Acute Assessment & Plan: - secondary to HORACE/ dehydration. Given Veltassa in ED, with appropriate temporizing measures, and repeat K appears to be improving. Patient's levels were only mildly elevated initially, so possibly contributing to patient's generalized weakness, but no EKG changes, no palpitations or other symptoms to suggest symptomatic hyperkalemia. -hold spriolonolactone -monitor renal/lytes daily 07/27: -resolved Code(s): E87.5 - HYPERKALEMIA (5) A-fib Current Visit: No Status: Acute Assessment & Plan: -continue xarelto/toprol xl Code(s): I48.91 - UNSPECIFIED ATRIAL FIBRILLATION (6) CHF (congestive heart failure) Current Visit: No Status: Acute Assessment & Plan: - hold Lasix, spironolactone, Farxiga, and losartan -vtials stable, no edema noted on exam - continue Toprol XL 12.5 mg daily - echo from 04/02 with ef of 10-15% - IMPRESSION: 1) SEVERE LEFT VENTRICULAR SYSTOLIC DYSFUNCTION. 2) MULTIPLE WALL MOTION ABNORMALITIES CONSISTENT WITH NEW ISCHEMIC CARDIOMYOPATHY. 3) BORDERLINE CONCENTRIC LEFT VENTRICULAR HYPERTROPHY. 4) MILD TO MODERATE MITRAL REGURGITATION. 5) MILD LEFT ATRIAL DILATATION. 6) RIGHT VENTRICULAR DILATATION. 7) RIGHT ATRIAL DILATATION. 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 Code(s): I50.9 - HEART FAILURE, UNSPECIFIED (7) COPD (chronic obstructive pulmonary disease) Current Visit: No Status: Acute Qualifiers: COPD type: COPD with acute exacerbation Qualified Code(s): J44.1 - Chronic obstructive pulmonary disease with (acute) exacerbation Assessment & Plan: - continue oxygen at 2L; titrate to maintain SpO2 91-94% - PRN DuoNeb - continue home Breo Ellipta -RT eval (8) Diabetes type 2, controlled Current Visit: No Status: Chronic Qualifiers: Diabetes mellitus complication status: without complication Assessment & Plan: -ADA diet -SSI -a1c at 7.02 Code status: Full code Prophylaxis: Xarelto Diet: diabetic Code(s): N17.9 - ACUTE KIDNEY FAILURE, UNSPECIFIED Code(s): N17.9 - ACUTE KIDNEY FAILURE, UNSPECIFIED (2) Pneumonia Current Visit: Yes Status: Acute Code(s): J18.9 - PNEUMONIA, UNSPECIFIED ORGANISM (3) Generalized weakness Current Visit: Yes Status: Acute Code(s): R53.1 - WEAKNESS (4) Hyperkalemia Current Visit: Yes Status: Acute Code(s): E87.5 - HYPERKALEMIA (5) A-fib Current Visit: No Status: Acute Code(s): I48.91 - UNSPECIFIED ATRIAL FIBRILLATION (6) CHF (congestive heart failure) Current Visit: No Status: Acute Code(s): I50.9 - HEART FAILURE, UNSPECIFIED (7) COPD (chronic obstructive pulmonary disease) Current Visit: No Status: Acute Qualifiers: COPD type: COPD with acute exacerbation Qualified Code(s): J44.1 - Chronic obstructive pulmonary disease with (acute) exacerbation (8) Diabetes type 2, controlled Current Visit: No Status: Chronic Qualifiers: Diabetes mellitus complication status: without complication Code(s): E11.9 - TYPE 2 DIABETES MELLITUS WITHOUT COMPLICATIONS <CRISTIN MOLINA - Last Filed: 07/29/24 08:24> KEYON Encounter - KEYON Encounter Attestation KEYON Encounter Attestation: "IhJORDI Barroso andhavediscussed pertinent aspects of their care with Cristin Beatty agree with the history, physical exam (any modifications based on my personal exam will be noted below), assessment, and plan as outlined in original note. Please see immediately below for my summary of findings and additional assessment and plan along with any meaningful corrections/explanations to the Subjective/Objective portions of the KEYON note will be noted." My portion of the encounter took place via telemedicine. -Patient feels better but had low grade fevers this morning. Antibiotic broadened to zosyn, nasal MRSA negative. Lasix resumed however will continue to hold farxiga and spironolactone for now (consider permanently discontinuing given patient's age, fragility and risk for HORACE). <RYDER AYALA - Last Filed: 07/29/24 19:38>
--- NOTE | 2024-07-29 09:22 | XRAY ---
CLINICAL HISTORY: sob fever COMPARISON: 07/25/2024 TECHNIQUE: CHEST xray AP VIEW (PORTABLE) FINDINGS: Blunting of both costophrenic angles with suspected mild bilateral pleural effusion, new. Patchy opacities with reticulation were noted at the right mid and lower lung zone and left lower lung zone, possible infiltrates, increased. Mild cardiomegaly. Clear both costophrenic angles. Right shoulder joint replacement. Degenerative spine and left shoulder changes. IMPRESSION: 1. Blunting of both costophrenic angles with suspected mild bilateral pleural effusion, new. 2. Patchy opacities with reticulation were noted at the right mid and lower lung zone and left lower lung zone, possible infiltrates, increased. 3. Mild cardiomegaly. 4. Otherwise no interval changes. 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 Kasandra Gallardo was informed regarding the presence of Important Medical Findings on this report. Electronically Signed by: Steph Bernal MD. (07/29/2024 09:18:00 EDT)
[2024-07-29] MEDS: LASIX 20 MG PO SCH (10:32)
[2024-07-29] MEDS: PHARMACY DOSING REQUIRED: VANCOMYCIN IV STA (10:32)
[2024-07-29] MEDS: VANCOMYCIN 1 GRAM/200 ML BAG 1 GM/200 ML PIGGYBACK IV SCH (10:32)
[2024-07-29] MEDS: PIPERACILLIN/TAZOBACTAM 3.375 GM in Sodium Chloride 100ML MINI-BAG PLUS 100 ML IV SCH (12:43)
[2024-07-30 04:51] LABS: Hemoglobin 10.9 g/dL (13.7-17.5); Mean Cell Volume 97.7 fL (79.0-92.2); Mean Corpuscular Hemoglobin 31.3 pg (25.7-32.2); Mean Corpuscular Hgb Concent. 32.1 g/dL (32.3-36.5); Mean Platelet Volume 9.1 fL (9.4-12.4); Platelet Count 291 x10^3/uL (163-337); Red Blood Count 3.48 x10^6/uL (4.63-6.08); Red Cell Distribution Width 14.6 % (11.6-14.4); White Blood Count 8.1 x10^3/uL (4.23-9.07)
[2024-07-30 05:19] LABS: ALBUMIN 3.6 g/dL (3.5-5.0); ANION GAP 17.4 MEQ/L (5-15); BILIRUBIN,TOTAL 0.8 mg/dL (0.2-1.3); Calcium 8.9 mg/dL (8.4-10.2); Creatinine 1 1.2 mg/dL (0.66-1.25); EST GLOMERULAR FILTRATION RATE 57.8 ML/MIN; Potassium 4.2 mmol/L (3.5-5.1); Total Protein 7.2 g/dL (6.3-8.2)
[2024-07-30 07:15] VITALS: BP 124/61; PULSE 79; RESP 16; TEMP 98; O2SAT 96
--- NOTE | 2024-07-30 09:42 | PCM.DS ---
Discharge Summary Date of Admission: 07/26/24 00:46 Date of Discharge: 07/30/24 Admitting Physician: JAKI STRICKLAND MD Primary Care Provider: TYRONE HANSEN Allergies Allergies No Known Drug Allergies Allergy (Verified 03/11/24 22:45) Hospital Summary - Hospital Course Hospital Course: 89 y/o M with h/o HFrEF, A-fib on Xarelto, DM2, COPD on 2-3L oxygen, and hypertension. Admitted on 07/26 with diffuse weakness. Patient brought in by daughter due to three days of diffuse generalized weakness, unable to get up from chair. Patient also noted some cough productive of yellow sputum along the way as well, although he remains on his home 2 L oxygen. He denied dyspnea or wheezing. He notes that throughout this time he had no appetite and ate almost nothing. He remains compliant with his medications, including his diuretics. Since admission he has remained on baseline O2 at 2L 96%. Lung sounds are clear today and no fevers overnight or today. It was recommended he d/c to rehab by PT however pt and family refuses. Pt would like to go home today with family. He feels he is doing better. Will continue antibiotics OP for pneumonia. He is to f/u with his PCP this week. He denies any further concerns at this time. - Vitals & Intake/Output Vital Signs: Vital Signs Temperature 98.0 F 07/30/24 07:13 Pulse Rate 79 07/30/24 07:30 Respiratory Rate 16 07/30/24 07:30 Blood Pressure 124/61 07/30/24 07:13 O2 Sat by Pulse Oximetry 96 07/30/24 07:30 Intake & Output: Intake & Output 07/27/24 07/28/24 07/29/24 07/30/24 11:59 11:59 11:59 11:59 Intake Total 2296 1040 1207 1221 Output Total 675 260 500 825 Balance 1621 780 707 396 Weight 60.3 kg 60.8 kg 61 kg - Lab Result Diagrams: 07/30/24 04:40 07/30/24 04:40 Lab Results-Last 24 Hrs: Lab Results-Last 24 Hours 07/29/24 07/29/24 07/29/24 Range/Units 10:13 12:00 17:16 WBC (4.23-9.07) x10^3/uL RBC (4.63-6.08) x10^6/uL Hgb (13.7-17.5) g/dL Hct (40.1-51.0) % MCV (79.0-92.2) fL MCH (25.7-32.2) pg MCHC (32.3-36.5) g/dL RDW (11.6-14.4) % Plt Count (163-337) x10^3/uL MPV (9.4-12.4) fL Sodium (135-145) mmol/L Potassium (3.5-5.1) mmol/L Chloride (98-107) mmol/L Carbon Dioxide (22-30) mmol/L Anion Gap (5-15) MEQ/L BUN (9-20) mg/dL Creatinine (0.66-1.25) mg/dL Estimated GFR ML/MIN Glucose (74-106) mg/dL POC Glucometer 204 H 153 H (74 to 106) mg/dL Calcium (8.4-10.2) mg/dL Total Bilirubin (0.2-1.3) mg/dL AST (17-59) U/L ALT (0-50) U/L Alkaline Phosphatase (38-126) U/L Serum Total Protein (6.3-8.2) g/dL Albumin (3.5-5.0) g/dL Nasal Screen MRSA (PCR) NOT DETECTED (NEGATIVE) 07/29/24 07/30/24 07/30/24 Range/Units 21:54 04:40 04:40 WBC 8.1 (4.23-9.07) x10^3/uL RBC 3.48 L (4.63-6.08) x10^6/uL Hgb 10.9 L (13.7-17.5) g/dL Hct 34.0 L (40.1-51.0) % MCV 97.7 H (79.0-92.2) fL MCH 31.3 (25.7-32.2) pg MCHC 32.1 L (32.3-36.5) g/dL RDW 14.6 H (11.6-14.4) % Plt Count 291 (163-337) x10^3/uL MPV 9.1 L (9.4-12.4) fL Sodium 143 (135-145) mmol/L Potassium 4.2 (3.5-5.1) mmol/L Chloride 106 (98-107) mmol/L Carbon Dioxide 24 (22-30) mmol/L Anion Gap 17.4 H (5-15) MEQ/L BUN 32 H (9-20) mg/dL Creatinine 1.20 (0.66-1.25) mg/dL Estimated GFR 57.8 ML/MIN Glucose 152 H (74-106) mg/dL POC Glucometer 154 H (74 to 106) mg/dL Calcium 8.9 (8.4-10.2) mg/dL Total Bilirubin 0.80 (0.2-1.3) mg/dL AST 41 (17-59) U/L ALT 34 (0-50) U/L Alkaline Phosphatase 119 (38-126) U/L Serum Total Protein 7.2 (6.3-8.2) g/dL Albumin 3.6 (3.5-5.0) g/dL Nasal Screen MRSA (PCR) (NEGATIVE) 07/30/24 Range/Units 07:28 WBC (4.23-9.07) x10^3/uL RBC (4.63-6.08) x10^6/uL Hgb (13.7-17.5) g/dL Hct (40.1-51.0) % MCV (79.0-92.2) fL MCH (25.7-32.2) pg MCHC (32.3-36.5) g/dL RDW (11.6-14.4) % Plt Count (163-337) x10^3/uL MPV (9.4-12.4) fL Sodium (135-145) mmol/L Potassium (3.5-5.1) mmol/L Chloride (98-107) mmol/L Carbon Dioxide (22-30) mmol/L Anion Gap (5-15) MEQ/L BUN (9-20) mg/dL Creatinine (0.66-1.25) mg/dL Estimated GFR ML/MIN Glucose (74-106) mg/dL POC Glucometer 180 H (74 to 106) mg/dL Calcium (8.4-10.2) mg/dL Total Bilirubin (0.2-1.3) mg/dL AST (17-59) U/L ALT (0-50) U/L Alkaline Phosphatase (38-126) U/L Serum Total Protein (6.3-8.2) g/dL Albumin (3.5-5.0) g/dL Nasal Screen MRSA (PCR) (NEGATIVE) Micro Results-Entire Visit: Microbiology 07/25/24 21:20 Blood Culture - Final Blood 07/25/24 21:15 Blood Culture - Final Blood 07/25/24 21:58 Urine Culture - Final Urine, Catheterized NO GROWTH Accuchecks Date 07/30/24 Date 07/29/24 Time 07:39 Time 21:54 - Radiology Exams Ordered Rad Exams-Entire Visit: Radiology Procedures Category Date Time Status CHEST 1 VIEW (PORTABLE) Stat Exams 07/29/24 08:26 Completed - Procedures and Test Procedures and Tests throughout Hospitalization: Therapy Orders & Screens 07/25/24 22:17 Respiratory Therapy Assessment DAILY Comment: 07/26/24 02:04 Oxygen Nasal Cannula 2 lpm Comment: Diagnosis: Dehydration, hyperkalemia generalized weakness Respiratory Therapy Consult ONCE Comment: Reason For Exam: Diagnosis: Dehydration, hyperkalemia generalized weakness 07/26/24 02:59 Respiratory MDI BID Comment: Diagnosis: generalized weakness 07/26/24 09:00 ST Screen per Nursing Assess ONCE Comment: Protocol Order Physician Instructions: Greater than [address] Admission Screening Reason For Exam: Triggered on Admission Diagnosis: generalized weakness CVA/Dyshpagia/Aphasia: No Cognitive Deficits: No Dehydration/Nutrition Deficit: No Reflux: No Oral-Motor Difficulties: No Pneumonia: Yes Long Term Resident: No Total Points: 5 07/26/24 13:16 PT Eval & Treat (MD Order) ONCE Reason for Eval:: WEAKNESS, UNSURE IF HE NEEDS PLACMENT Diagnosis: generalized weakness Discharge Exam General Appearance: no apparent distress, alert Neurologic Exam: alert, oriented x 3, cooperative, normal mood/affect, nml cerebellar function, sensation nml, No motor deficits Eye Exam: PERRL, EOMI, eyes nml inspection Ears, Nose, Throat Exam: normal ENT inspection, pharynx normal, moist mucous membranes Neck Exam: normal inspection, non-tender, supple, full range of motion Respiratory Exam: normal breath sounds, lungs clear, No respiratory distress Cardiovascular Exam: regular rate/rhythm, normal heart sounds Gastrointestinal/Abdomen Exam: soft, No tenderness, No mass Male Genitalia Exam: deferred Rectal Exam: deferred Back Exam: normal inspection, normal range of motion, No CVA tenderness, No vertebral tenderness Extremity Exam: normal inspection, normal range of motion Skin Exam: normal color, warm, dry Wound Assessment: Skin/Wound Assessment Wound/Incision Assessment Start: 07/26/24 02:24 Text: Status: Active Freq: Q6H Protocol: Document 07/30/24 08:45 JV (Rec: 07/30/24 09:31 JV [id number]) Wound/Incision Assessment Medial Coccyx Wound Assessment Shift Assessment Wound Type Pressure Ulcer Wound Stage Stage II Dressing Status Dry & Intact Drainage Amount None General Appearance Clean/Dry,Reddened Wound Bed Greatest Portion Red (Granulation) Surrounding Tissue [employer],Dark Red Primary Dressing mepilex border Comment dressing CDI. Remains true. Wound Photo Photo Taken No Final Diagnosis/Problem List - Final Discharge Diagnosis/Problem (1) Acute renal injury Current Visit: Yes Status: Acute Code(s): N17.9 - ACUTE KIDNEY FAILURE, UNSPECIFIED (2) Bilateral pneumonia Current Visit: Yes Status: Acute Code(s): J18.9 - PNEUMONIA, UNSPECIFIED ORGANISM (3) Generalized weakness Current Visit: Yes Status: Acute Code(s): R53.1 - WEAKNESS (4) Hyperkalemia Current Visit: Yes Status: Acute Code(s): E87.5 - HYPERKALEMIA (5) A-fib Current Visit: No Status: Acute Code(s): I48.91 - UNSPECIFIED ATRIAL FIBRILLATION (6) CHF (congestive heart failure) Current Visit: No Status: Acute Code(s): I50.9 - HEART FAILURE, UNSPECIFIED (7) COPD (chronic obstructive pulmonary disease) Current Visit: No Status: Acute (8) Diabetes type 2, controlled Current Visit: No Status: Chronic Assessment & Plan: (1) Acute renal injury Current Visit: Yes Status: Acute Assessment & Plan: - gentle NS at 50 ml/hr -discontinued 07/26 - encourage PO intake as tolerated - hold home Lasix, losartan, spironolactone, and Farxiga -monitor renal/lytes daily 07/27: -resolved -continue to hold lasix/losaran/spironolactone [id number] 07/30 - HORACE resolved- resume home meds Code(s): N17.9 - ACUTE KIDNEY FAILURE, UNSPECIFIED (2) Pneumonia Current Visit: Yes Status: Acute Assessment & Plan: -CT showing New diffuse bibasilar airspace disease with tiny effusions -patient febrile during hospitalization and endorses chills -WBC elevated 07/26 -Start on rocephin/azithromycin 07/27: -continue rocephin/azithromycin 07/28: -continue rocephin - completed course of azithromycin 07/27 -at baseline oxygen 2L 07/29: -Febrile -CXR -sputum culture pending -WBC WNL -on [place]line oxygen 2L 07/30 - CXR- reviewed - Continue home meds Code(s): J18.9 - PNEUMONIA, UNSPECIFIED ORGANISM (3) Generalized weakness Current Visit: Yes Status: Acute Assessment & Plan: -PT evaluation recommending inpatient stay d/t recent falls and lower extremity instability at this time- he is at significant risk for recurring falls 07/28: -Patient declines rehab stay - family reports they can provide 24 hour care -Nursing order to walk pt with assistance TID as tolerated 07/30 - pt wants to d/c with family - per CM hospice to consult at home this week. Code(s): R53.1 - WEAKNESS (4) Hyperkalemia Current Visit: Yes Status: Acute Assessment & Plan: - secondary to HORACE/ dehydration. Given Veltassa in ED, with appropriate temporizing measures, and repeat K appears to be improving. Patient's levels were only mildly elevated initially, so possibly contributing to patient's generalized weakness, but no EKG changes, no palpitations or other symptoms to suggest symptomatic hyperkalemia. -hold spriolonolactone -monitor renal/lytes daily 07/27: -resolved Code(s): E87.5 - HYPERKALEMIA (5) A-fib Current Visit: No Status: Acute Assessment & Plan: -continue xarelto/toprol xl Code(s): I48.91 - UNSPECIFIED ATRIAL FIBRILLATION (6) CHF (congestive heart failure) Current Visit: No Status: Acute Assessment & Plan: - hold Lasix, spironolactone, Farxiga, and losartan -vtials stable, no edema noted on exam - continue Toprol XL 12.5 mg daily - echo from 04/02 with ef of 10-15% - IMPRESSION: 1) SEVERE LEFT VENTRICULAR SYSTOLIC DYSFUNCTION. 2) MULTIPLE WALL MOTION ABNORMALITIES CONSISTENT WITH NEW ISCHEMIC CARDIOMYOPATHY. 3) BORDERLINE CONCENTRIC LEFT VENTRICULAR HYPERTROPHY. 4) MILD TO MODERATE MITRAL REGURGITATION. 5) MILD LEFT ATRIAL DILATATION. 6) RIGHT VENTRICULAR DILATATION. 7) RIGHT ATRIAL DILATATION. 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 Code(s): I50.9 - HEART FAILURE, UNSPECIFIED (7) COPD (chronic obstructive pulmonary disease) Current Visit: No Status: Acute Qualifiers: COPD type: COPD with acute exacerbation Qualified Code(s): J44.1 - Chronic obstructive pulmonary disease with (acute) exacerbation Assessment & Plan: - continue oxygen at 2L; titrate to maintain SpO2 91-94% - PRN DuoNeb - continue home Breo Ellipta -RT eval (8) Diabetes type 2, controlled Current Visit: No Status: Chronic Qualifiers: Diabetes mellitus complication status: without complication Assessment & Plan: -ADA diet -SSI -a1c at 7.02 Code(s): E11.9 - TYPE 2 DIABETES MELLITUS WITHOUT COMPLICATIONS - Discharge Discharge Date: 07/30/24 (with family) Disposition: HOME HEALTH SERVICE Condition: Stable Prescriptions: Continue Glimepiride [Amaryl] 1 mg PO DAILY Losartan Potassium [Cozaar] 50 mg PO DAILY Albuterol Sulfate [Albuterol Sulfate Hfa] 2 puffs IH UD Rivaroxaban [Xarelto] 20 mg PO DAILY Lubiprostone 8 mcg PO BID Fluticasone/Vilanterol [Breo Ellipta 100-25 Mcg Inhalr] 1 puff IH DAILY Oxycodone HCl 15 mg PO Q6H PRN PRN PRN Reason: Pain Acetaminophen 500 mg [Tylenol Extra Strength 500 mg] 325 mg PO TID Famotidine 20 mg [Pepcid 20 MG] 20 mg PO BID Gabapentin 100 mg PO TID Blood-Glucose Meter [Accu-Chek Guide Me Glucose Mtr] 1 each UD #1 misc Blood Sugar Diagnostic [Accu-Chek Guide Test Strip] 1 each ACHS #100 strip Lancets [Accu-Chek Softclix] 1 each ACHS #100 misc Senna/Docusate Sodium Tab [Senokot-S Tablet] 1 udtab PO BID Zinc Gluconate [Zinc] 50 mg PO DAILY Furosemide 20 mg [Lasix 20 mg] 20 mg PO DAILY 30 Days #30 tablet Metoprolol Succinate 25 mg Xl* [Toprol-Xl 25MG Tablets] 0.5 tab PO DAILY hydrOXYzine HCL [Hydroxyzine HCl] 10 mg PO BID Dapagliflozin Propanediol [Farxiga] 1 tab PO DAILY Spironolactone 1 tab PO DAILY Additional Instructions: [facility] HAS BEEN SET UP FOR YOU AGAIN. THEY WILL CALL YOU TO ARRANGE A TIME TO COME SEE YOU. IF YOU NEED ANYTHING BEFORE THEY CONTACT YOU, YOU CAN REACH THEM AT [phone] Follow up with: TYRONE HANSEN MD [Primary Care Provider] - 08/03/24 3:00 pm ([facility])
[2024-07-30] MEDS: Aldactone 25 MG PO SCH (10:07)
== END 2024-07-30 11:43 | disposition home health service (06) ==
LOC: ED 19:43 → MED SURG 07-26 00:46
PROVIDERS: ADMIT Internal Medicine; ATTEND Internal Medicine
DX: N17.9 Acute kidney failure, unspecified (principal); J18.9 Pneumonia, unspecified organism; R53.1 Weakness; E87.5 Hyperkalemia; I48.91 Unspecified atrial fibrillation; I11.0 Hypertensive heart disease with heart failure; I50.9 Heart failure, unspecified; J44.9 Chronic obstructive pulmonary disease, unspecified; E11.9 Type 2 diabetes mellitus without complications; L89.152 Pressure ulcer of sacral region, stage 2; Z79.01 Long term (current) use of anticoagulants; Z79.899 Other long term (current) drug therapy; Z99.81 Dependence on supplemental oxygen
CPT/HCPCS: 0241U; 36000; 36415; 71045; 74176; 76376; 80048; 80053; 81001; 82947; 83036; 85025; 85027; 87040; 87070; 87086; 87641; 93041; 93306; 94640; 94760; 96360; 96374; 96375; 97161; 97530; 99291; 99292; Q3014; 93268; 99285; J0456; J0612; J0696; J1815; J1817; J7609; A9270-GY; G0378; J3370

== ENCOUNTER 2024-09-11 11:04 | Emergency (ER) | payer MEDICARE ==
--- NOTE | 2024-09-11 11:39 | ERPHSYRPT ---
- History of Present Illness Time Seen by Provider: 09/11/24 11:29 Source: patient Exam Limitations: no limitations Physician History: 89-year-old male presents to our ED as a referral from his primary care doctor for a CT cervical spine. Patient reports that he has a history of a cervical spine fracture. Patient was at home he stumbled and fell. Fall occurred this m orning. Patient now has neck pain. Patient went to his primary care doctor for an evaluation then sent to our ED. Patient reports that he has a history of CHF. COPD. On oxygen. Patient states he feels a little weak. No other complaints. No chest pain or shortness of breath no nausea vomiting or diaphoresis. Daughter at bedside. They voiced no other complaints or concerns at this time. Portions of this note were created with voice recognition technology. There may be grammatical, spelling, punctuation or sound alike errors Timing/Duration: today Severity: moderate Modifying Factors: Improves With: nothing Associated Symptoms: other (Generalized weakness) Allergies/Adverse Reactions: No Known Drug Allergies Allergy (Verified 09/11/24 11:22) Home Medications: Glimepiride [Amaryl] 1 mg PO DAILY 12/17/14 [History] Losartan Potassium [Cozaar] 50 mg PO DAILY 04/05/20 [History] Albuterol Sulfate [Albuterol Sulfate Hfa] 2 puffs IH UD 09/04/21 [History] Lubiprostone 8 mcg PO BID 09/04/21 [History] Rivaroxaban [Xarelto] 20 mg PO DAILY 09/04/21 [History] Fluticasone/Vilanterol [Breo Ellipta 100-25 Mcg Inhalr] 1 puff IH DAILY 03/30/22 [History] Oxycodone HCl 15 mg PO Q6H PRN PRN 03/30/22 [History] Acetaminophen 500 mg [Tylenol Extra Strength 500 mg] 1,000 mg PO BID 07/25/23 [History] Famotidine 20 mg [Pepcid 20 MG] 20 mg PO BID 07/25/23 [History] Gabapentin 100 mg PO TID 07/26/23 [History] Senna/Docusate Sodium Tab [Senokot-S Tablet] 1 udtab PO BID 03/11/24 [History] Zinc Gluconate [Zinc] 50 mg PO DAILY 03/11/24 [History] Dapagliflozin Propanediol [Farxiga] 1 tab PO DAILY 07/25/24 [History] Metoprolol Succinate 25 mg Xl* [Toprol-Xl 25MG Tablets] 0.5 tab PO DAILY 07/25/24 [History] Spironolactone 1 tab PO DAILY 07/25/24 [History] hydrOXYzine HCL [Hydroxyzine HCl] 10 mg PO BID 07/25/24 [History] Clobetasol Propionate/Emoll [Clobetasol Emollient 0.05% Crm] 1 applic TP BID 09/11/24 [History] Midodrine HCl 2.5 mg PO BID 09/11/24 [History] Hx Tetanus, Diphtheria Vaccination/Date Given: Yes Hx Influenza Vaccination/Date Given: Yes Hx Pneumococcal Vaccination/Date Given: Yes Travel Risk - Emerging Infectious Disease Are you exhibiting symptoms associated with any current EIDs: Yes Symptoms: Fever - Review of Systems Constitutional: No Symptoms, No Fever, No Chills Eyes: No Symptoms Ears, Nose, & Throat: No Symptoms Respiratory: No Symptoms, No Cough, No Dyspnea Cardiac: No Symptoms, No Chest Pain, No Edema, No Syncope Abdominal/Gastrointestinal: No Symptoms, No Abdominal Pain, No Nausea, No Vomiting, No Diarrhea Genitourinary Symptoms: No Symptoms, No Dysuria Musculoskeletal: No Symptoms, No Back Pain, No Neck Pain Skin: No Symptoms, No Rash Neurological: No Symptoms, No Dizziness, No Focal Weakness, No Sensory Changes Psychological: No Symptoms Endocrine: No Symptoms Hematologic/Lymphatic: No Symptoms Immunological/Allergic: No Symptoms All Other Systems: Reviewed and Negative - Past Medical History Pertinent Past Medical History: Yes Neurological History: Stroke ENT History: Cataracts Cardiac History: Congestive Heart Failure (EF <30% on TTE in April), Hypertension Respiratory History: COPD Endocrine Medical History: Diabetes Type II Musculoskeletal History: Arthritis, Osteoarthritis GI Medical History: Hernia History: No Pertinent History Psycho-Social History: No Pertinent History Male Reproductive Disorders: No Pertinent History Other Medical History: 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; facial wells in july - Past Surgical History Past Surgical History: Yes Neuro Surgical History: No Pertinent History Cardiac: No Pertinent History Respiratory: No Pertinent History Gastrointestinal: Cholecystectomy, Hernia Repair Genitourinary: No Pertinent History Musculoskeletal: Joint Replacement, Orthopedic Surgery Male Surgical History: No Pertinent History Other Surgical History: back,cataracts rt/lt, R shoulder joint replaced, skin grafts - face & R upper anterior leg, skin grafts Significant Family History: no pertinent family hx - Social History Smoking Status: Former smoker Exposure to second hand smoke: No Drug Use: none Patient Lives Alone: No - Social Determinants of Health Will the patient participate in the screening: Declined to provide Do you worry about a steady place to live?: No In the past 12 months,have you had to go without utilities?: No Transportation Issues: No Has anyone in your support network made you feel unsafe?: No Have you or anyone in your house had to go without enough: No - Nursing Vital Signs Nursing Vital Signs: Initial Vital Signs Temperature 97.2 F 09/11/24 11:22 Pulse Rate 63 09/11/24 11:22 Respiratory Rate 18 09/11/24 11:22 Blood Pressure 119/59 09/11/24 11:22 O2 Sat by Pulse Oximetry 100 09/11/24 11:22 Pain Scale Pain Intensity 9 - Physical Exam General Appearance: no apparent distress, alert Eye Exam: PERRL/EOMI, eyes nml inspection Ears, Nose, Throat Exam: normal ENT inspection, TMs normal, pharynx normal, moist mucous membranes, dry mucous membranes (Dry appearing oral mucous membranes) Neck Exam: normal inspection, non-tender, supple, full range of motion Respiratory Exam: normal breath sounds, lungs clear, airway intact, No respiratory distress Cardiovascular Exam: regular rate/rhythm, normal heart sounds, normal peripheral pulses Gastrointestinal/Abdomen Exam: soft, normal bowel sounds, No tenderness, No mass Back Exam: normal inspection, normal range of motion, No CVA tenderness, No vertebral tenderness Extremity Exam: normal inspection, normal range of motion, pelvis stable Neurologic Exam: alert, oriented x 3, cooperative, normal mood/affect, nml cerebellar function, nml station & gait, sensation nml, No motor deficits Skin Exam: normal color, warm, dry, No rash Lymphatic Exam: No adenopathy SpO2 Interpretation: normal O2 Delivery: Room Air - Course Nursing assessment & vital signs reviewed: Yes EKG Interpreted by Me: RATE (57), A-fib, NORMAL AXIS, NORMAL INTERVALS, Left Bundle Branch Block - CT Exams Cervical Spine CT Interpretation: Tele-radiologist Report (Fracture of atlas and odontoid process however these fractures are chronic not acute as confirmed by previous imaging studies and discussion with neurosurgeon.) Ordered Tests: Active Orders 24 hr Category Date Time Status EKG-ER Only STAT Care 09/11/24 12:31 Active CERVICAL SPINE WO CONTRAST [CT] Stat Exams 09/11/24 11:27 Completed CHEST 1 VIEW (PORTABLE) Stat Exams 09/11/24 16:33 Completed CBC W DIFF Stat Lab 09/11/24 11:38 Completed CMP Stat Lab 09/11/24 11:38 Completed NT PRO BNPII Stat Lab 09/11/24 11:38 Completed TROPONIN Q4H Lab 09/11/24 11:38 Completed TROPONIN Q4H Lab 09/11/24 15:10 Completed TROPONIN Q4H Lab 09/11/24 19:30 Ordered UA W/RFX UR CULTURE Stat Lab 09/11/24 11:26 Ordered Medication Summary Discontinued Medications Generic Name Dose Route Start Last Admin Trade Name Freq PRN Reason Stop Dose Admin Furosemide 40 mg 09/11/24 18:41 Furosemide 40 Mg/4 Ml Vial IV 09/11/24 18:42 STAT ONE Lab/Rad Data: Laboratory Result Diagrams 09/11/24 11:38 09/11/24 11:38 Laboratory Results 09/11/24 09/11/24 09/11/24 Range/Units 15:10 11:38 11:38 WBC (4.23-9.07) x10^3/uL RBC (4.63-6.08) x10^6/uL Hgb (13.7-17.5) g/dL Hct (40.1-51.0) % MCV (79.0-92.2) fL MCH (25.7-32.2) pg MCHC (32.3-36.5) g/dL RDW (11.6-14.4) % Plt Count (163-337) x10^3/uL MPV (9.4-12.4) fL Gran % (34.0-67.9) % Immature Gran % (Auto) (0.001-0.429) % Nucleat RBC Rel Count (0.00-0.2) % Eos # (Auto) (0.04-0.54) x10^3/uL Immature Gran # (Auto) (0.001-0.031) x10^3u/L Absolute Lymphs (auto) (1.32-3.57) x10^3/uL Absolute Monos (auto) (0.30-0.82) x10^3/uL Absolute Nucleated RBC (0.00-0.012) x10^3u/L Lymphocytes % (21.8-53.1) % Monocytes % (5.3-12.2) % Eosinophils % (0.8-7.0) % Basophils % (0.2-1.2) % Absolute Granulocytes (1.78-5.38) x10^3/uL Basophils # (0.01-0.08) x10^3/uL Sodium (135-145) mmol/L Potassium (3.5-5.1) mmol/L Chloride (98-107) mmol/L Carbon Dioxide (22-30) mmol/L Anion Gap (5-15) MEQ/L BUN (9-20) mg/dL Creatinine (0.66-1.25) mg/dL Estimated GFR ML/MIN Glucose (74-106) mg/dL Calcium (8.4-10.2) mg/dL Total Bilirubin (0.2-1.3) mg/dL AST (17-59) U/L ALT (0-50) U/L Alkaline Phosphatase (38-126) U/L Troponin I 0.145 H* 0.107 H* (0.000-0.033) ng/mL NT-Pro-B Natriuret Pep 88196 (<300) pg/mL Serum Total Protein (6.3-8.2) g/dL Albumin (3.5-5.0) g/dL 09/11/24 09/11/24 Range/Units 11:38 11:38 WBC 9.6 H (4.23-9.07) x10^3/uL RBC 3.43 L (4.63-6.08) x10^6/uL Hgb 11.3 L (13.7-17.5) g/dL Hct 35.7 L (40.1-51.0) % MCV 104.1 H (79.0-92.2) fL MCH 32.9 H (25.7-32.2) pg MCHC 31.7 L (32.3-36.5) g/dL RDW 17.9 H (11.6-14.4) % Plt Count 218 (163-337) x10^3/uL MPV 9.0 L (9.4-12.4) fL Gran % 71.3 H (34.0-67.9) % Immature Gran % (Auto) 0.4 (0.001-0.429) % Nucleat RBC Rel Count 0.0 (0.00-0.2) % Eos # (Auto) 0.28 (0.04-0.54) x10^3/uL Immature Gran # (Auto) 0.04 H (0.001-0.031) x10^3u/L Absolute Lymphs (auto) 1.68 (1.32-3.57) x10^3/uL Absolute Monos (auto) 0.72 (0.30-0.82) x10^3/uL Absolute Nucleated RBC 0.00 (0.00-0.012) x10^3u/L Lymphocytes % 17.5 L (21.8-53.1) % Monocytes % 7.5 (5.3-12.2) % Eosinophils % 2.9 (0.8-7.0) % Basophils % 0.4 (0.2-1.2) % Absolute Granulocytes 6.85 H (1.78-5.38) x10^3/uL Basophils # 0.04 (0.01-0.08) x10^3/uL Sodium 140 (135-145) mmol/L Potassium 4.5 (3.5-5.1) mmol/L Chloride 103 (98-107) mmol/L Carbon Dioxide 27 (22-30) mmol/L Anion Gap 14.6 (5-15) MEQ/L BUN 42 H (9-20) mg/dL Creatinine 1.40 H (0.66-1.25) mg/dL Estimated GFR 48.0 ML/MIN Glucose 169 H (74-106) mg/dL Calcium 9.5 (8.4-10.2) mg/dL Total Bilirubin 1.00 (0.2-1.3) mg/dL AST 25 (17-59) U/L ALT 15 (0-50) U/L Alkaline Phosphatase 110 (38-126) U/L Troponin I (0.000-0.033) ng/mL NT-Pro-B Natriuret Pep (<300) pg/mL Serum Total Protein 7.0 (6.3-8.2) g/dL Albumin 4.0 (3.5-5.0) g/dL - Progress Progress: improved Progress Note: I spoke to Dr. Mattson neurosurgeon at [facility] who advises that the fractures are old stable and essentially identical to the CAT scan performed on 03/09/2023. No intervention indicated at this time. No need for transfer I spoke to Dr. Mattson at 2:42 PM 09/11/24 14:41 I spoke to patient's risk advisor at 1645. He accepted consultation/transfer but advised to contact the hospitalist for formal acceptance. Patient was accepted by at approximately 1730. Chest x- ray suggest possible infection versus interstitial additional lung disease. Patient has no signs of pulmonary infection. No fever no shortness of breath no tachypnea no cough no hypoxia. Patient uses 3 L nasal cannula at home. Patient is near 100% on 3 L nasal cannula. He has no pulmonary complaints. BNP elevated. Patient received 20 mg of Lasix accordingly. Troponin trending upward at 0.1 then 0.145. Patient kidney function is abnormal chronically. Patient has no active chest pain. Patient on Xarelto. No indication for additional blood thinning intervention. No indication for nitroglycerin at this time. Vital stable. We will transfer patient to [facility] for further evaluation and treatment. Portions of this note were created with voice recognition technology. There may be grammatical, spelling, punctuation or sound alike errors Complexity of problem addressed is moderate acute complicated no critical care time. Complex of data reviewed and analyzed is extensive. Test ordered test reviewed. Results analyzed and correlated clinically with history and physical exam. Risk of complication and or risk of morbidity/mortality of patient management is high. Patient requires hospitalization/transfer to higher level of care. Vital stable. Time spent to transfer patient is approximately 20 minutes. Plan of care established for shared decision making. No social determinants of health present to impede follow-up. Portions of this note were created with voice recognition technology. There may be grammatical, spelling, punctuation or sound alike errors 09/11/24 18:57 Counseled pt/family regarding: lab results, diagnosis, need for follow-up - Departure Departure Disposition: Transfer Clinical Impression: Fracture of atlas, Odontoid fracture, Generalized weakness, Fall, Chronic a- fib, Left bundle branch block, Elevated brain natriuretic peptide (BNP) level Condition: Stable Critical Care Time: No Referrals: TYRONE HANSEN MD [Primary Care Provider] - Follow up/PCP as directed
[2024-09-11 11:41] VITALS: TEMP 97.2
[2024-09-11 11:41] LABS: Absolute Neutrophil Ct (ANC) 6.85 x10^3/uL (1.78-5.38); BASOPHIL % 0.4 % (0.2-1.2); Basophil (Absolute #) 0.04 x10^3/uL (0.01-0.08); Eosinophil % 2.9 % (0.8-7.0); Eosinophil (Absolute #) 0.28 x10^3/uL (0.04-0.54); Hematocrit 35.7 % (40.1-51.0); Hemoglobin 11.3 g/dL (13.7-17.5); IMMATURE GRAN # 0.04 x10^3u/L (0.001-0.031); IMMATURE GRAN % 0.4 % (0.001-0.429); Lymphocyte (Absolute #) 1.68 x10^3/uL (1.32-3.57); Lymphocytes % 17.5 % (21.8-53.1); Mean Cell Volume 104.1 fL (79.0-92.2); Mean Corpuscular Hemoglobin 32.9 pg (25.7-32.2); Mean Corpuscular Hgb Concent. 31.7 g/dL (32.3-36.5); Monocyte (Absolute #) 0.72 x10^3/uL (0.30-0.82); Monocytes % 7.5 % (5.3-12.2); Neutrophil % 71.3 % (34.0-67.9); Platelet Count 218 x10^3/uL (163-337); Red Blood Count 3.43 x10^6/uL (4.63-6.08); Red Cell Distribution Width 17.9 % (11.6-14.4); White Blood Count 9.6 x10^3/uL (4.23-9.07)
[2024-09-11 12:10] LABS: ANION GAP 14.6 MEQ/L (5-15); Calcium 9.5 mg/dL (8.4-10.2); Creatinine 1 1.4 mg/dL (0.66-1.25); Potassium 4.5 mmol/L (3.5-5.1)
--- NOTE | 2024-09-11 13:04 | XRAY ---
CLINICAL HISTORY: pain COMPARISON: Comparison is made with the prior imaging dated 07/16/2024. TECHNIQUE: CT scan of the cervical spine was performed without the administration of intravenous contrast. Contiguous axial images were obtained from the skull base to the upper thoracic spine. Coronal and sagittal reformatted images were also reviewed. One of the following dose reduction techniques was utilized for this exam. Automated exposure control, adjustment of the mA and/or kV according to patient size, and use of iterative reconstruction. FINDINGS: Vertebrae: Partially displaced fractures of posterior arch of atlas on both sides. Fracture of the odontoid process of the C2. Straightening of cervical curvature with reversal due to muscular spasm. Grade II anterolisthesis of C6 over C7 vertebral body. Multilevel anterior osteophytes are seen along with end plate irregularities. A tiny irregular radiodensity is seen at anterosuperior aspect of C5 vertebral body-detached osteophyte/limbus vertebra. Intervertebral Discs: The intervertebral disc space is reduced at C6-C7 level and lost at L7-T1 level. Multilevel posterior central disc bulges are seen, however mild to moderate spinal canal stenosis is seen at C6-C7 level secondary to aforementioned anterolisthesis of C6 over C7. Facet Joints: Significant degenerative changes are seen at all levels bilaterally as subchondral sclerosis, osteophytes and loss of joint spaces. Neural Foramina: No definite CT evidence of foraminal narrowing or nerve root compression, however, MRI is suggested as modality of choice. Prevertebral Soft Tissues: The prevertebral soft tissues are normal in thickness without evidence of mass or abnormal fluid collection. Slices through lung apices show left apical ground glass consolidation - new finding. IMPRESSION: 1. Partially displaced fractures of the posterior arch of the atlas on both sides. 2. Fracture of the odontoid process of the C2. 3. Straightening of cervical curvature with reversal due to muscular spasm. 4. Grade II anterolisthesis of C6 over C7 vertebral body. 5. Multilevel anterior osteophytes are seen along with end plate irregularities.A tiny irregular radiodensity is seen at the anterosuperior aspect of C5 vertebral body-detached osteophyte/limbus vertebra. 6. The intervertebral disc space is reduced at the C6-C7 level and lost at the L7-T1 level.Multilevel posterior central disc bulges. 7. Significant degenerative changes are seen at all facet joints. [facility] was called at [phone] at 11:54 AM INSURANCE MARKETING SPECIALIST, 09/11/2024 and Joelle (Nurse) was informed about the presence of significant medical findings in the report. Electronically Signed by: Steph Bernal MD. (09/11/2024 13:00:50 EST)
[2024-09-11 17:13] VITALS: O2SAT 97
--- NOTE | 2024-09-11 18:03 | XRAY ---
CLINICAL HISTORY: sob COMPARISON: 07/29/2024 TECHNIQUE: An X-ray image of the chest is obtained in AP projection. FINDINGS: Pulmonary Parenchyma: Diffuse interstitial thickening of both lung ignacio with diffuse faint ground-glass veiling, suggestive of pulmonary infection or interstitial lung disease. Clinical correlation and further assessment with CT are recommended. No evidence of consolidation, collapse, or focal opacities. No pulmonary nodules are identified. Blunt both costophrenic recesses, may represent mild pleural effusion or pleural thickening. Heart and Mediastinum: Heart size and shape are normal. No mediastinal widening or masses. No hilar or mediastinal lymphadenopathy. Bony Thorax: Bony thorax appears intact without fractures or deformities. Right total shoulder arthroplasty. Left glenohumeral osteoarthritis. Soft Tissues: Soft tissues overlying the chest wall are unremarkable. IMPRESSION: 1. Diffuse interstitial thickening of both lung ignacio with diffuse faint ground-glass veiling predominantly in middle and lower zones, suggestive of pulmonary infection or interstitial lung disease. Clinical correlation and further assessment with CT are recommended. 2. Blunt both costophrenic recesses, may represent mild pleural effusion or pleural thickening. 3. Previously noted opacity in the right middle zone shows interval regression. Electronically Signed by: Steph Bernal MD. (09/11/2024 17:59:19 EST)
[2024-09-11 18:41] VITALS: BP 103/55; PULSE 53; RESP 19
[2024-09-11] MEDS: Lasix 40 MG/4 ML IV ONE (18:43)
[2024-09-11] MEDS ORDERED: Lasix 20 MG/2 ML ONE (18:44)
[2024-09-11] MEDS: Lasix 20 MG/2 ML IV SCH (18:46)
== END 2024-09-11 18:50 | disposition short-term general hospital (02) ==
LOC: ED 11:04
DX: M54.2 Cervicalgia (principal); W19.XXXA Unspecified fall, initial encounter; I11.0 Hypertensive heart disease with heart failure; I50.9 Heart failure, unspecified; E11.9 Type 2 diabetes mellitus without complications; I48.20 Chronic atrial fibrillation, unspecified; R53.1 Weakness; R79.89 Other specified abnormal findings of blood chemistry; Z79.01 Long term (current) use of anticoagulants
CPT/HCPCS: 36415; 71045; 72125; 80053; 83880; 84484; 85025; 93005; 96374; 99285; J1940